=== PATIENT | female | born 1995 | race African-American/Black ===

== ENCOUNTER 2017-01-04 18:28 | Emergency (ER) | payer SELFPAY ==
[~2017-01-04] VITALS: Ht 162.6 cm; Wt 74.0 kg
[2017-01-04 18:29] VITALS: BP 107/68; PULSE 76; RESP 13; TEMP 98.2; O2SAT 98
[2017-01-04] MEDS ORDERED: HUMALOG SQ (18:52)
[2017-01-04] MEDS ORDERED: INSULIN HUMAN NPH 1,000 UNITS/10 ML VIAL SQ ONE (19:15)
--- NOTE | 2017-01-04 19:32 | PD ---
HPI Chief Complaint: Diabetic Time Seen by Provider: 18:59 Travel History International Travel<30 days: No Contact w/Intl Traveler<30days: No Traveled to known affect area: No History of Present Illness HPI 21-year-old female complains of elevated blood sugar. Patient has history of diabetes and has insulin pump. Patient states that she ran out of her Humalog insulin for her insulin pump this afternoon. Patient states that her blood sugar was 483 an hour ago. Patient denies any headache. Patient denies any chest pain or shortness of breath. Patient denies abdominal pain. Patient denies any nausea vomiting diarrhea. Patient denies any fever chills. Patient states that her insurance does not pay for insulin for insulin pump in the state [facility]. [facility] Past Medical History Diabetes: Yes (Type 1) Patient Takes Glucophage: No Diminished Hearing: No Influenza Vaccination: Yes ?: Not LMP: 01/01/17 : 1 Para: 0 Dilation and Curettage (D&C): Yes Social History Alcohol Use: Yes (occasionally) Tobacco Use: No Substance Use: No Allergies-Medications (Allergen,Severity, Reaction): Coded Allergies: No Known Drug Allergies (Verified Allergy, Unknown, 01/04/17) Reported Meds & Prescriptions Reported Meds & Active Scripts Active Reported Humalog Inj (Insulin Human Lispro) 1,000 Unit/10 Ml Vial 2-12 Units SQ PUMP Max dose at bedtime:( )units; sugars < 70,(0)units; sugars 150-199,(2)units; sugars 200-249,(4)units; sugars 250-299,(7)units; sugars 300-349,(10)units; sugars more than 349,(12)units. Review of Systems General / Constitutional: No: Fever Eyes: No: Visual changes HENT: No: Headaches Cardiovascular: No: Chest Pain or Discomfort Respiratory: No: Shortness of Breath Gastrointestinal: No: Abdominal Pain Genitourinary: No: Dysuria Musculoskeletal: No: Pain Skin: No Rash Neurologic: No: Weakness Psychiatric: No: Depression Endocrine: No: Polydipsia Hematologic/Lymphatic: No: Easy Bruising Physical Exam Narrative GENERAL: Well-nourished, well-developed patient. SKIN: Focused skin assessment warm/dry. HEAD: Normocephalic. EYES: No scleral icterus. No injection or drainage. NECK: Supple, trachea midline. No JVD or lymphadenopathy. CARDIOVASCULAR: Regular rate and rhythm without murmurs, gallops, or rubs. RESPIRATORY: Breath sounds equal bilaterally. No accessory muscle use. GASTROINTESTINAL: Abdomen soft, non-tender, nondistended. MUSCULOSKELETAL: No cyanosis, or edema. BACK: Nontender without obvious deformity. No CVA tenderness. Neurologic exam normal. Data Data Last Documented VS Vital Signs Date Time Temp Pulse Resp B/P (MAP) Pulse Ox O2 Delivery O2 Flow Rate FiO2 01/04/17 18:29 98.2 76 13 107/68 (81) 98 Orders Orders Insulin Human Nph Inj (Novolin N Inj) (01/04/17 19:15) Urinalysis - C+S If Indicated (01/04/17 19:13) Insulin Detemir Inj (Levemir Inj) (01/04/17 19:45) Insulin Human Regular Inj (Novolin R Inj (01/04/17 20:00) Urine Culture (01/04/17 19:25) Insulin Human Regular Inj (Novolin R Inj (01/04/17 21:15) Sulfamet-Trimeth Ds 800-160 Mg (Bactrim (01/04/17 21:15) Labs Laboratory Tests Test 01/04/17 19:25 Urine Color LIGHT-YELLOW Urine Turbidity CLEAR Urine pH 6.0 Urine Specific [place] 1.021 Urine Protein NEG mg/dL Urine Glucose (UA) 1000 mg/dL Urine Ketones 10 mg/dL Urine Occult Blood TRACE Urine Nitrite NEG Urine Bilirubin NEG Urine Urobilinogen LESS THAN 2.0 MG/DL Urine Leukocyte Esterase SMALL Urine RBC 2 /hpf Urine WBC 12 /hpf Urine Squamous Epithelial Cells <1 /hpf Microscopic Urinalysis Comment CULTURE INDICATED MDM Medical Decision Making Medical Screen Exam Complete: Yes Emergency Medical Condition: Yes Interpretation(s) Accu-Chek blood sugar in the ED 529. Differential Diagnosis Differential diagnosis including hyperglycemia, DKA. Narrative Course 41-year-old female with hyperglycemia. History of diabetes. Patient ran out of insulin in her insulin pump. Humulin insulin R 10 units subcutaneous given. 21:15 PM. Accu-Chek blood sugar in the 300 range. Humulin insulin R 8 units subcutaneous given. Bactrim DS one tablet by mouth given. Diagnosis Primary Impression: Hyperglycemia Additional Impression: UTI (urinary tract infection) Qualified Codes: N30.00 - Acute cystitis without hematuria Patient Instructions: General Instructions Additional Instructions: Bactrim DS as directed. Accu-Chek blood sugar daily. Follow up local physician. Med/Other Pt SpecificInfo: Prescription(s) given Scripts Sulfamethoxazole-Trimethoprim (Bactrim DS) 800-160 Mg Tab 1 TAB PO BID for Infection, #6 TAB 0 Refills Prov: Javon Paiz MD 01/04/17 Disposition: 01 DISCHARGE HOME Condition: Stable Javon Paiz MD Jan 04, 2017 19:32
[2017-01-04] MEDS ORDERED: INSULIN DETEMIR 100 UNITS/ML VIAL SQ ONE (19:45)
[2017-01-04 19:54] LABS: BLOOD, URINE TRACE (NEG); COMMENT (UR) CULTURE INDICATED; CULTURE IF INDICATED CULTURE INDICATED; GLUCOSE,URINE 1000 mg/dL (NEG); KETONE, URINE 10 mg/dL (NEG); NITRITE,URINE NEG (NEG); SQUAMOUS EPITHELIAL CELL URINE <1 /hpf (0-5); URINE COLOR LIGHT-YELLOW (YELLW/STRAW)
[2017-01-04] MEDS ORDERED: INSULIN HUMAN REGULAR 1,000 UNITS/10 ML VIAL SQ ONE ×2 (20:00→21:15)
[2017-01-04] MEDS ORDERED: SULFAMETHOXAZOLE-TRIMETHOPRIM DS 800-160 MG TAB PO ONE (21:15)
[2017-01-04] MEDS ORDERED: BACT800T5 PO (21:17)
== END 2017-01-04 22:19 | disposition home or self-care (01) ==
LOC: NEPC 18:28
DX: E10.65 Type 1 diabetes mellitus with hyperglycemia (principal); N30.00 Acute cystitis without hematuria; Z79.4 Long term (current) use of insulin; Z96.41 Presence of insulin pump (external) (internal)
CPT/HCPCS: 81001; 87077; 87086; 87186; 96372; 99284; J1815

== ENCOUNTER 2017-01-05 20:50 | Emergency (ER) | payer SELFPAY ==
[~2017-01-05] VITALS: Ht 160 cm; Wt 68.0 kg
[2017-01-05 20:50] VITALS: BP 119/67; PULSE 81; RESP 16; TEMP 97.7; O2SAT 99
[~2017-01-05 20:50] MED LIST: BACT800T5 PO; HUMALOG SQ
--- NOTE | 2017-01-05 22:07 | PD ---
HPI Chief Complaint: Diabetic Time Seen by Provider: 22:00 Travel History International Travel<30 days: No Contact w/Intl Traveler<30days: No Traveled to known affect area: No History of Present Illness HPI Patient is a 21-year-old female insulin-dependent diabetic presents emergency department for evaluation of high blood sugar and nausea. The patient was here recently for similar symptoms and states that the doctor didn't check her for ketones then she is concerned she might have developed DKA. The patient is visiting from out of town on vacation and she ran out of her insulin for insulin pump early. She states her symptoms are fairly mild, for the past few days, gradually worsening context as above. PFSH Past Medical History Diabetes: Yes Diminished Hearing: No : 1 Para: 0 Dilation and Curettage (D&C): Yes Social History Alcohol Use: Yes (occasionally) Tobacco Use: No Substance Use: No Allergies-Medications (Allergen,Severity, Reaction): Coded Allergies: No Known Drug Allergies (Verified Allergy, Unknown, 01/06/17) Reported Meds & Prescriptions Reported Meds & Active Scripts Active Bactrim DS (Sulfamethoxazole-Trimethoprim) 800-160 Mg Tab 1 Tab PO BID Reported Lantus Inj (Insulin Glargine) 1,000 Unit/10 Ml Vial 90 Units SQ HS Humalog Inj (Insulin Human Lispro) 1,000 Unit/10 Ml Vial 2-12 Units SQ PUMP Max dose at bedtime:( )units; sugars < 70,(0)units; sugars 150-199,(2)units; sugars 200-249,(4)units; sugars 250-299,(7)units; sugars 300-349,(10)units; sugars more than 349,(12)units. Review of Systems Except as stated in HPI: all other systems reviewed are Neg Physical Exam Narrative GENERAL: Well-developed well-nourished no obvious distress SKIN: Focused skin assessment warm/dry. HEAD: Atraumatic. Normocephalic. EYES: Pupils equal and round. No scleral icterus. No injection or drainage. ENT: No nasal bleeding or discharge. Mucous membranes pink and moist. NECK: Trachea midline. No JVD. CARDIOVASCULAR: Regular rate and rhythm. No murmur appreciated. RESPIRATORY: No accessory muscle use. Clear to auscultation. Breath sounds equal bilaterally. GASTROINTESTINAL: Abdomen soft, non-tender, nondistended. Hepatic and splenic margins not palpable. MUSCULOSKELETAL: No obvious deformities. No clubbing. No cyanosis. No edema. NEUROLOGICAL: Awake and alert. No obvious cranial nerve deficits. Motor grossly within normal limits. Normal speech. PSYCHIATRIC: Appropriate mood and affect; insight and judgment normal. Data Data Last Documented VS Vital Signs Date Time Temp Pulse Resp B/P (MAP) Pulse Ox O2 Delivery O2 Flow Rate FiO2 01/05/17 22:24 18 99 Room Air 01/05/17 20:50 97.7 81 Orders Orders Complete Blood Count With Diff (01/05/17 22:07) Comprehensive Metabolic Panel (01/05/17 22:07) Magnesium (Mg) (01/05/17 22:07) Phosphorus (Po4) (01/05/17 22:07) Beta Hydroxybutyrate (Acetone) (01/05/17 22:07) Ecg Monitoring (01/05/17 22:07) Iv Access Insert/Monitor (01/05/17 22:07) Oximetry (01/05/17 22:07) NPO (01/05/17 22:07) Sodium Chloride 0.9% Flush (Ns Flush) (01/05/17 22:15) Insulin Human Regular Inj (Novolin R Inj (01/05/17 22:15) Sodium Chlor 0.9% 1000 Ml Inj (Ns 1000 M (01/05/17 22:15) Ed Discharge Order (01/06/17 00:14) Labs Laboratory Tests Test 01/05/17 22:45 01/05/17 23:00 Blood Urea Nitrogen 11 MG/DL Creatinine 0.86 MG/DL Random Glucose 369 MG/DL Total Protein 8.6 GM/DL Albumin 3.9 GM/DL Calcium Level 9.5 MG/DL Phosphorus Level 2.7 MG/DL Magnesium Level 2.0 MG/DL Alkaline Phosphatase 115 U/L Aspartate Amino Transf (AST/SGOT) 16 U/L Alanine Aminotransferase (ALT/SGPT) 19 U/L Total Bilirubin 0.3 MG/DL Sodium Level 130 MEQ/L Potassium Level 4.3 MEQ/L Chloride Level 97 MEQ/L Carbon Dioxide Level 22.3 MEQ/L Anion Gap 11 MEQ/L Estimat Glomerular Filtration Rate 101 ML/MIN B-Hydroxybutyrate 1.20 MMOL/L White Blood Count 7.2 TH/MM3 Red Blood Count 5.69 MIL/MM3 Hemoglobin 15.8 GM/DL Hematocrit 46.4 % Mean Corpuscular Volume 81.5 FL Mean Corpuscular Hemoglobin 27.8 PG Mean Corpuscular Hemoglobin Concent 34.1 % Red Cell Distribution Width 15.2 % Platelet Count 438 TH/MM3 Mean Platelet Volume 7.9 FL Neutrophils (%) (Auto) 47.9 % Lymphocytes (%) (Auto) 41.4 % Monocytes (%) (Auto) 4.1 % Eosinophils (%) (Auto) 5.4 % Basophils (%) (Auto) 1.2 % Neutrophils # (Auto) 3.4 TH/MM3 Lymphocytes # (Auto) 3.0 TH/MM3 Monocytes # (Auto) 0.3 TH/MM3 Eosinophils # (Auto) 0.4 TH/MM3 Basophils # (Auto) 0.1 TH/MM3 CBC Comment DIFF FINAL Differential Comment MDM Medical Decision Making Medical Screen Exam Complete: Yes Emergency Medical Condition: Yes Differential Diagnosis DKA seems unlikely, hyperglycemia, dehydration, , UTI. Narrative Course Patient roomed emergency department, have very low index suspicion based on her clinical presentation that she is in DKA. She has a minimal elevation in her ketones but no acidosis on her BMP. The patient was given normal saline 1 L, 5 units insulin her sugar did drop about 100 points. She appears well and in no distress. Discussed with her need to get her insulin filled and start taking it again. She is urged to follow-up with clinic and go to the pharmacy and get her insulin. She is stable for discharge this time. Discussed return to ED criteria. Diagnosis Primary Impression: Hyperglycemia Additional Instructions: Started using her insulin and insulin pump again venture earliest convenience to avoid becoming in DKA. You're welcome to return to the emergency department should she feel like you're in DKA. Disposition: 01 DISCHARGE HOME Condition: Stable Forest Jones MD Jan 05, 2017 22:07
[2017-01-05] MEDS ORDERED: SODIUM CHLOR 0.9% 1000 ML INJ 1,000 ML IV ONE (22:15)
[2017-01-05] MEDS ORDERED: SODIUM CHLORIDE 0.9% FLUSH 10 ML FLUSH IVF PRN (22:15)
[2017-01-05] MEDS ORDERED: INSULIN HUMAN REGULAR 1,000 UNITS/10 ML VIAL IV PUSH ONE (22:15)
[2017-01-05 22:24] VITALS: RESP 18; O2SAT 99
[2017-01-05 23:15] LABS: ALT (GPT) 19 U/L (10-53)
[2017-01-05 23:18] LABS: AUTOMATED NEUTROPHIL # 3.4 TH/MM3 (1.8-7.7); BASOPHIL # 0.1 TH/MM3 (0-0.2); BASOPHIL % 1.2 % (0.0-2.0); EOSINOPHIL # 0.4 TH/MM3 (0-0.4); EOSINOPHIL % 5.4 % (0.0-4.0); HEMATOCRIT 46.4 % (35.0-46.0); HEMO FLAGS DIFF FINAL; LYMPH % 41.4 % (9.0-44.0); MEAN CELL VOLUME 81.5 FL (80.0-100.0); MEAN CORPUSCULAR HEMOGLOBIN 27.8 PG (27.0-34.0); MEAN CORPUSCULAR HGB CONC 34.1 % (32.0-36.0); MONO % 4.1 % (0.0-8.0); NEUT % 47.9 % (16.0-70.0); PLATELET COUNT 438 TH/MM3 (150-450); RED BLOOD COUNT 5.69 MIL/MM3 (4.00-5.30); RED CELL DISTRIBUTION WIDTH 15.2 % (11.6-17.2); WHITE BLOOD COUNT 7.2 TH/MM3 (4.0-11.0)
[2017-01-05 23:18] LABS: ALKALINE PHOSPHATASE 115 U/L (45-117); TOTAL BILIRUBIN ADULT 0.3 MG/DL (0.2-1.0)
[2017-01-05 23:22] LABS: ANION GAP 11 MEQ/L (5-15); AST (GOT) 16 U/L (15-37); BICARBONATE 22.3 MEQ/L (21.0-32.0); BLOOD UREA NITROGEN 11 MG/DL (7-18); CHLORIDE 97 MEQ/L (98-107); GLOMERULAR FILTRATION RATE 101 ML/MIN (>89); POTASSIUM 4.3 MEQ/L (3.5-5.1); SODIUM (NA) 130 MEQ/L (136-145)
[2017-01-06] MEDS ORDERED: LANTUS2P SQ (18:07)
[2017-01-07] MEDS ORDERED: CEFU1TAB42 PO (13:14)
[2017-01-07] MEDS ORDERED: LANTUS2P SQ (15:30)
== END 2017-01-06 00:30 | disposition home or self-care (01) ==
LOC: NEPD 20:50
DX: E11.65 Type 2 diabetes mellitus with hyperglycemia (principal); R11.0 Nausea; Z79.4 Long term (current) use of insulin
CPT/HCPCS: 80053; 82010; 83735; 84100; 85025; 96374; 99284; J1815; J7030

== ENCOUNTER 2017-01-06 16:37 | Inpatient (IN) | payer MEDICAID ==
[~2017-01-06] VITALS: Ht 160 cm; Wt 71.0 kg
[2017-01-06 16:39] VITALS: BP 108/57; PULSE 102; RESP 18; TEMP 98.7; O2SAT 98
[2017-01-06] MEDS ORDERED: LANTUS2P SQ (18:07)
--- NOTE | 2017-01-06 18:12 | PD ---
HPI Chief Complaint: Diabetic Time Seen by Provider: 17:49 Travel History International Travel<30 days: No Contact w/Intl Traveler<30days: No Traveled to known affect area: No History of Present Illness HPI 21-year-old female came to the emergency room with history of high blood sugar. Patient has history of insulin-dependent diabetes for past 11 years. She has been taking her insulin like she supposed to. However today when she checked her sugar was more than 400 and in triage it was "high"which usually means more than 500. Patient says she was in the emergency room couple days ago and was diagnosed with UTI and discharged home on Bactrim. He says she has been taking Bactrim like she supposed to. She has been nauseous but no vomiting or diarrhea. Strict fever or chills. She has had polyuria and polydipsia. Patient says she has had DKA 2-3 times in the past and usually she is much more sicker than what she is today. Patient was slightly tachycardic in triage. She is awake and answering questions appropriately. [facility] Past Medical History Narrative Medical List of her past medical, surgical, social and family history is reviewed from the nursing note. Diabetes: Yes Patient Takes Glucophage: No Diminished Hearing: No ?: Unknown : 1 Para: 0 Dilation and Curettage (D&C): Yes Social History Alcohol Use: Yes (occasionally) Tobacco Use: No Substance Use: No Allergies-Medications (Allergen,Severity, Reaction): Coded Allergies: No Known Drug Allergies (Verified Allergy, Unknown, 01/06/17) Comments List of her allergies reviewed from the nursing note. Reported Meds & Prescriptions Reported Meds & Active Scripts Active Bactrim DS (Sulfamethoxazole-Trimethoprim) 800-160 Mg Tab 1 Tab PO BID Reported Lantus Inj (Insulin Glargine) 1,000 Unit/10 Ml Vial 90 Units SQ HS Humalog Inj (Insulin Human Lispro) 1,000 Unit/10 Ml Vial 2-12 Units SQ PUMP Max dose at bedtime:( )units; sugars < 70,(0)units; sugars 150-199,(2)units; sugars 200-249,(4)units; sugars 250-299,(7)units; sugars 300-349,(10)units; sugars more than 349,(12)units. Narrative Medication List of her home medications reviewed from the nursing note. Review of Systems Except as stated in HPI: all other systems reviewed are Neg Endocrine: Positive: Polyuria, Polydipsia Physical Exam Narrative GENERAL: Awake, alert, mild distress SKIN: Focused skin assessment warm/dry. HEAD: Atraumatic. Normocephalic. EYES: Pupils equal and round. No scleral icterus. No injection or drainage. ENT: No nasal bleeding or discharge. Dry mucous membrane NECK: Trachea midline. No JVD. CARDIOVASCULAR: Regular rate and rhythm. No murmur appreciated. RESPIRATORY: No accessory muscle use. Clear to auscultation. Breath sounds equal bilaterally. GASTROINTESTINAL: Abdomen soft, non-tender, nondistended. Hepatic and splenic margins not palpable. MUSCULOSKELETAL: No obvious deformities. No clubbing. No cyanosis. No edema. NEUROLOGICAL: Awake and alert. No obvious cranial nerve deficits. Motor grossly within normal limits. Normal speech. PSYCHIATRIC: Appropriate mood and affect; insight and judgment normal. Data Data Last Documented VS Vital Signs Date Time Temp Pulse Resp B/P (MAP) Pulse Ox O2 Delivery O2 Flow Rate FiO2 01/06/17 16:39 98.7 102 18 108/57 (74) 98 Room Air Orders Orders Complete Blood Count With Diff (01/06/17 18:19) Comprehensive Metabolic Panel (01/06/17 18:19) Magnesium (Mg) (01/06/17 18:19) Beta Hydroxybutyrate (Acetone) (01/06/17 18:19) Urinalysis - C+S If Indicated (01/06/17 18:19) Blood Culture (01/06/17 18:19) Blood Gas Venous (Vbg) (01/06/17 18:19) Ecg Monitoring (01/06/17 18:19) Iv Access Insert/Monitor (01/06/17 18:19) Oximetry (01/06/17 18:19) NPO (01/06/17 18:19) Sodium Chloride 0.9% Flush (Ns Flush) (01/06/17 18:30) Sodium Chlor 0.9% 1000 Ml Inj (Ns 1000 M (01/06/17 18:19) Lactic Acid (01/06/17 18:19) Ceftriaxone Inj (Rocephin Inj) (01/06/17 18:30) Insulin Human Regular Inj (Novolin R Inj (01/06/17 18:30) Sodium Chlor 0.9% 1000 Ml Inj (Ns 1000 M (01/06/17 18:45) Labs Laboratory Tests Test 01/06/17 18:15 01/06/17 18:28 Blood Gas Puncture Site CENTRAL LINE Blood Gas Patient Temperature 98.6 Venous Blood pH 7.32 Venous Blood Partial Pressure CO2 32 mmHg Venous Blood Partial Pressure O2 46 mmHg Venous Blood HCO3 16 mmol/L Venous Blood Oxygen Saturation 76 % Venous Blood Oxygen Content 14.4 Vol % Venous Blood Base Excess -8.7 mmol/L Blood Gas Inspired Oxygen 21 % MDM Medical Decision Making Medical Screen Exam Complete: Yes Emergency Medical Condition: Yes Medical Record Reviewed: Yes Differential Diagnosis DKA, urosepsis, dehydration Narrative Course 7:17 PM I have ordered 2 L of IV fluid bolus and 10 units of subcutaneous insulin. I noticed that patient's urine culture from couple days ago was growing Escherichia coli that is resistant to Bactrim. I've given her a dose of IV Rocephin. Case will be signed over to the oncoming ER physician. The pH was 7.31 and bicarbonate of 16.2. Procedures EKG Prior to Arrival: Noreen Shaikh MD Jan 06, 2017 18:12
[2017-01-06] MEDS ORDERED: SODIUM CHLOR 0.9% 1000 ML INJ 1,000 ML IV ONE ×2 (18:19→18:45)
[2017-01-06] MEDS ORDERED: SODIUM CHLORIDE 0.9% FLUSH 10 ML FLUSH IVF PRN (18:30)
[2017-01-06] MEDS ORDERED: INSULIN HUMAN REGULAR 1,000 UNITS/10 ML VIAL SQ ONE (18:30)
[2017-01-06] MEDS ORDERED: cefTRIAXone INJ 1,000 MG in SODIUM CHLORIDE 0.9% INJ 100 ML IV ONE (18:30)
[2017-01-06 18:40] LABS: BLOOD GAS VENOUS BASE EXCESS -8.7 mmol/L (-2-2); BLOOD GAS VENOUS HCO3 16 mmol/L (22-26); BLOOD GAS VENOUS O2 CONTENT 14.4 Vol % (9.0-17.0); BLOOD GAS VENOUS O2 HGB SAT 76 % (70-76); BLOOD GAS VENOUS PCO2 32 mmHg (44-48); BLOOD GAS VENOUS PO2 46 mmHg (35-40); BLOOD GAS VENOUS pH 7.32 (7.360-7.400); TEMP CORR TO 98.6
[2017-01-06 18:41] LABS: CRITICAL VALUE YES; DRAW SITE CENTRAL LINE; FIO2 21 %; STAT YES
[2017-01-06 19:12] LABS: AUTOMATED NEUTROPHIL # 4.5 TH/MM3 (1.8-7.7); BASOPHIL # 0.1 TH/MM3 (0-0.2); BASOPHIL % 0.8 % (0.0-2.0); EOSINOPHIL # 0.3 TH/MM3 (0-0.4); EOSINOPHIL % 3.7 % (0.0-4.0); HEMATOCRIT 40.3 % (35.0-46.0); HEMO FLAGS DIFF FINAL; LYMPH % 28.6 % (9.0-44.0); MEAN CORPUSCULAR HEMOGLOBIN 27.9 PG (27.0-34.0); MEAN CORPUSCULAR HGB CONC 32.8 % (32.0-36.0); MONO % 3.6 % (0.0-8.0); NEUT % 63.3 % (16.0-70.0); PLATELET COUNT 358 TH/MM3 (150-450); RED BLOOD COUNT 4.74 MIL/MM3 (4.00-5.30); RED CELL DISTRIBUTION WIDTH 14.8 % (11.6-17.2); WHITE BLOOD COUNT 7.1 TH/MM3 (4.0-11.0)
[2017-01-06 19:13] LABS: BACTERIA, URINE MANY /hpf; BLOOD, URINE SMALL (NEG); COMMENT (UR) CULTURE INDICATED; CULTURE IF INDICATED CULTURE INDICATED; GLUCOSE,URINE 1000 mg/dL (NEG); KETONE, URINE 80 mg/dL (NEG); NITRITE,URINE POS (NEG); PH, URINE 5.5 (5.0-8.5); URINE COLOR LIGHT-YELLOW (YELLW/STRAW)
--- NOTE | 2017-01-06 19:22 | PD ---
Physical Exam Narrative General: The patient is a well-developed well-nourished female in no acute distress. Head and Neck exam: Neck: No palpable lymphadenopathy. No nuchal rigidity. No thyromegaly. Cardiovascular: Regular rate and rhythm without murmurs, gallops, or rubs. Lungs: Clear to auscultation bilaterally. No wheezes, rhonchi, or rales. Abdomen: Soft, without tenderness to palpation in all 4 quadrants of the abdomen. No guarding, rebound, or rigidity. Normal bowel sounds are audible. No tenderness on palpation of McBurney's point. Negative Franklin's sign. Extremities: No clubbing, cyanosis, or edema. 2+ pulses in all 4 extremities. No calf tenderness on palpation. Back: No costovertebral angle tenderness to palpation. Neurologic Exam: Grossly nonfocal. Skin Exam: No rash noted. Intact skin that is warm and dry. Data Data Last Documented VS Vital Signs Date Time Temp Pulse Resp B/P (MAP) Pulse Ox O2 Delivery O2 Flow Rate FiO2 01/06/17 16:39 98.7 102 18 108/57 (74) 98 Room Air Orders Orders Complete Blood Count With Diff (01/06/17 18:19) Comprehensive Metabolic Panel (01/06/17 18:19) Magnesium (Mg) (01/06/17 18:19) Beta Hydroxybutyrate (Acetone) (01/06/17 18:19) Urinalysis - C+S If Indicated (01/06/17 18:19) Blood Culture (01/06/17 18:19) Blood Gas Venous (Vbg) (01/06/17 18:19) Ecg Monitoring (01/06/17 18:19) Iv Access Insert/Monitor (01/06/17 18:19) Oximetry (01/06/17 18:19) NPO (01/06/17 18:19) Sodium Chloride 0.9% Flush (Ns Flush) (01/06/17 18:30) Sodium Chlor 0.9% 1000 Ml Inj (Ns 1000 M (01/06/17 18:19) Lactic Acid (01/06/17 18:19) Ceftriaxone Inj (Rocephin Inj) (01/06/17 18:30) Insulin Human Regular Inj (Novolin R Inj (01/06/17 18:30) Sodium Chlor 0.9% 1000 Ml Inj (Ns 1000 M (01/06/17 18:45) Urine Culture (01/06/17 18:15) Diet Npo (01/07/17 Breakfast) Sodium Chlor 0.9% 1000 Ml Inj (Ns 1000 M (01/06/17 20:08) Dext 5%-Nacl 0.9% 1000 Ml Inj (D5w-Ns 10 (01/06/17 20:08) Insulin Regular (Iv Infusion) (Novolin R (01/06/17 20:15) Potassium Chlor 40 Meq Premix (Kcl 40 Me (01/06/17 20:15) Potassium Chlor 40 Meq Premix (Kcl 40 Me (01/06/17 20:15) Potassium Chlor 20 Meq Premix (Kcl 20 Me (01/06/17 20:15) Potassium Chlor 20 Meq Premix (Kcl 20 Me (01/06/17 20:15) Potassium Chlor 20 Meq Premix (Kcl 20 Me (01/06/17 20:15) Potassium Chlor 20 Meq Premix (Kcl 20 Me (01/06/17 20:15) Potassium Chlor 20 Meq Premix (Kcl 20 Me (01/06/17 20:15) Potassium Chlor 20 Meq Premix (Kcl 20 Me (01/06/17 20:15) Sodium Bicarbonate 8.4% Inj (Sodium Bica (01/06/17 20:15) Sodium Bicarbonate 8.4% Inj (Sodium Bica (01/06/17 20:15) Sodium Phosphate Inj (Sodium Phosphate I (01/06/17 20:15) Hemoglobin (Hgb) A1c (01/06/17 20:08) Basic Metabolic Panel (Bmp) (01/07/17 01:08) Basic Metabolic Panel (Bmp) (01/07/17 07:08) Basic Metabolic Panel (Bmp) (01/07/17 13:08) Basic Metabolic Panel (Bmp) (01/07/17 19:08) Magnesium (Mg) (01/07/17 01:08) Magnesium (Mg) (01/07/17 07:08) Magnesium (Mg) (01/07/17 13:08) Magnesium (Mg) (01/07/17 19:08) Phosphorus (Po4) (01/07/17 01:08) Phosphorus (Po4) (01/07/17 07:08) Phosphorus (Po4) (01/07/17 13:08) Phosphorus (Po4) (01/07/17 19:08) Beta Hydroxybutyrate (Acetone) (01/07/17 07:08) Beta Hydroxybutyrate (Acetone) (01/07/17 19:08) Admit Order (Ed Use Only) (01/06/17 20:31) Labs Laboratory Tests Test 01/06/17 18:15 01/06/17 18:28 White Blood Count 7.1 TH/MM3 Red Blood Count 4.74 MIL/MM3 Hemoglobin 13.2 GM/DL Hematocrit 40.3 % Mean Corpuscular Volume 85.0 FL Mean Corpuscular Hemoglobin 27.9 PG Mean Corpuscular Hemoglobin Concent 32.8 % Red Cell Distribution Width 14.8 % Platelet Count 358 TH/MM3 Mean Platelet Volume 8.3 FL Neutrophils (%) (Auto) 63.3 % Lymphocytes (%) (Auto) 28.6 % Monocytes (%) (Auto) 3.6 % Eosinophils (%) (Auto) 3.7 % Basophils (%) (Auto) 0.8 % Neutrophils # (Auto) 4.5 TH/MM3 Lymphocytes # (Auto) 2.0 TH/MM3 Monocytes # (Auto) 0.3 TH/MM3 Eosinophils # (Auto) 0.3 TH/MM3 Basophils # (Auto) 0.1 TH/MM3 CBC Comment DIFF FINAL Differential Comment Urine Color LIGHT-YELLOW Urine Turbidity CLEAR Urine pH 5.5 Urine Specific [place] 1.017 Urine Protein NEG mg/dL Urine Glucose (UA) 1000 mg/dL Urine Ketones 80 mg/dL Urine Occult Blood SMALL Urine Nitrite POS Urine Bilirubin NEG Urine Urobilinogen LESS THAN 2.0 MG/DL Urine Leukocyte Esterase NEG Urine RBC LESS THAN 1 /hpf Urine WBC 1 /hpf Urine Bacteria MANY /hpf Microscopic Urinalysis Comment CULTURE INDICATED Blood Urea Nitrogen 17 MG/DL Creatinine 1.22 MG/DL Random Glucose 640 MG/DL Total Protein 7.6 GM/DL Albumin 3.4 GM/DL Calcium Level 8.5 MG/DL Magnesium Level 1.9 MG/DL Alkaline Phosphatase 108 U/L Aspartate Amino Transf (AST/SGOT) 13 U/L Alanine Aminotransferase (ALT/SGPT) 18 U/L Total Bilirubin 0.5 MG/DL Sodium Level 125 MEQ/L Potassium Level 4.9 MEQ/L Chloride Level 93 MEQ/L Carbon Dioxide Level 15.0 MEQ/L Anion Gap 17 MEQ/L Estimat Glomerular Filtration Rate 67 ML/MIN Lactic Acid Level 1.3 mmol/L B-Hydroxybutyrate 5.64 MMOL/L Blood Gas Puncture Site CENTRAL LINE Blood Gas Patient Temperature 98.6 Venous Blood pH 7.32 Venous Blood Partial Pressure CO2 32 mmHg Venous Blood Partial Pressure O2 46 mmHg Venous Blood HCO3 16 mmol/L Venous Blood Oxygen Saturation 76 % Venous Blood Oxygen Content 14.4 Vol % Venous Blood Base Excess -8.7 mmol/L Blood Gas Inspired Oxygen 21 % MDM Medical Record Reviewed: Yes Supervised Visit with MATTY: No Narrative Course During the course of the patients emergency department visit, the patients history, examination, and differential diagnosis were reviewed with the patient. The patient had IV access obtained and blood work sent for analysis. The patient was placed on a manager cardiac with oximetry and blood pressure monitoring. The patient's case was checked out to me by Dr. Damon. Please see her complete history and physical. The patient is a 21-year-old female who recently moved to the area approximate 3 weeks ago with a prior history of insulin-dependent diabetes mellitus. She reports that she's had polyuria, polydipsia, and high blood sugars at home. The patient was last seen on January 04 at this facility and diagnosed with a urinary tract infection. She reports that she is not currently on antibiotic, however according the records the patient was sent home with Bactrim. The patient's urinalysis grew out Escherichia coli that was not sensitive to Bactrim. The patient was initially provided Rocephin 1 g IV, insulin 10 units IV 1, normal saline 2 L IV fluid bolus. The patients laboratory studies were reviewed and remarkable for a CBC that is within normal limits. VBG that shows a pH of 7.32, lactic acid is 1.3., Urinalysis shows 80 ketones, positive nitrite, many bacteria. CMP shows a sodium of 125, chloride 93, CO2 is 15 with an anion gap of 17, creatinine 1.77, glucose 640 this is consistent with a mild DKA, AST is 13, beta hydroxybutyrate is 5.64. The patient was started on an insulin drip for DKA. The patients results were discussed with the patient, including the plan of care. I explained that further testing and/ or monitoring is indicated based on the patients history, examination, and/ or laboratory findings. Therefore, I recommended admission for additional evaluation. The patient expressed understanding and was agreeable with this plan. The patient was admitted to the hospital in guarded condition and sent to a bed under the care of the [facility] service. Physician Communication Physician Communication The patient's case is discussed with Dr. Arango who did agree to admit the patient for further evaluation and treatment at this time. Diagnosis Primary Impression: DKA (diabetic ketoacidoses) Qualified Codes: E10.10 - Type 1 diabetes mellitus with ketoacidosis without coma Additional Impression: Urinary tract infection Qualified Codes: N30.00 - Acute cystitis without hematuria Admitting Information Admitting Physician Requests: Admit Jenni Saha MD Jan 06, 2017 19:22
[2017-01-06 19:57] LABS: ALKALINE PHOSPHATASE 108 U/L (45-117); ALT (GPT) 18 U/L (10-53); ANION GAP 17 MEQ/L (5-15); AST (GOT) 13 U/L (15-37); BETA-HYDROXYBUTYRATE 5.64 MMOL/L (0.00-0.39); BLOOD UREA NITROGEN 17 MG/DL (7-18); CHLORIDE 93 MEQ/L (98-107); GLOMERULAR FILTRATION RATE 67 ML/MIN (>89); MAGNESIUM 1.9 MG/DL (1.5-2.5); POTASSIUM 4.9 MEQ/L (3.5-5.1); SODIUM (NA) 125 MEQ/L (136-145); TOTAL BILIRUBIN ADULT 0.5 MG/DL (0.2-1.0)
[2017-01-06] MEDS ORDERED: DEXT 5%-NACL 0.9% 1000 ML INJ 1,000 ML IV SCH (20:08)
[2017-01-06] MEDS ORDERED: POTASSIUM CHLOR 20 MEQ PREMIX 100 ML IV PRN ×6 (20:15)
[2017-01-06] MEDS ORDERED: POTASSIUM CHLOR 40 MEQ PREMIX 100 ML IV PRN ×2 (20:15)
[2017-01-06] MEDS ORDERED: INSULIN REGULAR (IV INFUSION) 100 UNITS in SODIUM CHLORIDE 0.9% INJ 99 ML IV PRN (20:15)
[2017-01-06] MEDS ORDERED: SODIUM BICARBONATE 8.4% SOLN 50 MEQ/50 ML VIAL IV PUSH PRN ×2 (20:15)
[2017-01-06] MEDS ORDERED: SODIUM PHOSPHATE INJ 15 MMOL in SODIUM CHLORIDE 0.9% INJ 100 ML IV PRN (20:15)
[2017-01-06 20:45] VITALS: BP 129/71; PULSE 87; RESP 22; O2SAT 100
[2017-01-06] MEDS ORDERED: NALOXONE HCL 0.4 MG/ML AMP IV PUSH PRN (20:45)
[2017-01-06] MEDS ORDERED: SODIUM CHLORIDE 0.9% FLUSH 10 ML FLUSH IV FLUSH PRN (20:45)
[2017-01-06] MEDS: SODIUM CHLOR 0.9% 1000 ML INJ 1,000 ML IV SCH ×2 (20:48→21:51)
[2017-01-06] MEDS: SODIUM CHLORIDE 0.9% FLUSH 10 ML FLUSH IV FLUSH SCH (21:00)
[2017-01-06 22:06] LABS: BICARBONATE 15.2 MEQ/L (21.0-32.0); MAGNESIUM 1.9 MG/DL (1.5-2.5); POTASSIUM 4.4 MEQ/L (3.5-5.1)
[2017-01-06] MEDS ORDERED: CHLORHEXIDINE GLUCONATE 2 % 1 PACK (2 CLOTHS) TOP PRN (22:30)
[2017-01-06] MEDS ORDERED: MISCELLANEOUS NURSING INFORMATION XX SCH (22:30)
[2017-01-06] MEDS ORDERED: INSULIN DETEMIR 100 UNITS/ML VIAL SQ SCH (22:45)
[2017-01-07] VITALS: BP 117/70; PULSE 90; RESP 16; TEMP 98.4; O2SAT 100
[2017-01-07] MEDS ORDERED: SODIUM CHLOR 0.9% 1000 ML INJ 1,000 ML IV SCH (01:00)
[2017-01-07 02:00] VITALS: PULSE 77
[2017-01-07 02:45] LABS: BICARBONATE 20.4 MEQ/L (21.0-32.0); POTASSIUM 4.1 MEQ/L (3.5-5.1)
[2017-01-07 03:48] VITALS: O2SAT 96
[2017-01-07 04:00] VITALS: BP 129/78; PULSE 69; PULSE 77; RESP 18; TEMP 98.7; O2SAT 100
[2017-01-07] MEDS ORDERED: CHLORHEXIDINE GLUCONATE 2 % 1 PACK (2 CLOTHS) TOP SCH (04:00)
[2017-01-07 06:00] VITALS: PULSE 65
[2017-01-07] MEDS ORDERED: GLUCAGON 1 MG/ML VIAL OTHER PRN (07:15)
[2017-01-07] MEDS ORDERED: DEXTROSE 50% IN WATER 50 ML VIAL(D50) IV PUSH PRN (07:15)
[2017-01-07 08:00] VITALS: PULSE 67
[2017-01-07] MEDS: INSULIN ASPART SUPPLEMENTAL SCALE SQ SCH ×2 (08:00→12:00)
[2017-01-07] MEDS ORDERED: INFLUENZA VIRUS VACCINE (QUADRIVALENT) 0.5 ML SYR IM ONE (09:00)
[2017-01-07] MEDS: SODIUM CHLORIDE 0.9% FLUSH 10 ML FLUSH IV FLUSH SCH (09:00)
[2017-01-07] MEDS ORDERED: CEFU1TAB42 PO (13:14)
[2017-01-07 13:53] LABS: BETA-HYDROXYBUTYRATE 1.12 MMOL/L (0.00-0.39); MAGNESIUM 2.1 MG/DL (1.5-2.5); POTASSIUM 3.5 MEQ/L (3.5-5.1)
--- NOTE | 2017-01-07 14:37 | HHI.HP ---
[facility] No Primary Care Physician Admission Diagnosis DKA, UTI Diagnoses: Chief Complaint: nausea, abdominal pain Travel History International Travel<30 Days: No Contact w/Intl Traveler <30 Da: No Traveled to Known Affected Are: No History of Present Illness This is a 21-year-old female past medical history of type 1 diabetes who recently moved from [place] and presents complaining of nausea and abdominal pain but no vomiting. The patient states that she actually has presented 3 times to the hospital complaining that she feels sick, nauseous, has had diffuse abdominal pain along with anorexia but denies vomiting. The patient also denies cough, fevers, chills, dysuria, headache, chest pain or shortness of breath. The patient was seen and examined in emergency department and was found to have elevated anion gap, along with beta hydroxybutyrate consistent with DKA. She was started in IV insulin drip and admitted to the intensive care unit. The patient states that she feels 100% better, denies any nausea, denies any vomiting or abdominal pain and states that she is hungry and tolerated diet. Review of Systems As per history of present illness, other systems reviewed by me and negative Past Family Social History Past Medical History Type 1 diabetes Past Surgical History D&C Reported Medications Reported Meds & Active Scripts Active Ceftin (Cefuroxime Axetil) 250 Mg Tab 250 Mg PO BID 7 Days Bactrim DS (Sulfamethoxazole-Trimethoprim) 800-160 Mg Tab 1 Tab PO BID Reported Lantus Inj (Insulin Glargine) 1,000 Unit/10 Ml Vial 90 Units SQ HS Humalog Inj (Insulin Human Lispro) 1,000 Unit/10 Ml Vial 2-12 Units SQ PUMP Max dose at bedtime:( )units; sugars < 70,(0)units; sugars 150-199,(2)units; sugars 200-249,(4)units; sugars 250-299,(7)units; sugars 300-349,(10)units; sugars more than 349,(12)units. Allergies: Coded Allergies: No Known Drug Allergies (Verified Allergy, Unknown, 01/06/17) Active Ordered Medications Current Medications Medications (Trade) Dose Ordered Sig/Angelito Route Start Time Stop Time Status Last Admin (NS Flush) 2 ml UNSCH PRN IVF 01/06/17 18:30 Potassium Chloride 100 ml @ 100 mls/hr Q1H PRN IV 01/06/17 20:15 Potassium Chloride 100 ml @ 50 mls/hr Q2H PRN IV 01/06/17 20:15 Potassium Chloride 100 ml @ 100 mls/hr Q1H PRN IV 01/06/17 20:15 Potassium Chloride 100 ml @ 100 mls/hr Q1H PRN IV 01/06/17 20:15 01/06/17 20:49 Potassium Chloride 100 ml @ 50 mls/hr Q2H PRN IV 01/06/17 20:15 Potassium Chloride 100 ml @ 50 mls/hr Q2H PRN IV 01/06/17 20:15 Potassium Chloride 100 ml @ 50 mls/hr Q2H PRN IV 01/06/17 20:15 Potassium Chloride 100 ml @ 50 mls/hr Q2H PRN IV 01/06/17 20:15 (Sodium Bicarbonate 8.4% Inj) 100 meq UNSCH PRN IV PUSH 01/06/17 20:15 (Sodium Bicarbonate 8.4% Inj) 50 meq UNSCH PRN IV PUSH 01/06/17 20:15 Sodium Phosphate 15 mmol/Sodium Chloride 105 ml @ 25 mls/hr UNSCH PRN IV 01/06/17 20:15 (NS Flush) 2 ml UNSCH PRN IV FLUSH 01/06/17 20:45 (NS Flush) 2 ml BID IV FLUSH 01/06/17 21:00 (Narcan Inj) 0.4 mg UNSCH PRN IV PUSH 01/06/17 20:45 Miscellaneous Information 1 [id number] XX 01/06/17 22:30 01/06/17 22:30 (Chlorhexidine 2% Cloth) 3 pack Taper DAILY@04 TOP 01/07/17 04:00 01/03/18 03:59 01/07/17 04:00 (Chlorhexidine 2% Cloth) 3 pack UNSCH PRN TOP 01/06/17 22:30 Sodium Chloride 1,000 ml @ 84 mls/hr [id number] IV 01/07/17 01:00 01/07/17 01:00 (D50w (Vial) Inj) 50 ml UNSCH PRN IV PUSH 01/07/17 07:15 (Glucagon Inj) 1 mg UNSCH PRN OTHER 01/07/17 07:15 (NovoLOG SUPPLEMENTAL SCALE) 1 ACHS SLIDING SCALE SQ 01/07/17 08:00 Family History Denies family history of diabetes Social History Denies smoking occasional alcohol Denies illicit drug use. The patient states that she has recently moved from [place]. Due to insurance issues, she has her mother send her insulin from there. Physical Exam Vital Signs Vital Signs Date Time Temp Pulse Resp B/P (MAP) Pulse Ox O2 Delivery O2 Flow Rate FiO2 01/07/17 08:00 67 01/07/17 06:00 65 01/07/17 04:00 77 01/07/17 04:00 98.7 69 18 129/78 (95) 100 01/07/17 03:48 96 01/07/17 02:00 77 01/07/17 00:00 90 01/07/17 00:00 98.4 90 16 117/70 (86) 100 01/06/17 21:34 01/06/17 20:45 87 22 129/71 (90) 100 Room Air 01/06/17 16:39 98.7 102 18 108/57 (74) 98 Room Air Physical Exam GENERAL: This is a well-nourished, well-developed patient, in no apparent distress. SKIN: No rashes, ecchymoses or lesions. Cool and dry. HEAD: Atraumatic. Normocephalic. No temporal or scalp tenderness. EYES: Pupils equal round and reactive. Extraocular motions intact. No scleral icterus. No injection or drainage. ENT: Nose without bleeding, purulent drainage or septal hematoma. Throat without erythema, tonsillar hypertrophy or exudate. Uvula midline. Airway patent. NECK: Trachea midline. No JVD or lymphadenopathy. Supple, nontender, no meningeal signs. CARDIOVASCULAR: Regular rate and rhythm without murmurs, gallops, or rubs. RESPIRATORY: Clear to auscultation. Breath sounds equal bilaterally. No wheezes , rales, or rhonchi. GASTROINTESTINAL: Abdomen soft, non-tender, nondistended. No hepato-splenomegaly , or palpable masses. No guarding. MUSCULOSKELETAL: Extremities without clubbing, cyanosis, or edema. No joint tenderness, effusion, or edema noted. No calf tenderness. Negative Homans sign bilaterally. NEUROLOGICAL: Awake and alert. Cranial nerves II through XII intact. Motor and sensory grossly within normal limits. Five out of 5 muscle strength in all muscle groups. Normal speech. Laboratory Laboratory Tests Test 01/06/17 18:15 01/06/17 18:28 01/06/17 20:50 01/06/17 22:10 White Blood Count 7.1 Red Blood Count 4.74 Hemoglobin 13.2 Hematocrit 40.3 Mean Corpuscular Volume 85.0 Mean Corpuscular Hemoglobin 27.9 Mean Corpuscular Hemoglobin Concent 32.8 Red Cell Distribution Width 14.8 Platelet Count 358 Mean Platelet Volume 8.3 Neutrophils (%) (Auto) 63.3 Lymphocytes (%) (Auto) 28.6 Monocytes (%) (Auto) 3.6 Eosinophils (%) (Auto) 3.7 Basophils (%) (Auto) 0.8 Neutrophils # (Auto) 4.5 Lymphocytes # (Auto) 2.0 Monocytes # (Auto) 0.3 Eosinophils # (Auto) 0.3 Basophils # (Auto) 0.1 CBC Comment DIFF FINAL Differential Comment Urine Color LIGHT-YELLOW Urine Turbidity CLEAR Urine pH 5.5 Urine Specific [place] 1.017 Urine Protein NEG Urine Glucose (UA) 1000 Urine Ketones 80 Urine Occult Blood SMALL Urine Nitrite POS Urine Bilirubin NEG Urine Urobilinogen LESS THAN 2.0 Urine Leukocyte Esterase NEG Urine RBC LESS THAN 1 Urine WBC 1 Urine Bacteria MANY Microscopic Urinalysis Comment CULTURE INDICATED Blood Urea Nitrogen 17 17 Creatinine 1.22 1.12 Random Glucose 640 470 Total Protein 7.6 Albumin 3.4 Calcium Level 8.5 8.0 Magnesium Level 1.9 1.9 Alkaline Phosphatase 108 Aspartate Amino Transf (AST/SGOT) 13 Alanine Aminotransferase (ALT/SGPT) 18 Total Bilirubin 0.5 Sodium Level 125 131 Potassium Level 4.9 4.4 Chloride Level 93 102 Carbon Dioxide Level 15.0 15.2 Anion Gap 17 14 Estimat Glomerular Filtration Rate 67 74 Lactic Acid Level 1.3 B-Hydroxybutyrate 5.64 Blood Gas Puncture Site CENTRAL LINE Blood Gas Patient Temperature 98.6 Venous Blood pH 7.32 Venous Blood Partial Pressure CO2 32 Venous Blood Partial Pressure O2 46 Venous Blood HCO3 16 Venous Blood Oxygen Saturation 76 Venous Blood Oxygen Content 14.4 Venous Blood Base Excess -8.7 Blood Gas Inspired Oxygen 21 Phosphorus Level 3.1 Nasal Screen MRSA (PCR) MRSA NOT DETECTED Test 01/07/17 01:29 01/07/17 12:19 Blood Urea Nitrogen 12 7 Creatinine 0.79 0.69 Random Glucose 204 96 Calcium Level 7.8 9.2 Phosphorus Level 2.2 2.7 Magnesium Level 2.0 2.1 Sodium Level 137 134 Potassium Level 4.1 3.5 Chloride Level 107 103 Carbon Dioxide Level 20.4 23.0 Anion Gap 10 8 Estimat Glomerular Filtration Rate 111 130 B-Hydroxybutyrate 1.12 Date/Time Source Procedure Growth Status 01/06/17 18:30 Blood Peripheral Aerobic Blood Culture - Preliminary NO GROWTH IN 1 DAY Resulted 01/06/17 18:30 Blood Peripheral Anaerobic Blood Culture - Preliminary NO GROWTH IN 1 DAY Resulted 01/06/17 18:15 Urine Random Urine Urine Culture - Preliminary Gram Negative Leandro Resulted Result Diagram: 01/06/17 1815 01/07/17 1219 Caprini VTE Risk Assessment Caprini VTE Risk Assessment: No/Low Risk (score <= 1) Caprini Risk Assessment Model Point Value = 1 Point Value = 2 Point Value = 3 Point Value = 5 Age 41-60 Minor surgery BMI > 25 kg/m2 Swollen legs Varicose veins or History of unexplained or recurrent spontaneous Oral contraceptives or hormone replacement Sepsis (< 1 month) Serious lung disease, including pneumonia (< 1 month) Abnormal pulmonary function Acute myocardial infarction Congestive heart failure (< 1 month) History of inflammatory bowel disease Medical patient at bed rest Age 61-74 Arthroscopic surgery Major open surgery (> 45 min) Laparoscopic surgery (> 45 min) Malignancy Confined to bed (> 72 hours) Immobilizing plaster cast Central venous access Age >= 75 History of VTE Family history of VTE Factor V Leiden Prothrombin [id number] Lupus anticoagulant Anticardiolipin antibodies Elevated serum homocysteine Heparin-induced thrombocytopenia Other congenital or acquired thrombophilia Stroke (< 1 month) Elective arthroplasty Hip, pelvis, or leg fracture Acute spinal cord injury (< 1 month) Prophylaxis Regimen Total Risk Factor Score Risk Level Prophylaxis Regimen 0-1 Low Early ambulation 2 Moderate Order ONE of the following: *Sequential Compression Device (SCD) *Heparin 5000 units SQ BID 3-4 Higher Order ONE of the following medications: *Heparin 5000 units SQ TID *Enoxaparin/Lovenox 40 mg SQ daily (WT < 150 kg, CrCl > 30 mL/min) *Enoxaparin/Lovenox 30 mg SQ daily (WT < 150 kg, CrCl > 10-29 mL/min) *Enoxaparin/Lovenox 30 mg SQ BID (WT < 150 kg, CrCl > 30 mL/min) AND/OR *Sequential Compression Device (SCD) 5 or more Highest Order ONE of the following medications: *Heparin 5000 units SQ TID (Preferred with Epidurals) *Enoxaparin/Lovenox 40 mg SQ daily (WT < 150 kg, CrCl > 30 mL/min) *Enoxaparin/Lovenox 30 mg SQ daily (WT < 150 kg, CrCl > 10-29 mL/min) *Enoxaparin/Lovenox 30 mg SQ BID (WT < 150 kg, CrCl > 30 mL/min) AND *Sequential Compression Device (SCD) Assessment and Plan Problem List: (1) DKA (diabetic ketoacidoses) ICD Code: E13.10 - Other specified diabetes mellitus with ketoacidosis without coma Status: Acute (2) Urinary tract infection ICD Code: N39.0 - Urinary tract infection, site not specified Status: Acute Assessment and Plan The patient was admitted to intensive care unit, treated with IV insulin as per the insulin protocol Labs monitored, including BMP and beta hydroxybutyrate which trended down. Ida closed and patient is tolerating diet. Patient also started on IV Rocephin for UTI which is likely the cause on why the patient went into DKA. Will discharge the patient home on oral Ceftin. manager of medical to provide list of available primary care providers in the area. DVt prophylaxis provided with SCD's. Code Status Full code Discussed Condition With Patient, RN Physician Certification 2 Midnight Certification Type: Admission for Inpatient Services Order for Inpatient Services The services are ordered in accordance with Medicare regulations or non- Medicare payer requirements, as applicable. In the case of services not specified as inpatient-only, they are appropriately provided as inpatient services in accordance with the 2-midnight benchmark. Estimated LOS (days): 2 days is the estimated time the patient will need to remain in the hospital, assuming treatment plan goals are met and no additional complications. Post-Hospital Plan: Home Problem Qualifiers (1) DKA (diabetic ketoacidoses): Qualified Codes: E10.10 - Type 1 diabetes mellitus with ketoacidosis without coma (2) Urinary tract infection: Qualified Codes: N30.00 - Acute cystitis without hematuria Les Cuba MD Jan 07, 2017 14:37
[2017-01-07] MEDS ORDERED: LANTUS2P SQ (15:30)
[2017-01-07 16:33] LABS: HEMOGLOBIN A1a 1.3 %; HEMOGLOBIN A1b 0.9 %; HEMOGLOBIN Ao 48.6 %; HEMOGLOBIN F 2.3 %; HEMOGLOBIN LA1C 3.1 %; HEMOGLOBIN P3 3.7 %
== END 2017-01-07 15:40 | disposition home or self-care (01) | DRG 638 ==
LOC: NEPC 16:37 → NEDA 20:32 → HIMN 22:00
PROVIDERS: ADMIT Hospitalist; ATTEND Hospitalist
DX: E10.10 Type 1 diabetes mellitus with ketoacidosis without coma (principal); N39.0 Urinary tract infection, site not specified; R00.0 Tachycardia, unspecified; Z79.4 Long term (current) use of insulin
CPT/HCPCS: 80048; 80053; 81001; 82010; 82805; 82948; 83036; 83605; 83735; 84100; 85025; 87040; 87077; 87086; 87186; 87641; 96365; 96372; J0696; J1815; J1817; J3480; J7030; J7042

== ENCOUNTER 2017-03-05 14:54 | Emergency (ER) | payer MEDICAID ==
[~2017-03-05 14:54] MED LIST changes: -BACT800T5 PO; +CEFU1TAB18 PO; -HUMALOG SQ; +LANTUS2P SQ
[2017-03-05 14:55] VITALS: BP 136/82; PULSE 106; RESP 16; TEMP 98; O2SAT 99
[2017-03-05] MEDS ORDERED: ONDANSETRON HCL 4 MG/2 ML VIAL IV PUSH ONE (15:15)
[2017-03-05] MEDS ORDERED: SODIUM CHLORIDE 0.9% FLUSH 10 ML FLUSH IV FLUSH PRN (15:15)
--- NOTE | 2017-03-05 15:26 | PD ---
HPI Chief Complaint: Diabetic Time Seen by Provider: 15:07 Travel History International Travel<30 days: No Contact w/Intl Traveler<30days: No Traveled to known affect area: No History of Present Illness HPI 21-year-old female presents to the emergency department concerned she is in DKA. Patient states she has been having her blood sugars run high for the past week despite taking her Humalog insulin. The patient reports suprapubic abdominal pain, polydipsia, polyuria. Patient presents history of UTIs. No radiation of pain. Patient is type I diabetic. She has no other medical problems and takes no other medications. Patient denies any abnormal vaginal discharge, risk of STDs. Patient denies any chance of . She complains of chills, nausea, vomiting. She reports 2 episodes of vomiting today. Moderate severity. No exacerbating or alleviating factors. PFSH Past Medical History Cancer: No Cardiovascular Problems: No Diabetes: Yes (11 years) Diminished Hearing: No Genitourinary: No Musculoskeletal: No Neurologic: No Psychiatric: No Reproductive: No Respiratory: No ?: Unknown LMP: Due to start : 1 Para: 0 Dilation and Curettage (D&C): Yes Past Surgical History Abdominal Surgery: No AICD: No Arteriovenous Shunt: No Cardiac Surgery: No Ear Surgery: No Endocrine Surgery: No Eye Surgery: No Genitourinary Surgery: No Gynecologic Surgery: No Insulin Pump: Yes (not activated) Joint Replacement: No Oral Surgery: No Pacemaker: No Thoracic Surgery: No Social History Alcohol Use: Yes (occasionally) Tobacco Use: No Substance Use: No Allergies-Medications (Allergen,Severity, Reaction): Coded Allergies: No Known Drug Allergies (Verified Allergy, Unknown, 01/06/17) Reported Meds & Prescriptions Reported Meds & Active Scripts Active Lantus Inj (Insulin Glargine) 1,000 Unit/10 Ml Vial 30 Units SQ HS Ceftin (Cefuroxime Axetil) 250 Mg Tab 250 Mg PO BID 7 Days Review of Systems Except as stated in HPI: all other systems reviewed are Neg Physical Exam Narrative GENERAL: Well-nourished, well-developed female patient, ambulatory. Afebrile. SKIN: Focused skin assessment warm/dry. HEAD: Normocephalic. Atraumatic. EYES: No scleral icterus. No injection or drainage. NECK: Supple, trachea midline. No JVD or lymphadenopathy. CARDIOVASCULAR: Regular rate and rhythm without murmurs, gallops, or rubs. Bilateral radial and pedal pulses are 2+. RESPIRATORY: Breath sounds equal bilaterally. No accessory muscle use. Lungs sounds are clear to auscultation. GASTROINTESTINAL: Abdomen soft, non-tender, nondistended. No abdominal tenderness to palpation. MUSCULOSKELETAL: No cyanosis, or edema. BACK: Nontender without obvious deformity. No CVA tenderness. Data Data Last Documented VS Vital Signs Date Time Temp Pulse Resp B/P (MAP) Pulse Ox O2 Delivery O2 Flow Rate FiO2 03/05/17 15:50 86 18 125/58 (80) 98 Room Air 03/05/17 14:55 98.0 Orders Orders Lipase (03/05/17 15:12) Complete Blood Count With Diff (03/05/17 15:12) Comprehensive Metabolic Panel (03/05/17 15:12) Magnesium (Mg) (03/05/17 15:12) Beta Hydroxybutyrate (Acetone) (03/05/17 15:12) Sodium Chlor 0.9% 1000 Ml Inj (Ns 1000 M (03/05/17 15:12) Urinalysis - C+S If Indicated (03/05/17 15:12) Blood Gas Venous (Vbg) (03/05/17 15:12) Ondansetron Inj (Zofran Inj) (03/05/17 15:15) Iv Access Insert/Monitor (03/05/17 15:12) Ecg Monitoring (03/05/17 15:12) Oximetry (03/05/17 15:12) Sodium Chloride 0.9% Flush (Ns Flush) (03/05/17 15:15) Electrocardiogram (03/05/17 15:12) Ed Urine Pregnancytest Poc (03/05/17 15:12) Dextrose 50% In Frances (Syr) Inj (D50w (Syr (03/05/17 16:09) Dextrose 50% In Frances (Vial) Inj (D50w (Vi (03/05/17 16:30) Diet Diabetic (03/05/17 Dinner) Blood Glucose (03/05/17 17:24) Blood Glucose (03/05/17 18:41) Labs Laboratory Tests Test 03/05/17 15:50 03/05/17 16:15 03/05/17 16:40 White Blood Count 7.5 TH/MM3 Red Blood Count 4.73 MIL/MM3 Hemoglobin 13.3 GM/DL Hematocrit 40.5 % Mean Corpuscular Volume 85.6 FL Mean Corpuscular Hemoglobin 28.2 PG Mean Corpuscular Hemoglobin Concent 33.0 % Red Cell Distribution Width 14.6 % Platelet Count 446 TH/MM3 Mean Platelet Volume 7.4 FL Neutrophils (%) (Auto) 61.0 % Lymphocytes (%) (Auto) 28.1 % Monocytes (%) (Auto) 7.3 % Eosinophils (%) (Auto) 3.0 % Basophils (%) (Auto) 0.6 % Neutrophils # (Auto) 4.5 TH/MM3 Lymphocytes # (Auto) 2.1 TH/MM3 Monocytes # (Auto) 0.5 TH/MM3 Eosinophils # (Auto) 0.2 TH/MM3 Basophils # (Auto) 0.0 TH/MM3 CBC Comment DIFF FINAL Differential Comment Blood Urea Nitrogen 4 MG/DL Creatinine 0.58 MG/DL Random Glucose 22 MG/DL Total Protein 8.2 GM/DL Albumin 3.9 GM/DL Calcium Level 9.0 MG/DL Magnesium Level 1.9 MG/DL Alkaline Phosphatase 70 U/L Aspartate Amino Transf (AST/SGOT) 24 U/L Alanine Aminotransferase (ALT/SGPT) 16 U/L Total Bilirubin 0.4 MG/DL Sodium Level 140 MEQ/L Potassium Level 3.8 MEQ/L Chloride Level 109 MEQ/L Carbon Dioxide Level 22.3 MEQ/L Anion Gap 9 MEQ/L Estimat Glomerular Filtration Rate 159 ML/MIN Lipase 46 U/L B-Hydroxybutyrate 0.25 MMOL/L Blood Gas Puncture Site DRAWN BY RN Blood Gas Patient Temperature 98.6 Venous Blood pH 7.35 Venous Blood Partial Pressure CO2 46 mmHg Venous Blood Partial Pressure O2 26 mmHg Venous Blood HCO3 25 mmol/L Venous Blood Oxygen Saturation 41 % Venous Blood Oxygen Content 7.8 Vol % Venous Blood Base Excess -0.3 mmol/L Oxygen Delivery Device ROOM AIR Blood Gas Inspired Oxygen 21 % Urine Color LIGHT-YELLOW Urine Turbidity CLEAR Urine pH 6.5 Urine Specific [place] 1.006 Urine Protein NEG mg/dL Urine Glucose (UA) 300 mg/dL Urine Ketones NEG mg/dL Urine Occult Blood NEG Urine Nitrite NEG Urine Bilirubin NEG Urine Urobilinogen LESS THAN 2.0 MG/DL Urine Leukocyte Esterase NEG Urine WBC LESS THAN 1 /hpf Urine Squamous Epithelial Cells 1 /hpf Urine Mucus FEW /lpf Microscopic Urinalysis Comment CULT NOT INDICATED MDM Medical Decision Making Medical Screen Exam Complete: Yes Emergency Medical Condition: Yes Medical Record Reviewed: Yes Differential Diagnosis DKA versus hyperglycemia versus electrolyte abnormality versus UTI Narrative Course 21-year-old female presents to the emergency department for evaluation of blood sugars running high, nausea, vomiting, suprapubic tenderness, polydipsia, polyuria. Abdominal exam is benign. EKG, CBC, CMP, magnesium, beta hydroxybutyrate, VBG, UA, ED urine test, lipase are ordered and pending. Patient is given Zofran 4 mg IVP. Bedside glucose by RN is 26. Patient is given 1 amp of D50, food. EKG shows SR, HR 88, no acute ST changes. CBC is unremarkable. CMP shows hypoglyemia of 22. Magnesium is 1.9. Lipase is 46. Beta hydroxybutyrate is 0.25. UA is negative for infection. UPT is negative. VBG shows PH of 7.35, bicarb of 25. Blood glucose recheck is 145. Recheck at 1749 is 130. Glucose at 1845 is 125. Upon recheck, patient states she feels much better. She is tolerating food. She has no complaints. Patient will be discharged home to monitor her blood glucose closely. She verbalizes agreement. She is return here for any acute worsening of symptoms. Diagnosis Primary Impression: Hypoglycemia Referrals: Primary Care Physician call for appointment Patient Instructions: General Instructions, Hypoglycemia in a Person with Diabetes (ED) Additional Instructions: Take Zofran as directed as needed for nausea/vomiting. Monitor blood glucose closely. Follow-up with your primary care physician. Return to the emergency department for any acute worsening of symptoms. Med/Other Pt SpecificInfo: Prescription(s) given Scripts Ondansetron Odt (Ondansetron Odt) 4 Mg Tab 4 MG SL Q6HR Y for Nausea/Vomiting, #16 TAB 0 Refills Prov: Leighann Marvin 03/05/17 Disposition: 01 DISCHARGE HOME Condition: Stable Leighann Marvin Mar 05, 2017 15:26
[2017-03-05 15:50] VITALS: BP 125/58; PULSE 86; RESP 18; O2SAT 98
[2017-03-05] MEDS ORDERED: DEXTROSE 50% IN WATER 50 ML SYRINGE ONE (16:09)
[2017-03-05 16:17] LABS: AUTOMATED NEUTROPHIL # 4.5 TH/MM3 (1.8-7.7); BASOPHIL % 0.6 % (0.0-2.0); EOSINOPHIL # 0.2 TH/MM3 (0-0.4); HEMATOCRIT 40.5 % (35.0-46.0); HEMO FLAGS DIFF FINAL; LYMPH % 28.1 % (9.0-44.0); LYMPHOCYTE # 2.1 TH/MM3 (1.0-4.8); MEAN CELL VOLUME 85.6 FL (80.0-100.0); MEAN CORPUSCULAR HEMOGLOBIN 28.2 PG (27.0-34.0); MONO % 7.3 % (0.0-8.0); PLATELET COUNT 446 TH/MM3 (150-450); RED BLOOD COUNT 4.73 MIL/MM3 (4.00-5.30); RED CELL DISTRIBUTION WIDTH 14.6 % (11.6-17.2); WHITE BLOOD COUNT 7.5 TH/MM3 (4.0-11.0)
[2017-03-05 16:27] LABS: BLOOD GAS VENOUS BASE EXCESS -0.3 mmol/L (-2-2); BLOOD GAS VENOUS HCO3 25 mmol/L (22-26); BLOOD GAS VENOUS O2 CONTENT 7.8 Vol % (9.0-17.0); BLOOD GAS VENOUS O2 HGB SAT 41 % (70-76); BLOOD GAS VENOUS PCO2 46 mmHg (44-48); BLOOD GAS VENOUS PO2 26 mmHg (35-40); BLOOD GAS VENOUS pH 7.35 (7.360-7.400); CRITICAL VALUE YES; FIO2 21 %; OXYGEN DEVICE ROOM AIR; STAT YES; TEMP CORR TO 98.6
[2017-03-05] MEDS ORDERED: DEXTROSE 50% IN WATER 50 ML VIAL(D50) IV PUSH ONE (16:30)
[2017-03-05] MEDS: SODIUM CHLOR 0.9% 1000 ML INJ 1,000 ML IV SCH ×2 (16:55→18:33)
[2017-03-05 17:11] LABS: ALKALINE PHOSPHATASE 70 U/L (45-117); ALT (GPT) 16 U/L (10-53); ANION GAP 9 MEQ/L (5-15); AST (GOT) 24 U/L (15-37); BETA-HYDROXYBUTYRATE 0.25 MMOL/L (0.00-0.39); BICARBONATE 22.3 MEQ/L (21.0-32.0); BLOOD UREA NITROGEN 4 MG/DL (7-18); CHLORIDE 109 MEQ/L (98-107); GLOMERULAR FILTRATION RATE 159 ML/MIN (>89); MAGNESIUM 1.9 MG/DL (1.5-2.5); SODIUM (NA) 140 MEQ/L (136-145); TOTAL BILIRUBIN ADULT 0.4 MG/DL (0.2-1.0)
[2017-03-05 17:12] LABS: POTASSIUM 3.8 MEQ/L (3.5-5.1)
[2017-03-05 18:32] LABS: BLOOD, URINE NEG (NEG); COMMENT (UR) CULT NOT INDICATED; CULTURE IF INDICATED CULT NOT INDICATED; GLUCOSE,URINE 300 mg/dL (NEG); KETONE, URINE NEG (NEG); MUCUS URINE FEW /lpf (OCC); NITRITE,URINE NEG (NEG); PH, URINE 6.5 (5.0-8.5); SQUAMOUS EPITHELIAL CELL URINE 1 /hpf (0-5); URINE COLOR LIGHT-YELLOW (YELLW/STRAW)
[2017-03-05] MEDS ORDERED: ONDA4TAB7 SL (18:49)
[2017-03-05 19:25] VITALS: BP 117/64
--- NOTE | 2017-03-06 13:40 | EKG ---
Date Performed: 03/05/2017 Time Performed: 15:57:46 PTAGE: 21 years EKG: Sinus rhythm NORMAL ECG NO PREVIOUS TRACING DOCTOR: Maria Eugenia Teran Interpretating Date/Time 03/06/2017 13:40:29
== END 2017-03-05 19:26 | disposition home or self-care (01) ==
LOC: NEPE 14:54
DX: E11.649 Type 2 diabetes mellitus with hypoglycemia without coma (principal); Z79.4 Long term (current) use of insulin; Z79.899 Other long term (current) drug therapy
CPT/HCPCS: 80053; 81001; 82010; 82805; 83690; 83735; 84703; 85025; 93005; 96361; 96374; 96375; 99284; J2405; J7030

== ENCOUNTER 2017-03-07 16:45 | Inpatient (IN) | payer OTHER, BC ==
[~2017-03-07] VITALS: Ht 157.5 cm; Wt 61.0 kg
[~2017-03-07 16:45] MED LIST changes: +ONDA4TAB7 SL
[2017-03-07] MEDS ORDERED: ETOMIDATE 20 MG/10 ML VIAL ONE (16:53)
[2017-03-07] MEDS ORDERED: ROCURONIUM INJ 50 MG/5 ML VIAL ONE (16:54)
[2017-03-07] MEDS ORDERED: PROPOFOL 1000 MG/100 ML INJ 100 ML ONE (17:06)
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
[2017-03-07 17:28] LABS: AUTOMATED NEUTROPHIL # 14.2 TH/MM3 (1.8-7.7); BASOPHIL # 0.1 TH/MM3 (0-0.2); BASOPHIL % 0.3 % (0.0-2.0); EOSINOPHIL # 0.1 TH/MM3 (0-0.4); EOSINOPHIL % 0.7 % (0.0-4.0); HEMATOCRIT 37.8 % (35.0-46.0); HEMOGLOBIN 12.7 GM/DL (11.6-15.3); LYMPH % 20.9 % (9.0-44.0); LYMPHOCYTE # 3.9 TH/MM3 (1.0-4.8); MEAN CELL VOLUME 87.2 FL (80.0-100.0); MEAN CORPUSCULAR HEMOGLOBIN 29.3 PG (27.0-34.0); MEAN CORPUSCULAR HGB CONC 33.6 % (32.0-36.0); MEAN PLATELET VOLUME 7.4 FL (7.0-11.0); MONO % 1.4 % (0.0-8.0); MONOCYTE # 0.3 TH/MM3 (0-0.9); NEUT % 76.7 % (16.0-70.0); PLATELET COUNT 371 TH/MM3 (150-450); RED BLOOD COUNT 4.34 MIL/MM3 (4.00-5.30); RED CELL DISTRIBUTION WIDTH 15.1 % (11.6-17.2); WHITE BLOOD COUNT 18.6 TH/MM3 (4.0-11.0)
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
[2017-03-07] MEDS ORDERED: ROCURONIUM INJ 50 MG/5 ML VIAL IV ONE (17:30)
[2017-03-07] MEDS ORDERED: MORPHINE SULFATE 2 MG/ML INJ IM ONE (17:30)
[2017-03-07] MEDS ORDERED: ETOMIDATE 20 MG/10 ML VIAL IV PUSH ONE (17:30)
[2017-03-07] MEDS ORDERED: GENTAMICIN 80 MG PREMIX 100 ML IV ONE (17:30)
[2017-03-07] MEDS ORDERED: TETANUS/DIPHTHERIA TOXOID ADULT 0.5 ML VIAL IM ONE (17:30)
[2017-03-07] MEDS ORDERED: MIDAZOLAM HCL 5 MG/ML VIAL (1 ML) IM ONE (17:30)
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
[2017-03-07 17:41] LABS: INTERNATIONAL NORMALIZED RATIO 1.1 RATIO; PROTHROMBIN TIME - PATIENT 11.4 SEC (9.8-11.6)
[2017-03-07] MEDS ORDERED: IOHEXOL 350 MG/ML 10 ML VIAL (for RAD DIAG) IVCONTRAST ONE (17:41)
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
[2017-03-07] MEDS ORDERED: SODIUM CHLOR 0.9% 1000 ML INJ 1,000 ML IV ONE (17:45)
[2017-03-07] MEDS ORDERED: ceFAZolin 2 GM PREMIX 50 ML IV STA (17:48)
[2017-03-07] MEDS ORDERED: DIPHTH/TETANUS/ACEL PERTUSSIS (BOOSTER) 0.5 ML VIAL/PFS IM ONE (17:48)
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
[2017-03-07] MEDS: PROPOFOL 1000 MG/100 ML INJ 100 ML IV PRN ×2 (18:00→20:46)
[2017-03-07] MEDS ORDERED: fentaNYL DRIP 250 ML IV PRN ×2 (18:00→18:30)
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
[2017-03-07 18:28] VITALS: O2SAT 100
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
[2017-03-07] MEDS ORDERED: MAGNESIUM SULFATE INJ 4 GM in SODIUM CHLORIDE 0.9% INJ 92 ML IV PRN (19:45)
[2017-03-07] MEDS ORDERED: POTASSIUM PHOSPHATE MONOBASIC 500 MG TAB PO PRN (19:45)
[2017-03-07] MEDS ORDERED: SODIUM PHOSPHATE INJ 30 MMOL in SODIUM CHLOR 0.9% 250 ML INJ 240 ML IV PRN (19:45)
[2017-03-07] MEDS ORDERED: POTASSIUM CHLORIDE 25 MEQ EFFERVESCENT TAB PO PRN (19:45)
[2017-03-07] MEDS ORDERED: POTASSIUM CHLOR 20 MEQ PREMIX 100 ML IV PRN ×2 (19:45)
[2017-03-07] MEDS ORDERED: MAGNESIUM SULFATE INJ 2 GM in SODIUM CHLORIDE 0.9% INJ 96 ML IV PRN (19:45)
[2017-03-07] MEDS ORDERED: POTASSIUM PHOSPHATE MONOBASIC 500 MG TAB PO/TUBE PRN (19:45)
[2017-03-07] MEDS ORDERED: MAGNESIUM OXIDE 400 MG TAB PO PRN (19:45)
[2017-03-07] MEDS ORDERED: POTASSIUM PHOSPHATE INJ 30 MMOL in SODIUM CHLOR 0.9% 250 ML INJ 250 ML IV PRN (19:45)
[2017-03-07 20:00] VITALS: BP 159/104; PULSE 122; RESP 18; TEMP 97.3; O2SAT 100
[2017-03-07] MEDS ORDERED: CHLORHEXIDINE 0.12% (ORAL KIT) 15 ML CUP MT SCH (20:00)
[2017-03-07] MEDS: DEXT 5%-NACL 0.9% 1000 ML INJ 1,000 ML IV SCH (20:15)
[2017-03-07] MEDS: CHLORHEXIDINE 0.12% (ORAL KIT) 15 ML CUP MT SCH (20:15)
[2017-03-07] MEDS: fentaNYL 2,500 MCG/NS 250 ML IV PRN (20:16)
[2017-03-07 21:04] LABS: HEMATOCRIT 34.4 % (35.0-46.0); HEMOGLOBIN 11.2 GM/DL (11.6-15.3)
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
--- NOTE | 2017-03-07 21:40 | MG ---
cc: MICAH DELGADO MD Lab No: Date: 03/07/17 Age: Sex: F Race: REFERRING PHYSICIAN Dr. Von Caba stat EEG was obtained on this Von Rossi patient intubated on Diprivan and fentanyl. The patient is trying to get up and restless during the procedure. The EEG is showing a somewhat poorly reactive alpha, theta and beta rhythms diffusely. The activity on the left might be slightly more abnormal than right because of some theta and delta rhythms. Most importantly, there is no ictal or epileptiform activity. Photic stimulation disclosed no change. INTERPRETATION Abnormal EEG because of continuous slowing diffusely, questionably left worse than right. No epileptiform discharge, therefore, no ictal pattern. Possible left hemisphere slowing. Clinical correlation, imaging correlation. Micah Delgado MD [facility] /8:43 PM /9:33 PM
[2017-03-07 22:00] VITALS: PULSE 116
[2017-03-08] VITALS (20 sets, daily range): BP systolic 97–155; BP diastolic 57–99; PULSE 79–142; RESP 14–18; TEMP 96.6–99.7; O2SAT 100
[2017-03-08 00:10] LABS: HEMATOCRIT 33.5 % (35.0-46.0); HEMOGLOBIN 11.2 GM/DL (11.6-15.3)
[2017-03-08] MEDS: PROPOFOL 1000 MG/100 ML INJ 100 ML IV PRN ×5 (00:25→22:03)
[2017-03-08] MEDS: DEXT 5%-NACL 0.9% 1000 ML INJ 1,000 ML IV SCH ×2 (04:59→16:00)
[2017-03-08] MEDS: fentaNYL 2,500 MCG/NS 250 ML IV PRN ×2 (04:59→18:11)
[2017-03-08 05:28] LABS: HEMOGLOBIN 10.2 GM/DL (11.6-15.3)
[2017-03-08] MEDS ORDERED: RESP: ALBUTEROL 2.5 MG/IPRATROPIUM 0.5 MG NEB (PRN) NEB (07:15)
[2017-03-08] MEDS ORDERED: GLUCAGON 1 MG/ML VIAL OTHER PRN (07:15)
[2017-03-08] MEDS ORDERED: DEXTROSE 50% IN WATER 50 ML VIAL(D50) IV PUSH PRN (07:15)
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
[2017-03-08] MEDS: CHLORHEXIDINE 0.12% (ORAL KIT) 15 ML CUP MT SCH ×2 (08:00→19:43)
[2017-03-08 08:36] LABS: AUTOMATED NEUTROPHIL # 7.5 TH/MM3 (1.8-7.7); BASOPHIL % 0.2 % (0.0-2.0); EOSINOPHIL # 0.1 TH/MM3 (0-0.4); EOSINOPHIL % 1.1 % (0.0-4.0); HEMATOCRIT 29.9 % (35.0-46.0); HEMOGLOBIN 9.8 GM/DL (11.6-15.3); LYMPH % 17.5 % (9.0-44.0); LYMPHOCYTE # 1.7 TH/MM3 (1.0-4.8); MEAN CELL VOLUME 85.8 FL (80.0-100.0); MEAN CORPUSCULAR HEMOGLOBIN 28.2 PG (27.0-34.0); MEAN CORPUSCULAR HGB CONC 32.8 % (32.0-36.0); MEAN PLATELET VOLUME 7.1 FL (7.0-11.0); MONO % 6.3 % (0.0-8.0); MONOCYTE # 0.6 TH/MM3 (0-0.9); NEUT % 74.9 % (16.0-70.0); PLATELET COUNT 266 TH/MM3 (150-450); RED BLOOD COUNT 3.48 MIL/MM3 (4.00-5.30); RED CELL DISTRIBUTION WIDTH 14.8 % (11.6-17.2)
--- NOTE | 2017-03-08 08:39 | RADRPT ---
EXAM DATE/TIME: 03/08/2017 08:15 [place] COMPARISON: CHEST SINGLE AP, March 07, 2017, 16:46. INDICATIONS : Evaluate for aspiration. MEDICAL HISTORY : None. SURGICAL HISTORY : None. ENCOUNTER: Subsequent ACUITY: 2 days PAIN SCORE: Non-responsive. LOCATION: chest FINDINGS: The heart is stable. Mild pulmonary vascular congestion is noted. Multiple right rib fractures are ag ain noted. No pneumothorax is noted. An endotracheal tube has its tip approximately a centimeters abo ve the cora. A nasogastric is coiled in the stomach. CONCLUSION: 1. Mild pulmonary vascular congestion bilaterally. 2. No focal pulmonary infiltrate. Forest Alexandre MD on March 08, 2017 at 8:34 Board Certified Radiologist. This report was verified electronically.
[2017-03-08 08:58] LABS: ALBUMIN 2.7 GM/DL (3.4-5.0); AST (GOT) 545 U/L (15-37); BICARBONATE 23.3 MEQ/L (21.0-32.0); BLOOD UREA NITROGEN 7 MG/DL (7-18); CALCIUM 7.5 MG/DL (8.5-10.1); CHLORIDE 112 MEQ/L (98-107); CREATININE 1.02 MG/DL (0.50-1.00); GLOMERULAR FILTRATION RATE 47 ML/MIN (>89); GLUCOSE,RANDOM 278 MG/DL (74-106); SODIUM (NA) 143 MEQ/L (136-145)
[2017-03-08 08:59] LABS: ALT (GPT) 343 U/L (10-53)
[2017-03-08 09:01] LABS: ALKALINE PHOSPHATASE 65 U/L (45-117); TOTAL BILIRUBIN ADULT 0.3 MG/DL (0.2-1.0); TOTAL PROTEIN 5.8 GM/DL (6.4-8.2)
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
[2017-03-08] MEDS: RESP: ALBUTEROL 2.5 MG/IPRATROPIUM 0.5 MG NEB (SCH) NEB ×3 (09:43→20:02)
[2017-03-08] MEDS: SODIUM CHLOR 0.9% 1000 ML INJ 1,000 ML IV SCH ×2 (09:45→17:30)
[2017-03-08] MEDS ORDERED: SODIUM CHLOR 0.9% 1000 ML INJ 1,000 ML IV ONE ×3 (09:45)
[2017-03-08 10:23] LABS: CALCIUM 7.5 MG/DL (8.5-10.1); CALCIUM-PROTEIN CORRECTED 8.2 MG/DL (8.5-10.1); TOTAL PROTEIN 5.8 GM/DL (6.4-8.2)
[2017-03-08 10:38] LABS: MAGNESIUM 1.9 MG/DL (1.5-2.5)
[2017-03-08] MEDS ORDERED: SODIUM CHLORIDE 0.9% 20 ML VIAL IV ONE (12:00)
[2017-03-08] MEDS ORDERED: ceFAZolin INJ 1,000 MG VIAL IV ONE (12:00)
[2017-03-08] MEDS ORDERED: ROCURONIUM INJ 50 MG/5 ML SYRINGE IV PUSH ONE (12:00)
[2017-03-08] MEDS ORDERED: DEXAMETHASONE SOD PHOS 4 MG/ML VIAL IV ONE (12:00)
[2017-03-08] MEDS ORDERED: PHENYLEPHRINE HCL 10 MG/ML VIAL IV ONE (12:00)
[2017-03-08] MEDS ORDERED: PHENYLEPH/NS 1000 MCG/10 ML SYR IV ONE (12:00)
[2017-03-08] MEDS: levETIRAcetam INJ 500 MG in SODIUM CHLORIDE 0.9% INJ 100 ML IV SCH ×2 (12:04→20:35)
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
[2017-03-08] MEDS ORDERED: ACETAMINOPHEN 1000 MG/100 ML 100 ML IV ONE (12:39)
[2017-03-08] MEDS ORDERED: HYDROmorphone HCL PF 2 MG/ML VIAL ONE (12:40)
[2017-03-08] MEDS ORDERED: GENTAMICIN 80 MG PREMIX 100 ML IV SCH (13:00)
[2017-03-08] MEDS ORDERED: GENTAMICIN SULFATE 80 MG/2 ML VIAL ONE ×2 (13:02→13:28)
[2017-03-08] MEDS ORDERED: VANCOMYCIN HCL 1000 MG VIAL ONE (13:02)
[2017-03-08 13:04] LABS: HEMATOCRIT 25.9 % (35.0-46.0); HEMOGLOBIN 8.7 GM/DL (11.6-15.3)
[2017-03-08] MEDS ORDERED: ceFAZolin INJ 1,000 MG VIAL ONE (13:32)
[2017-03-08] MEDS ORDERED: DEXAMETHASONE SOD PHOS 4 MG/ML VIAL ONE (13:56)
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
--- NOTE | 2017-03-08 15:28 | PD.OP ---
cc: Yonathan Mallory MD Operative Report Date of Surgery: Mar 08, 2017 Preoperative Diagnosis: Displaced right radius and ulna fractures, open left ankle trimalleolar fracture Postoperative Diagnosis: Procedure: Open reduction total fixation right radius and ulna Left ankle irrigation and debridement, open reduction internal fixation trimalleolar fracture, open reduction internal fixation left ankle syndesmosis, closure of 6 cm laceration Surgeon: Yonathan Mallory Payroll Analyst(s): Miller Ding PA-C The surgical procedure was assisted by my physician fws faculty assistant. My P.A. presence was necessary throughout this case for the manipulation and positioning of the surgical extremity. My P.A. was assisting me throughout the duration of this procedure. The skill set of a physician fws faculty assistant was medically necessary to complete this procedure. During the surgical case the surgical endoscopist was working at the back table and the physician fws faculty assistant was directly assisting me. Operation and Findings: Patient was seen and examined preoperatively. Patient was found to have displaced right radius and ulna shaft fractures and left ankle trimalleolar fractures. Preoperatively patient was seen and evaluated. Patient was intubated and sedated. No family was available for consents. This procedure was deemed medically necessary as well as medically urgent to be performed today. Patient was brought to operating room and given IV sedation and general anesthesia. Timeout procedure was performed. Right arm and left leg were prepped and draped with alcohol followed by Hibiclens and draped in usual sterile fashion. IV antibiotics were administered prior to incision. Procedure began with a 5 inch incision over the subcutaneous border of the ulna. Fascia was elevated off of the bone. Fracture site was visualized. Fracture tenaculums were used to reduce fracture. Fracture keyed into anatomic alignment. A ITS plate was placed across the fracture. Plate was provisionally held to bone with K wires. 3.5 cortical screws were used to compress plate to bone. Multiple screws were placed in each side of fracture. K wires were removed. Fluoroscopy confirmed excellent alignment of fracture with well-placed hardware. Incision was now closed with #1 Vicryl, 3-0 Vicryl, and anum. Next attention was turned to the radius. A 5 inch incision was made over the volar aspect of the forearm. A standard volar approach was utilized. The interval between the radial artery and superficial radial nerve was identified. Neurovascular structures were protected. Soft tissue was elevated off the bone. Fracture site was visualized. Fracture fragments were carefully reduced. Each fracture fragment keyed in anatomic alignment. K wires were used to hold provisional fixation. A ITS plate was contoured to fit the radius. Plate was provisionally held with K wires. 3.5 cortical screws were used to compress plate to bone. Multiple screws were placed in each side of fracture. K wires were removed. Final fluoroscopy revealed excellent of fracture with well-placed hardware. Attention was now turned towards the left ankle. Attention was first turned towards irrigation debridement. The ankle was distracted. The ankle was visualized. There is minimal gross contamination. There was a large osteochondral defect of the talus as well as the distal tibial plafond. Skin subcutaneous tissue and fascia were sharply debrided. Curettes were used to debride bone. Soft tissue and bone were now thoroughly irrigated with pulsatile lavage. Next attention was turned towards the medial malleolus. The medial fracture was manually reduced. Fracture keyed into anatomic alignment. K wires were used to hold provisional fixation. A guidepin for the 4.0 cannulated screws were placed in a retrograde fashion across the fracture. Fluoroscopy was used to confirm guidepin placement. Cannulated drill was placed over the guidepin. Appropriate length screw was now placed. Good compression was applied. Fluoroscopy confirmed well aligned fracture with well-placed hardware. This laceration was now closed with 3-0 PDS and 3-0 nylon. Attention was turned towards the distal fibula. A four-inch incision was made over the distal fibula. The subcutaneous tissue was dissected with Bovie. The fracture site was visualized. The fracture site was cleaned with curets. The fracture was now reduced. The fracture was difficult to reduce secondary to the severe comminution of the fracture. Fracture was manipulated to achieve optimal reduction. K-wires were used to hold provisional fixation. A ITS plate was selected. The plate was provisionally held to bone with K-wires. 3.5 cortical screws were used to compress the plate to bone. Multiple screws were placed above and below the fracture. All screws were premeasured and predrilled for appropriate length. Next attention was turned towards the posterior malleolus. The posterior malleolus fragment was visualized. There appeared to be minimal articular surface on this fragment. It was left in position. Next, attention was turned to the syndesmosis. The syndesmosis was stressed. There was widening of the syndesmosis with external rotation of the ankle. The syndesmosis was now manually reduced. Two 3.5 cortical screws were now placed through the fibular plate into the tibia. The foot was held in a neutral position while the screws were placed. The syndesmosis was stressed and found to be stable. Incisions were thoroughly irrigated. The subcutaneous tissue was closed with 3-0 Vicryl and the skin was closed with 3-0 nylon. Sterile dressings were applied. A well molded well-padded splint was applied. The patient was transferred to Recovery in stable condition. Needle and sponge counts were correct Yonathan Mallory MD Mar 08, 2017 15:28
[2017-03-08] MEDS ORDERED: Post-op Orders (for Pharmacy) XX ONE (15:30)
[2017-03-08] MEDS ORDERED: ACETAMINOPHEN/HYDROcodone 325 MG/7.5 MG TAB PO PRN (15:30)
--- NOTE | 2017-03-08 15:41 | RADRPT ---
EXAM DATE/TIME: 03/08/2017 14:06 [facility] COMPARISON: WRIST RIGHT LIMITED(AP & LAT), March 07, 2017, 16:46. INDICATIONS : Surgical repair MEDICAL HISTORY : None. SURGICAL HISTORY : None. ENCOUNTER: Initial ACUITY: 1 day PAIN SCORE: Non-responsive. LOCATION: Right distal forearm. FINDINGS: 4 fluoroscopic images of the right wrist. Interval plate and screw fixation of comminuted distal radi al and ulnar fractures. Hardware is well-positioned and there is near-anatomic alignment. No new bony fractures CONCLUSION: 1. Status post ORIF of distal radial and ulnar fractures in anatomic alignment, as above. Venu Ferrari MD on March 08, 2017 at 15:38 Board Certified Radiologist. This report was verified electronically.
--- NOTE | 2017-03-08 15:43 | RADRPT ---
EXAM DATE/TIME: 03/08/2017 14:06 [facility] COMPARISON: ANKLE LEFT LIMITED (AP&LAT), March 07, 2017, 16:46. INDICATIONS : Open reduction internal fixation left ankle. MEDICAL HISTORY : None. SURGICAL HISTORY : None. ENCOUNTER: Subsequent ACUITY: 1 day PAIN SCORE: Non-responsive. LOCATION: Left ankle. FINDINGS: 2 intraoperative fluoroscopic images of the left ankle demonstrate interval plate and screw fixation of the comminuted open fractures of the distal tibia and fibula. Hardware is well-positioned with obed r-anatomic alignment. CONCLUSION: 1. Status post ORIF of open left distal tibia and fibular fracture, as above. Venu Ferrari MD on March 08, 2017 at 15:39 Board Certified Radiologist. This report was verified electronically.
--- NOTE | 2017-03-08 17:29 | RADRPT ---
EXAM DATE/TIME: 03/08/2017 17:06 [facility] COMPARISON: CT BRAIN W/O CONTRAST, March 07, 2017, 17:09. INDICATIONS : Follow up trauma. RADIATION DOSE: 50.53 CTDIvol (mGy) MEDICAL HISTORY : None SURGICAL HISTORY : None. ENCOUNTER: Initial ACUITY: 1 day PAIN SCALE: Non-responsive LOCATION: cranial TECHNIQUE: Multiple contiguous axial images were obtained of the head. Using automated exposure control and adj ustment of the mA and/or kV according to patient size, radiation dose was kept as low as reasonably a chievable to obtain optimal diagnostic quality images. DICOM format image data is available electro nically for review and comparison. FINDINGS: CEREBRUM: The ventricles are normal for age. No evidence of midline shift, mass lesion, hemorrhage or acute in farction. No extra-axial fluid collections are seen. POSTERIOR FOSSA: The cerebellum and brainstem are intact. The 4th ventricle is midline. The cerebellopontine angle i s unremarkable. EXTRACRANIAL: The visualized portion of the orbits is intact. Fluid noted in the right sphenoid sinus. SKULL: Redemonstration of fractures involving the occipital condyles. CONCLUSION: 1. Previously noted possible sulcal effacement is not as prominent on today's exam. Overall, findings are within normal limits in this very young patient. 2. No intercurrent hemorrhage or significant interval change. Venu Ferrari MD on March 08, 2017 at 17:21 Board Certified Radiologist. This report was verified electronically.
[2017-03-08 17:49] LABS: HEMATOCRIT 24.8 % (35.0-46.0); HEMOGLOBIN 8.5 GM/DL (11.6-15.3)
[2017-03-08] MEDS: ceFAZolin 2 GM PREMIX 50 ML IV SCH (20:35)
[2017-03-08] MEDS: GENTAMICIN 80 MG PREMIX 100 ML IV SCH (21:29)
[2017-03-09] VITALS (21 sets, daily range): BP systolic 97–144; BP diastolic 54–88; PULSE 77–127; RESP 14–31; TEMP 97.7–99.1; O2SAT 96–100
[2017-03-09] MEDS: SODIUM CHLOR 0.9% 1000 ML INJ 1,000 ML IV SCH ×4 (01:20→19:05)
[2017-03-09] MEDS: ENOXAPARIN SODIUM 40 MG/0.4 ML SYRINGE SQ SCH (01:52)
[2017-03-09] MEDS: DEXT 5%-NACL 0.9% 1000 ML INJ 1,000 ML IV SCH (02:00)
[2017-03-09] MEDS: PROPOFOL 1000 MG/100 ML INJ 100 ML IV PRN (02:00)
[2017-03-09] MEDS: RESP: ALBUTEROL 2.5 MG/IPRATROPIUM 0.5 MG NEB (SCH) NEB ×4 (03:01→22:01)
[2017-03-09 03:07] LABS: AUTOMATED NEUTROPHIL # 8.2 TH/MM3 (1.8-7.7); HEMATOCRIT 22.9 % (35.0-46.0); HEMOGLOBIN 7.7 GM/DL (11.6-15.3); LYMPH % 5.3 % (9.0-44.0); LYMPHOCYTE # 0.5 TH/MM3 (1.0-4.8); MEAN CELL VOLUME 86.1 FL (80.0-100.0); MEAN CORPUSCULAR HEMOGLOBIN 28.8 PG (27.0-34.0); MEAN CORPUSCULAR HGB CONC 33.4 % (32.0-36.0); MEAN PLATELET VOLUME 7.7 FL (7.0-11.0); MONO % 5.3 % (0.0-8.0); MONOCYTE # 0.5 TH/MM3 (0-0.9); NEUT % 89.4 % (16.0-70.0); PLATELET COUNT 213 TH/MM3 (150-450); RED BLOOD COUNT 2.66 MIL/MM3 (4.00-5.30); RED CELL DISTRIBUTION WIDTH 14.7 % (11.6-17.2); WHITE BLOOD COUNT 9.2 TH/MM3 (4.0-11.0)
[2017-03-09 03:27] LABS: ALBUMIN 2.3 GM/DL (3.4-5.0); BICARBONATE 20.5 MEQ/L (21.0-32.0); CALCIUM 7.1 MG/DL (8.5-10.1); CREATININE 0.71 MG/DL (0.50-1.00)
[2017-03-09 03:30] LABS: CALCIUM-PROTEIN CORRECTED 8.2 MG/DL (8.5-10.1); TOTAL BILIRUBIN ADULT 0.2 MG/DL (0.2-1.0); TOTAL PROTEIN 5.1 GM/DL (6.4-8.2)
[2017-03-09] MEDS: ceFAZolin 2 GM PREMIX 50 ML IV SCH ×3 (05:25→21:32)
[2017-03-09] MEDS: GENTAMICIN 80 MG PREMIX 100 ML IV SCH ×3 (05:26→23:39)
--- NOTE | 2017-03-09 05:59 | RADRPT ---
EXAM DATE/TIME: 03/09/2017 04:35 [facility] COMPARISON: CHEST SINGLE AP, March 08, 2017, 8:15. CT THORAX W CONTRAST, March 07, 2017, 17:18. INDICATIONS : Pulmonary contusions. MEDICAL HISTORY : None. SURGICAL HISTORY : None. ENCOUNTER: Subsequent ACUITY: 3 days PAIN SCORE: Non-responsive. LOCATION: Bilateral chest FINDINGS: Patchy basilar predominant airspace opacities persist and there are small bilateral pleural effusions , all not significantly changed. Right rib fractures are again noted. No pneumothorax seen. Heart size stable, within normal limits. Endotracheal tube tip is approximately 5 cm above the cora . There is a nasogastric tube coursing into the stomach. CONCLUSION: Bibasilar infiltrates and small pleural effusions, slightly worse. Right rib fractures. No pneumothor ax. Von Ortiz MD on March 09, 2017 at 5:56 Board Certified Radiologist. This report was verified electronically.
[2017-03-09] MEDS: CHLORHEXIDINE 0.12% (ORAL KIT) 15 ML CUP MT SCH ×2 (08:00→20:00)
[2017-03-09] MEDS ORDERED: FUROSEMIDE 40 MG/4 ML VIAL IV PUSH ONE (08:45)
[2017-03-09] MEDS ORDERED: RESP: RACEPINEPHRINE 2.25% 0.5 ML NEB ONE (09:02)
[2017-03-09] MEDS ORDERED: POTASSIUM CHLORIDE INJ 30 MEQ in SODIUM CHLORIDE 0.9% INJ 100 ML IV-CENTRAL ONE (10:00)
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
[2017-03-09] MEDS: levETIRAcetam INJ 500 MG in SODIUM CHLORIDE 0.9% INJ 100 ML IV SCH ×2 (10:18→21:13)
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
[2017-03-09] MEDS: DEXMEDETOMIDINE INJ 200 MCG in SODIUM CHLORIDE 0.9% INJ 50 ML IV PRN ×5 (11:05→16:49)
[2017-03-09 11:10] LABS: HEMOGLOBIN A1C 7.9 % (4.3-6.0)
[2017-03-09] MEDS: INSULIN ASPART SUPPLEMENTAL SCALE SQ SCH ×3 (11:37→21:50)
--- NOTE | 2017-03-09 11:38 | HHI.NSPN ---
History Interval History female. Extubated today. agitated System Review Comments no change Exam Results Vital Signs Date Time Temp Pulse Resp B/P (MAP) Pulse Ox O2 Delivery O2 Flow Rate FiO2 03/09/17 11:30 36 03/09/17 10:00 127 03/09/17 10:00 45 03/09/17 09:55 96 Venturi Mask 03/09/17 09:44 6 03/09/17 08:00 97.7 113/70 (84) Intake and Output 03/09/17 03/09/17 03/09/17 07:59 15:59 23:59 Intake Total 5109.1 ml 45 ml Output Total 1350 ml Balance 3759.1 ml 45 ml Physical Examination Remains in [place] J collar Does not open eyes and not speaking Does not follow commands Moves all extremities Agitated, needing sedation Lab, Micro, Other Results CT reviewed No change Medical Decision Making Impression and Plan Closed head injury C spine fracture Occipital condyle fracture and basal skull fracture Rec: Should remain in collar May need MRI of Cspine and brain when less agitated Dynamic films when possible Total Minutes: 15 Adan Padilla MD Mar 09, 2017 11:38
[2017-03-09] MEDS: FAMOTIDINE 20 MG/2 ML VIAL IV PUSH SCH (13:50)
[2017-03-09 21:35] LABS: BICARBONATE 21.8 MEQ/L (21.0-32.0); CALCIUM 7.7 MG/DL (8.5-10.1); CREATININE 0.85 MG/DL (0.50-1.00); MAGNESIUM 1.9 MG/DL (1.5-2.5)
[2017-03-09] MEDS ORDERED: PROPOFOL 500 MG/50 ML INJ 50 ML ONE (23:12)
[2017-03-09] MEDS ORDERED: ETOMIDATE 40 MG/20 ML VIAL ONE (23:12)
[2017-03-09] MEDS ORDERED: ATROPINE SULFATE 1 MG/10 ML SYRINGE ONE (23:14)
[2017-03-09] MEDS ORDERED: ROCURONIUM INJ 50 MG/5 ML VIAL IV ONE (23:15)
[2017-03-09] MEDS ORDERED: ETOMIDATE 20 MG/10 ML VIAL IV PUSH ONE (23:15)
--- NOTE | 2017-03-09 23:43 | PD.PROCEDR ---
Procedure Note Procedure PROCEDURE NOTE PROCEDURE: Endotracheal intubation INDICATION: Patient with acute hypoxemic respiratory failure. She is on nonrebreather with increased work of breathing and respiratory rate in the 30s. DETAILS OF PROCEDURE: The patient was placed in optimal position and preoxygenated with 100% FiO2 via [id number]. Oximeter oxygen saturation of 94% was obtained prior to direct laryngoscopy. The patient was administered etomidate 20 mill grams IV for sedation and rocuronium 50 mg IV. In line C-spine stabilization was maintained throughout the procedure. Laryngoscopy was performed with a CMac 4 Nicole laryngoscope blade and a grade I Cormack-Lehane view was obtained. On single attempt a size 7.5 endotracheal tube was visualized passing through the cords. Correct placement was confirmed with colorimetric CO2 detector. Breath sounds were equal bilaterally. No sounds auscultated over the stomach. The endotracheal tube was secured with a commercial tube betancourt at a depth of 24 cm at the lips. The patient was connected to the ventilator. The patient tolerated the procedure well without any apparent complication. Oxygen saturation was maintained >88% at all times. Stat chest x-ray was ordered. Jes Farah MD Mar 09, 2017 23:43
[2017-03-10] VITALS (22 sets, daily range): BP systolic 119–158; BP diastolic 63–81; PULSE 86–113; RESP 14–20; TEMP 99.3–100.6; O2SAT 100
--- NOTE | 2017-03-10 00:04 | RADRPT ---
EXAM DATE/TIME: 03/09/2017 23:44 [facility] COMPARISON: CHEST SINGLE AP, March 09, 2017, 4:35. INDICATIONS : Reintubation. MEDICAL HISTORY : None. SURGICAL HISTORY : None. ENCOUNTER: Subsequent ACUITY: 2 days PAIN SCORE: 0/10 LOCATION: Bilateral chest FINDINGS: The ET tube tip is within 1 cm from the cora. This is in a low position. It could be pulled back 2 mm to be in better position. The heart size is normal. There is increased density at the bases being worse in the left with silhouetting the left hemidiaphragm. There is right pleural fluid present. The re are right-sided rib fractures. CONCLUSION: ET tube in a low position within 1 cm of the cora. This could be pulled back 2 cm to be in a better position. Von Simmons MD on March 09, 2017 at 23:59 Board Certified Radiologist. This report was verified electronically.
[2017-03-10] MEDS: POTASSIUM CHLOR 10 MEQ PREMIX 100 ML IV SCH ×2 (00:37→01:55)
[2017-03-10] MEDS: FAMOTIDINE 20 MG/2 ML VIAL IV PUSH SCH ×2 (01:15→13:13)
[2017-03-10] MEDS: PROPOFOL 1000 MG/100 ML INJ 100 ML IV PRN ×4 (01:15→18:53)
[2017-03-10] MEDS: SODIUM CHLOR 0.9% 1000 ML INJ 1,000 ML IV SCH ×2 (01:45→04:55)
[2017-03-10] MEDS: ENOXAPARIN SODIUM 40 MG/0.4 ML SYRINGE SQ SCH (03:10)
[2017-03-10] MEDS: RESP: ALBUTEROL 2.5 MG/IPRATROPIUM 0.5 MG NEB (SCH) NEB ×4 (04:44→20:57)
[2017-03-10] MEDS: ceFAZolin 2 GM PREMIX 50 ML IV SCH ×3 (04:45→22:41)
[2017-03-10] MEDS: INSULIN ASPART SUPPLEMENTAL SCALE SQ SCH ×6 (04:45→20:00)
[2017-03-10 04:56] LABS: AUTOMATED NEUTROPHIL # 10.4 TH/MM3 (1.8-7.7); BASOPHIL % 0.1 % (0.0-2.0); EOSINOPHIL % 0.2 % (0.0-4.0); LYMPH % 13.8 % (9.0-44.0); LYMPHOCYTE # 1.8 TH/MM3 (1.0-4.8); MEAN CELL VOLUME 85.6 FL (80.0-100.0); MEAN CORPUSCULAR HEMOGLOBIN 28.8 PG (27.0-34.0); MEAN CORPUSCULAR HGB CONC 33.7 % (32.0-36.0); MEAN PLATELET VOLUME 7.9 FL (7.0-11.0); MONO % 6.6 % (0.0-8.0); MONOCYTE # 0.9 TH/MM3 (0-0.9); NEUT % 79.3 % (16.0-70.0); PLATELET COUNT 191 TH/MM3 (150-450); RED BLOOD COUNT 2.25 MIL/MM3 (4.00-5.30); WHITE BLOOD COUNT 13.1 TH/MM3 (4.0-11.0)
[2017-03-10 05:01] LABS: HEMATOCRIT 19.2 % (35.0-46.0); HEMOGLOBIN 6.5 GM/DL (11.6-15.3)
[2017-03-10] MEDS ORDERED: SODIUM CHLOR 0.9% 250 ML INJ 250 ML IV ONE (05:15)
[2017-03-10 05:26] LABS: BICARBONATE 23.8 MEQ/L (21.0-32.0); CALCIUM 7.5 MG/DL (8.5-10.1); CREATININE 0.7 MG/DL (0.50-1.00); MAGNESIUM 1.7 MG/DL (1.5-2.5)
[2017-03-10] MEDS: GENTAMICIN 80 MG PREMIX 100 ML IV SCH ×2 (05:27→14:56)
--- NOTE | 2017-03-10 07:01 | PD.ORT.PN ---
Subjective Subjective Remarks intubated and sedated Objective Vitals Vital Signs Date Time Temp Pulse Resp B/P (MAP) Pulse Ox O2 Delivery O2 Flow Rate FiO2 03/10/17 04:45 100 60 03/10/17 02:00 88 03/10/17 01:01 100 60 03/10/17 00:00 94 03/10/17 00:00 99.3 94 20 127/67 (87) 100 03/10/17 00:00 60 03/09/17 23:55 100 100 03/09/17 23:25 100 03/09/17 23:25 100 100 03/09/17 22:01 100 Nasal Cannula 5.00 03/09/17 22:00 100 03/09/17 20:36 25 03/09/17 20:00 88 03/09/17 20:00 98.0 88 30 144/88 (106) 99 03/09/17 19:00 100 Mechanical Ventilator 03/09/17 18:00 94 03/09/17 16:00 82 03/09/17 16:00 98.6 82 31 133/86 (102) 100 03/09/17 14:00 77 03/09/17 12:00 122 03/09/17 12:00 45 03/09/17 12:00 99.1 122 31 110/55 (73) 100 03/09/17 10:00 127 03/09/17 10:00 45 03/09/17 09:55 96 Venturi Mask 35 03/09/17 09:44 96 Mask 6 03/09/17 09:05 100 40 03/09/17 08:55 40 03/09/17 08:50 100 40 03/09/17 08:45 100 40 03/09/17 08:00 45 03/09/17 08:00 92 03/09/17 08:00 97.7 91 14 113/70 (84) 100 03/09/17 07:00 100 Mechanical Ventilator 45 I/O 03/09/17 03/09/17 03/09/17 03/10/17 03/10/17 03/10/17 07:00 15:00 23:00 07:00 15:00 23:00 Intake Total 5109.1 ml 1504 ml 204 ml 80 ml Output Total 1350 ml 2700 ml Balance 3759.1 ml 1504 ml -2496 ml 80 ml Intake IV Total 5109.1 ml 1504 ml 204 ml 50 ml Blood Product IV Normal Saline Flush 30 ml Output Urine Total 1150 ml 2700 ml Stool Total 0 ml Gastric Drainage Total 200 ml # Bowel Movements 0 0 Result Diagram: 03/10/17 0440 03/10/17 0440 Imaging Last 24 hours Impressions Thoracic Spine CT 03/07/171707 Signed Impressions: Service Date/Time: Tuesday, March 07, 2017 17:18 - CONCLUSION: 1. Negative for acute traumatic injury within the thoracic spine. Jamie Myrick MD Pelvis X-Ray 03/07/171707 Signed Impressions: Service Date/Time: Tuesday, March 07, 2017 16:46 - CONCLUSION: Unremarkable Study. Ben Hamlin MD Maxillofacial CT 03/07/171707 Signed Impressions: Service Date/Time: Tuesday, March 07, 2017 17:09 - CONCLUSION: No acute bony fracture. Ben Hamlin MD Lumbar Spine CT 03/07/171707 Signed Impressions: Service Date/Time: Tuesday, March 07, 2017 17:18 - CONCLUSION: 1. Negative for acute traumatic injury in the lumbar spine. Jamie Myrick MD Head CT 03/07/171707 Signed Impressions: Service Date/Time: Tuesday, March 07, 2017 17:09 - CONCLUSION: 1. No acute intracranial hemorrhage within the brain. 2. Possible cerebral edema with effacement of the sulci bilaterally. 3. Fractures involving the occipital condyles and left lateral mass of C1.. Ben Hamlin MD Chest X-Ray 03/07/171707 Signed Impressions: Service Date/Time: Tuesday, March 07, 2017 16:46 - CONCLUSION: 1. Multiple right lateral rib fractures. 2. Motion artifact versus early atelectasis above the right hemidiaphragm. No obvious pneumothorax on this supine image. Efra Urias MD Chest CT 03/07/171707 Signed Impressions: Service Date/Time: Tuesday, March 07, 2017 17:18 - CONCLUSION: 1. There are infiltrates in the posterior lower lungs bilaterally. 2. No evidence of pneumothorax. 3. Multiple bilateral rib fractures. Ben Hamlin MD Cervical Spine CT 03/07/171707 Signed Impressions: Service Date/Time: Tuesday, March 07, 2017 17:09 - CONCLUSION: 1. There are fractures involving the base of the skull involving both occipital condyles. 2. There is a fracture involving the distal clivus which appears to be nondisplaced. 3. There is a fracture extending through the left lateral mass of C1 into the region of the left transverse process. However, the Vertebral foramina appears to be intact. 4. The rest of the cervical spine appears to be grossly intact. 1. Ben Hamlin MD Abdomen/Pelvis CT 03/07/17 1708 Signed Impressions: Service Date/Time: Tuesday, March 07, 2017 17:18 - CONCLUSION: 1. Low density lesions in liver suggestive of liver lacerations involving the left and right lobes of the liver. 2. Small amount of free fluid in the pelvis. 3. Multiple bilateral rib fractures. Ben Hamlin MD Objective Remarks Right upper extremity: No laxity of shoulder or humerus. Soft dressings in place. Swelling a +2. Capillary refills distally. Restraint across form Left upper extremity: No laxity through range of motion intact distal pulses Right lower extremity: Bandages over knee. No laxity or crepitus through range of motion of hip knee or ankle. Intact distal pulses Left lower extremity: Clean dry dressing intact with splint place. Good capillary refills Assessment & Plan Assessment and Plan Open left distal tibia and fibula fracture and closed right radial and ulnar shaft fractures. Nothing by mouth Surgery today for irrigation debridement of left distal tibia and fibula fracture with ORIF versus external fixation as well as ORIF right radius and ulna shaft Sign consents which are signed on chart Trauma care Madhav Ding Jr. Mar 10, 2017 07:00
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
[2017-03-10] MEDS ORDERED: LACTATED RINGER'S 1000 ML INJ 1,000 ML IV SCH (08:00)
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
[2017-03-10] MEDS: fentaNYL DRIP 250 ML IV PRN (08:51)
[2017-03-10] MEDS: CHLORHEXIDINE 0.12% (ORAL KIT) 15 ML CUP MT SCH ×2 (09:14→20:00)
[2017-03-10] MEDS: levETIRAcetam INJ 500 MG in SODIUM CHLORIDE 0.9% INJ 100 ML IV SCH ×2 (09:15→22:42)
[2017-03-10] MEDS: INSULIN DETEMIR 100 UNITS/ML VIAL SQ SCH ×2 (11:00→21:00)
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
--- NOTE | 2017-03-10 14:56 | RADRPT ---
EXAM DATE/TIME: 03/10/2017 14:27 [facility] COMPARISON: CHEST SINGLE AP, March 09, 2017, 23:44. INDICATIONS : Left side central line placement. MEDICAL HISTORY : None. SURGICAL HISTORY : None. ENCOUNTER: Initial ACUITY: 3 days PAIN SCORE: Non-responsive. LOCATION: Bilateral chest FINDINGS: ET tube and left central line are in good position. Interval development of bilateral pleural effusi ons. Lungs remain clear. CONCLUSION: Left-sided subclavian line in good position ET tube in good position Interval development large bilateral pleural effusions. 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 on March 10, 2017 at 14:53 Board Certified Radiologist. This report was verified electronically.
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
--- NOTE | 2017-03-10 16:30 | EKG ---
Date Performed: 03/09/2017 Time Performed: 21:23:22 PTAGE: 89 years EKG: Sinus rhythm . Normal ECG NO PREVIOUS TRACING DOCTOR: Reinier Sherman Interpretating Date/Time 03/10/2017 16:29:12
[2017-03-10] MEDS: FUROSEMIDE 20 MG/2 ML VIAL IV PUSH SCH (18:54)
[2017-03-10 21:49] LABS: AUTOMATED NEUTROPHIL # 12.2 TH/MM3 (1.8-7.7); BASOPHIL % 0.1 % (0.0-2.0); EOSINOPHIL # 0.2 TH/MM3 (0-0.4); EOSINOPHIL % 1.2 % (0.0-4.0); HEMATOCRIT 31.7 % (35.0-46.0); HEMOGLOBIN 11.1 GM/DL (11.6-15.3); LYMPH % 14.2 % (9.0-44.0); LYMPHOCYTE # 2.2 TH/MM3 (1.0-4.8); MEAN CELL VOLUME 83.1 FL (80.0-100.0); MEAN CORPUSCULAR HEMOGLOBIN 29.1 PG (27.0-34.0); MEAN CORPUSCULAR HGB CONC 35.1 % (32.0-36.0); MEAN PLATELET VOLUME 8.3 FL (7.0-11.0); MONO % 6.1 % (0.0-8.0); NEUT % 78.4 % (16.0-70.0); PLATELET COUNT 243 TH/MM3 (150-450); RED BLOOD COUNT 3.81 MIL/MM3 (4.00-5.30); RED CELL DISTRIBUTION WIDTH 14.8 % (11.6-17.2); WHITE BLOOD COUNT 15.6 TH/MM3 (4.0-11.0)
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
[2017-03-10] MEDS: POTASSIUM CHLORIDE 25 MEQ EFFERVESCENT TAB PO SCH (22:42)
[2017-03-11] VITALS (17 sets, daily range): BP systolic 106–138; BP diastolic 56–77; PULSE 106–123; RESP 14–17; TEMP 99.3–100.8; O2SAT 93–100
[2017-03-11] MEDS: PROPOFOL 1000 MG/100 ML INJ 100 ML IV PRN ×4 (00:02→23:00)
[2017-03-11] MEDS: FAMOTIDINE 20 MG/2 ML VIAL IV PUSH SCH ×2 (00:03→13:17)
[2017-03-11] MEDS: RESP: ALBUTEROL 2.5 MG/IPRATROPIUM 0.5 MG NEB (SCH) NEB ×4 (03:46→22:11)
[2017-03-11] MEDS: INSULIN ASPART SUPPLEMENTAL SCALE SQ SCH ×6 (04:00→21:01)
[2017-03-11] MEDS: ceFAZolin 2 GM PREMIX 50 ML IV SCH ×2 (04:12→13:16)
[2017-03-11] MEDS: fentaNYL DRIP 250 ML IV PRN (06:47)
[2017-03-11] MEDS: CHLORHEXIDINE 0.12% (ORAL KIT) 15 ML CUP MT SCH ×2 (08:00→21:01)
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
[2017-03-11] MEDS: FUROSEMIDE 20 MG/2 ML VIAL IV PUSH SCH ×2 (08:54→17:13)
[2017-03-11] MEDS: levETIRAcetam INJ 500 MG in SODIUM CHLORIDE 0.9% INJ 100 ML IV SCH ×2 (08:54→21:00)
[2017-03-11] MEDS: INSULIN DETEMIR 100 UNITS/ML VIAL SQ SCH ×2 (08:55→21:02)
[2017-03-11] MEDS: POTASSIUM CHLORIDE 25 MEQ EFFERVESCENT TAB PO SCH ×2 (08:55→21:01)
[2017-03-11] MEDS ORDERED: VALPROIC ACID 250 MG CAP PO SCH (09:30)
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
[2017-03-11] MEDS: METHOCARBAMOL 500 MG TAB PO SCH ×2 (10:22→17:13)
--- NOTE | 2017-03-11 10:55 | RADRPT ---
EXAM DATE/TIME: 03/11/2017 10:25 [facility] COMPARISON: CHEST SINGLE AP, March 10, 2017, 14:27. INDICATIONS : Respiratory Disease. MEDICAL HISTORY : Non-responsive. SURGICAL HISTORY : Non-responsive. ENCOUNTER: Subsequent ACUITY: 4 - 6 days PAIN SCORE: Non-responsive. LOCATION: Bilateral chest FINDINGS: A single view of the chest demonstrates the endotracheal, nasogastric, left subclavian central line a re in good position. There numerous right-sided rib fractures with a moderate right pleural effusion unchanged. Moderate left pleural effusion. No visible pneumothorax. CONCLUSION: Moderate right pleural effusion with numerous rib fractures. No visible pneumothorax. ET tube in good position. Paolo Castillo MD on March 11, 2017 at 10:52 Board Certified Radiologist. This report was verified electronically.
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
[2017-03-11] MEDS: VALPROIC ACID SYRUP 250 MG/5 ML UDC PO SCH ×2 (14:51→21:00)
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
[2017-03-12] VITALS (16 sets, daily range): BP systolic 106–123; BP diastolic 56–74; PULSE 96–112; RESP 11–14; TEMP 99–100.1; O2SAT 96–100
[2017-03-12] MEDS: METHOCARBAMOL 500 MG TAB PO SCH ×3 (00:25→18:35)
[2017-03-12] MEDS: FAMOTIDINE 20 MG/2 ML VIAL IV PUSH SCH ×3 (00:25→23:54)
[2017-03-12] MEDS: INSULIN ASPART SUPPLEMENTAL SCALE SQ SCH ×7 (00:26→23:54)
[2017-03-12] MEDS: ENOXAPARIN SODIUM 40 MG/0.4 ML SYRINGE SQ SCH (00:26)
[2017-03-12] MEDS: POTASSIUM CHLOR 40 MEQ PREMIX 100 ML IV PRN ×2 (00:26→03:57)
[2017-03-12] MEDS: RESP: ALBUTEROL 2.5 MG/IPRATROPIUM 0.5 MG NEB (SCH) NEB ×4 (04:08→21:56)
[2017-03-12] MEDS: PROPOFOL 1000 MG/100 ML INJ 100 ML IV PRN ×5 (05:00→20:45)
--- NOTE | 2017-03-12 05:49 | RADRPT ---
EXAM DATE/TIME: 03/12/2017 04:29 CORRECTION Corrected on: March 12, 2017; [facility] COMPARISON: CHEST SINGLE AP, March 11, 2017, 10:25. INDICATIONS : Shortness of breath. MEDICAL HISTORY : Diabetes mellitus type 2. SURGICAL HISTORY : None. ENCOUNTER: Subsequent ACUITY: 4 - 6 days PAIN SCORE: Non-responsive. LOCATION: Bilateral chest FINDINGS: ET tube, NG tube and left subclavian line are well placed. The heart size is normal. There is increas ed density at the mid and lower lungs and at least a moderate right pleural effusion. Right rib fract ures are present. CONCLUSION: Bibasilar areas of consolidation or atelectasis and at least a moderate right effusion. Von Simmons MD on March 12, 2017 at 5:47 Board Certified Radiologist. This report was verified electronically. Von Simmons MD on March 12, 2017 at 5:50 Board Certified Radiologist. This report was verified electronically.
[2017-03-12 06:10] LABS: AUTOMATED NEUTROPHIL # 10.2 TH/MM3 (1.8-7.7); BASOPHIL % 0.2 % (0.0-2.0); EOSINOPHIL # 0.5 TH/MM3 (0-0.4); EOSINOPHIL % 3.9 % (0.0-4.0); HEMATOCRIT 30.1 % (35.0-46.0); HEMOGLOBIN 10.3 GM/DL (11.6-15.3); LYMPH % 15.1 % (9.0-44.0); LYMPHOCYTE # 2.1 TH/MM3 (1.0-4.8); MEAN CELL VOLUME 84.3 FL (80.0-100.0); MEAN CORPUSCULAR HEMOGLOBIN 28.8 PG (27.0-34.0); MEAN CORPUSCULAR HGB CONC 34.2 % (32.0-36.0); MEAN PLATELET VOLUME 7.9 FL (7.0-11.0); MONO % 6.9 % (0.0-8.0); NEUT % 73.9 % (16.0-70.0); PLATELET COUNT 264 TH/MM3 (150-450); RED BLOOD COUNT 3.57 MIL/MM3 (4.00-5.30); RED CELL DISTRIBUTION WIDTH 15.5 % (11.6-17.2); WHITE BLOOD COUNT 13.9 TH/MM3 (4.0-11.0)
[2017-03-12 06:12] LABS: BICARBONATE 27.5 MEQ/L (21.0-32.0); CALCIUM 8.1 MG/DL (8.5-10.1); CREATININE 0.77 MG/DL (0.50-1.00)
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
[2017-03-12] MEDS ORDERED: BISACODYL 10 MG SUPP RECTAL ONE (07:45)
[2017-03-12] MEDS ORDERED: LACTULOSE SYRUP 20 GM/30 ML CUP PO SCH (08:00)
[2017-03-12] MEDS: CHLORHEXIDINE 0.12% (ORAL KIT) 15 ML CUP MT SCH ×2 (08:00→20:48)
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
[2017-03-12] MEDS: levETIRAcetam INJ 500 MG in SODIUM CHLORIDE 0.9% INJ 100 ML IV SCH ×2 (09:00→20:46)
[2017-03-12] MEDS ORDERED: DOCUSATE SODIUM 50 MG/SENNA 8.6 MG TAB PO SCH (09:30)
[2017-03-12] MEDS: MAGNESIUM HYDROXIDE SUSP 30 ML CUP PO SCH ×2 (09:30→20:46)
[2017-03-12] MEDS ORDERED: HALOPERIDOL LACTATE 5 MG/ML AMP IV PRN (09:30)
--- NOTE | 2017-03-12 09:41 | PD.ORT.PN ---
Subjective Subjective Remarks intubated and sedated Objective Vitals Vital Signs Date Time Temp Pulse Resp B/P (MAP) Pulse Ox O2 Delivery O2 Flow Rate FiO2 03/12/17 08:52 100 40 03/12/17 08:52 40 03/12/17 08:50 40 03/12/17 08:00 40 03/12/17 07:30 100 100 03/12/17 07:00 100 Mechanical Ventilator 40 03/12/17 06:00 106 03/12/17 04:11 100 Ventilator 03/12/17 04:04 100 40 03/12/17 04:00 104 03/12/17 04:00 99.9 104 14 118/61 (80) 98 03/12/17 04:00 40 03/12/17 02:00 108 03/12/17 00:00 106 03/12/17 00:00 100.0 96 14 114/61 (78) 100 03/12/17 00:00 40 03/11/17 23:56 99 40 03/11/17 22:00 106 03/11/17 20:00 108 03/11/17 20:00 99.7 109 14 106/56 (73) 100 03/11/17 20:00 40 03/11/17 19:42 99 Ventilator 03/11/17 19:36 99 40 03/11/17 19:00 97 Mechanical Ventilator 40 03/11/17 16:27 98 40 03/11/17 16:00 40 03/11/17 16:00 99.7 109 14 106/56 (73) 100 03/11/17 12:00 99.3 114 17 131/71 (91) 93 03/11/17 11:40 40 03/11/17 11:37 99 40 I/O 03/11/17 03/11/17 03/11/17 03/12/17 03/12/17 03/12/17 07:00 15:00 23:00 07:00 15:00 23:00 Intake Total 92 ml 100 ml 786 ml Output Total 2300 ml 2050 ml Balance -2208 ml 100 ml -1264 ml Intake IV Total 100 ml 305 ml Tube Feeding 92 ml 481 ml Output Urine Total 2300 ml 2050 ml # Bowel Movements 0 Result Diagram: 03/12/1751903/12/17 05 Imaging Last 24 hours Impressions Thoracic Spine CT 03/07/171707 Signed Impressions: Service Date/Time: Tuesday, March 07, 2017 17:18 - CONCLUSION: 1. Negative for acute traumatic injury within the thoracic spine. Jamie Myrick MD Pelvis X-Ray 03/07/171707 Signed Impressions: Service Date/Time: Tuesday, March 07, 2017 16:46 - CONCLUSION: Unremarkable Study. Ben Hamlin MD Maxillofacial CT 03/07/171707 Signed Impressions: Service Date/Time: Tuesday, March 07, 2017 17:09 - CONCLUSION: No acute bony fracture. Ben Hamlin MD Lumbar Spine CT 03/07/171707 Signed Impressions: Service Date/Time: Tuesday, March 07, 2017 17:18 - CONCLUSION: 1. Negative for acute traumatic injury in the lumbar spine. Jamie Myrick MD Head CT 03/07/171707 Signed Impressions: Service Date/Time: Tuesday, March 07, 2017 17:09 - CONCLUSION: 1. No acute intracranial hemorrhage within the brain. 2. Possible cerebral edema with effacement of the sulci bilaterally. 3. Fractures involving the occipital condyles and left lateral mass of C1.. Ben Hamlin MD Chest X-Ray 03/07/171707 Signed Impressions: Service Date/Time: Tuesday, March 07, 2017 16:46 - CONCLUSION: 1. Multiple right lateral rib fractures. 2. Motion artifact versus early atelectasis above the right hemidiaphragm. No obvious pneumothorax on this supine image. Efra Urias MD Chest CT 03/07/171707 Signed Impressions: Service Date/Time: Tuesday, March 07, 2017 17:18 - CONCLUSION: 1. There are infiltrates in the posterior lower lungs bilaterally. 2. No evidence of pneumothorax. 3. Multiple bilateral rib fractures. Ben Hamlin MD Cervical Spine CT 03/07/171707 Signed Impressions: Service Date/Time: Tuesday, March 07, 2017 17:09 - CONCLUSION: 1. There are fractures involving the base of the skull involving both occipital condyles. 2. There is a fracture involving the distal clivus which appears to be nondisplaced. 3. There is a fracture extending through the left lateral mass of C1 into the region of the left transverse process. However, the Vertebral foramina appears to be intact. 4. The rest of the cervical spine appears to be grossly intact. 1. Ben Hamlin MD Abdomen/Pelvis CT 03/07/17 6620 Signed Impressions: Service Date/Time: Tuesday, March 07, 2017 17:18 - CONCLUSION: 1. Low density lesions in liver suggestive of liver lacerations involving the left and right lobes of the liver. 2. Small amount of free fluid in the pelvis. 3. Multiple bilateral rib fractures. Ben Hamlin MD Objective Remarks Right upper extremity: No laxity of shoulder or humerus. Soft dressings in place. Swelling a +2. Capillary refills distally. Restraint across forearm Left upper extremity: No laxity through range of motion intact distal pulses Right lower extremity: Bandages over knee. No laxity or crepitus through range of motion of hip knee or ankle. Intact distal pulses Left lower extremity: Clean dry dressing intact with splint place. Good capillary refills Assessment & Plan Assessment and Plan Open left distal tibia and fibula fracture and closed right radial and ulnar shaft fractures. ORIF POD 4 (03/08/2017) Nonweightbearing right upper extremity and left lower extremity [employer] for volar splint for left forearm. We'll continue to maintain while in restraints. Once restraints are removed we will discontinue splint Medical care Madhav Ding Jr. Mar 12, 2017 09:41
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
[2017-03-12] MEDS: FUROSEMIDE 20 MG/2 ML VIAL IV PUSH SCH (10:22)
[2017-03-12] MEDS: LACTULOSE SYRUP 20 GM/30 ML CUP PO SCH (10:22)
[2017-03-12] MEDS: DOCUSATE SODIUM 50 MG/SENNA 8.6 MG TAB PO SCH ×2 (10:23→20:47)
[2017-03-12] MEDS: INSULIN DETEMIR 100 UNITS/ML VIAL SQ SCH ×2 (10:24→20:47)
[2017-03-12] MEDS: POTASSIUM CHLORIDE 25 MEQ EFFERVESCENT TAB PO SCH ×2 (10:25→20:46)
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
[2017-03-12] MEDS ORDERED: LIDOCAINE HCL 1% 50 ML VIAL ONE (16:08)
--- NOTE | 2017-03-12 17:08 | RADRPT ---
EXAM DATE/TIME: 03/12/2017 16:52 [facility] COMPARISON: CT THORAX W/O CONTRAST, March 12, 2017, 7:59. CHEST SINGLE AP, March 12, 2017, 4:29. INDICATIONS : Evaluate for right sided chest tube placement. MEDICAL HISTORY : Unobtainable. SURGICAL HISTORY : Unobtainable. ENCOUNTER: Subsequent ACUITY: 1 day PAIN SCORE: Non-responsive. LOCATION: chest FINDINGS: Large bore chest tube on the right with persistent fluid and solid changes in both base is worse in t he right ET tube and nasogastric tube in good position There is no pneumothorax. CONCLUSION: Right-sided chest tube in good position. No significant interval change 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 on March 12, 2017 at 17:05 Board Certified Radiologist. This report was verified electronically.
[2017-03-12] MEDS: fentaNYL DRIP 250 ML IV PRN (20:45)
[2017-03-12] MEDS: VALPROIC ACID SYRUP 250 MG/5 ML UDC PO SCH (20:46)
[2017-03-13] VITALS (20 sets, daily range): BP systolic 102–144; BP diastolic 58–78; PULSE 105–129; RESP 14–16; TEMP 98.7–101.3; O2SAT 97–100
[2017-03-13] MEDS: PROPOFOL 1000 MG/100 ML INJ 100 ML IV PRN ×2 (01:29→04:24)
[2017-03-13] MEDS: METHOCARBAMOL 500 MG TAB PO SCH ×3 (01:30→17:46)
[2017-03-13] MEDS: ENOXAPARIN SODIUM 40 MG/0.4 ML SYRINGE SQ SCH (01:30)
[2017-03-13] MEDS: RESP: ALBUTEROL 2.5 MG/IPRATROPIUM 0.5 MG NEB (SCH) NEB ×4 (03:40→20:46)
[2017-03-13] MEDS: INSULIN ASPART SUPPLEMENTAL SCALE SQ SCH ×5 (04:24→20:00)
--- NOTE | 2017-03-13 05:15 | RADRPT ---
EXAM DATE/TIME: 03/13/2017 04:17 [facility] COMPARISON: CHEST SINGLE AP, March 12, 2017, 16:52. INDICATIONS : Shortness of breath MEDICAL HISTORY : Diabetes mellitus type II. SURGICAL HISTORY : None. ENCOUNTER: Subsequent ACUITY: 4 - 6 days PAIN SCORE: Non-responsive. LOCATION: Bilateral chest FINDINGS: ET tube and NG tube are well placed. There is a right chest tube in place. A pneumothorax is not seen . There is right pleural fluid. Right rib fractures are seen. There is persistent increased density a t the bases bilaterally with silhouetting of the hemidiaphragms. CONCLUSION: 1. Right chest tube without a pneumothorax seen. 2. Increased density at the bases bilaterally representing combination of atelectasis, consolidation and effusions. Von Simmons MD on March 13, 2017 at 5:11 Board Certified Radiologist. This report was verified electronically.
[2017-03-13 06:06] LABS: AUTOMATED NEUTROPHIL # 6.9 TH/MM3 (1.8-7.7); BASOPHIL % 0.3 % (0.0-2.0); EOSINOPHIL # 0.6 TH/MM3 (0-0.4); HEMATOCRIT 35.3 % (35.0-46.0); HEMOGLOBIN 11.7 GM/DL (11.6-15.3); LYMPH % 21.9 % (9.0-44.0); LYMPHOCYTE # 2.3 TH/MM3 (1.0-4.8); MEAN CELL VOLUME 85.8 FL (80.0-100.0); MEAN CORPUSCULAR HEMOGLOBIN 28.5 PG (27.0-34.0); MEAN CORPUSCULAR HGB CONC 33.2 % (32.0-36.0); MEAN PLATELET VOLUME 8.3 FL (7.0-11.0); MONO % 7.7 % (0.0-8.0); MONOCYTE # 0.8 TH/MM3 (0-0.9); NEUT % 64.1 % (16.0-70.0); PLATELET COUNT 320 TH/MM3 (150-450); RED BLOOD COUNT 4.11 MIL/MM3 (4.00-5.30); RED CELL DISTRIBUTION WIDTH 15.6 % (11.6-17.2); WHITE BLOOD COUNT 10.7 TH/MM3 (4.0-11.0)
[2017-03-13 06:31] LABS: BICARBONATE 26.9 MEQ/L (21.0-32.0); CALCIUM 8.7 MG/DL (8.5-10.1); CREATININE 0.8 MG/DL (0.50-1.00)
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
[2017-03-13] MEDS: DOCUSATE SODIUM 50 MG/SENNA 8.6 MG TAB PO SCH ×2 (08:32→21:38)
[2017-03-13] MEDS: levETIRAcetam INJ 500 MG in SODIUM CHLORIDE 0.9% INJ 100 ML IV SCH ×2 (08:33→21:37)
[2017-03-13] MEDS: INSULIN DETEMIR 100 UNITS/ML VIAL SQ SCH ×2 (08:33→21:00)
[2017-03-13] MEDS: MAGNESIUM HYDROXIDE SUSP 30 ML CUP PO SCH ×2 (08:33→21:37)
[2017-03-13] MEDS: CHLORHEXIDINE 0.12% (ORAL KIT) 15 ML CUP MT SCH ×2 (08:51→20:42)
[2017-03-13] MEDS: LACTULOSE SYRUP 20 GM/30 ML CUP PO SCH (09:00)
[2017-03-13] MEDS: FUROSEMIDE 20 MG/2 ML VIAL IV PUSH SCH ×2 (09:00→17:47)
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
[2017-03-13] MEDS: POTASSIUM CHLORIDE 25 MEQ EFFERVESCENT TAB PO SCH ×2 (09:45→21:58)
[2017-03-13] MEDS: VALPROIC ACID SYRUP 250 MG/5 ML UDC PO SCH ×2 (09:45→21:37)
[2017-03-13] MEDS: fentaNYL DRIP 250 ML IV PRN (11:13)
[2017-03-13] MEDS: FAMOTIDINE 20 MG/2 ML VIAL IV PUSH SCH (13:51)
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
[2017-03-14] VITALS (18 sets, daily range): BP systolic 101–127; BP diastolic 56–67; PULSE 116–136; RESP 14; TEMP 100.4–101.5; O2SAT 96–100
[2017-03-14] MEDS: PROPOFOL 1000 MG/100 ML INJ 100 ML IV PRN ×2 (00:43→10:53)
[2017-03-14] MEDS: FAMOTIDINE 20 MG/2 ML VIAL IV PUSH SCH ×2 (01:00→15:31)
[2017-03-14] MEDS: ENOXAPARIN SODIUM 40 MG/0.4 ML SYRINGE SQ SCH (02:33)
[2017-03-14] MEDS: METHOCARBAMOL 500 MG TAB PO SCH ×3 (02:34→17:50)
[2017-03-14] MEDS: fentaNYL DRIP 250 ML IV PRN ×2 (02:52→10:53)
[2017-03-14] MEDS: RESP: ALBUTEROL 2.5 MG/IPRATROPIUM 0.5 MG NEB (SCH) NEB ×4 (04:00→20:29)
[2017-03-14] MEDS: INSULIN ASPART SUPPLEMENTAL SCALE SQ SCH ×5 (04:00→17:50)
[2017-03-14 05:46] LABS: AUTOMATED NEUTROPHIL # 12.9 TH/MM3 (1.8-7.7); BASOPHIL % 0.2 % (0.0-2.0); EOSINOPHIL # 0.4 TH/MM3 (0-0.4); EOSINOPHIL % 2.8 % (0.0-4.0); HEMATOCRIT 39.6 % (35.0-46.0); HEMOGLOBIN 13.5 GM/DL (11.6-15.3); LYMPH % 8.9 % (9.0-44.0); LYMPHOCYTE # 1.4 TH/MM3 (1.0-4.8); MEAN CELL VOLUME 85.6 FL (80.0-100.0); MEAN CORPUSCULAR HEMOGLOBIN 29.2 PG (27.0-34.0); MEAN CORPUSCULAR HGB CONC 34.1 % (32.0-36.0); MEAN PLATELET VOLUME 8.2 FL (7.0-11.0); MONO % 7.1 % (0.0-8.0); MONOCYTE # 1.1 TH/MM3 (0-0.9); PLATELET COUNT 403 TH/MM3 (150-450); RED BLOOD COUNT 4.63 MIL/MM3 (4.00-5.30); RED CELL DISTRIBUTION WIDTH 15.2 % (11.6-17.2); WHITE BLOOD COUNT 15.9 TH/MM3 (4.0-11.0)
[2017-03-14 06:08] LABS: BICARBONATE 29.7 MEQ/L (21.0-32.0); CALCIUM 9.1 MG/DL (8.5-10.1); CREATININE 0.84 MG/DL (0.50-1.00)
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
[2017-03-14] MEDS: CHLORHEXIDINE 0.12% (ORAL KIT) 15 ML CUP MT SCH ×2 (08:39→20:00)
[2017-03-14] MEDS: VALPROIC ACID SYRUP 250 MG/5 ML UDC PO SCH ×2 (08:40→20:25)
[2017-03-14] MEDS: FUROSEMIDE 20 MG/2 ML VIAL IV PUSH SCH ×2 (08:40→17:50)
[2017-03-14] MEDS: levETIRAcetam INJ 500 MG in SODIUM CHLORIDE 0.9% INJ 100 ML IV SCH ×2 (08:40→20:25)
[2017-03-14] MEDS: LACTULOSE SYRUP 20 GM/30 ML CUP PO SCH (08:41)
[2017-03-14] MEDS: MAGNESIUM HYDROXIDE SUSP 30 ML CUP PO SCH ×2 (08:41→20:25)
[2017-03-14] MEDS: POTASSIUM CHLORIDE 25 MEQ EFFERVESCENT TAB PO SCH ×2 (08:41→20:27)
[2017-03-14] MEDS: DOCUSATE SODIUM 50 MG/SENNA 8.6 MG TAB PO SCH ×2 (08:41→20:25)
[2017-03-14] MEDS: INSULIN DETEMIR 100 UNITS/ML VIAL SQ SCH ×2 (08:41→20:27)
[2017-03-14] MEDS ORDERED: GLUCAGON 1 MG/ML VIAL OTHER PRN (09:45)
[2017-03-14] MEDS ORDERED: DEXTROSE 50% IN WATER 50 ML SYRINGE IV PUSH PRN (09:45)
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
[2017-03-14] MEDS: ACETAMINOPHEN 1000 MG/100 ML 100 ML IV PRN (18:09)
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
[2017-03-15] VITALS (19 sets, daily range): BP systolic 99–121; BP diastolic 59–68; PULSE 115–137; RESP 14; TEMP 100–101.5; O2SAT 95–100
[2017-03-15] MEDS: FAMOTIDINE 20 MG/2 ML VIAL IV PUSH SCH ×3 (00:39→23:58)
[2017-03-15] MEDS: METHOCARBAMOL 500 MG TAB PO SCH ×3 (01:51→17:00)
[2017-03-15] MEDS: ENOXAPARIN SODIUM 40 MG/0.4 ML SYRINGE SQ SCH (01:51)
[2017-03-15] MEDS: PROPOFOL 1000 MG/100 ML INJ 100 ML IV PRN ×3 (01:52→17:01)
[2017-03-15] MEDS: fentaNYL DRIP 250 ML IV PRN ×2 (01:52→17:02)
[2017-03-15] MEDS: RESP: ALBUTEROL 2.5 MG/IPRATROPIUM 0.5 MG NEB (SCH) NEB ×2 (02:54→10:00)
[2017-03-15 04:47] LABS: AUTOMATED NEUTROPHIL # 11.1 TH/MM3 (1.8-7.7); BASOPHIL % 0.3 % (0.0-2.0); EOSINOPHIL # 0.3 TH/MM3 (0-0.4); EOSINOPHIL % 2.2 % (0.0-4.0); HEMATOCRIT 35.5 % (35.0-46.0); LYMPH % 12.1 % (9.0-44.0); LYMPHOCYTE # 1.7 TH/MM3 (1.0-4.8); MEAN CELL VOLUME 85.2 FL (80.0-100.0); MEAN CORPUSCULAR HEMOGLOBIN 28.7 PG (27.0-34.0); MEAN CORPUSCULAR HGB CONC 33.7 % (32.0-36.0); MEAN PLATELET VOLUME 8.3 FL (7.0-11.0); MONO % 7.9 % (0.0-8.0); MONOCYTE # 1.1 TH/MM3 (0-0.9); NEUT % 77.5 % (16.0-70.0); PLATELET COUNT 436 TH/MM3 (150-450); RED BLOOD COUNT 4.17 MIL/MM3 (4.00-5.30); RED CELL DISTRIBUTION WIDTH 15.2 % (11.6-17.2); WHITE BLOOD COUNT 14.4 TH/MM3 (4.0-11.0)
[2017-03-15 05:04] LABS: ALBUMIN 2.4 GM/DL (3.4-5.0); AST (GOT) 28 U/L (15-37); BICARBONATE 31.2 MEQ/L (21.0-32.0); BLOOD UREA NITROGEN 29 MG/DL (7-18); CALCIUM 8.9 MG/DL (8.5-10.1); CHLORIDE 108 MEQ/L (98-107); GLOMERULAR FILTRATION RATE 63 ML/MIN (>89); GLUCOSE,RANDOM 364 MG/DL (74-106); SODIUM (NA) 146 MEQ/L (136-145)
[2017-03-15 05:08] LABS: ALKALINE PHOSPHATASE 98 U/L (45-117); ALT (GPT) 30 U/L (10-53); TOTAL BILIRUBIN ADULT 0.4 MG/DL (0.2-1.0); TOTAL PROTEIN 7.6 GM/DL (6.4-8.2)
[2017-03-15] MEDS: INSULIN ASPART SUPPLEMENTAL SCALE SQ SCH ×5 (06:00→23:58)
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
[2017-03-15] MEDS: CHLORHEXIDINE 0.12% (ORAL KIT) 15 ML CUP MT SCH ×2 (08:00→20:37)
[2017-03-15] MEDS: levETIRAcetam INJ 500 MG in SODIUM CHLORIDE 0.9% INJ 100 ML IV SCH ×2 (08:30→20:36)
[2017-03-15] MEDS: FUROSEMIDE 20 MG/2 ML VIAL IV PUSH SCH ×2 (08:31→17:01)
[2017-03-15] MEDS: LACTULOSE SYRUP 20 GM/30 ML CUP PO SCH (08:31)
[2017-03-15] MEDS: VALPROIC ACID SYRUP 250 MG/5 ML UDC PO SCH ×2 (08:31→20:36)
[2017-03-15] MEDS: MAGNESIUM HYDROXIDE SUSP 30 ML CUP PO SCH ×2 (08:31→20:37)
[2017-03-15] MEDS: DOCUSATE SODIUM 50 MG/SENNA 8.6 MG TAB PO SCH ×2 (08:31→20:37)
[2017-03-15] MEDS: INSULIN DETEMIR 100 UNITS/ML VIAL SQ SCH ×2 (08:32→20:35)
[2017-03-15] MEDS: POTASSIUM CHLORIDE 25 MEQ EFFERVESCENT TAB PO SCH ×2 (08:56→20:36)
[2017-03-15] MEDS ORDERED: BISACODYL 10 MG SUPP RECTAL ONE (09:00)
[2017-03-15] MEDS: ACETAMINOPHEN 1000 MG/100 ML 100 ML IV PRN ×2 (11:52→18:16)
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
[2017-03-16] VITALS (17 sets, daily range): BP systolic 111–137; BP diastolic 64–74; PULSE 108–126; RESP 12–19; TEMP 99.7–100.8; O2SAT 96–100
[2017-03-16] MEDS: ACETAMINOPHEN 1000 MG/100 ML 100 ML IV PRN (00:54)
[2017-03-16] MEDS: METHOCARBAMOL 500 MG TAB PO SCH ×3 (00:54→17:02)
[2017-03-16] MEDS: ENOXAPARIN SODIUM 40 MG/0.4 ML SYRINGE SQ SCH (00:54)
[2017-03-16 05:14] LABS: AUTOMATED NEUTROPHIL # 11.5 TH/MM3 (1.8-7.7); BASOPHIL # 0.1 TH/MM3 (0-0.2); BASOPHIL % 0.5 % (0.0-2.0); EOSINOPHIL # 0.5 TH/MM3 (0-0.4); EOSINOPHIL % 3.3 % (0.0-4.0); HEMATOCRIT 32.5 % (35.0-46.0); HEMOGLOBIN 11.4 GM/DL (11.6-15.3); LYMPH % 14.3 % (9.0-44.0); LYMPHOCYTE # 2.2 TH/MM3 (1.0-4.8); MEAN CELL VOLUME 85.9 FL (80.0-100.0); MEAN CORPUSCULAR HEMOGLOBIN 30.2 PG (27.0-34.0); MEAN CORPUSCULAR HGB CONC 35.2 % (32.0-36.0); MEAN PLATELET VOLUME 8.8 FL (7.0-11.0); MONO % 6.5 % (0.0-8.0); NEUT % 75.4 % (16.0-70.0); PLATELET COUNT 446 TH/MM3 (150-450); RED BLOOD COUNT 3.78 MIL/MM3 (4.00-5.30); RED CELL DISTRIBUTION WIDTH 15.5 % (11.6-17.2); WHITE BLOOD COUNT 15.3 TH/MM3 (4.0-11.0)
[2017-03-16 05:17] LABS: ALBUMIN 2.3 GM/DL (3.4-5.0); AST (GOT) 27 U/L (15-37); BICARBONATE 30.9 MEQ/L (21.0-32.0); BLOOD UREA NITROGEN 29 MG/DL (7-18); CALCIUM 8.7 MG/DL (8.5-10.1); CHLORIDE 112 MEQ/L (98-107); CREATININE 1.07 MG/DL (0.50-1.00); GLOMERULAR FILTRATION RATE 78 ML/MIN (>89); GLUCOSE,RANDOM 299 MG/DL (74-106); SODIUM (NA) 149 MEQ/L (136-145)
[2017-03-16 05:22] LABS: ALKALINE PHOSPHATASE 106 U/L (45-117); ALT (GPT) 25 U/L (10-53); TOTAL BILIRUBIN ADULT 0.3 MG/DL (0.2-1.0); TOTAL PROTEIN 7.6 GM/DL (6.4-8.2)
[2017-03-16] MEDS: INSULIN ASPART SUPPLEMENTAL SCALE SQ SCH ×3 (05:33→17:02)
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
[2017-03-16] MEDS: CHLORHEXIDINE 0.12% (ORAL KIT) 15 ML CUP MT SCH ×2 (08:00→20:00)
[2017-03-16] MEDS ORDERED: Vancomycin Consult Pharmacy 1 EA OTHER SCH (09:00)
--- NOTE | 2017-03-16 09:02 | PD.ORT.PN ---
Subjective Subjective Remarks Intubated. RN at bedside. No orthopedic interval changes. Objective Vitals Vital Signs Date Time Temp Pulse Resp B/P (MAP) Pulse Ox O2 Delivery O2 Flow Rate FiO2 03/16/17 08:42 100 35 03/16/17 06:32 14 03/16/17 04:21 100 35 03/16/17 04:00 35 03/16/17 04:00 100.6 110 14 117/65 (82) 99 03/16/17 01:24 14 03/16/17 01:12 99 35 03/16/17 00:00 100.8 126 14 114/65 (81) 98 03/16/17 00:00 35 03/15/17 21:55 99 35 03/15/17 20:30 98 35 03/15/17 20:00 35 03/15/17 20:00 101.5 128 14 99/59 (72) 99 03/15/17 20:00 126 03/15/17 18:00 137 03/15/17 17:13 100 35 03/15/17 16:00 128 03/15/17 16:00 100.9 128 14 118/62 (80) 96 03/15/17 16:00 35 03/15/17 14:55 98 35 03/15/17 14:00 129 03/15/17 12:00 101.3 133 14 119/61 (80) 95 03/15/17 12:00 35 03/15/17 12:00 133 03/15/17 11:33 99 35 03/15/17 10:00 116 03/15/17 09:12 100 35 I/O 03/15/17 03/15/17 03/15/17 03/16/17 03/16/17 03/16/17 07:00 15:00 23:00 07:00 15:00 23:00 Intake Total 933 ml 205 ml 250 ml 1423 ml Output Total 875 ml 1225 ml 950 ml Balance 58 ml 205 ml -975 ml 473 ml Intake IV Total 455 ml 205 ml 250 ml 649 ml Tube Feeding 478 ml 534 ml Tube Irrigant 240 ml Output Urine Total 875 ml 1225 ml 950 ml # Bowel Movements 0 0 1 Result Diagram: 03/16/17 0415 03/16/17 0416 Imaging Last 24 hours Impressions Thoracic Spine CT 12/15/17 1708 Signed Impressions: Service Date/Time: Tuesday, March 07, 2017 17:18 - CONCLUSION: 1. Negative for acute traumatic injury within the thoracic spine. Jamie Myrick MD Pelvis X-Ray 03/07/171707 Signed Impressions: Service Date/Time: Tuesday, March 07, 2017 16:46 - CONCLUSION: Unremarkable Study. Ben Hamlin MD Maxillofacial CT [id number]/07/171707 Signed Impressions: Service Date/Time: Tuesday, March 07, 2017 17:09 - CONCLUSION: No acute bony fracture. Ben Hamlin MD Lumbar Spine CT 03/07/171707 Signed Impressions: Service Date/Time: Tuesday, March 07, 2017 17:18 - CONCLUSION: 1. Negative for acute traumatic injury in the lumbar spine. Jamie Myrick MD Head CT [id number]/07/171707 Signed Impressions: Service Date/Time: Tuesday, March 07, 2017 17:09 - CONCLUSION: 1. No acute intracranial hemorrhage within the brain. 2. Possible cerebral edema with effacement of the sulci bilaterally. 3. Fractures involving the occipital condyles and left lateral mass of C1.. Ben Hamlin MD Chest X-Ray [id number]/07/171707 Signed Impressions: Service Date/Time: Tuesday, March 07, 2017 16:46 - CONCLUSION: 1. Multiple right lateral rib fractures. 2. Motion artifact versus early atelectasis above the right hemidiaphragm. No obvious pneumothorax on this supine image. Efra Urias MD Chest CT 03/07/171707 Signed Impressions: Service Date/Time: Tuesday, March 07, 2017 17:18 - CONCLUSION: 1. There are infiltrates in the posterior lower lungs bilaterally. 2. No evidence of pneumothorax. 3. Multiple bilateral rib fractures. Ben Hamlni MD Cervical Spine CT 03/07/171707 Signed Impressions: Service Date/Time: Tuesday, March 07, 2017 17:09 - CONCLUSION: 1. There are fractures involving the base of the skull involving both occipital condyles. 2. There is a fracture involving the distal clivus which appears to be nondisplaced. 3. There is a fracture extending through the left lateral mass of C1 into the region of the left transverse process. However, the Vertebral foramina appears to be intact. 4. The rest of the cervical spine appears to be grossly intact. 1. Ben Hamlin MD Abdomen/Pelvis CT 03/07/17 1708 Signed Impressions: Service Date/Time: Friday, March 07, 2017 17:18 - CONCLUSION: 1. Low density lesions in liver suggestive of liver lacerations involving the left and right lobes of the liver. 2. Small amount of free fluid in the pelvis. 3. Multiple bilateral rib fractures. Ben Hamlin MD Objective Remarks Intubated RN at bedside Right upper extremity Splint/dressing in place, mild swelling, cap refill less than 2 secs thumb, Elaine wrist restraint across forearm Right lower extremity Bandages over knee. No laxity or crepitus through range of motion of hip knee or ankle. Intact distal pulses Left lower extremity Dressing/splint in place, Mild swelling toes, Good capillary refill great toes Assessment & Plan Ortho Post Op Day #: 8 Problem List: Assessment and Plan Open left distal tibia and fibula fracture and closed right radial and ulnar shaft fractures. ORIF POD 8 (03/08/2017) Ortho stable. Nonweightbearing right upper extremity and left lower extremity Maintain splints. Keep clean and dry. Continue critical care. Ortho to follow on an intermittent basis. Vania Long Mar 16, 2017 09:02
[2017-03-16] MEDS: PROPOFOL 1000 MG/100 ML INJ 100 ML IV PRN ×2 (09:11→19:16)
[2017-03-16] MEDS: fentaNYL DRIP 250 ML IV PRN (09:11)
[2017-03-16] MEDS: VALPROIC ACID SYRUP 250 MG/5 ML UDC PO SCH ×2 (09:12→20:00)
[2017-03-16] MEDS: POTASSIUM CHLORIDE 25 MEQ EFFERVESCENT TAB PO SCH ×2 (09:12→20:00)
[2017-03-16] MEDS: DOCUSATE SODIUM 50 MG/SENNA 8.6 MG TAB PO SCH ×2 (09:13→20:01)
[2017-03-16] MEDS: FAMOTIDINE 20 MG TAB PO SCH ×2 (09:13→20:00)
[2017-03-16] MEDS: LACTULOSE SYRUP 20 GM/30 ML CUP PO SCH (09:14)
[2017-03-16] MEDS: levETIRAcetam INJ 500 MG in SODIUM CHLORIDE 0.9% INJ 100 ML IV SCH ×2 (09:14→20:00)
[2017-03-16] MEDS: MAGNESIUM HYDROXIDE SUSP 30 ML CUP PO SCH ×2 (09:14→20:00)
[2017-03-16] MEDS: INSULIN DETEMIR 100 UNITS/ML VIAL SQ SCH ×2 (09:14→20:01)
[2017-03-16] MEDS: PIPERACIL-TAZO 3.375 GM PREMIX 50 ML IV SCH ×2 (09:58→17:02)
[2017-03-16] MEDS ORDERED: VANCOMYCIN INJ 1,000 MG in SODIUM CHLOR 0.9% 250 ML INJ 250 ML IV SCH (10:00)
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
[2017-03-16 17:33] LABS: BILIRUBIN, URINE NEG (NEG); BLOOD, URINE NEG (NEG); GLUCOSE,URINE NEG (NEG); KETONE, URINE NEG (NEG); MUCUS URINE FEW /lpf (OCC); NITRITE,URINE NEG (NEG); PH, URINE 8.5 (5.0-8.5); URINE COLOR YELLOW (YELLW/STRAW); URINE LEUKOCYTE ESTERASE NEG (NEG)
[2017-03-17] VITALS (18 sets, daily range): BP systolic 114–132; BP diastolic 56–83; PULSE 106–120; RESP 10–15; TEMP 98.8–100.4; O2SAT 96–100
[2017-03-17] MEDS: INSULIN ASPART SUPPLEMENTAL SCALE SQ SCH ×4 (00:04→17:18)
[2017-03-17] MEDS: PIPERACIL-TAZO 3.375 GM PREMIX 50 ML IV SCH ×2 (00:05→08:48)
[2017-03-17] MEDS: METHOCARBAMOL 500 MG TAB PO SCH ×3 (03:27→17:10)
[2017-03-17] MEDS: ENOXAPARIN SODIUM 40 MG/0.4 ML SYRINGE SQ SCH (03:28)
[2017-03-17] MEDS: PROPOFOL 1000 MG/100 ML INJ 100 ML IV PRN ×2 (03:35→13:41)
[2017-03-17 04:37] LABS: ALBUMIN 2.2 GM/DL (3.4-5.0); ALT (GPT) 21 U/L (10-53); AST (GOT) 29 U/L (15-37); BICARBONATE 29.8 MEQ/L (21.0-32.0); CALCIUM 8.6 MG/DL (8.5-10.1); CHLORIDE 114 MEQ/L (98-107); CREATININE 0.92 MG/DL (0.50-1.00); GLOMERULAR FILTRATION RATE 93 ML/MIN (>89); GLUCOSE,RANDOM 294 MG/DL (74-106); SODIUM (NA) 149 MEQ/L (136-145)
[2017-03-17] MEDS: fentaNYL DRIP 250 ML IV PRN (04:38)
[2017-03-17 04:39] LABS: ALKALINE PHOSPHATASE 126 U/L (45-117); TOTAL BILIRUBIN ADULT 0.3 MG/DL (0.2-1.0); TOTAL PROTEIN 7.7 GM/DL (6.4-8.2)
[2017-03-17 04:42] LABS: BLOOD UREA NITROGEN 21 MG/DL (7-18)
[2017-03-17 04:57] LABS: AUTOMATED NEUTROPHIL # 10.8 TH/MM3 (1.8-7.7); BASOPHIL % 0.3 % (0.0-2.0); EOSINOPHIL # 0.6 TH/MM3 (0-0.4); EOSINOPHIL % 4.2 % (0.0-4.0); HEMATOCRIT 33.5 % (35.0-46.0); LYMPH % 11.7 % (9.0-44.0); LYMPHOCYTE # 1.7 TH/MM3 (1.0-4.8); MEAN CELL VOLUME 86.5 FL (80.0-100.0); MEAN CORPUSCULAR HEMOGLOBIN 28.4 PG (27.0-34.0); MEAN CORPUSCULAR HGB CONC 32.8 % (32.0-36.0); MEAN PLATELET VOLUME 8.6 FL (7.0-11.0); MONO % 7.1 % (0.0-8.0); NEUT % 76.7 % (16.0-70.0); PLATELET COUNT 429 TH/MM3 (150-450); RED BLOOD COUNT 3.87 MIL/MM3 (4.00-5.30); RED CELL DISTRIBUTION WIDTH 14.9 % (11.6-17.2); WHITE BLOOD COUNT 14.1 TH/MM3 (4.0-11.0)
--- NOTE | 2017-03-17 04:59 | RADRPT ---
EXAM DATE/TIME: 03/17/2017 03:58 [facility] COMPARISON: CHEST SINGLE AP, March 16, 2017, 3:53. INDICATIONS : Shortness of breath, possible pulmonary disease. MEDICAL HISTORY : None. SURGICAL HISTORY : None. ENCOUNTER: Subsequent ACUITY: 1 week PAIN SCORE: Non-responsive. LOCATION: Bilateral chest FINDINGS: ET tube, and NG tube have not changed. multiple displaced rib fractures are again seen on the right. Right pleural effusion is seen and not changed. There is mild atelectasis and/or infiltrate in the ri ght midlung. No definite pneumothorax is seen for technique. CONCLUSION: Small right pleural effusion and slight atelectasis and/or infiltrate right midlung. Manjula Talbert MD on March 17, 2017 at 4:57 Board Certified Radiologist. This report was verified electronically.
[2017-03-17] MEDS: levETIRAcetam INJ 500 MG in SODIUM CHLORIDE 0.9% INJ 100 ML IV SCH ×2 (08:46→20:57)
[2017-03-17] MEDS: VALPROIC ACID SYRUP 250 MG/5 ML UDC PO SCH ×2 (08:47→21:00)
[2017-03-17] MEDS: POTASSIUM CHLORIDE 25 MEQ EFFERVESCENT TAB PO SCH ×2 (08:47→21:03)
[2017-03-17] MEDS: DOCUSATE SODIUM 50 MG/SENNA 8.6 MG TAB PO SCH ×2 (08:48→21:00)
[2017-03-17] MEDS: FAMOTIDINE 20 MG TAB PO SCH ×2 (08:48→21:00)
[2017-03-17] MEDS: LACTULOSE SYRUP 20 GM/30 ML CUP PO SCH (08:49)
[2017-03-17] MEDS: MAGNESIUM HYDROXIDE SUSP 30 ML CUP PO SCH ×2 (08:49→21:00)
[2017-03-17] MEDS: INSULIN DETEMIR 100 UNITS/ML VIAL SQ SCH ×2 (08:54→21:02)
[2017-03-17] MEDS: CHLORHEXIDINE 0.12% (ORAL KIT) 15 ML CUP MT SCH ×2 (08:54→20:59)
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
--- NOTE | 2017-03-17 14:46 | PD.ORT.PN ---
Subjective Subjective Remarks no change in orthopedic issues. Objective Vitals Vital Signs Date Time Temp Pulse Resp B/P (MAP) Pulse Ox O2 Delivery O2 Flow Rate FiO2 03/17/17 13:33 35 03/17/17 11:25 98 35 03/17/17 08:50 98 35 03/17/17 08:00 35 03/17/17 06:00 120 03/17/17 04:00 35 03/17/17 04:00 120 03/17/17 04:00 99.7 120 13 128/83 (98) 99 03/17/17 03:34 100 35 03/17/17 02:00 108 03/17/17 01:15 100 35 03/17/17 00:00 35 03/17/17 00:00 98.8 106 11 121/64 (83) 100 03/17/17 00:00 106 03/16/17 22:00 108 03/16/17 21:38 100 35 03/16/17 20:22 100 35 03/16/17 20:00 35 03/16/17 20:00 114 03/16/17 20:00 99.7 114 19 137/70 (92) 100 03/16/17 18:00 118 03/16/17 16:34 100 35 03/16/17 16:00 35 03/16/17 16:00 113 03/16/17 16:00 99.9 113 17 111/64 (80) 100 I/O 03/16/17 03/16/17 03/16/17 03/17/17 03/17/17 03/17/17 07:00 15:00 23:00 07:00 15:00 23:00 Intake Total 1423 ml 755 ml 757 ml 954 ml Output Total 950 ml 1500 ml 1100 ml Balance 473 ml 755 ml -743 ml -146 ml Intake IV Total 649 ml 755 ml 255 ml 450 ml Tube Feeding 534 ml 502 ml 504 ml Tube Irrigant 240 ml Output Urine Total 950 ml 1500 ml 1100 ml # Bowel Movements 1 1 3 Result Diagram: 03/17/17 0430 03/17/17 0406 Imaging Last 24 hours Impressions Thoracic Spine CT 03/07/17 8773 Signed Impressions: Service Date/Time: Tuesday, March 07, 2017 17:18 - CONCLUSION: 1. Negative for acute traumatic injury within the thoracic spine. Jamie Myrick MD Pelvis X-Ray 03/07/171707 Signed Impressions: Service Date/Time: Tuesday, March 07, 2017 16:46 - CONCLUSION: Unremarkable Study. Ben Hamlin MD Maxillofacial CT 03/07/171707 Signed Impressions: Service Date/Time: Tuesday, March 07, 2017 17:09 - CONCLUSION: No acute bony fracture. Ben Hamlin MD Lumbar Spine CT 03/07/171707 Signed Impressions: Service Date/Time: Tuesday, March 07, 2017 17:18 - CONCLUSION: 1. Negative for acute traumatic injury in the lumbar spine. Jamie Myrick MD Head CT 03/07/171707 Signed Impressions: Service Date/Time: Tuesday, March 07, 2017 17:09 - CONCLUSION: 1. No acute intracranial hemorrhage within the brain. 2. Possible cerebral edema with effacement of the sulci bilaterally. 3. Fractures involving the occipital condyles and left lateral mass of C1.. Ben Hamlin MD Chest X-Ray 03/07/171707 Signed Impressions: Service Date/Time: Tuesday, March 07, 2017 16:46 - CONCLUSION: 1. Multiple right lateral rib fractures. 2. Motion artifact versus early atelectasis above the right hemidiaphragm. No obvious pneumothorax on this supine image. Efra Urias MD Chest CT 03/07/171707 Signed Impressions: Service Date/Time: Tuesday, March 07, 2017 17:18 - CONCLUSION: 1. There are infiltrates in the posterior lower lungs bilaterally. 2. No evidence of pneumothorax. 3. Multiple bilateral rib fractures. Ben Hamlin MD Cervical Spine CT 03/07/171707 Signed Impressions: Service Date/Time: Tuesday, March 07, 2017 17:09 - CONCLUSION: 1. There are fractures involving the base of the skull involving both occipital condyles. 2. There is a fracture involving the distal clivus which appears to be nondisplaced. 3. There is a fracture extending through the left lateral mass of C1 into the region of the left transverse process. However, the Vertebral foramina appears to be intact. 4. The rest of the cervical spine appears to be grossly intact. 1. Ben Hamlin MD Abdomen/Pelvis CT 03/07/17 1707 Signed Impressions: Service Date/Time: Tuesday, March 07, 2017 17:18 - CONCLUSION: 1. Low density lesions in liver suggestive of liver lacerations involving the left and right lobes of the liver. 2. Small amount of free fluid in the pelvis. 3. Multiple bilateral rib fractures. Ben Hamlin MD Objective Remarks Intubated RN at bedside Right upper extremity Splint/dressing in place, mild swelling, cap refill less than 2 secs thumb, [place] wrist restraint across forearm Right lower extremity Bandages over knee. No laxity or crepitus through range of motion of hip knee or ankle. Intact distal pulses Left lower extremity Dressing/splint in place, Mild swelling toes, Good capillary refill great toes Assessment & Plan Assessment and Plan Open left distal tibia and fibula fracture and closed right radial and ulnar shaft fractures. ORIF POD 9 (03/08/2017) Ortho stable. Nonweightbearing right upper extremity and left lower extremity Maintain splints. Keep clean and dry. Continue critical care. Ortho to follow on an intermittent basis. will see again on fri Abilio Toledo Jr., MD Mar 17, 2017 14:46
[2017-03-17] MEDS: cefTRIAXone INJ 2,000 MG in SODIUM CHLORIDE 0.9% INJ 100 ML IV SCH (16:19)
[2017-03-18] VITALS (18 sets, daily range): BP systolic 113–128; BP diastolic 55–70; PULSE 95–122; RESP 8–12; TEMP 98.6–101.1; O2SAT 98–100
[2017-03-18] MEDS: PROPOFOL 1000 MG/100 ML INJ 100 ML IV PRN ×2 (00:41→09:00)
[2017-03-18] MEDS: ENOXAPARIN SODIUM 40 MG/0.4 ML SYRINGE SQ SCH (02:09)
[2017-03-18] MEDS: METHOCARBAMOL 500 MG TAB PO SCH ×3 (02:10→19:28)
[2017-03-18 04:23] LABS: AUTOMATED NEUTROPHIL # 10.8 TH/MM3 (1.8-7.7); BASOPHIL # 0.1 TH/MM3 (0-0.2); BASOPHIL % 0.5 % (0.0-2.0); EOSINOPHIL # 0.4 TH/MM3 (0-0.4); EOSINOPHIL % 3.2 % (0.0-4.0); HEMATOCRIT 32.5 % (35.0-46.0); HEMOGLOBIN 10.5 GM/DL (11.6-15.3); LYMPH % 9.8 % (9.0-44.0); LYMPHOCYTE # 1.3 TH/MM3 (1.0-4.8); MEAN CELL VOLUME 86.2 FL (80.0-100.0); MEAN CORPUSCULAR HEMOGLOBIN 27.8 PG (27.0-34.0); MEAN CORPUSCULAR HGB CONC 32.3 % (32.0-36.0); MEAN PLATELET VOLUME 9.3 FL (7.0-11.0); MONO % 5.6 % (0.0-8.0); MONOCYTE # 0.7 TH/MM3 (0-0.9); NEUT % 80.9 % (16.0-70.0); PLATELET COUNT 452 TH/MM3 (150-450); RED BLOOD COUNT 3.77 MIL/MM3 (4.00-5.30); WHITE BLOOD COUNT 13.3 TH/MM3 (4.0-11.0)
[2017-03-18 04:37] LABS: AST (GOT) 31 U/L (15-37); BICARBONATE 29.2 MEQ/L (21.0-32.0); BLOOD UREA NITROGEN 18 MG/DL (7-18); CALCIUM 8.4 MG/DL (8.5-10.1); CHLORIDE 113 MEQ/L (98-107); CREATININE 0.83 MG/DL (0.50-1.00); GLOMERULAR FILTRATION RATE 105 ML/MIN (>89); GLUCOSE,RANDOM 293 MG/DL (74-106); SODIUM (NA) 149 MEQ/L (136-145)
[2017-03-18 04:38] LABS: ALT (GPT) 19 U/L (10-53)
[2017-03-18 04:40] LABS: ALKALINE PHOSPHATASE 145 U/L (45-117); TOTAL BILIRUBIN ADULT 0.2 MG/DL (0.2-1.0); TOTAL PROTEIN 7.2 GM/DL (6.4-8.2)
[2017-03-18] MEDS: INSULIN ASPART SUPPLEMENTAL SCALE SQ SCH ×5 (05:30→22:31)
--- NOTE | 2017-03-18 06:26 | RADRPT ---
EXAM DATE/TIME: 03/18/2017 05:00 [facility] COMPARISON: CHEST SINGLE AP, March 17, 2017, 3:58. INDICATIONS : Short of breath. MEDICAL HISTORY : None. SURGICAL HISTORY : None. ENCOUNTER: Subsequent ACUITY: 1 week PAIN SCORE: Non-responsive. LOCATION: Bilateral chest FINDINGS: There is no change in right pleural effusion. ET tube, and NG tube have not changed. Mild haziness to the lung lindsay bilaterally has not changed. Multiple fractures are again seen. No definite pneumoth orax is seen for technique. CONCLUSION: No appreciable change. Manjula Talbert MD on March 18, 2017 at 6:23 Board Certified Radiologist. This report was verified electronically.
[2017-03-18] MEDS: CHLORHEXIDINE 0.12% (ORAL KIT) 15 ML CUP MT SCH ×2 (08:00→22:05)
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
[2017-03-18] MEDS: LACTULOSE SYRUP 20 GM/30 ML CUP PO SCH (09:00)
[2017-03-18] MEDS: VALPROIC ACID SYRUP 250 MG/5 ML UDC PO SCH ×2 (09:00→22:00)
[2017-03-18] MEDS: MAGNESIUM HYDROXIDE SUSP 30 ML CUP PO SCH ×2 (09:00→22:31)
[2017-03-18] MEDS: POTASSIUM CHLORIDE 25 MEQ EFFERVESCENT TAB PO SCH (09:00)
[2017-03-18] MEDS: DOCUSATE SODIUM 50 MG/SENNA 8.6 MG TAB PO SCH ×2 (09:01→22:32)
[2017-03-18] MEDS: INSULIN DETEMIR 100 UNITS/ML VIAL SQ SCH ×2 (09:01→22:02)
[2017-03-18] MEDS: FAMOTIDINE 20 MG TAB PO SCH ×2 (09:01→22:01)
[2017-03-18] MEDS: levETIRAcetam INJ 500 MG in SODIUM CHLORIDE 0.9% INJ 100 ML IV SCH ×2 (09:02→22:01)
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
[2017-03-18] MEDS: cefTRIAXone INJ 2,000 MG in SODIUM CHLORIDE 0.9% INJ 100 ML IV SCH (14:25)
[2017-03-18] MEDS: fentaNYL DRIP 250 ML IV PRN (14:25)
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
[2017-03-18] MEDS: oxyCODONE HCL ORAL CONC 5 MG/0.25 ML SYRINGE NG SCH ×3 (14:41→22:32)
[2017-03-18] MEDS: RESP: ALBUTEROL 2.5 MG/IPRATROPIUM 0.5 MG NEB (SCH) NEB ×2 (15:34→20:30)
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
[2017-03-18] MEDS: FREE WATER G-TUBE SCH (22:02)
[2017-03-18] MEDS: ARTIFICIAL TEARS OPTH SOLN 15 ML BTL EACH EYE SCH (22:02)
[2017-03-19] VITALS (20 sets, daily range): BP systolic 106–146; BP diastolic 55–82; PULSE 92–123; RESP 12–16; TEMP 98.8–100.9; O2SAT 98–100
[2017-03-19] MEDS: ENOXAPARIN SODIUM 40 MG/0.4 ML SYRINGE SQ SCH ×2 (02:00→02:42)
[2017-03-19] MEDS: METHOCARBAMOL 500 MG TAB PO SCH ×3 (02:42→17:55)
[2017-03-19] MEDS: oxyCODONE HCL ORAL CONC 5 MG/0.25 ML SYRINGE NG SCH ×6 (02:43→22:14)
--- NOTE | 2017-03-19 03:29 | RADRPT ---
EXAM DATE/TIME: 03/19/2017 02:28 [facility] COMPARISON: CHEST SINGLE AP, March 18, 2017, 5:00. INDICATIONS : Shortness of breath. MEDICAL HISTORY : Diabetes mellitus type 2. SURGICAL HISTORY : None. ENCOUNTER: Subsequent ACUITY: 2 weeks PAIN SCORE: Non-responsive. LOCATION: Bilateral chest FINDINGS: Multiple fractures are again seen. Right pleural effusion has not changed. ET tube, and NG tube have not changed. There is mild haziness to the lung lindsay and possible slight left lung base consolidati on. CONCLUSION: No appreciable change except for possible slight left lung base consolidation not present previously. Manjula Talbert MD on March 19, 2017 at 3:26 Board Certified Radiologist. This report was verified electronically.
[2017-03-19] MEDS: RESP: ALBUTEROL 2.5 MG/IPRATROPIUM 0.5 MG NEB (SCH) NEB ×4 (03:59→20:58)
[2017-03-19] MEDS: INSULIN ASPART SUPPLEMENTAL SCALE SQ SCH ×7 (04:00→23:19)
[2017-03-19 05:14] LABS: AUTOMATED NEUTROPHIL # 9.3 TH/MM3 (1.8-7.7); BASOPHIL # 0.1 TH/MM3 (0-0.2); BASOPHIL % 0.5 % (0.0-2.0); EOSINOPHIL # 0.4 TH/MM3 (0-0.4); EOSINOPHIL % 3.4 % (0.0-4.0); HEMATOCRIT 33.1 % (35.0-46.0); HEMOGLOBIN 10.7 GM/DL (11.6-15.3); LYMPH % 15.5 % (9.0-44.0); MEAN CELL VOLUME 85.9 FL (80.0-100.0); MEAN CORPUSCULAR HEMOGLOBIN 27.7 PG (27.0-34.0); MEAN CORPUSCULAR HGB CONC 32.2 % (32.0-36.0); MEAN PLATELET VOLUME 8.8 FL (7.0-11.0); MONO % 6.8 % (0.0-8.0); MONOCYTE # 0.9 TH/MM3 (0-0.9); NEUT % 73.8 % (16.0-70.0); PLATELET COUNT 517 TH/MM3 (150-450); RED BLOOD COUNT 3.85 MIL/MM3 (4.00-5.30); RED CELL DISTRIBUTION WIDTH 15.2 % (11.6-17.2); WHITE BLOOD COUNT 12.6 TH/MM3 (4.0-11.0)
[2017-03-19 05:37] LABS: ALBUMIN 2.1 GM/DL (3.4-5.0); AMYLASE 23 U/L (25-115); AST (GOT) 32 U/L (15-37); BICARBONATE 26.9 MEQ/L (21.0-32.0); BLOOD UREA NITROGEN 17 MG/DL (7-18); CALCIUM 8.4 MG/DL (8.5-10.1); CHLORIDE 115 MEQ/L (98-107); CREATININE 0.72 MG/DL (0.50-1.00); GLOMERULAR FILTRATION RATE 124 ML/MIN (>89); GLUCOSE,RANDOM 251 MG/DL (74-106); MAGNESIUM 2.1 MG/DL (1.5-2.5); SODIUM (NA) 151 MEQ/L (136-145)
[2017-03-19 05:38] LABS: ALT (GPT) 21 U/L (10-53)
[2017-03-19 05:47] LABS: ALKALINE PHOSPHATASE 181 U/L (45-117); PHOSPHORUS 3.7 MG/DL (2.5-4.9); TOTAL BILIRUBIN ADULT 0.3 MG/DL (0.2-1.0); TOTAL PROTEIN 7.5 GM/DL (6.4-8.2); TROPONIN I LESS THAN 0.02 NG/ML (0.02-0.05)
[2017-03-19] MEDS: FREE WATER G-TUBE SCH ×3 (06:54→21:27)
[2017-03-19] MEDS: ARTIFICIAL TEARS OPTH SOLN 15 ML BTL EACH EYE SCH ×3 (06:54→21:27)
[2017-03-19] MEDS: CHLORHEXIDINE 0.12% (ORAL KIT) 15 ML CUP MT SCH ×2 (08:10→20:18)
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
[2017-03-19] MEDS: MAGNESIUM HYDROXIDE SUSP 30 ML CUP PO SCH ×2 (08:25→20:19)
[2017-03-19] MEDS: PROPOFOL 1000 MG/100 ML INJ 100 ML IV PRN ×3 (08:25→21:54)
[2017-03-19] MEDS: FAMOTIDINE 20 MG TAB PO SCH ×2 (08:25→20:19)
[2017-03-19] MEDS: LACTULOSE SYRUP 20 GM/30 ML CUP PO SCH (08:25)
[2017-03-19] MEDS: levETIRAcetam INJ 500 MG in SODIUM CHLORIDE 0.9% INJ 100 ML IV SCH ×2 (08:25→20:19)
[2017-03-19] MEDS: VALPROIC ACID SYRUP 250 MG/5 ML UDC PO SCH ×3 (08:25→17:55)
[2017-03-19] MEDS: INSULIN DETEMIR 100 UNITS/ML VIAL SQ SCH ×2 (08:26→20:19)
[2017-03-19] MEDS: DOCUSATE SODIUM 50 MG/SENNA 8.6 MG TAB PO SCH ×2 (08:26→20:19)
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
[2017-03-19] MEDS: ACETAMINOPHEN 1000 MG/100 ML 100 ML IV PRN (11:14)
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
[2017-03-19] MEDS: cefTRIAXone INJ 2,000 MG in SODIUM CHLORIDE 0.9% INJ 100 ML IV SCH (14:21)
[2017-03-19] MEDS: fentaNYL DRIP 250 ML IV PRN (18:00)
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
[2017-03-20] VITALS (16 sets, daily range): BP systolic 113–133; BP diastolic 55–65; PULSE 89–110; RESP 10–25; TEMP 98.8–99.3; O2SAT 98–100
[2017-03-20] MEDS: ENOXAPARIN SODIUM 40 MG/0.4 ML SYRINGE SQ SCH (01:19)
[2017-03-20] MEDS: METHOCARBAMOL 500 MG TAB PO SCH ×3 (01:19→17:07)
[2017-03-20] MEDS: oxyCODONE HCL ORAL CONC 5 MG/0.25 ML SYRINGE NG SCH ×6 (02:09→22:36)
[2017-03-20] MEDS: PROPOFOL 1000 MG/100 ML INJ 100 ML IV PRN ×3 (03:20→21:07)
[2017-03-20] MEDS: INSULIN ASPART SUPPLEMENTAL SCALE SQ SCH ×6 (04:00→23:56)
[2017-03-20 04:32] LABS: AUTOMATED NEUTROPHIL # 9.6 TH/MM3 (1.8-7.7); BASOPHIL # 0.1 TH/MM3 (0-0.2); BASOPHIL % 0.5 % (0.0-2.0); EOSINOPHIL # 0.3 TH/MM3 (0-0.4); EOSINOPHIL % 2.7 % (0.0-4.0); HEMATOCRIT 32.3 % (35.0-46.0); HEMOGLOBIN 10.4 GM/DL (11.6-15.3); LYMPH % 12.5 % (9.0-44.0); LYMPHOCYTE # 1.6 TH/MM3 (1.0-4.8); MEAN CELL VOLUME 87.1 FL (80.0-100.0); MEAN CORPUSCULAR HGB CONC 32.2 % (32.0-36.0); MEAN PLATELET VOLUME 9.1 FL (7.0-11.0); NEUT % 76.3 % (16.0-70.0); PLATELET COUNT 458 TH/MM3 (150-450); RED CELL DISTRIBUTION WIDTH 14.7 % (11.6-17.2); WHITE BLOOD COUNT 12.5 TH/MM3 (4.0-11.0)
[2017-03-20 05:03] LABS: AST (GOT) 32 U/L (15-37); BICARBONATE 25.3 MEQ/L (21.0-32.0); BLOOD UREA NITROGEN 13 MG/DL (7-18); CALCIUM 8.3 MG/DL (8.5-10.1); CHLORIDE 114 MEQ/L (98-107); CREATININE 0.58 MG/DL (0.50-1.00); GLOMERULAR FILTRATION RATE 159 ML/MIN (>89); GLUCOSE,RANDOM 168 MG/DL (74-106); MAGNESIUM 2.1 MG/DL (1.5-2.5); SODIUM (NA) 149 MEQ/L (136-145)
[2017-03-20 05:04] LABS: ALT (GPT) 21 U/L (10-53)
[2017-03-20] MEDS: RESP: ALBUTEROL 2.5 MG/IPRATROPIUM 0.5 MG NEB (SCH) NEB ×4 (05:06→20:49)
[2017-03-20 05:07] LABS: ALKALINE PHOSPHATASE 253 U/L (45-117); TOTAL BILIRUBIN ADULT 0.4 MG/DL (0.2-1.0); TOTAL PROTEIN 7.3 GM/DL (6.4-8.2)
[2017-03-20] MEDS: ARTIFICIAL TEARS OPTH SOLN 15 ML BTL EACH EYE SCH ×3 (05:12→21:07)
[2017-03-20] MEDS: FREE WATER G-TUBE SCH ×3 (06:00→21:07)
--- NOTE | 2017-03-20 06:13 | RADRPT ---
EXAM DATE/TIME: 03/20/2017 05:48 [facility] COMPARISON: CHEST SINGLE AP, March 19, 2017, 2:28. INDICATIONS : Short of breath. MEDICAL HISTORY : Diabetes mellitus type II. SURGICAL HISTORY : None. ENCOUNTER: Subsequent ACUITY: 2 weeks PAIN SCORE: Non-responsive. LOCATION: Bilateral FINDINGS: Moderate right pleural effusion is present with some degree of compressive collapse right lower lobe appears slightly worse. Fractures are again seen. ET tube, and NG tube have not changed. No definite pneumothorax is seen for technique. There is mild haziness to the vascular structures not significant ly changed. CONCLUSION: Increase in size of the right pleural effusion since the prior exam. Manjula Talbert MD on March 20, 2017 at 6:10 Board Certified Radiologist. This report was verified electronically.
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
[2017-03-20] MEDS: DOCUSATE SODIUM 50 MG/SENNA 8.6 MG TAB PO SCH ×2 (09:00→20:01)
[2017-03-20] MEDS: MAGNESIUM HYDROXIDE SUSP 30 ML CUP PO SCH ×2 (09:00→19:59)
[2017-03-20] MEDS: INSULIN DETEMIR 100 UNITS/ML VIAL SQ SCH ×2 (09:00→20:01)
[2017-03-20] MEDS: CHLORHEXIDINE 0.12% (ORAL KIT) 15 ML CUP MT SCH ×2 (09:01→19:59)
[2017-03-20] MEDS: levETIRAcetam INJ 500 MG in SODIUM CHLORIDE 0.9% INJ 100 ML IV SCH (09:13)
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
[2017-03-20] MEDS: LACTULOSE SYRUP 20 GM/30 ML CUP PO SCH (09:14)
[2017-03-20] MEDS: VALPROIC ACID SYRUP 250 MG/5 ML UDC PO SCH ×3 (09:15→17:07)
[2017-03-20] MEDS: FAMOTIDINE 20 MG TAB PO SCH ×2 (09:16→19:59)
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
[2017-03-20] MEDS: cefTRIAXone INJ 2,000 MG in SODIUM CHLORIDE 0.9% INJ 100 ML IV SCH (15:03)
[2017-03-20] MEDS ORDERED: LIDOCAINE HCL 1% 20 ML VIAL ONE (15:32)
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
--- NOTE | 2017-03-20 16:39 | PD.RAD ---
Post CT Procedure Prog Note Pre Procedure Diagnosis: (1) Hemothorax, right Post Procedure Diagnosis: (1) Hemothorax, right Procedure Date: Mar 20, 2017 Supervising Radiologist: Guille Bowie Anesthesia: Local Plan of Activity Patient to Unit: Critical Care Patient Condition: Poor See PACS Report for procedural detail/treatment Drainage Procedure Procedure 1 Imaging Guidance: CT Side: Right Procedure Type: Chest Tube Non-Tunneled Fluid Removal (CCs): 450 Fluid Description: Bloody Guille Bowie MD Mar 20, 2017 16:39
--- NOTE | 2017-03-20 17:02 | RADRPT ---
EXAM DATE/TIME: 03/20/2017 16:48 [facility] COMPARISON: No previous studies available for comparison. INDICATIONS : Chest tube placement. MEDICAL HISTORY : None. SURGICAL HISTORY : None. ENCOUNTER: Initial ACUITY: 1 day PAIN SCORE: Non-responsive. LOCATION: Right chest FINDINGS: A single frontal expiratory view of the chest was performed. Extensive, multiple right-sided rib frac tures. [place] loop thoracostomy tube projects over the right lower lung field. There is some pleural th ickening along the right side of the chest which could represent a subpleural hematoma. No obvious pn eumothorax on this supine image. Left lung is clear. Heart size is normal. Endotracheal tube appropri ately positioned above the cora. Nasogastric tube enters the stomach and extends off the inferior a spect of the image. CONCLUSION: 1. [place] loop thoracostomy tube projects over the inferolateral right hemithorax. No pneumothorax. 2. There is some subpleural density in the region of multiple right-sided rib fractures. This could r epresent subpleural hematoma. 3. Appropriate position of life-support tubes. Left lung is clear. Efra Urias MD on March 20, 2017 at 16:57 Board Certified Radiologist. This report was verified electronically.
[2017-03-20] MEDS: DEXMEDETOMIDINE INJ 200 MCG in SODIUM CHLORIDE 0.9% INJ 50 ML IV PRN (20:03)
[2017-03-20] MEDS: fentaNYL DRIP 250 ML IV PRN (22:33)
[2017-03-21] VITALS (18 sets, daily range): BP systolic 100–125; BP diastolic 52–70; PULSE 90–150; RESP 12–38; TEMP 98.8–100.9; O2SAT 97–100
[2017-03-21] MEDS: ENOXAPARIN SODIUM 40 MG/0.4 ML SYRINGE SQ SCH (01:31)
[2017-03-21] MEDS: METHOCARBAMOL 500 MG TAB PO SCH ×3 (01:31→17:42)
[2017-03-21] MEDS: DEXMEDETOMIDINE INJ 200 MCG in SODIUM CHLORIDE 0.9% INJ 50 ML IV PRN ×6 (01:55→20:56)
[2017-03-21] MEDS: oxyCODONE HCL ORAL CONC 5 MG/0.25 ML SYRINGE NG SCH ×6 (03:00→23:00)
[2017-03-21] MEDS: INSULIN ASPART SUPPLEMENTAL SCALE SQ SCH ×6 (04:00→23:55)
[2017-03-21] MEDS: RESP: ALBUTEROL 2.5 MG/IPRATROPIUM 0.5 MG NEB (SCH) NEB ×4 (04:35→19:59)
[2017-03-21 04:39] LABS: AUTOMATED NEUTROPHIL # 8.6 TH/MM3 (1.8-7.7); BASOPHIL # 0.1 TH/MM3 (0-0.2); BASOPHIL % 0.6 % (0.0-2.0); EOSINOPHIL # 0.4 TH/MM3 (0-0.4); EOSINOPHIL % 3.3 % (0.0-4.0); HEMATOCRIT 34.2 % (35.0-46.0); HEMOGLOBIN 11.1 GM/DL (11.6-15.3); LYMPH % 14.6 % (9.0-44.0); LYMPHOCYTE # 1.7 TH/MM3 (1.0-4.8); MEAN CELL VOLUME 86.1 FL (80.0-100.0); MEAN CORPUSCULAR HEMOGLOBIN 27.9 PG (27.0-34.0); MEAN CORPUSCULAR HGB CONC 32.4 % (32.0-36.0); MEAN PLATELET VOLUME 9.4 FL (7.0-11.0); MONO % 8.7 % (0.0-8.0); NEUT % 72.8 % (16.0-70.0); PLATELET COUNT 518 TH/MM3 (150-450); RED BLOOD COUNT 3.97 MIL/MM3 (4.00-5.30); RED CELL DISTRIBUTION WIDTH 14.7 % (11.6-17.2); WHITE BLOOD COUNT 11.8 TH/MM3 (4.0-11.0)
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
[2017-03-21] MEDS: PROPOFOL 1000 MG/100 ML INJ 100 ML IV PRN (04:56)
[2017-03-21 05:05] LABS: ALBUMIN 2.1 GM/DL (3.4-5.0); AST (GOT) 21 U/L (15-37); BICARBONATE 24.8 MEQ/L (21.0-32.0); BLOOD UREA NITROGEN 11 MG/DL (7-18); CALCIUM 8.3 MG/DL (8.5-10.1); CHLORIDE 113 MEQ/L (98-107); CREATININE 0.64 MG/DL (0.50-1.00); GLOMERULAR FILTRATION RATE 142 ML/MIN (>89); GLUCOSE,RANDOM 165 MG/DL (74-106); SODIUM (NA) 146 MEQ/L (136-145)
[2017-03-21 05:06] LABS: ALT (GPT) 19 U/L (10-53)
[2017-03-21 05:08] LABS: ALKALINE PHOSPHATASE 344 U/L (45-117); TOTAL BILIRUBIN ADULT 0.3 MG/DL (0.2-1.0); TOTAL PROTEIN 7.5 GM/DL (6.4-8.2)
[2017-03-21] MEDS: FREE WATER G-TUBE SCH ×3 (05:15→21:36)
[2017-03-21] MEDS: ARTIFICIAL TEARS OPTH SOLN 15 ML BTL EACH EYE SCH ×3 (05:15→21:36)
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
[2017-03-21] MEDS: CHLORHEXIDINE 0.12% (ORAL KIT) 15 ML CUP MT SCH ×2 (08:00→20:00)
[2017-03-21] MEDS ORDERED: FUROSEMIDE 40 MG/4 ML VIAL IV PUSH ONE (08:00)
[2017-03-21] MEDS: INSULIN DETEMIR 100 UNITS/ML VIAL SQ SCH ×2 (08:33→20:57)
--- NOTE | 2017-03-21 08:50 | RADRPT ---
EXAM DATE/TIME: 03/20/2017 16:00 INDICATIONS : Fluid right lung. DEVICE(S): 1.) Mason 12FR FLUID: Total volume of450 cc of clear, yellow fluid was remoted. MEDICAL HISTORY : Tramatic brain injury SURGICAL HISTORY : D&C ENCOUNTER: Initial ACUITY: 1 day PAIN SCORE: Non-responsive LOCATION: Right chest PROCEDURE: PROCEDURE : 1. CT guided chest tube placement. 2. Conscious sedation with continuous EKG and oximetry monitoring. The risks, benefits and alternatives to the procedure were explained and verbal and written consent w as obtained. The site was prepped in sterile fashion. Full sterile technique was used, including ca p, mask, sterile gloves and gown and a large sterile sheet. Hand hygiene and 2% chlorhexidine and/or betadine/alcohol prep was utilized per protocol for cutaneous antisepsis. The skin and subcutaneous tissues were infiltrated with local anesthetic solution. Using automated exposure control and adjus tment of the mA and/or kV according to patient size, radiation dose was kept as low as reasonably ach ievable to obtain optimal diagnostic quality images. DICOM format image data is available electronic ally for review and comparison. With CT guidance the chest was punctured and the prescribed catheter was placed in the lung apex. Wal l suction was applied. Post procedure images demonstrate satisfactory position of the tube. The cat heter was sutured in place and a Percu-Stay was applied. Conscious sedation was performed with the prescribed dosages and duration as above. The patient mark ated the procedure well and there were no complications. EKG and oximetry remained stable throughout the procedure. The patient was sent to post anesthesia recovery in stable condition. CONCLUSION: Uncomplicated chest tube placement as above. Guille Bowie MD on March 21, 2017 at 8:47 Board Certified Radiologist. This report was verified electronically.
[2017-03-21] MEDS: MAGNESIUM HYDROXIDE SUSP 30 ML CUP PO SCH ×2 (09:00→21:00)
[2017-03-21] MEDS: DOCUSATE SODIUM 50 MG/SENNA 8.6 MG TAB PO SCH ×2 (09:00→21:00)
[2017-03-21] MEDS: FAMOTIDINE 20 MG TAB PO SCH ×2 (09:00→21:00)
[2017-03-21] MEDS: LACTULOSE SYRUP 20 GM/30 ML CUP PO SCH (09:00)
[2017-03-21] MEDS: VALPROIC ACID SYRUP 250 MG/5 ML UDC PO SCH ×3 (09:00→17:42)
[2017-03-21] MEDS: METOPROLOL TARTRATE 5 MG/5 ML VIAL IV PUSH SCH ×3 (09:00→21:00)
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
[2017-03-21] MEDS: MORPHINE SULFATE 2 MG/ML INJ IV PUSH PRN ×2 (09:58→12:51)
[2017-03-21] MEDS: HALOPERIDOL LACTATE 5 MG/ML AMP IV PRN ×2 (09:58→21:39)
[2017-03-21] MEDS: ACETAMINOPHEN 1000 MG/100 ML 100 ML IV PRN (14:21)
[2017-03-21] MEDS: cefTRIAXone INJ 2,000 MG in SODIUM CHLORIDE 0.9% INJ 100 ML IV SCH (15:37)
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
[2017-03-21] MEDS: LEVOFLOXACIN 750 MG TAB PO SCH (16:45)
[2017-03-21] MEDS ORDERED: MIDAZOLAM HCL 5 MG/ML VIAL (1 ML) ONE (22:45)
[2017-03-21] MEDS ORDERED: MIDAZOLAM HCL 5 MG/ML VIAL (1 ML) IV ONE (23:45)
[2017-03-21] MEDS ORDERED: ROCURONIUM INJ 50 MG/5 ML VIAL IV ONE (23:45)
[2017-03-21] MEDS: PROPOFOL 1000 MG/100 ML IV PRN (23:50)
[2017-03-21] MEDS: fentaNYL 2,500 MCG/NS 250 ML IV PRN (23:50)
--- NOTE | 2017-03-21 23:54 | RADRPT ---
EXAM DATE/TIME: 03/21/2017 23:34 [facility] COMPARISON: No previous studies available for comparison. INDICATIONS : E-T tube placement. MEDICAL HISTORY : None. SURGICAL HISTORY : None. ENCOUNTER: Subsequent ACUITY: 2 weeks PAIN SCORE: Non-responsive. LOCATION: Bilateral chest FINDINGS: Endotracheal tube tip is close to the cora and should be pulled back approximately 2 cm. Mild hazy opacities again seen of both lungs. There is a small, laterally loculated right pleural eff usion. Multiple right rib fractures are again noted. A right chest tube remains in place. No percepti ble pneumothorax. CONCLUSION: 1. Endotracheal tube tip at the cora and should be pulled back slightly. 2. No significant change hazy bilateral pulmonary opacities. 3. No significant change small right pleural effusion loculated laterally. Chest tube remains in plac e. 4. No pneumothorax demonstrated. Von Ortiz MD on March 21, 2017 at 23:51 Board Certified Radiologist. This report was verified electronically.
[2017-03-21 23:58] LABS: HEMATOCRIT 37.3 % (35.0-46.0); HEMOGLOBIN 11.9 GM/DL (11.6-15.3); MEAN CORPUSCULAR HEMOGLOBIN 27.9 PG (27.0-34.0); MEAN CORPUSCULAR HGB CONC 31.7 % (32.0-36.0); MEAN PLATELET VOLUME 8.9 FL (7.0-11.0); PLATELET COUNT 638 TH/MM3 (150-450); RED BLOOD COUNT 4.24 MIL/MM3 (4.00-5.30); RED CELL DISTRIBUTION WIDTH 14.9 % (11.6-17.2); WHITE BLOOD COUNT 21.9 TH/MM3 (4.0-11.0)
[2017-03-22] VITALS (19 sets, daily range): BP systolic 118–136; BP diastolic 66–72; PULSE 112–156; RESP 20–33; TEMP 100–101.8; O2SAT 93–97
[2017-03-22] MEDS: ACETAMINOPHEN 1000 MG/100 ML 100 ML IV PRN ×3 (00:08→12:13)
[2017-03-22 00:20] LABS: BICARBONATE 23.4 MEQ/L (21.0-32.0); CALCIUM 8.6 MG/DL (8.5-10.1); CREATININE 1.49 MG/DL (0.50-1.00)
[2017-03-22] MEDS ORDERED: LABETALOL INJ 500 MG in SODIUM CHLORIDE 0.9% INJ 150 ML IV PRN (02:00)
[2017-03-22] MEDS ORDERED: METOPROLOL TARTRATE 5 MG/5 ML VIAL IV PUSH ONE (02:00)
[2017-03-22] MEDS: ENOXAPARIN SODIUM 40 MG/0.4 ML SYRINGE SQ SCH (02:00)
[2017-03-22] MEDS: METHOCARBAMOL 500 MG TAB PO SCH ×3 (02:00→17:22)
[2017-03-22] MEDS ORDERED: SODIUM CHLOR 0.9% 1000 ML INJ 1,000 ML IV ONE (02:00)
[2017-03-22] MEDS ORDERED: niCARdipine 25 MG/NS 250 ML Vial2Bag or IV room IV PRN ×2 (03:00)
[2017-03-22] MEDS: oxyCODONE HCL ORAL CONC 5 MG/0.25 ML SYRINGE NG SCH ×6 (03:00→23:44)
[2017-03-22] MEDS: METOPROLOL TARTRATE 5 MG/5 ML VIAL IV PUSH SCH ×2 (03:00→08:32)
[2017-03-22] MEDS ORDERED: NOREPINEPHRINE-DEXTROSE DRIP 250 ML IV ONE (03:02)
[2017-03-22] MEDS ORDERED: NOREPINEPHRINE-DEXTROSE DRIP 250 ML IV PRN (03:30)
[2017-03-22] MEDS ORDERED: PHENYLEPHRINE INJ 80 MG in DEXTROSE 5% IN WATE 500 ML INJ 492 ML IV PRN ×2 (03:30)
[2017-03-22] MEDS ORDERED: TERBUTALINE INJ 1 MG/ML AMP SQ PRN ×2 (03:30)
[2017-03-22] MEDS ORDERED: VASOPRESSIN INJ 40 UNITS in DEXTROSE 5% IN WATER 100ML INJ 98 ML IV SCH ×4 (03:30→04:00)
[2017-03-22] MEDS ORDERED: PHENYLEPHRINE HCL 10 MG/ML VIAL ONE (03:34)
[2017-03-22 03:42] LABS: AUTOMATED NEUTROPHIL # 14.5 TH/MM3 (1.8-7.7); BASOPHIL # 0.1 TH/MM3 (0-0.2); BASOPHIL % 0.4 % (0.0-2.0); EOSINOPHIL % 0.1 % (0.0-4.0); HEMATOCRIT 31.7 % (35.0-46.0); HEMOGLOBIN 10.3 GM/DL (11.6-15.3); LYMPH % 6.6 % (9.0-44.0); LYMPHOCYTE # 1.2 TH/MM3 (1.0-4.8); MEAN CELL VOLUME 86.3 FL (80.0-100.0); MEAN CORPUSCULAR HGB CONC 32.5 % (32.0-36.0); MEAN PLATELET VOLUME 8.4 FL (7.0-11.0); MONO % 11.2 % (0.0-8.0); NEUT % 81.7 % (16.0-70.0); PLATELET COUNT 499 TH/MM3 (150-450); RED BLOOD COUNT 3.67 MIL/MM3 (4.00-5.30); RED CELL DISTRIBUTION WIDTH 14.5 % (11.6-17.2); WHITE BLOOD COUNT 17.7 TH/MM3 (4.0-11.0)
[2017-03-22] MEDS ORDERED: SODIUM BICARBONATE 8.4% INJ 50 MEQ/50 ML SYR IV PUSH ONE (03:45)
--- NOTE | 2017-03-22 03:53 | RADRPT ---
EXAM DATE/TIME: 03/22/2017 03:43 [facility] COMPARISON: CHEST SINGLE AP, March 21, 2017, 23:34. INDICATIONS : Evaluate Central Line- Patient post Code Blue MEDICAL HISTORY : None. SURGICAL HISTORY : None. ENCOUNTER: Subsequent ACUITY: 2 weeks PAIN SCORE: Non-responsive. LOCATION: Bilateral chest FINDINGS: There is a new right subclavian central venous catheter with tip in the superior vena cava. No pneumo thorax. Endotracheal tube tip is less than 1 cm above the cora. Patchy hazy pulmonary opacities are again noted. Small loculated pleural effusion again noted on the right with a chest tube present. There are multiple right rib fractures. There is a nasogastric tube now present, tip in the stomach. Stomach is decompressed relative to the prior. CONCLUSION: 1. Interim right subclavian central venous catheter and nasogastric tube placement. No pneumothorax. 2. Endotracheal tube tip just above the cora. 3. Mild pulmonary opacities persist, not significantly changed. 4. Right rib fractures with a small, laterally loculated right pleural effusion with a chest tube aga in noted. Von Ortiz MD on March 22, 2017 at 3:49 Board Certified Radiologist. This report was verified electronically.
[2017-03-22] MEDS ORDERED: EPINEPHrine 2 MG/D5W 250 ML IV PRN ×2 (04:15)
[2017-03-22 04:23] LABS: ALBUMIN 1.9 GM/DL (3.4-5.0); BICARBONATE 29.5 MEQ/L (21.0-32.0); CALCIUM 7.4 MG/DL (8.5-10.1); CALCIUM-PROTEIN CORRECTED 7.7 MG/DL (8.5-10.1); CREATININE 1.8 MG/DL (0.50-1.00); MAGNESIUM 2.4 MG/DL (1.5-2.5); PHOSPHORUS 7.7 MG/DL (2.5-4.9); TOTAL BILIRUBIN ADULT 0.2 MG/DL (0.2-1.0); TOTAL PROTEIN 6.6 GM/DL (6.4-8.2)
[2017-03-22] MEDS: RESP: ALBUTEROL 2.5 MG/IPRATROPIUM 0.5 MG NEB (SCH) NEB ×3 (04:40→08:13)
--- NOTE | 2017-03-22 04:42 | RADRPT ---
EXAM DATE/TIME: 03/22/2017 04:02 [facility] COMPARISON: No previous studies available for comparison. INDICATIONS : Altered mental status. Post code. RADIATION DOSE: 56.35 CTDIvol (mGy) MEDICAL HISTORY : Non-responsive. SURGICAL HISTORY : Non-responsive. ENCOUNTER: Initial ACUITY: 1 day PAIN SCALE: Non-responsive LOCATION: cranial TECHNIQUE: Multiple contiguous axial images were obtained of the head. Using automated exposure control and adj ustment of the mA and/or kV according to patient size, radiation dose was kept as low as reasonably a chievable to obtain optimal diagnostic quality images. DICOM format image data is available electro nically for review and comparison. FINDINGS: CEREBRUM: The ventricles are normal for age. No evidence of midline shift, mass lesion, hemorrhage or acute in farction. No extra-axial fluid collections are seen. POSTERIOR FOSSA: The cerebellum and brainstem are intact. The 4th ventricle is midline. The cerebellopontine angle i s unremarkable. EXTRACRANIAL: The visualized portion of the orbits is intact. SKULL: The calvaria is intact. No evidence of skull fracture. CONCLUSION: Negative noncontrast head CT. Von Ortiz MD on March 22, 2017 at 4:40 Board Certified Radiologist. This report was verified electronically.
[2017-03-22 04:57] LABS: BANDS 13 % (0-6); CORRECTED NUCLEATED RBC 1 /100 WBC (0-0); LYMPHOCYTES 6 % (9-44); MONOCYTES 4 % (0-8); MYELOCYTES 1 % (0-0); NEUTROPHIL # MANUAL DIFF 15.9 TH/MM3 (1.8-7.7); NUCLEATED RED BLOOD CELL 1 (0-0); POLYS (SEG NEUTROPHILS) 75 % (16-70); PROMYELOCYTES 1 % (0-0)
--- NOTE | 2017-03-22 05:28 | PD.PROCEDR ---
Procedure Note Procedure Centerline placement A time-out was completed verifying correct patient, procedure, site, positioning , and special equipment if applicable. The patient was placed in a dependent position appropriate for central line placement based on the vein to be cannulated. The patients right shoulder was prepped and draped in sterile fashion. 1% Lidocaine was used to anesthetize the surrounding skin area. A triple lumen 9-[place] Cordis catheter was introduced into the the right subclavian vein using the Seldinger technique. The catheter was threaded smoothly over the guide wire and appropriate blood return was obtained. Each lumen of the catheter was evacuated of air and flushed with sterile saline. The catheter was then sutured in place to the skin and a sterile dressing applied. Perfusion to the extremity distal to the point of catheter insertion was checked and found to be adequate. Estimated Blood Loss: 1ml The patient tolerated the procedure well and there were no complications. Ellis Bowman MD Mar 22, 2017 05:28
--- NOTE | 2017-03-22 05:30 | PD.PROCEDR ---
Procedure Note Procedure Arterial line placement A time-out was completed verifying correct patient, procedure, site, positioning , and special equipment if applicable. Allens test was performed to ensure adequate perfusion. The patients left elbow was prepped and draped in sterile fashion. 1% Lidocaine was used to anesthetize the area. A 18G Arrow arterial line was introduced into the brachial artery. The catheter was threaded over the guide wire and the needle was removed with appropriate pulsatile blood return. The catheter was then sutured in place to the skin and a sterile dressing applied. Perfusion to the extremity distal to the point of catheter insertion was checked and found to be adequate. Estimated Blood Loss: 1ml The patient tolerated the procedure well and there were no complications. Ellis Bowman MD Mar 22, 2017 05:30
[2017-03-22] MEDS: SODIUM CHLOR 0.9% 1000 ML INJ 1,000 ML IV SCH ×2 (05:39→06:35)
[2017-03-22] MEDS ORDERED: MISC INFORMATION OTHER ONE (05:45)
[2017-03-22] MEDS ORDERED: DEXTROSE 50% IN WATER 50 ML VIAL(D50) IV PUSH PRN (05:45)
[2017-03-22] MEDS: INSULIN REGULAR (IV INFUSION) 100 UNITS in SODIUM CHLORIDE 0.9% INJ 99 ML IV PRN (06:23)
[2017-03-22] MEDS ORDERED: MORPHINE SULFATE 2 MG/ML INJ IV ONE (06:30)
[2017-03-22] MEDS: fentaNYL 2,500 MCG/NS 250 ML IV PRN ×2 (06:34→20:43)
[2017-03-22] MEDS: PROPOFOL 1000 MG/100 ML IV PRN ×3 (06:34→20:43)
[2017-03-22] MEDS: FREE WATER G-TUBE SCH ×3 (07:26→22:22)
[2017-03-22] MEDS: ARTIFICIAL TEARS OPTH SOLN 15 ML BTL EACH EYE SCH ×3 (07:26→22:22)
[2017-03-22] MEDS ORDERED: VASOPRESSIN 40 U/D5W 100 ML Titrate, Post Cardiac Surgery IV PRN ×2 (07:45)
[2017-03-22] MEDS: LACTULOSE SYRUP 20 GM/30 ML CUP PO SCH (08:32)
[2017-03-22] MEDS: CHLORHEXIDINE 0.12% (ORAL KIT) 15 ML CUP MT SCH ×2 (08:32→20:00)
[2017-03-22] MEDS: LEVOFLOXACIN 750 MG TAB PO SCH (08:32)
[2017-03-22] MEDS: VALPROIC ACID SYRUP 250 MG/5 ML UDC PO SCH ×4 (08:32→18:26)
[2017-03-22] MEDS: MAGNESIUM HYDROXIDE SUSP 30 ML CUP PO SCH ×3 (08:33→20:48)
[2017-03-22] MEDS: FAMOTIDINE 20 MG TAB PO SCH ×2 (08:33→20:47)
[2017-03-22] MEDS: DOCUSATE SODIUM 50 MG/SENNA 8.6 MG TAB PO SCH ×2 (08:33→20:48)
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
[2017-03-22] MEDS: PIPERACIL-TAZO 4.5 GM PREMIX 100 ML IV SCH ×2 (13:47→20:47)
[2017-03-22] MEDS ORDERED: METOPROLOL TARTRATE 5 MG/5 ML VIAL IV PUSH PRN (15:00)
[2017-03-22] MEDS: LINEZOLID 600 MG PREMIX 300 ML IV SCH (15:12)
[2017-03-22 15:34] LABS: BICARBONATE 36.2 MEQ/L (21.0-32.0); CALCIUM 7.1 MG/DL (8.5-10.1); CREATININE 1.15 MG/DL (0.50-1.00)
[2017-03-22] MEDS ORDERED: EPINEPHrine HCL (1:10,000) 1 MG/10 ML SYRINGE IV ONE ×3 (15:47→15:49)
[2017-03-22] MEDS ORDERED: SODIUM BICARBONATE 8.4% INJ 50 MEQ/50 ML SYR IV ONE ×2 (15:47→15:48)
[2017-03-22] MEDS ORDERED: EPINEPHrine HCL (1:1000) 30 MG/30 ML VIAL IV ONE (15:48)
[2017-03-22 16:05] LABS: BILIRUBIN, URINE NEG (NEG); BLOOD, URINE NEG (NEG); GLUCOSE,URINE NEG (NEG); KETONE, URINE NEG (NEG); MUCUS URINE FEW /lpf (OCC); NITRITE,URINE NEG (NEG); SQUAMOUS EPITHELIAL CELL URINE <1 /hpf (0-5); URIC ACID CRYSTALS, URINE FEW /hpf; URINE COLOR YELLOW (YELLW/STRAW); URINE LEUKOCYTE ESTERASE NEG (NEG)
[2017-03-22 16:08] LABS: TOTAL PROTEIN 7.3 GM/DL (6.4-8.2)
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
[2017-03-22 16:11] LABS: CALCIUM-PROTEIN CORRECTED 7.1 MG/DL (8.5-10.1)
[2017-03-22] MEDS: POTASSIUM CHLOR 40 MEQ PREMIX 100 ML IV PRN (16:38)
[2017-03-22] MEDS: RESP: ALBUTEROL 2.5 MG/3 ML NEB (PRN) NEB (23:13)
[2017-03-23] VITALS (21 sets, daily range): BP systolic 109–137; BP diastolic 56–69; PULSE 110–128; RESP 20–29; TEMP 97.9–101; O2SAT 93–100
[2017-03-23] MEDS: oxyCODONE HCL ORAL CONC 5 MG/0.25 ML SYRINGE NG SCH ×2 (03:37→06:01)
[2017-03-23] MEDS: METHOCARBAMOL 500 MG TAB PO SCH (03:37)
[2017-03-23] MEDS: ENOXAPARIN SODIUM 40 MG/0.4 ML SYRINGE SQ SCH (03:37)
[2017-03-23] MEDS: LINEZOLID 600 MG PREMIX 300 ML IV SCH ×2 (03:37→14:11)
[2017-03-23] MEDS: PIPERACIL-TAZO 4.5 GM PREMIX 100 ML IV SCH ×4 (03:37→21:42)
[2017-03-23] MEDS: RESP: ALBUTEROL 2.5 MG/3 ML NEB (PRN) NEB ×2 (03:47→08:41)
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
[2017-03-23 05:51] LABS: AUTOMATED NEUTROPHIL # 11.7 TH/MM3 (1.8-7.7); BASOPHIL % 0.2 % (0.0-2.0); EOSINOPHIL # 0.1 TH/MM3 (0-0.4); EOSINOPHIL % 0.6 % (0.0-4.0); HEMATOCRIT 31.4 % (35.0-46.0); HEMOGLOBIN 10.1 GM/DL (11.6-15.3); LYMPH % 8.6 % (9.0-44.0); LYMPHOCYTE # 1.3 TH/MM3 (1.0-4.8); MEAN CORPUSCULAR HEMOGLOBIN 28.1 PG (27.0-34.0); MEAN CORPUSCULAR HGB CONC 32.3 % (32.0-36.0); MONO % 12.7 % (0.0-8.0); MONOCYTE # 1.9 TH/MM3 (0-0.9); NEUT % 77.9 % (16.0-70.0); PLATELET COUNT 433 TH/MM3 (150-450); RED CELL DISTRIBUTION WIDTH 15.1 % (11.6-17.2)
[2017-03-23] MEDS: ARTIFICIAL TEARS OPTH SOLN 15 ML BTL EACH EYE SCH ×3 (06:00→21:43)
[2017-03-23] MEDS: FREE WATER G-TUBE SCH ×3 (06:00→23:16)
[2017-03-23] MEDS: PROPOFOL 1000 MG/100 ML IV PRN ×3 (06:35→19:00)
[2017-03-23 06:52] LABS: ALBUMIN 1.9 GM/DL (3.4-5.0); ALKALINE PHOSPHATASE 466 U/L (45-117); ALT (GPT) 175 U/L (10-53); AST (GOT) 271 U/L (15-37); BICARBONATE 34.2 MEQ/L (21.0-32.0); BLOOD UREA NITROGEN 16 MG/DL (7-18); CALCIUM 7.5 MG/DL (8.5-10.1); CHLORIDE 119 MEQ/L (98-107); CREATININE 0.77 MG/DL (0.50-1.00); GLOMERULAR FILTRATION RATE 115 ML/MIN (>89); GLUCOSE,RANDOM 183 MG/DL (74-106); TOTAL BILIRUBIN ADULT 0.3 MG/DL (0.2-1.0); TOTAL PROTEIN 6.7 GM/DL (6.4-8.2)
[2017-03-23 07:01] LABS: SODIUM (NA) 158 MEQ/L (136-145)
[2017-03-23] MEDS: CHLORHEXIDINE 0.12% (ORAL KIT) 15 ML CUP MT SCH ×2 (07:46→21:42)
[2017-03-23] MEDS: fentaNYL 2,500 MCG/NS 250 ML IV PRN (07:47)
[2017-03-23] MEDS: DOCUSATE SODIUM 50 MG/SENNA 8.6 MG TAB PO SCH ×2 (08:05→21:42)
[2017-03-23] MEDS: MAGNESIUM HYDROXIDE SUSP 30 ML CUP PO SCH ×2 (08:05→21:42)
[2017-03-23] MEDS: FAMOTIDINE 20 MG TAB PO SCH ×2 (08:05→21:42)
[2017-03-23] MEDS: LEVOFLOXACIN 750 MG TAB PO SCH (08:05)
[2017-03-23] MEDS: LACTULOSE SYRUP 20 GM/30 ML CUP PO SCH (08:05)
[2017-03-23] MEDS: VALPROIC ACID SYRUP 250 MG/5 ML UDC PO SCH ×3 (08:05→18:23)
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
[2017-03-23] MEDS ORDERED: METHOCARBAMOL 500 MG TAB PO PRN (10:00)
[2017-03-23] MEDS ORDERED: LORazepam 2 MG/ML VIAL ONE (10:05)
--- NOTE | 2017-03-23 10:19 | ECHRPT ---
Indication: CODED x3 CONCLUSIONS Normal left ventricular size. Wall thickness is normal. The left ventricular systolic function is hyperdynamic with an estimated ejection fraction in the ra nge of 65- 70%. Wall motion abnormalities There is a mild increase in the left ventricular intracavitary gradient. The right ventricular systoilc function is moderately decreased (apex appears spared). There is moderate tricuspid regurgitation. There is estimated [id number] pulmonary hypertension present ( 66 mmHg). Given RV hypokinesis, elevated RV pressures, would exclude pulmonary embolus if clinically indicated . BP: / HR: Rhythm: Sinus tachycardia MEASUREMENTS (Male / Female) Normal Values Technical Quality:Fair 2D ECHO LV Diastolic Diameter PLAX 2.5 cm 4.2 - 5.9 / 3.9 - 5.3 cm LV Systolic Diameter PLAX 1.7 cm IVS Diastolic Thickness 1.0 cm 0.6 - 1.0 / 0.6 - 0.9 cm LVPW Diastolic Thickness 0.7 cm 0.6 - 1.0 / 0.6 - 0.9 cm LV Relative Wall Thickness 0.7 RV Internal Dim ED PLAX 1.9 cm M-MODE Aortic Root Diameter MM 2.1 cm AV Cusp Separation MM 1.3 cm DOPPLER Mitral E Point Velocity 93.3 cm/s Mitral A Point Velocity 89.3 cm/s Mitral E to A Ratio 1.0 TR Peak Velocity 387.0 cm/s TR Peak Gradient 59.9 mmHg Right Atrial Pressure 5.0 mmHg Pulmonary Artery Systolic Pressu 64.9 mmHg Right Ventricular Systolic Press 64.9 mmHg FINDINGS LEFT VENTRICLE Normal left ventricular size. Wall thickness is normal. The left ventricular systolic function is hyperdynamic with an estimated ejection fraction in the ra nge of 65- 70%. Wall motion abnormalitiesthere is a mild increase in the left ventricular intracavitary gradient. RIGHT VENTRICLE The right ventricular systoilc function is moderately decreased. LEFT ATRIUM The left atrial size is normal. RIGHT ATRIUM The right atrial size is normal. ATRIAL SEPTUM Normal atrial septal thickness without atrial level shunting by limited color doppler interrogation. AORTA The aortic root and proximal ascending aorta are normal in size on limited imaging. MITRAL VALVE Structurally normal mitral valve. No mitral valve stenosis or regurgitation. AORTIC VALVE Trileaflet aortic valve. No aortic valve stenosis or regurgitation. TRICUSPID VALVE There is moderate tricuspid regurgitation. There is estimated [id number] pulmonary hypertension present ( 66 mmHg). PULMONARY VALVE No pulmonary valve regurgitation or stenosis. VESSELS The inferior vena cava is normal in size. PERICARDIUM No pericardial effusion. Yeyo Odell MD (Electronically Signed) Final Date:23 March 2017 10:18
--- NOTE | 2017-03-23 10:46 | PD.CARD.PN ---
Subjective Subjective Remarks Off pressors, has been hypertensive at times. Objective Medications Current Medications Medications (Trade) Dose Ordered Sig/Angelito Route Start Time Stop Time Status Last Admin Potassium Chloride 100 ml @ 50 mls/hr Q2H PRN IV 03/07/17 19:45 03/12/17 03:57 Potassium Chloride 100 ml @ 50 mls/hr Q2H PRN IV 03/07/17 19:45 (K-Lyte Cl Eff) 50 meq UNSCH PRN PO 03/07/17 19:45 Potassium Chloride 100 ml @ 25 mls/hr UNSCH PRN IV 03/07/17 19:45 03/22/17 16:38 Potassium Chloride 100 ml @ 50 mls/hr Q2H PRN IV 03/07/17 19:45 Magnesium Sulfate 4 gm/Sodium Chloride 100 ml @ 50 mls/hr UNSCH PRN IV 03/07/17 19:45 (Mag-Ox) 800 mg UNSCH PRN PO 03/07/17 19:45 Magnesium Sulfate 2 gm/Sodium Chloride 100 ml @ 50 mls/hr UNSCH PRN IV 03/07/17 19:45 (K-Phos) 2,000 mg Q4H PRN PO 03/07/17 19:45 Sodium Phosphate 30 mmol/Sodium Chloride 250 ml @ 42 mls/hr UNSCH PRN IV 03/07/17 19:45 (K-Phos) 2,000 mg UNSCH PRN PO/TUBE 03/07/17 19:45 Potassium Phosphate 30 mmol/ Sodium Chloride 260 ml @ 42 mls/hr UNSCH PRN IV 03/07/17 19:45 (Lovenox Inj) 40 mg Q24H SQ 03/09/17 02:00 Future hold 03/23/17 03:37 (Peridex 0.12% Liq) 15 ml BID@08,20 MT 03/10/17 08:00 03/23/17 07:46 (Eli-Colace) 1 tab BID PO 03/12/17 09:00 03/23/17 08:05 (Milk Of Magnesia Liq) 30 ml BID PO 03/12/17 09:30 03/23/17 08:05 (Lactulose Liq) 30 ml DAILY PO 03/12/17 09:30 03/23/17 08:05 Acetaminophen 100 ml @ 400 mls/hr Q6H PRN IV 03/14/17 17:30 03/22/17 12:13 (Pepcid) 20 mg BID PO 03/16/17 09:00 03/23/17 08:05 (Albuterol Neb) 2.5 mg Q2HR NEB PRN NEB 03/18/17 14:30 03/23/17 08:41 (Tears Naturale Opth Soln) 1 drop Q8HR EACH EYE 03/18/17 22:00 03/23/17 06:00 (Free Water) VOLUME: 100 ML Q8HR G-TUBE 03/18/17 22:00 03/23/17 06:00 (Depakene Liq) 500 mg TID PO 03/19/17 13:00 03/23/17 08:05 Dexmedetomidine HCl 200 mcg/ Sodium Chloride 52 ml @ 3.47 mls/hr TITRATE PRN IV 03/20/17 09:30 03/21/17 20:56 (Morphine Inj) 4 mg Q3H PRN IV PUSH 03/21/17 10:00 03/21/17 12:51 (Haldol Inj) 5 mg Q6H PRN IV 03/21/17 10:00 03/21/17 21:39 (Levaquin) 750 mg DAILY PO 03/21/17 16:45 03/23/17 08:05 Fentanyl Citrate 250 ml @ 5 mls/hr TITRATE PRN IV 03/22/17 01:00 03/23/17 07:47 Labetalol HCl 500 mg/Sodium Chloride 250 ml @ 60 mls/hr TITRATE PRN IV 03/22/17 02:00 03/22/17 02:20 Nicardipine HCl 25 mg/Sodium Chloride 250 ml @ 50 mls/hr TITRATE PRN IV 03/22/17 03:00 Norepinephrine Bitartrate 250 ml @ 7.5 mls/hr TITRATE PRN IV 03/22/17 03:30 03/22/17 03:00 (Brethine Inj) 1 mg UNSCH PRN SQ 03/22/17 03:30 Phenylephrine HCl 80 mg/Dextrose 500 ml @ 15 mls/hr TITRATE PRN IV 03/22/17 03:30 03/22/17 03:00 Epinephrine HCl 2 mg/Dextrose 250 ml @ 22.5 mls/hr TITRATE PRN IV 03/22/17 04:15 Insulin Human Regular 100 units/ Sodium Chloride 100 ml @ 1 mls/hr TITRATE PRN IV 03/22/17 05:45 03/22/17 06:23 (D50w (Vial) Inj) 50 ml UNSCH PRN IV PUSH 03/22/17 05:45 Vasopressin 40 units/Dextrose 100 ml @ 1.5 mls/hr TITRATE PRN IV 03/22/17 07:45 03/22/17 08:35 (Lopressor Inj) 5 mg Q6H PRN IV PUSH 03/22/17 15:00 Piperacillin Sod/ Tazobactam Sod 100 ml @ 200 mls/hr Q6H IV 03/22/17 14:00 03/23/17 07:52 Linezolid 300 ml @ 300 mls/hr Q12H IV 03/22/17 15:00 03/23/17 03:37 (Robaxin) 500 mg Q8H PRN PO 03/23/17 10:00 (Roxicodone Intensol Liq) 5 mg Q4H PRN NG 03/23/17 11:00 (Lopressor Inj) 5 mg Q6HR IV PUSH 03/23/17 12:00 Dextrose/Sodium Chloride 1,000 ml @ 60 mls/hr [id number] IV 03/23/17 11:00 03/23/17 10:31 (Lovenox Inj) 40 mg DAILY SQ 03/24/17 09:00 Propofol 100 ml @ 3.984 mls/ hr TITRATE PRN IV 03/23/17 10:30 Vital Signs / I&O Vital Signs Date Time Temp Pulse Resp B/P (MAP) Pulse Ox O2 Delivery O2 Flow Rate FiO2 03/23/17 08:34 93 60 03/23/17 08:00 98.4 124 25 124/67 (86) 94 03/23/17 08:00 124 03/23/17 08:00 60 03/23/17 06:25 97 60 03/23/17 06:00 127 03/23/17 04:00 93 70 03/23/17 04:00 97.9 126 20 126/64 (84) 94 03/23/17 04:00 90 03/23/17 04:00 127 03/23/17 03:47 96 60 03/23/17 02:00 128 03/23/17 00:45 99 70 03/23/17 00:00 119 03/23/17 00:00 98.2 119 20 109/57 (74) 99 03/23/17 00:00 90 03/22/17 23:25 96 80 03/22/17 22:00 124 03/22/17 20:46 95 90 03/22/17 20:00 130 03/22/17 20:00 90 03/22/17 20:00 100.0 130 20 118/66 (83) 95 03/22/17 18:00 131 03/22/17 16:14 95 90 03/22/17 16:00 126 03/22/17 16:00 90 03/22/17 16:00 100.0 126 20 127/66 (86) 95 03/22/17 14:00 120 03/22/17 13:30 100 136/73 03/22/17 13:20 110 142/70 03/22/17 13:10 112 148/74 03/22/17 13:00 112 140/70 03/22/17 12:50 112 128/64 03/22/17 12:13 112 130/66 03/22/17 12:00 101.1 112 28 136/70 (92) 95 03/22/17 12:00 90 03/22/17 12:00 112 03/22/17 11:22 95 90 I/O 03/22/17 03/22/17 03/22/17 03/23/17 03/23/17 03/23/17 07:00 15:00 23:00 07:00 15:00 23:00 Intake Total 100 ml 200 ml 500 ml 200 ml Output Total 1075 ml 1100 ml 625 ml Balance -975 ml 200 ml -600 ml -425 ml Intake IV Total 200 ml 300 ml Tube Feeding 0 ml Other 100 ml 200 ml 200 ml Output Urine Total 575 ml 750 ml 525 ml Gastric Drainage Total 300 ml 250 ml Chest Tube Drainage Total 200 ml 100 ml 100 ml # Bowel Movements 1 0 Physical Exam GENERAL: Intubated, sedated CARDIOVASCULAR: Rapid rate and rhythm without murmurs, gallops, or rubs. RESPIRATORY: Clear to auscultation. Breath sounds equal bilaterally. No wheezes , rales, or rhonchi. GASTROINTESTINAL: Abdomen soft, non-tender, nondistended. Normal active bowel sounds MUSCULOSKELETAL: Extremities without clubbing, cyanosis, or edema. NEURO: Sedated Laboratory Laboratory Tests Test 03/22/17 13:04 03/22/17 13:11 03/22/17 14:27 03/23/17 04:00 Urine Color YELLOW Urine Turbidity CLEAR Urine pH 5.0 Urine Specific [place] 1.024 Urine Protein TRACE mg/dL Urine Glucose (UA) NEG mg/dL Urine Ketones NEG mg/dL Urine Occult Blood NEG Urine Nitrite NEG Urine Bilirubin NEG Urine Urobilinogen LESS THAN 2.0 MG/DL Urine Leukocyte Esterase NEG Urine RBC 1 /hpf Urine WBC 3 /hpf Urine Squamous Epithelial Cells <1 /hpf Urine Uric Acid Crystals FEW /hpf Urine Mucus FEW /lpf Microscopic Urinalysis Comment CATH-CULT NOT IND Blood Gas Puncture Site ART LINE Blood Gas Patient Temperature 98.6 Blood Gas HCO3 33 mmol/L Blood Gas Base Excess 7.4 mmol/L Blood Gas Oxygen Saturation 98 % Arterial Blood pH 7.38 Arterial Blood Partial Pressure CO2 57 mmHg Arterial Blood Partial Pressure O2 312 mmHg Arterial Blood Oxygen Content 15.5 Vol % Arterial Blood Carboxyhemoglobin 0.5 % Arterial Blood Methemoglobin 0.9 % Blood Gas Hemoglobin 10.7 G/DL Oxygen Delivery Device VENTILATOR Blood Gas Ventilator Setting Blood Gas Inspired Oxygen 90 % Blood Urea Nitrogen 26 MG/DL 16 MG/DL Creatinine 1.15 MG/DL 0.77 MG/DL Random Glucose 194 MG/DL 183 MG/DL Total Protein 7.3 GM/DL 6.7 GM/DL Calcium Level 7.1 MG/DL 7.5 MG/DL Sodium Level 156 MEQ/L 158 MEQ/L Potassium Level 3.4 MEQ/L 3.9 MEQ/L Chloride Level 115 MEQ/L 119 MEQ/L Carbon Dioxide Level 36.2 MEQ/L 34.2 MEQ/L Anion Gap 5 MEQ/L 5 MEQ/L Estimat Glomerular Filtration Rate 72 ML/MIN 115 ML/MIN Protein Corrected Calcium 7.1 MG/DL Albumin 1.9 GM/DL Alkaline Phosphatase 466 U/L Aspartate Amino Transf (AST/SGOT) 271 U/L Alanine Aminotransferase (ALT/SGPT) 175 U/L Total Bilirubin 0.3 MG/DL Test 03/23/17 05:25 White Blood Count 15.0 TH/MM3 Red Blood Count 3.60 MIL/MM3 Hemoglobin 10.1 GM/DL Hematocrit 31.4 % Mean Corpuscular Volume 87.0 FL Mean Corpuscular Hemoglobin 28.1 PG Mean Corpuscular Hemoglobin Concent 32.3 % Red Cell Distribution Width 15.1 % Platelet Count 433 TH/MM3 Mean Platelet Volume 9.0 FL Neutrophils (%) (Auto) 77.9 % Lymphocytes (%) (Auto) 8.6 % Monocytes (%) (Auto) 12.7 % Eosinophils (%) (Auto) 0.6 % Basophils (%) (Auto) 0.2 % Neutrophils # (Auto) 11.7 TH/MM3 Lymphocytes # (Auto) 1.3 TH/MM3 Monocytes # (Auto) 1.9 TH/MM3 Eosinophils # (Auto) 0.1 TH/MM3 Basophils # (Auto) 0.0 TH/MM3 CBC Comment DIFF FINAL Differential Comment Imaging Last 24 hours Impressions Chest X-Ray 03/23/17 0600 Signed Impressions: Service Date/Time: Thursday, March 23, 2017 04:24 - CONCLUSION: 1. Left lower lobe pneumonia developing. 2. No significant change on the right with rib fractures, mild basilar consolidation and small effusion with a chest tube again seen. No pneumothorax. Von Ortzi MD Assessment and Plan Problem List: (1) Cardiac arrest ICD Codes: I46.9 - Cardiac arrest, cause unspecified Plan: Details unclear; echo shows hyperdynamic LV function, but notably reduced RV function with significantly elevated pulmonary pressures; due to this PE must be excluded as an etiology of the patient's cardiac arrest and I have put in for a CTA. Otherwise, cardiac function appears intact. She does not appear to be volume overloaded. (2) Trauma ICD Codes: T14.90XA - Injury, unspecified, initial encounter Status: Acute Assessment and Plan Dr. Garcia will be covering starting tomorrow. Yeyo Odell MD Mar 23, 2017 10:46
[2017-03-23] MEDS ORDERED: DEXT 5%-NACL 0.45% 1000 ML INJ 1,000 ML IV SCH (11:00)
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
[2017-03-23] MEDS ORDERED: IOHEXOL 350 MG/ML 10 ML VIAL (for RAD DIAG) IVCONTRAST ONE (11:55)
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
[2017-03-23] MEDS: METOPROLOL TARTRATE 5 MG/5 ML VIAL IV PUSH SCH ×3 (12:00→23:16)
--- NOTE | 2017-03-23 12:11 | RADRPT ---
EXAM DATE/TIME: 03/23/2017 11:42 [facility] COMPARISON: No previous studies available for comparison. INDICATIONS : RV dysfunction seen on echo. IV CONTRAST: 85 cc Omnipaque 350 (iohexol) IV RADIATION DOSE: 22.94 CTDIvol (mGy) MEDICAL HISTORY : Sickle cell disease. Diabetes SURGICAL HISTORY : Non-responsive. ENCOUNTER: Initial ACUITY: 1 day PAIN SCALE: Non-responsive LOCATION: chest TECHNIQUE: Volumetric scanning of the chest was performed using a pulmonary embolism protocol MIP images were re constructed. Using automated exposure control and adjustment of the mA and/or kV according to patien t size, radiation dose was kept as low as reasonably achievable to obtain optimal diagnostic quality images. DICOM format image data is available electronically for review and comparison. Follow-up recommendations for detected pulmonary nodules are based at a minimum on nodule size and pa tient risk factors according to Fleischner Society Guidelines. FINDINGS: PULMONARY ARTERIES: There are pulmonary emboli seen in the hilar regions bilaterally. There are pulmonary emboli seen thr oughout the pulmonary artery supplying the right upper lobe and right middle lobe. There is an area o f thrombus involving the posterior and lateral segments of the right lower lobe. The pulmonary emboli involve the left upper lobe and the distal left basilar segments at the left lower lobe. LUNGS: There is increased density seen at the lower lobes bilaterally. These represent areas of atelectasis/ consolidation or infarction. PLEURAE: No pleural effusion is seen. There is a right chest tube present. MEDIASTINUM: There is good visualization of the great vessels of the middle mediastinum. No evidence of mediastin al or hilar adenopathy/mass. There appears to be left ventricular hypertrophy. MUSCULOSKELETAL: Multiple rib fractures seen bilaterally. There is fracturing of the medial superior left sternum/manu brium. MISCELLANEOUS: The visualized upper abdominal organs demonstrate no acute abnormality. CONCLUSION: 1. Extensive pulmonary emboli. 2. Bilateral areas of consolidation/atelectasis or infarction seen in the lower lobes. 3. Multiple rib fractures and a left manubrial sternal fracture. 4. Right chest tube without a pneumothorax seen. 5. The left ventricle appears thickened. Von Simmons MD on March 23, 2017 at 12:01 Board Certified Radiologist. This report was verified electronically.
[2017-03-23] MEDS: SODIUM CHLOR 0.45% 1000 ML INJ 1,000 ML IV SCH (14:06)
--- NOTE | 2017-03-23 14:26 | EKG ---
Date Performed: 03/22/2017 Time Performed: 09:36:34 PTAGE: 21 years EKG: Sinus tachycardia. Inferior and anterior T wave changes may be due to myocardial ischemia L ow QRS voltages in precordial leads Compared to previous tracing, the T wave inversions are new so cl incal correlation is needed for ischemia Abnormal ECG PREVIOUS TRACING : 03/05/2017 15.57 DOCTOR: Wilfrido Saha Interpretating Date/Time 03/23/2017 14:24:56
[2017-03-23] MEDS: ACETAMINOPHEN 1000 MG/100 ML 100 ML IV PRN ×2 (14:57→23:16)
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
[2017-03-23] MEDS ORDERED: HEPARIN - 10,000 UNITS/ML IV ADDITIVE IV PUSH STA (17:47)
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
[2017-03-23] MEDS ORDERED: HEPARIN SODIUM - IV 10,000 UNITS/10 ML VIAL IV PUSH PRN (19:00)
[2017-03-23] MEDS ORDERED: HEPARIN - 10,000 UNITS/ML IV ADDITIVE IV PUSH PRN (19:00)
[2017-03-23] MEDS ORDERED: HEPARIN SODIUM - IV 10,000 UNITS/10 ML VIAL IV PRN (19:00)
[2017-03-23 19:15] LABS: INTERNATIONAL NORMALIZED RATIO 1.3 RATIO; PROTHROMBIN TIME - PATIENT 12.9 SEC (9.8-11.6)
[2017-03-23] MEDS: HEPARIN-D5W 25,000 U/250 ML 250 ML IV PRN (20:04)
[2017-03-24] VITALS (18 sets, daily range): BP systolic 97–168; BP diastolic 52–80; PULSE 93–128; RESP 20–23; TEMP 99.7–101.5; O2SAT 99–100
[2017-03-24] MEDS ORDERED: HEPARIN SODIUM - IV 10,000 UNITS/10 ML VIAL IV PUSH PRN
[2017-03-24] MEDS ORDERED: HEPARIN - 10,000 UNITS/ML IV ADDITIVE IV PUSH PRN
[2017-03-24] MEDS: LINEZOLID 600 MG PREMIX 300 ML IV SCH ×2 (01:56→14:29)
[2017-03-24] MEDS: fentaNYL 2,500 MCG/NS 250 ML IV PRN ×2 (01:56→23:11)
[2017-03-24] MEDS: PIPERACIL-TAZO 4.5 GM PREMIX 100 ML IV SCH ×4 (01:56→20:43)
[2017-03-24] MEDS: INSULIN REGULAR (IV INFUSION) 100 UNITS in SODIUM CHLORIDE 0.9% INJ 99 ML IV PRN (03:14)
[2017-03-24 04:25] LABS: HEMATOCRIT 27.9 % (35.0-46.0); HEMOGLOBIN 9.1 GM/DL (11.6-15.3); MEAN CELL VOLUME 85.7 FL (80.0-100.0); MEAN CORPUSCULAR HGB CONC 32.6 % (32.0-36.0); MEAN PLATELET VOLUME 9.4 FL (7.0-11.0); PLATELET COUNT 432 TH/MM3 (150-450); RED BLOOD COUNT 3.25 MIL/MM3 (4.00-5.30); RED CELL DISTRIBUTION WIDTH 15.2 % (11.6-17.2); WHITE BLOOD COUNT 20.1 TH/MM3 (4.0-11.0)
[2017-03-24 04:54] LABS: ALBUMIN 1.7 GM/DL (3.4-5.0); BICARBONATE 35.7 MEQ/L (21.0-32.0); CALCIUM 7.4 MG/DL (8.5-10.1); CALCIUM-PROTEIN CORRECTED 7.8 MG/DL (8.5-10.1); CREATININE 0.75 MG/DL (0.50-1.00); TOTAL BILIRUBIN ADULT 0.3 MG/DL (0.2-1.0); TOTAL PROTEIN 6.4 GM/DL (6.4-8.2)
[2017-03-24 05:07] LABS: BANDS 25 % (0-6); LYMPHOCYTES 8 % (9-44); METAMYELOCYTES 2 % (0-1); MONOCYTES 5 % (0-8); NEUTROPHIL # MANUAL DIFF 17.3 TH/MM3 (1.8-7.7); POLYS (SEG NEUTROPHILS) 59 % (16-70)
[2017-03-24] MEDS: PROPOFOL 1000 MG/100 ML IV PRN ×3 (05:36→17:44)
[2017-03-24] MEDS: SODIUM CHLOR 0.45% 1000 ML INJ 1,000 ML IV SCH (05:40)
[2017-03-24] MEDS: METOPROLOL TARTRATE 5 MG/5 ML VIAL IV PUSH SCH ×3 (06:00→17:09)
[2017-03-24] MEDS: ARTIFICIAL TEARS OPTH SOLN 15 ML BTL EACH EYE SCH ×3 (06:00→22:59)
[2017-03-24] MEDS: FREE WATER G-TUBE SCH ×3 (06:00→17:09)
--- NOTE | 2017-03-24 06:04 | RADRPT ---
EXAM DATE/TIME: 03/24/2017 05:07 [place] COMPARISON: CHEST SINGLE AP, March 23, 2017, 4:24. INDICATIONS : Shortness of breath, possible pulmonary disease. MEDICAL HISTORY : None. SURGICAL HISTORY : None. ENCOUNTER: Subsequent ACUITY: 2 weeks PAIN SCORE: Non-responsive. LOCATION: Bilateral chest FINDINGS: Single portable frontal view the chest shows worsening consolidation of the left base. Tiny left effu laura. Either pleural thickening or loculated right effusion. These are stable. Right thoracostomy tub e, right subclavian central line, and nasogastric tube observed. Tip of the nasogastric tube is in th e region of the body of the stomach. Tip of the endotracheal tube is 3 cm from the cora. CONCLUSION: Worsening consolidation within the left base. William Nicholson Jr., MD on March 24, 2017 at 6:02 Board Certified Radiologist. This report was verified electronically.
[2017-03-24] MEDS: POTASSIUM CHLOR 40 MEQ PREMIX 100 ML IV PRN ×2 (06:57→17:17)
[2017-03-24] MEDS: CHLORHEXIDINE 0.12% (ORAL KIT) 15 ML CUP MT SCH ×2 (08:00→20:00)
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
[2017-03-24] MEDS: LACTATED RINGER'S 1000 ML INJ 1,000 ML IV SCH (08:30)
[2017-03-24] MEDS: LEVOFLOXACIN 750 MG TAB PO SCH (08:40)
[2017-03-24] MEDS: LACTULOSE SYRUP 20 GM/30 ML CUP PO SCH (08:40)
[2017-03-24] MEDS: FAMOTIDINE 20 MG TAB PO SCH ×2 (08:40→20:43)
[2017-03-24] MEDS: VALPROIC ACID SYRUP 250 MG/5 ML UDC PO SCH ×3 (08:40→17:10)
[2017-03-24] MEDS: DOCUSATE SODIUM 50 MG/SENNA 8.6 MG TAB PO SCH ×2 (08:41→20:43)
[2017-03-24] MEDS: MAGNESIUM HYDROXIDE SUSP 30 ML CUP PO SCH ×2 (08:41→20:43)
[2017-03-24] MEDS ORDERED: ENOXAPARIN SODIUM 40 MG/0.4 ML SYRINGE SQ SCH (09:00)
[2017-03-24] MEDS: RESP: ALBUTEROL 2.5 MG/IPRATROPIUM 0.5 MG NEB (SCH) NEB ×3 (09:04→20:20)
[2017-03-24] MEDS: ACETAMINOPHEN 1000 MG/100 ML 100 ML IV PRN (09:32)
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
--- NOTE | 2017-03-24 13:42 | HHI.NSPN ---
History Chief Complaint: Unable to obtain due to patient's clinical condition. Interval History Remains intubated and sedated. According to nursing staff with sedation medication earlier this morning she was purposeful with the left upper extremity and flexing the right upper extremity. Not following commands. Exam Results Vital Signs Date Time Temp Pulse Resp B/P (MAP) Pulse Ox O2 Delivery O2 Flow Rate FiO2 03/24/17 12:00 100.8 117 21 121/53 (75) 100 Arterial Line 03/24/17 12:00 40 03/21/17 20:17 Nasal Cannula 03/21/17 07:50 4 Intake and Output 03/24/17 03/24/17 03/25/17 08:00 16:00 00:00 Intake Total 954 ml 400 ml Output Total 650 ml Balance 304 ml 400 ml Physical Examination GENERAL: Eyes open, propofol at 20 mcg/kg/min for sedation. Fentanyl 150 mcg/hr is infusing for pain control. HEENT: Normocephalic, atraumatic. PERRLA 3 mm questionable reactivity. MUSCULOSKELETAL: In Jena J cervical collar. Right forearm/wrist short arm splint. Left lower leg splint. No movement of extremities. NEUROLOGICAL: Mild eye opening to voice and sternal rub Did not follow commands. Mild flexion left upper extremity to noxious stimulation in the extremity Lab, Micro, Other Results Laboratory Tests Test 03/23/17 18:00 03/23/17 23:30 03/24/17 04:08 03/24/17 04:17 Prothrombin Time 12.9 SEC Prothromb Time International Ratio 1.3 RATIO Activated Partial Thromboplast Time 24.6 SEC 49.5 SEC 48.3 SEC White Blood Count 20.1 TH/MM3 Red Blood Count 3.25 MIL/MM3 Hemoglobin 9.1 GM/DL Hematocrit 27.9 % Mean Corpuscular Volume 85.7 FL Mean Corpuscular Hemoglobin 28.0 PG Mean Corpuscular Hemoglobin Concent 32.6 % Red Cell Distribution Width 15.2 % Platelet Count 432 TH/MM3 Mean Platelet Volume 9.4 FL CBC Comment AUTO DIFF Differential Total Cells Counted 100 Neutrophils % (Manual) 59 % Band Neutrophils % 25 % Lymphocytes % 8 % Monocytes % 5 % Eosinophils % 1 % Neutrophils # (Manual) 17.3 TH/MM3 Metamyelocytes 2 % Differential Comment FINAL DIFF MANUAL Platelet Estimate NORMAL Platelet Morphology Comment NORMAL Blood Urea Nitrogen 13 MG/DL Creatinine 0.75 MG/DL Random Glucose 254 MG/DL Total Protein 6.4 GM/DL Albumin 1.7 GM/DL Calcium Level 7.4 MG/DL Alkaline Phosphatase 390 U/L Aspartate Amino Transf (AST/SGOT) 219 U/L Alanine Aminotransferase (ALT/SGPT) 153 U/L Total Bilirubin 0.3 MG/DL Sodium Level 154 MEQ/L Potassium Level 3.2 MEQ/L Chloride Level 116 MEQ/L Carbon Dioxide Level 35.7 MEQ/L Anion Gap 2 MEQ/L Estimat Glomerular Filtration Rate 118 ML/MIN Protein Corrected Calcium 7.8 MG/DL Blood Gas Puncture Site SAMANTA Blood Gas Patient Temperature 98.6 Blood Gas HCO3 33 mmol/L Blood Gas Base Excess 8.7 mmol/L Blood Gas Oxygen Saturation 98 % Arterial Blood pH 7.48 Arterial Blood Partial Pressure CO2 44 mmHg Arterial Blood Partial Pressure O2 161 mmHg Arterial Blood Oxygen Content 15.1 Vol % Arterial Blood Carboxyhemoglobin 0.8 % Arterial Blood Methemoglobin 0.8 % Blood Gas Hemoglobin 10.8 G/DL Oxygen Delivery Device VENTILATOR Blood Gas Ventilator Setting SEE COMMENT Blood Gas Inspired Oxygen 45 % Test 03/24/17 06:19 Activated Partial Thromboplast Time 42.7 SEC Medical Decision Making Impression and Plan Impression: 1. Traumatic brain injury 2. Skull base-occipital condyle, C1 fracture 3. Multiple bilateral pulmonary emboli on CT angiogram from 22/04/16 Plan: On IV heparin for pulmonary emboli Continuing ventilatory support and sedation as needed No significant abnormalities noted on follow-up CT scan of 03/23/17 Joselito Shay MD Mar 24, 2017 13:42
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
[2017-03-24] MEDS: HEPARIN-D5W 25,000 U/250 ML 250 ML IV PRN (16:53)
--- NOTE | 2017-03-24 17:06 | PD.CARD.PN ---
Subjective Subjective Remarks intubated sedated no further events Objective Medications Current Medications Medications (Trade) Dose Ordered Sig/Angelito Route Start Time Stop Time Status Last Admin Potassium Chloride 100 ml @ 50 mls/hr Q2H PRN IV 03/07/17 19:45 03/24/17 06:57 Potassium Chloride 100 ml @ 50 mls/hr Q2H PRN IV 03/07/17 19:45 (K-Lyte Cl Eff) 50 meq UNSCH PRN PO 03/07/17 19:45 Potassium Chloride 100 ml @ 25 mls/hr UNSCH PRN IV 03/07/17 19:45 03/22/17 16:38 Potassium Chloride 100 ml @ 50 mls/hr Q2H PRN IV 03/07/17 19:45 Magnesium Sulfate 4 gm/Sodium Chloride 100 ml @ 50 mls/hr UNSCH PRN IV 03/07/17 19:45 (Mag-Ox) 800 mg UNSCH PRN PO 03/07/17 19:45 Magnesium Sulfate 2 gm/Sodium Chloride 100 ml @ 50 mls/hr UNSCH PRN IV 03/07/17 19:45 (K-Phos) 2,000 mg Q4H PRN PO 03/07/17 19:45 Sodium Phosphate 30 mmol/Sodium Chloride 250 ml @ 42 mls/hr UNSCH PRN IV 03/07/17 19:45 (K-Phos) 2,000 mg UNSCH PRN PO/TUBE 03/07/17 19:45 Potassium Phosphate 30 mmol/ Sodium Chloride 260 ml @ 42 mls/hr UNSCH PRN IV 03/07/17 19:45 (Peridex 0.12% Liq) 15 ml BID@08,20 MT 03/10/17 08:00 03/24/17 08:00 (Eli-Colace) 1 tab BID PO 03/12/17 09:00 03/23/17 21:42 (Milk Of Magnesia Liq) 30 ml BID PO 03/12/17 09:30 03/23/17 21:42 (Lactulose Liq) 30 ml DAILY PO 03/12/17 09:30 03/23/17 08:05 Acetaminophen 100 ml @ 400 mls/hr Q6H PRN IV 03/14/17 17:30 03/24/17 09:32 (Pepcid) 20 mg BID PO 03/16/17 09:00 03/24/17 08:40 (Albuterol Neb) 2.5 mg Q2HR NEB PRN NEB 03/18/17 14:30 03/23/17 08:41 (Tears Naturale Opth Soln) 1 drop Q8HR EACH EYE 03/18/17 22:00 03/24/17 14:00 (Depakene Liq) 500 mg TID PO 03/19/17 13:00 03/24/17 12:13 (Levaquin) 750 mg DAILY PO 03/21/17 16:45 03/24/17 08:40 Fentanyl Citrate 250 ml @ 5 mls/hr TITRATE PRN IV 03/22/17 01:00 03/24/17 01:56 (Brethine Inj) 1 mg UNSCH PRN SQ 03/22/17 03:30 Insulin Human Regular 100 units/ Sodium Chloride 100 ml @ 1 mls/hr TITRATE PRN IV 03/22/17 05:45 03/24/17 03:14 (D50w (Vial) Inj) 50 ml UNSCH PRN IV PUSH 03/22/17 05:45 Vasopressin 40 units/Dextrose 100 ml @ 1.5 mls/hr TITRATE PRN IV 03/22/17 07:45 03/22/17 08:35 Piperacillin Sod/ Tazobactam Sod 100 ml @ 200 mls/hr Q6H IV 03/22/17 14:00 03/24/17 14:29 Linezolid 300 ml @ 300 mls/hr Q12H IV 03/22/17 15:00 03/24/17 14:29 (Roxicodone Intensol Liq) 5 mg Q4H PRN NG 03/23/17 11:00 (Lopressor Inj) 5 mg Q6HR IV PUSH 03/23/17 12:00 03/24/17 12:13 Propofol 100 ml @ 3.984 mls/ hr TITRATE PRN IV 03/23/17 10:30 03/24/17 08:41 (Free Water) VOLUME OF WATER: ( 150 ) ML Q6HR G-TUBE 03/23/17 18:00 03/24/17 12:00 Heparin Sodium/ Dextrose 250 ml @ 12 mls/hr TITRATE PRN IV 03/23/17 18:00 03/24/17 16:53 (Heparin Inj) 2,500 units UNSCH PRN IV PUSH 03/23/17 19:00 (Heparin Inj) 5,000 units UNSCH PRN IV 03/23/17 19:00 (Duoneb Neb) 1 ampule Q6HR NEB NEB 03/24/17 10:00 03/24/17 15:21 Lactated Ringer's 1,000 ml @ 50 mls/hr Q20H IV 03/24/17 08:30 03/24/17 08:30 Vital Signs / I&O Vital Signs Date Time Temp Pulse Resp B/P (MAP) Pulse Ox O2 Delivery O2 Flow Rate FiO2 03/24/17 16:00 99.7 100 20 112/56 (74) 100 03/24/17 16:00 40 03/24/17 16:00 100 03/24/17 15:39 99 40 03/24/17 14:00 93 03/24/17 12:00 100.8 117 21 121/53 (75) 100 Arterial Line 03/24/17 12:00 40 03/24/17 12:00 117 03/24/17 11:54 100 40 03/24/17 10:00 128 03/24/17 08:00 122 03/24/17 08:00 101.5 122 23 168/80 (109) 99 03/24/17 08:00 40 03/24/17 07:45 100 40 03/24/17 06:00 111 03/24/17 04:00 40 03/24/17 04:00 112 03/24/17 04:00 100.5 112 21 120/61 (80) 100 03/24/17 03:53 100 45 03/24/17 02:00 110 03/24/17 00:00 119 03/24/17 00:00 40 03/24/17 00:00 100.6 119 22 133/65 (87) 99 03/23/17 23:50 99 45 03/23/17 22:00 122 03/23/17 20:05 96 45 03/23/17 20:00 101.0 118 20 122/58 (79) 97 03/23/17 20:00 118 03/23/17 20:00 40 03/23/17 18:00 110 I/O 03/23/17 03/23/17 03/23/17 03/24/171/18 1/1/18 07:00 15:00 23:00 07:00 15:00 23:00 Intake Total 200 ml 954 ml 400 ml Output Total 625 ml 725 ml 650 ml Balance -425 ml -725 ml 304 ml 400 ml Intake IV Total 400 ml Tube Feeding 754 ml Other 200 ml 200 ml Output Urine Total 525 ml 700 ml 600 ml Gastric Drainage Total 0 ml Chest Tube Drainage Total 100 ml 25 ml 50 ml # Bowel Movements 1 Physical Exam CARDIOVASCULAR: Regular rate and rhythm without murmurs, gallops, or rubs. RESPIRATORY: Breath sounds equal bilaterally. GASTROINTESTINAL: nondistended. Laboratory Laboratory Tests Test 03/23/17 18:00 03/23/17 23:30 03/24/17 04:08 03/24/17 04:17 Prothrombin Time 12.9 SEC Prothromb Time International Ratio 1.3 RATIO Activated Partial Thromboplast Time 24.6 SEC 49.5 SEC 48.3 SEC White Blood Count 20.1 TH/MM3 Red Blood Count 3.25 MIL/MM3 Hemoglobin 9.1 GM/DL Hematocrit 27.9 % Mean Corpuscular Volume 85.7 FL Mean Corpuscular Hemoglobin 28.0 PG Mean Corpuscular Hemoglobin Concent 32.6 % Red Cell Distribution Width 15.2 % Platelet Count 432 TH/MM3 Mean Platelet Volume 9.4 FL CBC Comment AUTO DIFF Differential Total Cells Counted 100 Neutrophils % (Manual) 59 % Band Neutrophils % 25 % Lymphocytes % 8 % Monocytes % 5 % Eosinophils % 1 % Neutrophils # (Manual) 17.3 TH/MM3 Metamyelocytes 2 % Differential Comment FINAL DIFF MANUAL Platelet Estimate NORMAL Platelet Morphology Comment NORMAL Blood Urea Nitrogen 13 MG/DL Creatinine 0.75 MG/DL Random Glucose 254 MG/DL Total Protein 6.4 GM/DL Albumin 1.7 GM/DL Calcium Level 7.4 MG/DL Alkaline Phosphatase 390 U/L Aspartate Amino Transf (AST/SGOT) 219 U/L Alanine Aminotransferase (ALT/SGPT) 153 U/L Total Bilirubin 0.3 MG/DL Sodium Level 154 MEQ/L Potassium Level 3.2 MEQ/L Chloride Level 116 MEQ/L Carbon Dioxide Level 35.7 MEQ/L Anion Gap 2 MEQ/L Estimat Glomerular Filtration Rate 118 ML/MIN Protein Corrected Calcium 7.8 MG/DL Blood Gas Puncture Site SAMANTA Blood Gas Patient Temperature 98.6 Blood Gas HCO3 33 mmol/L Blood Gas Base Excess 8.7 mmol/L Blood Gas Oxygen Saturation 98 % Arterial Blood pH 7.48 Arterial Blood Partial Pressure CO2 44 mmHg Arterial Blood Partial Pressure O2 161 mmHg Arterial Blood Oxygen Content 15.1 Vol % Arterial Blood Carboxyhemoglobin 0.8 % Arterial Blood Methemoglobin 0.8 % Blood Gas Hemoglobin 10.8 G/DL Oxygen Delivery Device VENTILATOR Blood Gas Ventilator Setting SEE COMMENT Blood Gas Inspired Oxygen 45 % Test 03/24/17 06:19 03/24/17 15:00 Activated Partial Thromboplast Time 42.7 SEC Potassium Level 3.5 MEQ/L Imaging Last 24 hours Impressions Chest X-Ray 03/24/17 0600 Signed Impressions: Service Date/Time: Friday, March 24, 2017 05:07 - CONCLUSION: Worsening consolidation within the left base. William Nicholson Jr., MD Assessment and Plan Problem List: (1) Cardiac arrest ICD Codes: I46.9 - Cardiac arrest, cause unspecified (2) Trauma ICD Codes: T14.90XA - Injury, unspecified, initial encounter Status: Acute Assessment and Plan Cardiac Arrest - CTA + bilateral pulmonary emboli noted. Echo RV reduced systolic function and pulmonary hypertension. Likely culprit for her arrest. anticoagulation initiated. monitor telemetry no structural heart disease will sign off call with questions thank you Paolo Garcia MD Mar 24, 2017 17:06
[2017-03-25] VITALS (14 sets, daily range): BP systolic 97–151; BP diastolic 51–79; PULSE 92–104; RESP 18–21; TEMP 100.6–101.1; O2SAT 96–100
[2017-03-25] MEDS: METOPROLOL TARTRATE 5 MG/5 ML VIAL IV PUSH SCH ×6 (00:40→23:48)
[2017-03-25] MEDS: PIPERACIL-TAZO 4.5 GM PREMIX 100 ML IV SCH ×4 (02:00→20:01)
[2017-03-25] MEDS: LINEZOLID 600 MG PREMIX 300 ML IV SCH (03:15)
[2017-03-25] MEDS: RESP: ALBUTEROL 2.5 MG/IPRATROPIUM 0.5 MG NEB (SCH) NEB ×4 (04:18→20:21)
[2017-03-25] MEDS: LACTATED RINGER'S 1000 ML INJ 1,000 ML IV SCH (04:30)
--- NOTE | 2017-03-25 05:25 | RADRPT ---
EXAM DATE/TIME: 03/25/2017 04:49 [place] COMPARISON: CT PULMONARY ANGIOGRAM, March 23, 2017, 11:42. CHEST SINGLE AP, March 24, 2017, 5:07. INDICATIONS : Short of breath. MEDICAL HISTORY : Sickle cell disease. Diabetes. SURGICAL HISTORY : None. ENCOUNTER: Subsequent ACUITY: 2 weeks PAIN SCORE: Non-responsive. LOCATION: Bilateral chest FINDINGS: A single portable frontal view of the chest shows no significant change. Bibasilar consolidations lef t more so than right. Small right effusion. Right thoracostomy tube without pneumothorax. Right subcl isabel central line. Tip of the endotracheal tube 2 cm from the cora. Tip of the nasogastric tube in the region of the body of the stomach. Heart is normal in size. CONCLUSION: Unchanged exam. William Nicholson Jr., MD on March 25, 2017 at 5:22 Board Certified Radiologist. This report was verified electronically.
[2017-03-25 05:35] LABS: AUTOMATED NEUTROPHIL # 19.3 TH/MM3 (1.8-7.7); BASOPHIL # 0.1 TH/MM3 (0-0.2); BASOPHIL % 0.2 % (0.0-2.0); EOSINOPHIL # 0.3 TH/MM3 (0-0.4); EOSINOPHIL % 1.2 % (0.0-4.0); HEMATOCRIT 24.4 % (35.0-46.0); HEMOGLOBIN 8.2 GM/DL (11.6-15.3); LYMPH % 9.2 % (9.0-44.0); LYMPHOCYTE # 2.2 TH/MM3 (1.0-4.8); MEAN CORPUSCULAR HEMOGLOBIN 29.2 PG (27.0-34.0); MEAN CORPUSCULAR HGB CONC 33.5 % (32.0-36.0); MEAN PLATELET VOLUME 10.3 FL (7.0-11.0); MONOCYTE # 1.9 TH/MM3 (0-0.9); NEUT % 81.4 % (16.0-70.0); PLATELET COUNT 373 TH/MM3 (150-450); RED BLOOD COUNT 2.81 MIL/MM3 (4.00-5.30); RED CELL DISTRIBUTION WIDTH 15.4 % (11.6-17.2); WHITE BLOOD COUNT 23.7 TH/MM3 (4.0-11.0)
[2017-03-25 05:56] LABS: ALKALINE PHOSPHATASE 310 U/L (45-117); TOTAL BILIRUBIN ADULT 0.3 MG/DL (0.2-1.0); TOTAL PROTEIN 6.2 GM/DL (6.4-8.2)
[2017-03-25] MEDS: FREE WATER G-TUBE SCH ×5 (06:00→23:49)
[2017-03-25] MEDS: ARTIFICIAL TEARS OPTH SOLN 15 ML BTL EACH EYE SCH ×3 (06:00→20:21)
[2017-03-25 06:03] LABS: ALBUMIN 1.4 GM/DL (3.4-5.0); ALT (GPT) 195 U/L (10-53); AST (GOT) 262 U/L (15-37); BLOOD UREA NITROGEN 14 MG/DL (7-18); CALCIUM 7.5 MG/DL (8.5-10.1); CHLORIDE 115 MEQ/L (98-107); CREATININE 0.79 MG/DL (0.50-1.00); GLOMERULAR FILTRATION RATE 111 ML/MIN (>89); GLUCOSE,RANDOM 257 MG/DL (74-106); SODIUM (NA) 153 MEQ/L (136-145)
[2017-03-25 07:26] LABS: BANDS 27 % (0-6); LYMPHOCYTES 5 % (9-44); METAMYELOCYTES 2 % (0-1); MONOCYTES 3 % (0-8); NEUTROPHIL # MANUAL DIFF 21.6 TH/MM3 (1.8-7.7); POLYS (SEG NEUTROPHILS) 62 % (16-70)
[2017-03-25] MEDS: CHLORHEXIDINE 0.12% (ORAL KIT) 15 ML CUP MT SCH ×2 (08:00→20:02)
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
[2017-03-25] MEDS: LEVOFLOXACIN 750 MG TAB PO SCH (08:37)
[2017-03-25] MEDS: FAMOTIDINE 20 MG TAB PO SCH ×2 (08:37→20:01)
[2017-03-25] MEDS: VALPROIC ACID SYRUP 250 MG/5 ML UDC PO SCH ×3 (08:38→18:00)
[2017-03-25] MEDS: LACTULOSE SYRUP 20 GM/30 ML CUP PO SCH (08:38)
[2017-03-25] MEDS: MAGNESIUM HYDROXIDE SUSP 30 ML CUP PO SCH (08:38)
[2017-03-25] MEDS: DOCUSATE SODIUM 50 MG/SENNA 8.6 MG TAB PO SCH ×2 (08:39→20:02)
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
[2017-03-25] MEDS: PROPOFOL 1000 MG/100 ML IV PRN ×3 (10:00→20:01)
[2017-03-25] MEDS ORDERED: MICAFUNGIN INJ 100 MG in SODIUM CHLORIDE 0.9% INJ 100 ML IV SCH (10:00)
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
[2017-03-25] MEDS: INSULIN REGULAR (IV INFUSION) 100 UNITS in SODIUM CHLORIDE 0.9% INJ 99 ML IV PRN (11:00)
[2017-03-25] MEDS: ACETAMINOPHEN 1000 MG/100 ML 100 ML IV PRN ×2 (11:15→23:48)
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
[2017-03-25] MEDS: HEPARIN-D5W 25,000 U/250 ML 250 ML IV PRN (12:55)
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
[2017-03-25] MEDS: metroNIDAZOLE 500 MG INJ 100 ML IV SCH ×2 (16:00→23:48)
[2017-03-25] MEDS ORDERED: GLUCAGON 1 MG/ML VIAL OTHER PRN (16:00)
[2017-03-25] MEDS ORDERED: DEXTROSE 50% IN WATER 50 ML VIAL(D50) IV PUSH PRN (16:00)
[2017-03-25] MEDS: INSULIN ASPART SUPPLEMENTAL SCALE SQ SCH ×2 (16:00→20:20)
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
[2017-03-25] MEDS: fentaNYL 2,500 MCG/NS 250 ML IV PRN (18:00)
[2017-03-25] MEDS: VANCOMYCIN 500 MG VIAL (FOR ORAL USE ONLY) PO SCH ×2 (18:00→20:01)
[2017-03-25] MEDS ORDERED: MAGNESIUM HYDROXIDE SUSP 30 ML CUP PO PRN (18:45)
[2017-03-25] MEDS ORDERED: LACTULOSE SYRUP 20 GM/30 ML CUP PO PRN (18:45)
[2017-03-25] MEDS ORDERED: INSULIN DETEMIR 100 UNITS/ML VIAL SQ SCH (21:00)
[2017-03-26] VITALS (16 sets, daily range): BP systolic 109–151; BP diastolic 55–82; PULSE 85–114; RESP 18–20; TEMP 99.9–101.1; O2SAT 92–100
[2017-03-26] MEDS: INSULIN ASPART SUPPLEMENTAL SCALE SQ SCH ×6 (00:38→20:00)
[2017-03-26] MEDS: PROPOFOL 1000 MG/100 ML IV PRN ×3 (00:40→11:00)
[2017-03-26] MEDS: PIPERACIL-TAZO 4.5 GM PREMIX 100 ML IV SCH ×2 (02:07→08:26)
[2017-03-26] MEDS: FREE WATER G-TUBE SCH ×3 (04:54→21:06)
[2017-03-26] MEDS: RESP: ALBUTEROL 2.5 MG/IPRATROPIUM 0.5 MG NEB (SCH) NEB ×4 (04:58→21:10)
[2017-03-26] MEDS: METOPROLOL TARTRATE 5 MG/5 ML VIAL IV PUSH SCH ×3 (05:03→17:36)
[2017-03-26] MEDS: ARTIFICIAL TEARS OPTH SOLN 15 ML BTL EACH EYE SCH ×3 (05:03→21:06)
[2017-03-26] MEDS: ACETAMINOPHEN 1000 MG/100 ML 100 ML IV PRN ×2 (06:01→16:13)
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
[2017-03-26 07:06] LABS: AUTOMATED NEUTROPHIL # 14.7 TH/MM3 (1.8-7.7); BASOPHIL # 0.1 TH/MM3 (0-0.2); BASOPHIL % 0.3 % (0.0-2.0); EOSINOPHIL # 0.2 TH/MM3 (0-0.4); EOSINOPHIL % 0.9 % (0.0-4.0); HEMATOCRIT 23.4 % (35.0-46.0); HEMOGLOBIN 7.9 GM/DL (11.6-15.3); LYMPH % 11.2 % (9.0-44.0); MEAN CELL VOLUME 85.8 FL (80.0-100.0); MEAN CORPUSCULAR HEMOGLOBIN 29.1 PG (27.0-34.0); MEAN CORPUSCULAR HGB CONC 33.9 % (32.0-36.0); MEAN PLATELET VOLUME 10.6 FL (7.0-11.0); MONO % 6.7 % (0.0-8.0); MONOCYTE # 1.2 TH/MM3 (0-0.9); NEUT % 80.9 % (16.0-70.0); PLATELET COUNT 362 TH/MM3 (150-450); RED BLOOD COUNT 2.73 MIL/MM3 (4.00-5.30); RED CELL DISTRIBUTION WIDTH 15.5 % (11.6-17.2); WHITE BLOOD COUNT 18.2 TH/MM3 (4.0-11.0)
[2017-03-26 07:39] LABS: ALBUMIN 1.3 GM/DL (3.4-5.0); BICARBONATE 31.4 MEQ/L (21.0-32.0); CALCIUM 7.3 MG/DL (8.5-10.1); CALCIUM-PROTEIN CORRECTED 7.7 MG/DL (8.5-10.1); CREATININE 0.83 MG/DL (0.50-1.00); TOTAL BILIRUBIN ADULT 0.3 MG/DL (0.2-1.0); TOTAL PROTEIN 6.3 GM/DL (6.4-8.2)
[2017-03-26] MEDS: CHLORHEXIDINE 0.12% (ORAL KIT) 15 ML CUP MT SCH ×2 (08:00→20:00)
[2017-03-26 08:18] LABS: BANDS 17 % (0-6); LYMPHOCYTES 4 % (9-44); METAMYELOCYTES 3 % (0-1); MONOCYTES 10 % (0-8); MYELOCYTES 3 % (0-0); NEUTROPHIL # MANUAL DIFF 15.5 TH/MM3 (1.8-7.7); POLYS (SEG NEUTROPHILS) 62 % (16-70)
[2017-03-26] MEDS: metroNIDAZOLE 500 MG INJ 100 ML IV SCH ×2 (08:26→15:53)
[2017-03-26] MEDS: VANCOMYCIN 500 MG VIAL (FOR ORAL USE ONLY) PO SCH ×4 (08:27→21:06)
[2017-03-26] MEDS: DOCUSATE SODIUM 50 MG/SENNA 8.6 MG TAB PO SCH (08:27)
[2017-03-26] MEDS: VALPROIC ACID SYRUP 250 MG/5 ML UDC PO SCH ×3 (08:27→17:36)
[2017-03-26] MEDS: POTASSIUM CHLOR 40 MEQ PREMIX 100 ML IV PRN (08:27)
[2017-03-26] MEDS: FAMOTIDINE 20 MG TAB PO SCH ×2 (08:27→21:07)
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
[2017-03-26] MEDS ORDERED: VECURONIUM BROMIDE 10 MG VIAL IV PUSH SCH (09:30)
[2017-03-26 09:48] LABS: INTERNATIONAL NORMALIZED RATIO 1.2 RATIO; PROTHROMBIN TIME - PATIENT 12.1 SEC (9.8-11.6)
[2017-03-26] MEDS: fentaNYL 2,500 MCG/NS 250 ML IV PRN (11:42)
[2017-03-26] MEDS ORDERED: SUCCINYLCHOLINE CHLORIDE 100 MG/5 ML SYRINGE IV PUSH ONE (12:00)
[2017-03-26] MEDS ORDERED: PROPOFOL 200 MG/20 ML AMP IV ONE (12:00)
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
--- NOTE | 2017-03-26 16:52 | PD.PROCEDR ---
Procedure Note Procedure DX: Respiratory Failure, percutaneous tracheostomy Procedure: Bronchoscopy Procedure: Usual ICU monitoring in place. Mechanical ventilation. Through a sealed side hole in the vent circuit the scope was introduced into the airway. The tracheobronchial tree was inspected. Normal branching anatomy. Small amounts of secretions suctioned from both sides. No inflammation. The scope and orotracheal tube were then withdrawn to the level of the cricoid and used to assist with insertion of a percutaneous tracheostomy by trauma surgeon. After insertion, the scope was introduced through the new trach, confirming good position in the mid-trachea. Sats were maintained > 98% throughout the procedure. No blood loss for bronchoscopy. Tila Longoria MD Mar 26, 2017 16:52
[2017-03-26] MEDS ORDERED: FLUCONAZOLE 100 MG PREMIX BAG 50 ML IV ONE (17:00)
[2017-03-26] MEDS: oxyCODONE HCL ORAL CONC 5 MG/0.25 ML SYRINGE NG PRN (17:10)
[2017-03-26] MEDS: FLUCONAZOLE 100 MG PREMIX BAG 50 ML IV SCH (18:20)
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
[2017-03-26] MEDS: INSULIN DETEMIR 100 UNITS/ML VIAL SQ SCH (21:00)
[2017-03-27] VITALS (18 sets, daily range): BP systolic 109–149; BP diastolic 59–75; PULSE 74–130; RESP 17–34; TEMP 99.7–101.8; O2SAT 96–100
[2017-03-27] MEDS: metroNIDAZOLE 500 MG INJ 100 ML IV SCH ×4 (00:26→22:26)
[2017-03-27] MEDS: METOPROLOL TARTRATE 5 MG/5 ML VIAL IV PUSH SCH ×5 (00:26→22:26)
[2017-03-27] MEDS: oxyCODONE HCL ORAL CONC 5 MG/0.25 ML SYRINGE NG PRN (01:40)
[2017-03-27] MEDS: HEPARIN-D5W 25,000 U/250 ML 250 ML IV PRN (01:42)
[2017-03-27] MEDS ORDERED: PROPOFOL 1000 MG/100 ML INJ 100 ML IV PRN (02:00)
[2017-03-27] MEDS ORDERED: oxyCODONE HCL ORAL CONC 5 MG/0.25 ML SYRINGE PO ONE (02:15)
[2017-03-27] MEDS: INSULIN ASPART SUPPLEMENTAL SCALE SQ SCH ×7 (03:49→23:35)
[2017-03-27] MEDS: RESP: ALBUTEROL 2.5 MG/IPRATROPIUM 0.5 MG NEB (SCH) NEB ×4 (03:52→20:26)
[2017-03-27] MEDS: oxyCODONE HCL ORAL CONC 5 MG/0.25 ML SYRINGE PEG PRN (04:28)
[2017-03-27] MEDS: ARTIFICIAL TEARS OPTH SOLN 15 ML BTL EACH EYE SCH ×3 (05:01→20:47)
[2017-03-27] MEDS: FREE WATER G-TUBE SCH ×3 (05:02→20:47)
[2017-03-27] MEDS: ACETAMINOPHEN 650 MG/20.3 ML UDC PO PRN (05:22)
--- NOTE | 2017-03-27 06:04 | RADRPT ---
EXAM DATE/TIME: 03/27/2017 04:55 [facility] COMPARISON: CHEST SINGLE AP, March 26, 2017, 13:54. INDICATIONS : Respiratory failure. MEDICAL HISTORY : Sickle cell disease. Diabetes. SURGICAL HISTORY : None. ENCOUNTER: Subsequent ACUITY: 3 weeks PAIN SCORE: Non-responsive. LOCATION: Bilateral chest FINDINGS: A single portable frontal view of the chest shows no significant change. Small left pleural effusion with left lower lobe consolidation. A small caliber right thoracostomy tube. Right subclavian central line and tracheostomy tube. No pneumothorax. Heart is normal in size. CONCLUSION: Unchanged exam with small left effusion and left lower lobe infiltrate/atelectasis. William Nicholson Jr., MD on March 27, 2017 at 6:02 Board Certified Radiologist. This report was verified electronically.
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
[2017-03-27] MEDS: CHLORHEXIDINE 0.12% (ORAL KIT) 15 ML CUP MT SCH ×2 (08:29→20:48)
[2017-03-27] MEDS: FAMOTIDINE 20 MG TAB PO SCH ×2 (09:00→20:46)
[2017-03-27] MEDS: INSULIN DETEMIR 100 UNITS/ML VIAL SQ SCH ×2 (09:00→20:47)
[2017-03-27] MEDS: VALPROIC ACID SYRUP 250 MG/5 ML UDC PO SCH ×3 (09:00→18:46)
[2017-03-27] MEDS ORDERED: QUEtiapine FUMARATE 25 MG TAB PO SCH (10:00)
[2017-03-27] MEDS: VANCOMYCIN 500 MG VIAL (FOR ORAL USE ONLY) PO SCH ×4 (10:18→20:46)
[2017-03-27] MEDS ORDERED: ENOXAPARIN SODIUM 80 MG/0.8 ML SYRINGE SQ SCH (10:30)
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
[2017-03-27] MEDS ORDERED: PROPOFOL 500 MG/50 ML INJ 50 ML ONE ×2 (11:24→13:02)
--- NOTE | 2017-03-27 11:25 | RADRPT ---
EXAM DATE/TIME: 03/27/2017 11:06 [facility] COMPARISON: CHEST SINGLE AP, March 27, 2017, 4:55. INDICATIONS : Evaluate for pneumothorax chest tube removal. MEDICAL HISTORY : Sickle Cell disease. Diabetes mellitus type I. SURGICAL HISTORY : None. ENCOUNTER: Subsequent ACUITY: 3 weeks PAIN SCORE: Non-responsive. LOCATION: chest FINDINGS: Left basilar opacity is present may be due to a combination of consolidation and or pleural effusion. Multiple fractures are again seen. Tracheostomy tube is present in satisfactory position. Right subc lavian line is present with tip overlapping the expected region of the SVC. There is haziness to both lungs may represent pulmonary edema as well as right pleural effusion is also suspected. Previously seen left chest tube has been removed. No definite pneumothorax is seen for technique. CONCLUSION: Left basilar opacity is present may be due to a combination of consolidation and or pleural effusion and appears worse since the prior exam. Manjula Talbert MD on March 27, 2017 at 11:22 Board Certified Radiologist. This report was verified electronically.
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
[2017-03-27] MEDS ORDERED: Vancomycin Consult Pharmacy 1 EA OTHER SCH (12:15)
[2017-03-27] MEDS ORDERED: ROCURONIUM INJ 50 MG/5 ML VIAL ONE (12:58)
[2017-03-27] MEDS ORDERED: DEXMEDETOMIDINE INJ 200 MCG in SODIUM CHLORIDE 0.9% INJ 50 ML IV PRN (13:00)
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
--- NOTE | 2017-03-27 13:43 | HHI.PR ---
Addendum to Inpatient Note Addendum Reason: Additional Documentation Additional Information SYMONE feels woods and has some non pitting edema - chk US Mary Hampton MD Mar 27, 2017 13:43
--- NOTE | 2017-03-27 13:50 | PD.PROCEDR ---
Procedure Note Procedure Procedure: Ultrasound-guided left pigtail chest tube placement Indication: Moderate to large left pleural effusion Informed consent was obtained from the patient's mother. A time-out was completed verifying correct patient, procedure, site, positioning, and special equipment. The patient was positioned appropriately for chest tube placement. US sound was used to meir the insertion site. The patients left chest was prepped and draped in sterile fashion. 1% Lidocaine was used to anesthetize the surrounding skin area. A small skin incision was made at the insertion site. 18 G access needle was introduced into the pleural fluid and, blood tinged pleural fluid was withdrawn. Syringe was removed and a guidewire was placed through the access needle. The access needle was removed, a dilator was used to dilate the track. Using Seldinger technique 10 [place] pigtail catheter was inserted into the pleural space. Pleural fluid appeared blood tinged, but free flowing initial output was 500 mL after connection to the PleuroVac and -40 wall suction. A chest x-ray is pending at this time. Estimated Blood Loss: <1 ml The patient tolerated the procedure well and there were no complications. Tila Longoria MD Mar 27, 2017 13:50
[2017-03-27] MEDS: cloNIDine HCL 0.1 MG TAB PO SCH ×2 (14:55→20:46)
--- NOTE | 2017-03-27 14:57 | RADRPT ---
EXAM DATE/TIME: 03/27/2017 13:41 [facility] COMPARISON: CHEST SINGLE AP, March 27, 2017, 11:06. INDICATIONS : Status post left pigtail chest tube placement. MEDICAL HISTORY : Sickle Cell disease. Diabetes mellitus type I. SURGICAL HISTORY : None. ENCOUNTER: Subsequent ACUITY: 1 day PAIN SCORE: Non-responsive. LOCATION: Bilateral chest FINDINGS: A small left sided pigtail catheter is noted at the left lung base. No pneumothorax is noted. Moderat e pulmonary congestion is noted bilaterally. A right subclavian central line has its tip at junction superior vena cava and right tracheostomy tube is noted in good position 3 cm above the cora. The h eart is mildly prominent. CONCLUSION: 1. No pneumothorax status post placement of left sided pigtail catheter. 2. Moderate pulmonary vascular congestion bilaterally. 3. Mild cardiomegaly. Forest Alexandre MD on March 27, 2017 at 14:53 Board Certified Radiologist. This report was verified electronically.
[2017-03-27] MEDS: DEXMEDETOMIDINE INJ 1,000 MCG in SODIUM CHLOR 0.9% 250 ML INJ 240 ML IV PRN (14:58)
[2017-03-27] MEDS ORDERED: FUROSEMIDE 40 MG/4 ML VIAL IV PUSH ONE (15:00)
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
[2017-03-27 16:12] LABS: PLEURAL FLUID LYMPHS 65 %; PLEURAL FLUID MONOS 10 %; PLEURAL FLUID POLYS (SEGS) 25 %; PLEURAL FLUID RBC 139181 /MM3 (0-0); PLEURAL FLUID WBC 265 /MM3 (0-10)
[2017-03-27 17:28] LABS: TOTAL PROTEIN,PLEURAL FLUID 3.5 GM/DL
[2017-03-27] MEDS: QUEtiapine FUMARATE 25 MG TAB PO SCH (17:50)
[2017-03-27] MEDS: FUROSEMIDE 20 MG/2 ML VIAL IV PUSH SCH (17:50)
[2017-03-27] MEDS: VANCOMYCIN INJ 1,500 MG in SODIUM CHLORID 0.9% 500 ML INJ 500 ML IV SCH (17:51)
[2017-03-27] MEDS: FLUCONAZOLE 100 MG PREMIX BAG 50 ML IV SCH (17:51)
[2017-03-27] MEDS: POTASSIUM CHLORIDE 25 MEQ EFFERVESCENT TAB PO SCH (18:46)
[2017-03-27] MEDS: ENOXAPARIN SODIUM 80 MG/0.8 ML SYRINGE SQ SCH (20:46)
[2017-03-27 22:55] LABS: AUTOMATED NEUTROPHIL # 9.8 TH/MM3 (1.8-7.7); BASOPHIL % 0.2 % (0.0-2.0); EOSINOPHIL % 0.3 % (0.0-4.0); HEMATOCRIT 21.6 % (35.0-46.0); HEMOGLOBIN 7.2 GM/DL (11.6-15.3); LYMPH % 14.9 % (9.0-44.0); LYMPHOCYTE # 2.1 TH/MM3 (1.0-4.8); MEAN CELL VOLUME 84.1 FL (80.0-100.0); MEAN CORPUSCULAR HEMOGLOBIN 28.2 PG (27.0-34.0); MEAN CORPUSCULAR HGB CONC 33.5 % (32.0-36.0); MEAN PLATELET VOLUME 9.8 FL (7.0-11.0); MONOCYTE # 2.3 TH/MM3 (0-0.9); NEUT % 68.6 % (16.0-70.0); PLATELET COUNT 281 TH/MM3 (150-450); RED BLOOD COUNT 2.57 MIL/MM3 (4.00-5.30); WHITE BLOOD COUNT 14.3 TH/MM3 (4.0-11.0)
[2017-03-27 23:34] LABS: ALBUMIN 1.4 GM/DL (3.4-5.0); BICARBONATE 32.3 MEQ/L (21.0-32.0); CALCIUM 7.4 MG/DL (8.5-10.1); CALCIUM-PROTEIN CORRECTED 7.9 MG/DL (8.5-10.1); CREATININE 0.67 MG/DL (0.50-1.00); TOTAL BILIRUBIN ADULT 0.3 MG/DL (0.2-1.0); TOTAL PROTEIN 6.1 GM/DL (6.4-8.2)
[2017-03-27 23:49] LABS: BANDS 9 % (0-6); CORRECTED NUCLEATED RBC 2 /100 WBC (0-0); LYMPHOCYTES 9 % (9-44); METAMYELOCYTES 6 % (0-1); MONOCYTES 9 % (0-8); NEUTROPHIL # MANUAL DIFF 11.6 TH/MM3 (1.8-7.7); NUCLEATED RED BLOOD CELL 2 (0-0); POLYS (SEG NEUTROPHILS) 66 % (16-70)
[2017-03-27 23:51] LABS: STOMATOCYTES 1+ (NORMAL)
[2017-03-28] VITALS (20 sets, daily range): BP systolic 107–129; BP diastolic 55–72; PULSE 68–91; RESP 17–27; TEMP 99–100.8; O2SAT 99–100
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
[2017-03-28] MEDS: QUEtiapine FUMARATE 25 MG TAB PO SCH ×3 (01:03→17:33)
[2017-03-28] MEDS: VANCOMYCIN INJ 1,500 MG in SODIUM CHLORID 0.9% 500 ML INJ 500 ML IV SCH ×2 (01:03→14:42)
[2017-03-28] MEDS: POTASSIUM CHLOR 40 MEQ PREMIX 100 ML IV PRN (01:05)
[2017-03-28] MEDS: RESP: ALBUTEROL 2.5 MG/IPRATROPIUM 0.5 MG NEB (SCH) NEB ×4 (04:00→20:50)
[2017-03-28] MEDS: INSULIN ASPART SUPPLEMENTAL SCALE SQ SCH ×6 (05:05→23:12)
[2017-03-28] MEDS: ARTIFICIAL TEARS OPTH SOLN 15 ML BTL EACH EYE SCH ×3 (05:05→20:24)
[2017-03-28] MEDS: FREE WATER G-TUBE SCH ×3 (05:05→20:25)
--- NOTE | 2017-03-28 05:16 | RADRPT ---
EXAM DATE/TIME: 03/28/2017 04:15 [facility] COMPARISON: CHEST SINGLE AP, March 27, 2017, 13:41. INDICATIONS : Status post chest tube removal. MEDICAL HISTORY : Sickle Cell disease. Diabetes mellitus type I. SURGICAL HISTORY : None. ENCOUNTER: Initial ACUITY: 1 day PAIN SCORE: Non-responsive. LOCATION: Bilateral chest FINDINGS: Single AP view of the chest. Tracheostomy tube and right subclavian central venous catheter remain in place. Small bilateral pleural effusions unchanged. Left lower lobe parenchymal pulmonary opacity un changed. No evidence of pneumothorax. CONCLUSION: No significant interval change. Rudy Santizo MD on March 28, 2017 at 5:12 Board Certified Radiologist. This report was verified electronically.
[2017-03-28] MEDS: cloNIDine HCL 0.1 MG TAB PO SCH ×2 (05:36→14:00)
[2017-03-28] MEDS: METOPROLOL TARTRATE 5 MG/5 ML VIAL IV PUSH SCH ×4 (05:36→23:12)
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
[2017-03-28] MEDS: CHLORHEXIDINE 0.12% (ORAL KIT) 15 ML CUP MT SCH ×2 (08:39→20:24)
[2017-03-28] MEDS: metroNIDAZOLE 500 MG INJ 100 ML IV SCH ×2 (08:53→17:32)
[2017-03-28] MEDS: FUROSEMIDE 20 MG/2 ML VIAL IV PUSH SCH ×2 (08:56→17:33)
[2017-03-28] MEDS: INSULIN DETEMIR 100 UNITS/ML VIAL SQ SCH ×2 (09:00→21:00)
[2017-03-28] MEDS: POTASSIUM CHLORIDE 25 MEQ EFFERVESCENT TAB PO SCH (09:00)
[2017-03-28] MEDS: VALPROIC ACID SYRUP 250 MG/5 ML UDC PO SCH ×3 (09:00→17:33)
[2017-03-28] MEDS: VANCOMYCIN 500 MG VIAL (FOR ORAL USE ONLY) PO SCH ×4 (09:00→20:23)
[2017-03-28] MEDS: FAMOTIDINE 20 MG TAB PO SCH ×2 (09:00→20:23)
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
[2017-03-28] MEDS ORDERED: SODIUM CHLOR 0.9% 250 ML INJ 250 ML IV ONE (09:30)
--- NOTE | 2017-03-28 09:34 | RADRPT ---
EXAM DATE/TIME: 03/28/2017 08:47 [place] COMPARISON: No previous studies available for comparison. INDICATIONS : Evaluate for distention. MEDICAL HISTORY : Sickle Cell disease. Diabetes mellitus type I. SURGICAL HISTORY : None. ENCOUNTER: Subsequent ACUITY: 1 day PAIN SCORE: Non-responsive. LOCATION: Bilateral chest FINDINGS: Supine view of the abdomen was performed. The abdominal bowel gas pattern is normal. No abnormal ma sses, calcifications, or organomegaly is seen. The osseous structures are unremarkable. A gastrostom y tube is in place overlying the region of the stomach. CONCLUSION: No evidence of obstruction.8 Vargas Kaur MD on March 28, 2017 at 9:31 Board Certified Radiologist. This report was verified electronically.
[2017-03-28 10:06] LABS: BASOPHIL % 0.2 % (0.0-2.0); EOSINOPHIL # 0.1 TH/MM3 (0-0.4); EOSINOPHIL % 0.5 % (0.0-4.0); HEMATOCRIT 23.5 % (35.0-46.0); HEMOGLOBIN 8.4 GM/DL (11.6-15.3); LYMPH % 12.1 % (9.0-44.0); LYMPHOCYTE # 1.8 TH/MM3 (1.0-4.8); MEAN CELL VOLUME 83.5 FL (80.0-100.0); MEAN CORPUSCULAR HEMOGLOBIN 29.6 PG (27.0-34.0); MEAN CORPUSCULAR HGB CONC 35.5 % (32.0-36.0); MEAN PLATELET VOLUME 10.3 FL (7.0-11.0); MONO % 13.1 % (0.0-8.0); MONOCYTE # 1.9 TH/MM3 (0-0.9); NEUT % 74.1 % (16.0-70.0); PLATELET COUNT 298 TH/MM3 (150-450); RED BLOOD COUNT 2.82 MIL/MM3 (4.00-5.30); RED CELL DISTRIBUTION WIDTH 15.2 % (11.6-17.2); WHITE BLOOD COUNT 14.8 TH/MM3 (4.0-11.0)
[2017-03-28 10:17] LABS: BICARBONATE 29.2 MEQ/L (21.0-32.0); CALCIUM 7.4 MG/DL (8.5-10.1); CREATININE 0.71 MG/DL (0.50-1.00)
[2017-03-28 10:32] LABS: CALCIUM-PROTEIN CORRECTED 7.7 MG/DL (8.5-10.1); TOTAL PROTEIN 6.6 GM/DL (6.4-8.2)
[2017-03-28] MEDS: ENOXAPARIN SODIUM 80 MG/0.8 ML SYRINGE SQ SCH ×2 (11:08→23:12)
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
[2017-03-28 11:37] LABS: BANDS 20 % (0-6); LYMPHOCYTES 15 % (9-44); METAMYELOCYTES 1 % (0-1); MONOCYTES 8 % (0-8); MYELOCYTES 1 % (0-0); NEUTROPHIL # MANUAL DIFF 11.4 TH/MM3 (1.8-7.7); POLYS (SEG NEUTROPHILS) 55 % (16-70)
--- NOTE | 2017-03-28 12:56 | RADRPT ---
EXAM DATE/TIME: 03/28/2017 12:01 [facility] COMPARISON: No previous studies available for comparison. INDICATIONS : Altered mental status. Trauma 3 weeks previous. MEDICAL HISTORY : Sickle Cell disease. Diabetes mellitus type 1. SURGICAL HISTORY : ORIF right wrist/ankle ENCOUNTER: Initial ACUITY: 1 day PAIN SCORE: 0/10 LOCATION: cranial TECHNIQUE: Multiplanar, multisequence MRI of the brain was performed without contrast. FINDINGS: Previously identified foci of restricted diffusion are either stable or slightly improved since Decem sophie 18. There are numerous hemosiderin deposits again noted especially in the temporal lobes and in t he upper frontal lobes and right parietal lobe. There is some white matter signal abnormality in the vertex bilaterally characteristic of white matter shear injury in patient with history of trauma. CONCLUSION: 1. Evolving shear injury in the white matter bilaterally, most notable in the right parietal region. Multifocal hemosiderin deposition is relatively stable and likely relates to prior microhemorrhage. R estricted diffusion foci are stable to decreased in size. No mass effect or shift. No hydrocephalus. Jamie Myrick MD on March 28, 2017 at 12:48 Board Certified Radiologist. This report was verified electronically.
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
[2017-03-28] MEDS ORDERED: METOCLOPRAMIDE HCL 10 MG/2 ML VIAL IV PUSH SCH (15:15)
[2017-03-28] MEDS: FLUCONAZOLE 100 MG PREMIX BAG 50 ML IV SCH (17:32)
[2017-03-28] MEDS: METOCLOPRAMIDE HCL 10 MG/2 ML VIAL IV PUSH SCH ×2 (17:34→20:23)
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
--- NOTE | 2017-03-28 19:17 | MG ---
cc: ANGELICA JIMENEZ M.D. Lab No: 18-02 Date: 03/28/2017 Age: Sex: F Race: TECHNIQUE: 17 channel EEG. DESCRIPTION: The background rhythm is very slow in the delta frequency at 3 Hz. Amplitude is 10-20 microvolts. There is rare muscle artifact. There are no lateralizing features identified and no epileptiform features are seen. Photic stimulation does not result in any type of driving response. INTERPRETATION: Abnormal study consistent with a severe encephalopathy. MD JAMISON Hyatt/AYANNA /5:58 PM /6:50 PM
[2017-03-28] MEDS: cloNIDine HCL 0.2 MG TAB PO SCH (20:24)
[2017-03-29] VITALS (19 sets, daily range): BP systolic 126–140; BP diastolic 56–64; PULSE 68–80; RESP 17–33; TEMP 98.8–100.8; O2SAT 96–100
[2017-03-29] MEDS ORDERED: PHARMACY ORDERED LAB ONE (01:45)
[2017-03-29] MEDS: QUEtiapine FUMARATE 25 MG TAB PO SCH ×3 (01:54→17:33)
[2017-03-29] MEDS: VANCOMYCIN INJ 1,500 MG in SODIUM CHLORID 0.9% 500 ML INJ 500 ML IV SCH ×2 (01:54→14:05)
[2017-03-29] MEDS: RESP: ALBUTEROL 2.5 MG/IPRATROPIUM 0.5 MG NEB (SCH) NEB ×4 (04:00→22:02)
[2017-03-29] MEDS: INSULIN ASPART SUPPLEMENTAL SCALE SQ SCH ×6 (04:00→22:48)
[2017-03-29] MEDS: cloNIDine HCL 0.2 MG TAB PO SCH ×3 (04:12→20:09)
[2017-03-29] MEDS: ARTIFICIAL TEARS OPTH SOLN 15 ML BTL EACH EYE SCH ×3 (04:12→20:09)
[2017-03-29] MEDS: FREE WATER G-TUBE SCH ×3 (04:12→20:09)
[2017-03-29] MEDS: METOPROLOL TARTRATE 5 MG/5 ML VIAL IV PUSH SCH ×4 (04:13→22:48)
--- NOTE | 2017-03-29 05:18 | RADRPT ---
EXAM DATE/TIME: 03/29/2017 03:55 [facility] COMPARISON: CHEST SINGLE AP, March 28, 2017, 4:15. INDICATIONS : Effusion MEDICAL HISTORY : Sickle Cell disease. Diabetes mellitus type I. SURGICAL HISTORY : None. ENCOUNTER: Subsequent ACUITY: 3 weeks PAIN SCORE: Non-responsive. LOCATION: Bilateral chest FINDINGS: Single AP view of the chest. Tracheostomy tube and right-sided subclavian central venous catheter rem ain in place. Persistent left lower lobe consolidation and small bilateral pleural effusions. No sign ificant interval change. No evidence of pneumothorax. CONCLUSION: No significant interval change. Persistent left lower lobe consolidation and small bilateral pleural effusions. Rudy Santizo MD on March 29, 2017 at 5:16 Board Certified Radiologist. This report was verified electronically.
--- NOTE | 2017-03-29 05:19 | RADRPT ---
EXAM DATE/TIME: 03/29/2017 03:59 [facility] COMPARISON: ABDOMEN KUB ONLY, March 28, 2017, 8:47. INDICATIONS : Ileus. MEDICAL HISTORY : Sickle Cell disease. Diabetes mellitus type I. SURGICAL HISTORY : None. ENCOUNTER: Subsequent ACUITY: 2 days PAIN SCORE: Non-responsive. LOCATION: abdomen. FINDINGS: Single AP supine view of the abdomen. Gastrostomy tube noted. Distended air-filled colon again seen. No significant interval change. CONCLUSION: Distended air-filled colon unchanged. Rudy Santizo MD on March 29, 2017 at 5:17 Board Certified Radiologist. This report was verified electronically.
[2017-03-29 06:01] LABS: AUTOMATED NEUTROPHIL # 10.6 TH/MM3 (1.8-7.7); BASOPHIL # 0.1 TH/MM3 (0-0.2); BASOPHIL % 0.5 % (0.0-2.0); EOSINOPHIL # 0.2 TH/MM3 (0-0.4); EOSINOPHIL % 1.1 % (0.0-4.0); HEMATOCRIT 23.3 % (35.0-46.0); HEMOGLOBIN 7.8 GM/DL (11.6-15.3); LYMPH % 13.5 % (9.0-44.0); LYMPHOCYTE # 2.1 TH/MM3 (1.0-4.8); MEAN CELL VOLUME 83.9 FL (80.0-100.0); MEAN CORPUSCULAR HGB CONC 33.3 % (32.0-36.0); MEAN PLATELET VOLUME 9.1 FL (7.0-11.0); MONO % 15.9 % (0.0-8.0); MONOCYTE # 2.4 TH/MM3 (0-0.9); PLATELET COUNT 303 TH/MM3 (150-450); RED BLOOD COUNT 2.78 MIL/MM3 (4.00-5.30); RED CELL DISTRIBUTION WIDTH 15.1 % (11.6-17.2); WHITE BLOOD COUNT 15.3 TH/MM3 (4.0-11.0)
[2017-03-29 06:34] LABS: BICARBONATE 27.5 MEQ/L (21.0-32.0); CALCIUM 6.8 MG/DL (8.5-10.1); CREATININE 0.69 MG/DL (0.50-1.00)
[2017-03-29 07:03] LABS: CALCIUM-PROTEIN CORRECTED 7.5 MG/DL (8.5-10.1); TOTAL PROTEIN 5.8 GM/DL (6.4-8.2)
[2017-03-29 07:32] LABS: BANDS 8 % (0-6); LYMPHOCYTES 11 % (9-44); METAMYELOCYTES 3 % (0-1); MONOCYTES 14 % (0-8); MYELOCYTES 1 % (0-0); NEUTROPHIL # MANUAL DIFF 11.5 TH/MM3 (1.8-7.7); POLYS (SEG NEUTROPHILS) 61 % (16-70); PROMYELOCYTES 2 % (0-0)
[2017-03-29] MEDS: CHLORHEXIDINE 0.12% (ORAL KIT) 15 ML CUP MT SCH ×2 (08:11→20:10)
[2017-03-29] MEDS: POTASSIUM CHLORIDE 25 MEQ EFFERVESCENT TAB PO SCH (08:13)
[2017-03-29] MEDS: FAMOTIDINE 20 MG TAB PO SCH ×2 (08:13→20:09)
[2017-03-29] MEDS: INSULIN DETEMIR 100 UNITS/ML VIAL SQ SCH ×2 (08:14→20:09)
[2017-03-29] MEDS: VANCOMYCIN 500 MG VIAL (FOR ORAL USE ONLY) PO SCH ×4 (08:14→20:08)
[2017-03-29] MEDS: FUROSEMIDE 20 MG/2 ML VIAL IV PUSH SCH ×2 (08:14→17:34)
[2017-03-29] MEDS: VALPROIC ACID SYRUP 250 MG/5 ML UDC PO SCH ×3 (08:14→17:34)
[2017-03-29] MEDS: POTASSIUM CHLOR 40 MEQ PREMIX 100 ML IV PRN ×2 (08:15→16:25)
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
[2017-03-29] MEDS ORDERED: DIATRIZOATE MEGLUM/DIATRIZOATE SOD 9 ML CUP PO ONE (10:15)
[2017-03-29] MEDS: ENOXAPARIN SODIUM 80 MG/0.8 ML SYRINGE SQ SCH ×2 (10:20→22:48)
[2017-03-29] MEDS: metroNIDAZOLE 500 MG INJ 100 ML IV SCH ×2 (10:21→17:33)
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
--- NOTE | 2017-03-29 12:26 | HHI.NSPN ---
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 03/11/17 at 10:00; Stop 03/23/17 at 08:38; Status DC Valproic Acid (Depakene) 250 mg Q12HR PO ; Start 03/11/17 at 09:30; Stop 03/11 at 13:31; Status DC Albuterol/ Ipratropium (Duoneb Neb) 1 ampule Q6HR NEB NEB Last administered on 03/15/17 10:00; Start 03/11/17 at 16:00; Stop 03/15/17 at 15:59; Status DC Valproic Acid (Depakene Liq) 250 mg BID PO Last administered on 03/11/17 21: 00; Start 03/11/17 at 14:30; Stop 03/12/17 at 09:32; Status DC Lactulose (Lactulose Liq) 30 ml Q12H PO ; Start 03/12/17 at 08:00; Stop at 10:01; Status DC Bisacodyl (Dulcolax Supp) 10 mg ONCE ONCE RECTAL Last administered on 10:23; Start 03/12/17 at 07:45; Stop 03/12/17 at 07:58; Status DC Senna/Docusate Sodium (Eli-Colace) 1 tab BID PO Last administered on 21:42; Start 03/12/17 at 09:00; Stop 03/26/17 at 17:59; Status DC Valproic Acid (Depakene Liq) 500 mg BID PO Last administered on 03/19/17 08: 25; Start 03/12/17 at 21:00; Stop 03/19/17 at 09:40; Status DC Haloperidol Lactate (Haldol Inj) 4 mg Q4H PRN IV agitation; Start 03/12/17 at 09:30; Stop 03/21/17 at 09:36; Status DC Senna/Docusate Sodium (Eli-Colace) 1 tab BID PO ; Start 03/12/17 at 09:30; Stop 03/12/17 at 10:00; Status DC Magnesium Hydroxide (Milk Of Magnesia Liq) 30 ml BID PO Last administered on 21:42; Start 03/12/17 at 09:30; Stop 03/25/17 at 18:43; Status DC Lactulose (Lactulose Liq) 30 ml DAILY PO Last administered on 03/23/17 08:05 ; Start 03/12/17 at 09:30; Stop 03/25/17 at 18:43; Status DC Lidocaine HCl (Xylocaine 1% Inj (50 ml)) 50 ml STK-MED ONCE .ROUTE ; Start at 16:08; Stop 03/12/17 at 16:09; Status DC Insulin Aspart (NovoLOG SUPPLEMENTAL SCALE) 1 Q6HR SQ Last administered on 12:00; Start 03/14/17 at 12:00; Stop 03/18/17 at 14:31; Status DC Dextrose (D50w (Syr) Inj) 50 ml UNSCH PRN IV PUSH HYPOGLYCEMIA-SEE COMMENTS; Start 03/14/17 at 09:45; Stop 03/22/17 at 05:41; Status DC Glucagon (Glucagon Inj) 1 mg UNSCH PRN OTHER HYPOGLYCEMIA-SEE COMMENTS; Start 03/14/17 at 09:45; Stop 03/22/17 at 05:41; Status DC Acetaminophen 100 ml @ 400 mls/hr Q6H PRN IV temp >101 Last administered on 03/26/17at 16:13; Start 03/14/17 at 17:30; Stop 03/26/17 at 17:59; Status DC Bisacodyl (Dulcolax Supp) 10 mg ONCE ONCE RECTAL Last administered on 10:50; Start 03/15/17 at 09:00; Stop 03/15/17 at 09:01; Status DC Famotidine (Pepcid) 20 mg BID PO Last administered on 03/30/17at 09:03; Start at 09:00 Oxycodone HCl (Roxicodone) 5 mg Q6H PRN PO Pain > 5 Last administered on 10:12; Start 03/16/17 at 14:00; Stop 03/19/17 at 08:10; Status DC Pharmacy Profile Note 0 ml @ 0 mls/hr UNSCH OTHER ; Start 03/16/17 at 09:00; Stop 03/16/17 at 16:13; Status DC Vancomycin HCl 1000 mg/Sodium Chloride 250 ml @ 250 mls/hr Q12H IV Last administered on 03/16/17 10:34; Start 03/16/17 at 10:00; Stop 03/16/17 at 16 :13; Status DC Piperacillin Sod/ Tazobactam Sod 50 ml @ 100 mls/hr Q8H IV Last administered on 03/17/17 08:48; Start 03/16/17 at 09:00; Stop 03/17/17 at 14:19; Status DC Ceftriaxone Sodium 2000 mg/ Sodium Chloride 100 ml @ 200 mls/hr Q24H IV Last administered on 03/21/17 15:37; Start 03/17/17 at 15:00; Stop 03/21/17 at 16 :34; Status DC Insulin Detemir (Levemir Inj) 12 units Q12HR SQ Last administered on 20:57; Start 03/18/17 at 21:00; Stop 03/22/17 at 05:41; Status DC Insulin Aspart (NovoLOG SUPPLEMENTAL SCALE) 1 Q4HR SQ Last administered on 23:55; Start 03/18/17 at 16:00; Stop 03/22/17 at 05:41; Status DC Albuterol/ Ipratropium (Duoneb Neb) 1 ampule Q6HR NEB NEB Last administered on 03/21/17 19:59; Start 03/18/17 at 16:00; Stop 03/22/17 at 16:02; Status DC Albuterol Sulfate (Albuterol Neb) 2.5 mg Q2HR NEB PRN NEB dyspnea Last administered on 03/23/17 08:41; Start 03/18/17 at 14:30 Artificial Tears (Tears Naturale Opth Soln) 1 drop Q8HR EACH EYE Last administered on 03/30/17at 13:02; Start 03/18/17 at 22:00 Oxycodone HCl (Roxicodone Intensol Liq) 5 mg Q4H NG Last administered on 06:01; Start 03/18/17 at 15:00; Stop 03/23/17 at 08:38; Status DC Water (Free Water) VOLUME: 100 ML Q8HR G-TUBE Last administered on 03/23/17 06:00; Start 03/18/17 at 22:00; Stop 03/23/17 at 12:49; Status DC Valproic Acid (Depakene Liq) 500 mg TID PO Last administered on 03/30/17at 13:01 ; Start 03/19/17 at 13:00 Dexmedetomidine HCl 200 mcg/ Sodium Chloride 52 ml @ 3.47 mls/hr TITRATE PRN IV SEDATION Last administered on 03/21/17 20:56; Start 03/20/17 at 09:30; Stop 03/24/17 at 08:20; Status DC Lidocaine HCl (Xylocaine 1% Inj) 20 ml STK-MED ONCE .ROUTE ; Start 03/20/17 at 15:32; Stop 03/20/17 at 15:33; Status DC Furosemide (Lasix Inj) 40 mg ONCE ONCE IV PUSH Last administered on 08:00; Start 03/21/17 at 08:00; Stop 03/21/17 at 08:01; Status DC Metoprolol Tartrate (Lopressor Inj) 5 mg Q6H IV PUSH Last administered on 03/21 21:00; Start 03/21/17 at 09:00; Stop 03/22/17 at 09:30; Status DC Morphine Sulfate (Morphine Inj) 4 mg Q3H PRN IV PUSH breakthrough pain Last administered on 03/21/17 12:51; Start 03/21/17 at 10:00; Stop 03/23/17 at 11 :19; Status DC Haloperidol Lactate (Haldol Inj) 5 mg Q6H PRN IV agitation Last administered on 03/21/17 21:39; Start 03/21/17 at 10:00; Stop 03/24/17 at 08:20; Status DC Levofloxacin (Levaquin) 750 mg DAILY PO Last administered on 03/25/17at 08:37; Start 03/21/17 at 16:45; Stop 03/25/17 at 15:20; Status DC Midazolam HCl (Versed Inj) 5 mg STK-MED ONCE .ROUTE ; Start 03/21/17 at 22:45; Stop 03/21/17 at 22:46; Status DC Rocuronium Danielson (Zemuron Inj) 50 mg ONCE ONCE IV Last administered on 03/21 22:48; Start 03/21/17 at 23:45; Stop 03/21/17 at 23:51; Status DC Midazolam HCl (Versed Inj) 2.5 mg ONCE ONCE IV Last administered on 22:48; Start 03/21/17 at 23:45; Stop 03/21/17 at 23:51; Status DC Propofol 100 ml @ 1.992 mls/ hr TITRATE PRN IV SEDATION Last administered on 03/23/17 07:47; Start 03/22/17 at 01:00; Stop 03/23/17 at 10:18; Status DC Fentanyl Citrate 250 ml @ 5 mls/hr TITRATE PRN IV Sedation Last administered on 03/26/17at 11:42; Start 03/22/17 at 01:00; Stop 03/26/17 at 16:36; Status DC Labetalol HCl 500 mg/Sodium Chloride 250 ml @ 60 mls/hr TITRATE PRN IV Blood pressure management Last administered on 03/22/17 02:20; Start 03/22/17 at 02 :00; Stop 03/23/17 at 11:19; Status DC Sodium Chloride 1,000 ml @ 999 mls/hr Q1H1M ONCE IV Last administered on 03/22 02:37; Start 03/22/17 at 02:00; Stop 03/22/17 at 03:00; Status DC Metoprolol Tartrate (Lopressor Inj) 5 mg ONCE ONCE IV PUSH Last administered on 03/22/17 02:37; Start 03/22/17 at 02:00; Stop 03/22/17 at 02:01; Status DC Nicardipine HCl 25 mg/Sodium Chloride 250 ml @ 50 mls/hr TITRATE PRN IV Blood Pressure Management; Start 03/22/17 at 03:00; Stop 03/23/17 at 11:19; Status DC Norepinephrine Bitartrate 250 ml @ As Directed STK-MED ONCE IV ; Start at 03:02; Stop 03/22/17 at 03:03; Status DC Vasopressin 40 units/Dextrose 100 ml @ 1.5 mls/hr Q24H IV ; Start 03/22/17 at 03:30; Stop 03/22/17 at 03:49; Status DC Norepinephrine Bitartrate 250 ml @ 7.5 mls/hr TITRATE PRN IV Blood pressure management Last administered on 03/22/17 03:00; Start 03/22/17 at 03:30; Stop 03/23/17 at 11:19; Status DC Terbutaline Sulfate (Brethine Inj) 1 mg UNSCH PRN SQ For Extravasation; Start 03/22/17 at 03:30 Phenylephrine HCl 80 mg/Dextrose 500 ml @ 15 mls/hr TITRATE PRN IV Blood pressure Management Last administered on 03/22/17 03:00; Start 03/22/17 at 03 :30; Stop 03/23/17 at 11:19; Status DC Terbutaline Sulfate (Brethine Inj) 1 mg UNSCH PRN SQ For Extravasation; Start 03/22/17 at 03:30; Stop 03/22/17 at 05:42; Status DC Sodium Bicarbonate (Sodium Bicarbonate 8.4% Inj) 50 meq ONCE ONCE IV PUSH Last administered on 03/22/17 05:39; Start 03/22/17 at 03:45; Stop 03/22/17 at 03:46; Status DC Phenylephrine HCl (Neosynephrine Inj) 10 mg STK-MED ONCE .ROUTE Last administered on 03/22/17 06:36; Start 03/22/17 at 03:34; Stop 03/22/17 at 03 :35; Status DC Vasopressin 40 units/Dextrose 100 ml @ 1.5 mls/hr Q24H IV ; Start 03/22/17 at 04:00; Stop 03/22/17 at 07:48; Status DC Sodium Chloride 1,000 ml @ 1,000 mls/hr Q1H IV Last administered on 06:35; Start 03/22/17 at 03:15; Stop 03/22/17 at 05:14; Status DC Epinephrine HCl 2 mg/Dextrose 250 ml @ 22.5 mls/hr TITRATE PRN IV Blood Pressure Management; Start 03/22/17 at 04:15; Stop 03/23/17 at 11:19; Status DC Insulin Human Regular 100 units/ Sodium Chloride 100 ml @ 1 mls/hr TITRATE PRN IV Blood Glucose Control Last administered on 03/25/17at 11:00; Start 03/22/17 at 05:45; Stop 03/25/17 at 16:01; Status DC Dextrose (D50w (Vial) Inj) 50 ml UNSCH PRN IV PUSH SEE LABEL COMMENTS; Start 03/22/17 at 05:45; Stop 03/25/17 at 16:01; Status DC Miscellaneous Information 1 ONCE ONCE OTHER ; Start 03/22/17 at 05:45; Stop 03/22/17 at 05:46; Status DC Morphine Sulfate (Morphine Inj) 4 mg NOW ONCE IV Last administered on t 06:36; Start 03/22/17 at 06:30; Stop 03/22/17 at 06:31; Status DC Vasopressin 40 units/Dextrose 100 ml @ 1.5 mls/hr TITRATE PRN IV Blood Pressure Management Last administered on 03/22/17t 08:35; Start 03/22/17 at 07 :45; Stop 03/25/17 at 09:42; Status DC Metoprolol Tartrate (Lopressor Inj) 5 mg Q6H PRN IV PUSH HTN; Start 03/22/17 at 15:00; Stop 03/23/17 at 11:19; Status DC Piperacillin Sod/ Tazobactam Sod 100 ml @ 200 mls/hr Q6H IV Last administered on 03/26/17at 08:26; Start 03/22/17 at 14:00; Stop 03/26/17 at 09:07; Status DC Linezolid 300 ml @ 300 mls/hr Q12H IV Last administered on 03/25/17at 03:15; Start 03/22/17 at 15:00; Stop 03/25/17 at 15:20; Status DC Epinephrine HCl (EPINEPHrine (1:10,000) INJ) 1 mg STK-MED ONCE IV ; Start 03/22 at 15:47; Stop 03/23/17 at 11:19; Status DC Sodium Bicarbonate (Sodium Bicarbonate 8.4% Inj) 50 meq STK-MED ONCE IV ; Start 03/22/17 at 15:47; Stop 03/22/17 at 15:48; Status DC Epinephrine HCl (EPINEPHrine (1:10,000) INJ) 1 mg STK-MED ONCE IV ; Start 03/22 at 15:48; Stop 03/23/17 at 11:19; Status DC Epinephrine HCl (EPINEPHrine (1:1000) INJ) 30 mg STK-MED ONCE IV ; Start at 15:48; Stop 03/23/17 at 11:19; Status DC Sodium Bicarbonate (Sodium Bicarbonate 8.4% Inj) 50 meq STK-MED ONCE IV ; Start 03/22/17 at 15:48; Stop 03/22/17 at 15:49; Status DC Epinephrine HCl (EPINEPHrine (1:10,000) INJ) 1 mg STK-MED ONCE IV ; Start 03/22 at 15:49; Stop 03/23/17 at 11:19; Status DC Methocarbamol (Robaxin) 500 mg Q8H PRN PO muscle spasm; Start 03/23/17 at 10: 00; Stop 03/23/17 at 11:19; Status DC Oxycodone HCl (Roxicodone Intensol Liq) 5 mg Q4H PRN NG pain >3 Last administered on 03/27/17at 01:40; Start 03/23/17 at 11:00; Stop 03/27/17 at 02:11 ; Status DC Lorazepam (Ativan Inj) 2 mg STK-MED ONCE .ROUTE Last administered on 10:34; Start 03/23/17 at 10:05; Stop 03/23/17 at 10:06; Status DC Metoprolol Tartrate (Lopressor Inj) 5 mg Q6HR IV PUSH Last administered on at 12:10; Start 03/23/17 at 12:00 Dextrose/Sodium Chloride 1,000 ml @ 60 mls/hr [id number] IV Last administered on 03/23/17 10:31; Start 03/23/17 at 11:00; Stop 03/23/17 at 12:49; Status DC Enoxaparin Sodium (Lovenox Inj) 40 mg DAILY SQ ; Start 03/24/17 at 09:00; Stop at 09:00; Status DC Propofol 100 ml @ 3.984 mls/ hr TITRATE PRN IV SEDATION Last administered on at 11:00; Start 03/23/17 at 10:30; Stop 03/26/17 at 16:36; Status DC Iohexol (Omnipaque 350 Inj) 85 ml STK-MED ONCE IVCONTRAST Last administered on 03/23/17t 11:55; Start 03/23/17 at 11:55; Stop 03/23/17 at 11:56; Status DC Water (Free Water) VOLUME OF WATER: ( 150 ) ML Q6HR G-TUBE Last administered on 03/25/17at 23:49; Start 03/23/17 at 18:00; Stop 03/26/17 at 09:18; Status DC Sodium Chloride 1,000 ml @ 60 mls/hr [id number] IV Last administered on 03/24/17at 05:40; Start 03/23/17 at 13:00; Stop 03/24/17 at 08:27; Status DC Heparin Sodium (Porcine) (Heparin Inj) 5,000 units NOW STAT IV PUSH Last administered on 03/23/17t 19:09; Start 03/23/17 at 17:47; Stop 03/23/17 at 18 :07; Status DC Heparin Sodium (Porcine) (Heparin Inj) 5,000 units UNSCH PRN IV PUSH APTT LESS THAN 25; Start 03/24/17 at 00:00; Stop 03/24/17 at 00:00; Status DC Heparin Sodium (Porcine) (Heparin Inj) 2,500 units UNSCH PRN IV PUSH APTT 25 TO 39; Start 03/24/17 at 00:00; Stop 03/24/17 at 00:00; Status DC Heparin Sodium/ Dextrose 250 ml @ 12 mls/hr TITRATE PRN IV Coagulation Management Last administered on 03/27/17at 01:42; Start 03/23/17 at 18:00; Stop 03/27/17 at 09:31; Status DC Heparin Sodium (Porcine) (Heparin Inj) 5,000 units UNSCH PRN IV PUSH APTT LESS THAN 25; Start 03/23/17 at 19:00; Stop 03/23/17 at 19:00; Status DC Heparin Sodium (Porcine) (Heparin Inj) 2,500 units UNSCH PRN IV PUSH APTT 25 TO 39 Last administered on 03/27/17at 03:49; Start 03/23/17 at 19:00; Stop at 09:31; Status DC Heparin Sodium (Porcine) (Heparin Inj) 5,000 units UNSCH PRN IV APTT LESS THAN 25; Start 03/23/17 at 19:00; Stop 03/27/17 at 09:31; Status DC Albuterol/ Ipratropium (Duoneb Neb) 1 ampule Q6HR NEB NEB Last administered on 03/27/17at 07:36; Start 03/24/17 at 10:00; Stop 03/27/17 at 11:39; Status DC Lactated Ringer's 1,000 ml @ 50 mls/hr Q20H IV Last administered on 03/25/17at 04:30; Start 03/24/17 at 08:30; Stop 03/25/17 at 09:42; Status DC Vecuronium Danielson (Norcuron 10 Mg Inj) 10 mg DECORATOR STORE IV PUSH Last administered on 03/26/17at 11:55; Start 03/26/17 at 09:30; Stop 03/26/17 at 15:00; Status DC Micafungin Sodium 100 mg/Sodium Chloride 100 ml @ 100 mls/hr Q24H IV Last administered on 03/25/17at 10:56; Start 03/25/17 at 10:00; Stop 03/25/17 at 15:20; Status DC Metronidazole 100 ml @ 100 mls/hr Q8H IV Last administered on 03/28/17at 17:32; Start 03/25/17 at 16:00; Stop 03/28/17 at 18:01; Status DC Vancomycin HCl (VANCOMYCIN for oral use only) 250 mg QID PO Last administered on 03/30/17at 13:02; Start 03/25/17 at 18:00 Dextrose (D50w (Vial) Inj) 50 ml UNSCH PRN IV PUSH HYPOGLYCEMIA-SEE COMMENTS; Start 03/25/17 at 16:00 Glucagon (Glucagon Inj) 1 mg UNSCH PRN OTHER HYPOGLYCEMIA-SEE COMMENTS; Start 03/25/17 at 16:00 Insulin Aspart (NovoLOG SUPPLEMENTAL SCALE) 1 Q4HR SQ Last administered on at 12:59; Start 03/25/17 at 16:00 Insulin Detemir (Levemir Inj) 15 units Q12HR SQ Last administered on 03/25/17at 20:20; Start 03/25/17 at 21:00; Stop 03/26/17 at 09:07; Status DC Magnesium Hydroxide (Milk Of Magnesia Liq) 30 ml BID PRN PO MILD CONSTIPATION; Start 03/25/17 at 18:45 Lactulose (Lactulose Liq) 30 ml DAILY PRN PO MODERATE CONSTIPATION; Start at 18:45 Insulin Detemir (Levemir Inj) 20 units Q12HR SQ Last administered on 03/26/17at 21:00; Start 03/26/17 at 21:00 Water (Free Water) 200 ml Q8HR G-TUBE Last administered on 03/30/17at 04:16; Start 03/26/17 at 14:00; Stop 03/30/17 at 12:39; Status DC Fentanyl Citrate (fentaNYL INJ) 25 mcg Q1H PRN IV PUSH PAIN SCALE 5 TO 10 Last administered on 03/27/17at 00:15; Start 03/26/17 at 16:45; Stop 03/27/17 at 02:11; Status DC Fluconazole/ Sodium Chloride 50 ml @ 50 mls/hr Q24H IV Last administered on 03/29at 17:35; Start 03/26/17 at 18:00 Fluconazole/ Sodium Chloride 50 ml @ 50 mls/hr ONCE ONCE IV Last administered on 03/26/17at 17:11; Start 03/26/17 at 17:00; Stop 03/26/17 at 17:59; Status DC Acetaminophen (Tylenol 650 Mg/ 20 ml Liq) 650 mg Q4H PRN PO PAIN 1-2 OR TEMP > 101 Last administered on 03/27/17at 05:22; Start 03/26/17 at 18:00 Propofol 100 ml @ 2.253 mls/ hr TITRATE PRN IV SEDATION; Start 03/27/17 at 02: 00; Stop 03/27/17 at 09:31; Status DC Fentanyl Citrate (fentaNYL INJ) 50 mcg Q1H PRN IV PUSH BREAKTHROUGH PAIN; Start 03/27/17 at 02:45; Stop 03/27/17 at 09:31; Status DC Fentanyl Citrate (fentaNYL INJ) 25 mcg ONCE ONCE IV PUSH Last administered on 03/27/17at 04:27; Start 03/27/17 at 02:15; Stop 03/27/17 at 02:16; Status DC Oxycodone HCl (Roxicodone Intensol Liq) 10 mg Q4H PRN PEG PAIN 3-10 Last administered on 03/27/17at 04:28; Start 03/27/17 at 02:15 Oxycodone HCl (Roxicodone Intensol Liq) 5 mg ONCE ONCE PO ; Start 03/27/17 at 02 :15; Stop 03/27/17 at 02:16; Status DC Quetiapine Fumarate (SEROquel) 25 mg Q8H PO ; Start 03/27/17 at 10:00; Stop at 11:39; Status DC Enoxaparin Sodium (Lovenox Inj) 80 mg Q12H SQ Last administered on 03/27/17at 11: 47; Start 03/27/17 at 10:30; Stop 03/27/17 at 11:59; Status DC Propofol 50 ml @ As Directed STK-MED ONCE .ROUTE Last administered on 03/27/17at 11:30; Start 03/27/17 at 11:24; Stop 03/27/17 at 11:25; Status DC Albuterol/ Ipratropium (Duoneb Neb) 1 ampule Q6HR NEB NEB Last administered on 03/30/17at 09:02; Start 03/27/17 at 16:00 Quetiapine Fumarate (SEROquel) 50 mg Q8H PO Last administered on 03/30/17at 09:04 ; Start 03/27/17 at 18:00 Clonidine (Catapres) 0.1 mg Q8HR PO Last administered on 03/28/17at 05:36; Start 03/27/17 at 14:00; Stop 03/28/17 at 14:56; Status DC Dexmedetomidine HCl 200 mcg/ Sodium Chloride 52 ml @ 3.93 mls/hr TITRATE PRN IV SEDATION; Start 03/27/17 at 13:00; Stop 03/27/17 at 14:44; Status DC Enoxaparin Sodium (Lovenox Inj) 70 mg Q12H SQ Last administered on 03/30/17at 11: 00; Start 03/27/17 at 22:30 Pharmacy Profile Note 0 ml @ 0 mls/hr UNSCH OTHER ; Start 03/27/17 at 12:15 Vancomycin HCl 1500 mg/Sodium Chloride 515 ml @ 250 mls/hr Q12H IV Last administered on 03/30/17at 13:02; Start 03/27/17 at 14:00 Miscellaneous Information SPECIFIC LAB TO BE DRAWN:VANCOMYCIN TROUGH DATE TO... ONCE ONCE .XX Last administered on 03/29/17at 01:45; Start 03/29/17 at 01:45; Stop 03/29/17 at 01:46; Status DC Rocuronium Danielson (Zemuron Inj) 50 mg STK-MED ONCE .ROUTE ; Start 03/27/17 at 12 :58; Stop 03/27/17 at 12:59; Status DC Propofol 50 ml @ As Directed STK-MED ONCE .ROUTE ; Start 03/27/17 at 13:02; Stop 03/27/17 at 13:03; Status DC Rocuronium Danielson (Zemuron Inj) 100 mg STK-MED ONCE IV PUSH ; Start 03/08/17 at 12:00; Stop 03/27/17 at 13:16; Status DC Phenylephrine HCl (Neosynephrine/ NS 1000 Mcg/10ml Syr) 1,000 mcg STK-MED ONCE IV ; Start 03/08/17 at 12:00; Stop 03/27/17 at 13:16; Status DC Phenylephrine HCl (Neosynephrine Inj) 10 mg STK-MED ONCE IV ; Start 03/08/17 at 12:00; Stop 03/27/17 at 13:16; Status DC Dexamethasone Sodium Phosphate (Decadron Inj) 8 mg STK-MED ONCE IV ; Start at 12:00; Stop 03/27/17 at 13:16; Status DC Cefazolin Sodium (Ancef Inj) 1,000 mg STK-MED ONCE IV ; Start 03/08/17 at 12:00 ; Stop 03/27/17 at 13:16; Status DC Sodium Chloride (Sodium Chloride 0.9% Inj) 20 ml STK-MED ONCE IV ; Start at 12:00; Stop 03/27/17 at 13:16; Status DC Fentanyl Citrate (fentaNYL INJ) 100 mcg STK-MED ONCE .ROUTE ; Start 03/27/17 at 13:20; Stop 03/27/17 at 13:21; Status DC Dexmedetomidine HCl 1000 mcg/ Sodium Chloride 250 ml @ 3.78 mls/hr TITRATE PRN IV SEDATION Last administered on 03/29/17at 20:35; Start 03/27/17 at 14:45 Furosemide (Lasix Inj) 20 mg BID@09,18 IV PUSH Last administered on 03/30/17at 09 :02; Start 03/27/17 at 18:00 Potassium Bicarb/ Potassium Chloride (K-Lyte Cl Eff) 25 meq DAILY PO Last administered on 03/30/17at 09:03; Start 03/27/17 at 15:00 Furosemide (Lasix Inj) 40 mg ONCE ONCE IV PUSH Last administered on 03/27/17at 17:50; Start 03/27/17 at 15:00; Stop 03/27/17 at 15:04; Status DC Propofol (Diprivan 200 Mg/20 ml Inj) 200 mg STK-MED ONCE IV ; Start 03/26/17 at 12:00; Stop 03/28/17 at 09:20; Status DC Succinylcholine Chloride (Quelicin Inj) 100 mg STK-MED ONCE IV PUSH ; Start 03/26 at 12:00; Stop 03/28/17 at 09:20; Status DC Sodium Chloride 250 ml @ 15 mls/hr ONCE ONCE IV ; Start 03/28/17 at 09:30; Stop 03/29/17 at 02:09; Status DC Clonidine (Catapres) 0.2 mg Q8HR PO Last administered on 03/30/17at 13:01; Start 03/28/17 at 22:00 Metoclopramide HCl (Reglan Inj) 5 mg Q8HR IV PUSH ; Start 03/28/17 at 15:15; Stop 03/28/17 at 17:20; Status DC Metoclopramide HCl (Reglan Inj) 5 mg Q8HR IV PUSH Last administered on at 13:01; Start 03/28/17 at 18:00 Metronidazole 100 ml @ 100 mls/hr Q8H IV Last administered on 03/30/17at 09:04; Start 03/29/17 at 10:00 Diatrizoate Meglum/ Diatrizoate Sod ( Gastrocarrie Liq) 18 ml ONCE ONCE PO Last administered on 03/29/17at 10:20; Start 03/29/17 at 10:15; Stop 03/29/17 at 10: 16; Status DC Miscellaneous Information SPECIFIC LAB TO BE DRAWN:VANCOMYCIN TROUGH DATE TO... ONCE ONCE .XX ; Start 03/31/17 at 01:45; Stop 03/31/17 at 01:46 Water (Free Water) 300 ml Q6HR G-TUBE ; Start 03/30/17 at 18:00 (Tee Egan MD) Medical Decision Making MDM Remarks 21 y/o female 1.) Closed head injury (shear injury on MRI) 2.) Occipital condyle fractures 3.) Distal clivus skull fracture 4.) C1 fracture , nonoperative Pulmonary embolism (Marissa Stockton) MDM Remarks Last 48 hours Impressions Abdomen/Pelvis CT 03/29/17 0921 Signed Impressions: Service Date/Time: Wednesday, March 29, 2017 12:27 - CONCLUSION: 1. Bibasilar patchy opacities within the visualized lower lungs consistent with probable pneumonia. Clinical correlation recommended. 2. Small amount of ascites. 3. Anasarca. 4. Scattered tiny 2 mm calcified nonobstructing bilateral renal calculi. 5. No evidence of bowel obstruction. Forest Alexandre MD Chest X-Ray 03/29/17 0600 Signed Impressions: Service Date/Time: Wednesday, March 29, 2017 03:55 - CONCLUSION: No significant interval change. Persistent left lower lobe consolidation and small bilateral pleural effusions. Rudy Santizo MD Abdomen X-Ray 03/29/17 0600 Signed Impressions: Service Date/Time: Wednesday, March 29, 2017 03:59 - CONCLUSION: Distended air-filled colon unchanged. Rudy Santizo MD (Tee Egan MD) Plan Plan Remarks cont critical care mgt cont therapy and rehab efforts Wainwright collar for C1 fracture (Marissa Stockton) Attending Statement Neuro. Continue neuro checks in a serial fashion. Continue Wainwright J collar Pulmonary. Continue aggressive pulmonary toilette, nasotracheal suction, and breathing treatments with nebulizers. Daily PT and OT Nutrition. Tolerating Oral diet Renal. Continue to monitor closely urine output, BUN and creatinine Endocrine. Continue to Monitor serial Acu checks and SSI as needed in detail ID continue to monitor for signs of infection Continue Protonix for stress ulcer prophylaxis Continue Ervin hose and SCD's for DVT prophylaxis The exam, history, and the medical decision-making described in the above note were completed with the assistance of the mid-level provider. I reviewed and agree with the findings presented. I attest that I had a [id number] encounter with the patient on the same day, and personally performed and documented my assessment and findings in the medical record. (Tee Egan MD) Marissa Stockton Mar 29, 2017 12:25 Tee Egan MD Mar 30, 2017 14:12
--- NOTE | 2017-03-29 13:01 | RADRPT ---
EXAM DATE/TIME: 03/29/2017 12:27 [place] COMPARISON: ABDOMEN KUB ONLY, March 29, 2017, 3:59. INDICATIONS : Increasing abdominal distention. ORAL CONTRAST: Prescribed oral contrast ingested. RADIATION DOSE: 20.21 CTDIvol (mGy) MEDICAL HISTORY : Diabetes mellitus type 1. Sickle Cell disease. SURGICAL HISTORY : None. ENCOUNTER: Initial ACUITY: 3 days PAIN SCALE: Non-responsive LOCATION: abdomen TECHNIQUE: Volumetric scanning of the abdomen and pelvis was performed. Using automated exposure control and ad justment of the mA and/or kV according to patient size, radiation dose was kept as low as reasonably achievable to obtain optimal diagnostic quality images. DICOM format image data is available electro nically for review and comparison. FINDINGS: LOWER LUNGS: Patchy consolidations are noted within the visualized lung bases consistent with probable bibasilar p neumonia. Small pigtail catheter is noted in the expected region of the left lung base. LIVER: Homogeneous density without lesion. There is no dilation of the biliary tree. No calcified gallston es. SPLEEN: Normal size without lesion. PANCREAS: Within normal limits. KIDNEYS: Normal in size and shape. There is no mass or hydronephrosis. Tiny 2 mm calcified nonobstructing kareem ateral renal calculi are noted. ADRENAL GLANDS: Within normal limits. VASCULAR: There is no aortic aneurysm. BOWEL/MESENTERY: The stomach, small bowel, and colon demonstrate no acute abnormality. There is no free intraperitone al air. Some ascites is noted within the abdomen and pelvis. A gastric tube is noted within the stoma ch. ABDOMINAL WALL: Within normal limits. Anasarca is noted. RETROPERITONEUM: There is no lymphadenopathy. BLADDER: A Lr catheter is noted within the urinary bladder which is nondistended. REPRODUCTIVE: Within normal limits. INGUINAL: There is no lymphadenopathy or hernia. MUSCULOSKELETAL: Within normal limits for patient age. CONCLUSION: 1. Bibasilar patchy opacities within the visualized lower lungs consistent with probable pneumonia. C linical correlation recommended. 2. Small amount of ascites. 3. Anasarca. 4. Scattered tiny 2 mm calcified nonobstructing bilateral renal calculi. 5. No evidence of bowel obstruction. Forest Alexandre MD on March 29, 2017 at 12:52 Board Certified Radiologist. This report was verified electronically.
[2017-03-29] MEDS: METOCLOPRAMIDE HCL 10 MG/2 ML VIAL IV PUSH SCH ×2 (14:02→20:09)
[2017-03-29] MEDS: FLUCONAZOLE 100 MG PREMIX BAG 50 ML IV SCH (17:35)
[2017-03-29] MEDS: DEXMEDETOMIDINE INJ 1,000 MCG in SODIUM CHLOR 0.9% 250 ML INJ 240 ML IV PRN (20:35)
[2017-03-30] VITALS (18 sets, daily range): BP systolic 116–164; BP diastolic 54–70; PULSE 62–85; RESP 16–28; TEMP 98.6–99.1; O2SAT 100
[2017-03-30] MEDS: metroNIDAZOLE 500 MG INJ 100 ML IV SCH ×3 (00:38→17:31)
[2017-03-30] MEDS: QUEtiapine FUMARATE 25 MG TAB PO SCH ×3 (00:38→17:31)
[2017-03-30] MEDS: VANCOMYCIN INJ 1,500 MG in SODIUM CHLORID 0.9% 500 ML INJ 500 ML IV SCH ×2 (00:39→13:02)
[2017-03-30] MEDS: METOPROLOL TARTRATE 5 MG/5 ML VIAL IV PUSH SCH ×3 (04:15→17:31)
[2017-03-30] MEDS: cloNIDine HCL 0.2 MG TAB PO SCH ×3 (04:15→20:56)
[2017-03-30] MEDS: METOCLOPRAMIDE HCL 10 MG/2 ML VIAL IV PUSH SCH ×3 (04:15→20:58)
[2017-03-30] MEDS: ARTIFICIAL TEARS OPTH SOLN 15 ML BTL EACH EYE SCH ×3 (04:16→20:58)
[2017-03-30] MEDS: INSULIN ASPART SUPPLEMENTAL SCALE SQ SCH ×5 (04:16→20:56)
[2017-03-30] MEDS: FREE WATER G-TUBE SCH ×2 (04:16→17:31)
[2017-03-30] MEDS: RESP: ALBUTEROL 2.5 MG/IPRATROPIUM 0.5 MG NEB (SCH) NEB ×4 (04:34→21:32)
[2017-03-30 06:05] LABS: AUTOMATED NEUTROPHIL # 9.1 TH/MM3 (1.8-7.7); BASOPHIL # 0.1 TH/MM3 (0-0.2); BASOPHIL % 0.5 % (0.0-2.0); EOSINOPHIL # 0.2 TH/MM3 (0-0.4); EOSINOPHIL % 1.9 % (0.0-4.0); HEMATOCRIT 22.5 % (35.0-46.0); HEMOGLOBIN 7.5 GM/DL (11.6-15.3); LYMPH % 12.3 % (9.0-44.0); LYMPHOCYTE # 1.6 TH/MM3 (1.0-4.8); MEAN CELL VOLUME 84.5 FL (80.0-100.0); MEAN CORPUSCULAR HEMOGLOBIN 28.1 PG (27.0-34.0); MEAN CORPUSCULAR HGB CONC 33.3 % (32.0-36.0); MEAN PLATELET VOLUME 8.8 FL (7.0-11.0); MONO % 15.7 % (0.0-8.0); NEUT % 69.6 % (16.0-70.0); PLATELET COUNT 333 TH/MM3 (150-450); RED BLOOD COUNT 2.67 MIL/MM3 (4.00-5.30); RED CELL DISTRIBUTION WIDTH 15.2 % (11.6-17.2)
[2017-03-30 06:36] LABS: BANDS 6 % (0-6); LYMPHOCYTES 3 % (9-44); METAMYELOCYTES 1 % (0-1); MONOCYTES 8 % (0-8); MYELOCYTES 4 % (0-0); NEUTROPHIL # MANUAL DIFF 11.6 TH/MM3 (1.8-7.7); POLYS (SEG NEUTROPHILS) 78 % (16-70)
[2017-03-30 06:39] LABS: BICARBONATE 25.6 MEQ/L (21.0-32.0); CALCIUM 7.2 MG/DL (8.5-10.1); CREATININE 0.56 MG/DL (0.50-1.00)
[2017-03-30 06:59] LABS: CALCIUM-PROTEIN CORRECTED 7.5 MG/DL (8.5-10.1); TOTAL PROTEIN 6.5 GM/DL (6.4-8.2)
[2017-03-30] MEDS: CHLORHEXIDINE 0.12% (ORAL KIT) 15 ML CUP MT SCH ×2 (07:15→20:55)
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
[2017-03-30] MEDS: INSULIN DETEMIR 100 UNITS/ML VIAL SQ SCH ×2 (09:00→20:57)
[2017-03-30] MEDS: FUROSEMIDE 20 MG/2 ML VIAL IV PUSH SCH ×2 (09:02→17:32)
[2017-03-30] MEDS: POTASSIUM CHLORIDE 25 MEQ EFFERVESCENT TAB PO SCH (09:03)
[2017-03-30] MEDS: FAMOTIDINE 20 MG TAB PO SCH ×2 (09:03→20:56)
[2017-03-30] MEDS: VALPROIC ACID SYRUP 250 MG/5 ML UDC PO SCH ×3 (09:03→17:32)
[2017-03-30] MEDS: VANCOMYCIN 500 MG VIAL (FOR ORAL USE ONLY) PO SCH ×4 (09:04→20:57)
--- NOTE | 2017-03-30 10:05 | HHI.NSPN ---
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 Oxycodone HCl (Roxicodone) 5 mg Q4H PO Last administered on 03/16/17 05:32; Start 03/11/17 at 10:00; Stop 03/16/17 at 08:39; Status DC Methocarbamol (Robaxin) 500 mg Q8H PO Last administered on 03/23/17 03:37; Start 03/11/17 at 10:00; Stop 03/23/17 at 08:38; Status DC Valproic Acid (Depakene) 250 mg Q12HR PO ; Start 03/11/17 at 09:30; Stop 03/11 at 13:31; Status DC Albuterol/ Ipratropium (Duoneb Neb) 1 ampule Q6HR NEB NEB Last administered on 03/15/17 10:00; Start 03/11/17 at 16:00; Stop 03/15/17 at 15:59; Status DC Valproic Acid (Depakene Liq) 250 mg BID PO Last administered on 03/11/17 21: 00; Start 03/11/17 at 14:30; Stop 03/12/17 at 09:32; Status DC Lactulose (Lactulose Liq) 30 ml Q12H PO ; Start 03/12/17 at 08:00; Stop at 10:01; Status DC Bisacodyl (Dulcolax Supp) 10 mg ONCE ONCE RECTAL Last administered on 10:23; Start 03/12/17 at 07:45; Stop 03/12/17 at 07:58; Status DC Senna/Docusate Sodium (Eli-Colace) 1 tab BID PO Last administered on 21:42; Start 03/12/17 at 09:00; Stop 03/26/17 at 17:59; Status DC Valproic Acid (Depakene Liq) 500 mg BID PO Last administered on 03/19/17 08: 25; Start 03/12/17 at 21:00; Stop 03/19/17 at 09:40; Status DC Haloperidol Lactate (Haldol Inj) 4 mg Q4H PRN IV agitation; Start 03/12/17 at 09:30; Stop 03/21/17 at 09:36; Status DC Senna/Docusate Sodium (Eli-Colace) 1 tab BID PO ; Start 03/12/17 at 09:30; Stop 03/12/17 at 10:00; Status DC Magnesium Hydroxide (Milk Of Magnesia Liq) 30 ml BID PO Last administered on 21:42; Start 03/12/17 at 09:30; Stop 03/25/17 at 18:43; Status DC Lactulose (Lactulose Liq) 30 ml DAILY PO Last administered on 03/23/17 08:05 ; Start 03/12/17 at 09:30; Stop 03/25/17 at 18:43; Status DC Lidocaine HCl (Xylocaine 1% Inj (50 ml)) 50 ml STK-MED ONCE .ROUTE ; Start at 16:08; Stop 03/12/17 at 16:09; Status DC Insulin Aspart (NovoLOG SUPPLEMENTAL SCALE) 1 Q6HR SQ Last administered on 12:00; Start 03/14/17 at 12:00; Stop 03/18/17 at 14:31; Status DC Dextrose (D50w (Syr) Inj) 50 ml UNSCH PRN IV PUSH HYPOGLYCEMIA-SEE COMMENTS; Start 03/14/17 at 09:45; Stop 03/22/17 at 05:41; Status DC Glucagon (Glucagon Inj) 1 mg UNSCH PRN OTHER HYPOGLYCEMIA-SEE COMMENTS; Start 03/14/17 at 09:45; Stop 03/22/17 at 05:41; Status DC Acetaminophen 100 ml @ 400 mls/hr Q6H PRN IV temp >101 Last administered on 03/26/17at 16:13; Start 03/14/17 at 17:30; Stop 03/26/17 at 17:59; Status DC Bisacodyl (Dulcolax Supp) 10 mg ONCE ONCE RECTAL Last administered on 10:50; Start 03/15/17 at 09:00; Stop 03/15/17 at 09:01; Status DC Famotidine (Pepcid) 20 mg BID PO Last administered on 03/30/17at 09:03; Start at 09:00 Oxycodone HCl (Roxicodone) 5 mg Q6H PRN PO Pain > 5 Last administered on 10:12; Start 03/16/17 at 14:00; Stop 03/19/17 at 08:10; Status DC Pharmacy Profile Note 0 ml @ 0 mls/hr UNSCH OTHER ; Start 03/16/17 at 09:00; Stop 03/16/17 at 16:13; Status DC Vancomycin HCl 1000 mg/Sodium Chloride 250 ml @ 250 mls/hr Q12H IV Last administered on 03/16/17 10:34; Start 03/16/17 at 10:00; Stop 03/16/17 at 16 :13; Status DC Piperacillin Sod/ Tazobactam Sod 50 ml @ 100 mls/hr Q8H IV Last administered on 03/17/17 08:48; Start 03/16/17 at 09:00; Stop 03/17/17 at 14:19; Status DC Ceftriaxone Sodium 2000 mg/ Sodium Chloride 100 ml @ 200 mls/hr Q24H IV Last administered on 03/21/17 15:37; Start 03/17/17 at 15:00; Stop 03/21/17 at 16 :34; Status DC Insulin Detemir (Levemir Inj) 12 units Q12HR SQ Last administered on 20:57; Start 03/18/17 at 21:00; Stop 03/22/17 at 05:41; Status DC Insulin Aspart (NovoLOG SUPPLEMENTAL SCALE) 1 Q4HR SQ Last administered on 23:55; Start 03/18/17 at 16:00; Stop 03/22/17 at 05:41; Status DC Albuterol/ Ipratropium (Duoneb Neb) 1 ampule Q6HR NEB NEB Last administered on 03/21/17 19:59; Start 03/18/17 at 16:00; Stop 03/22/17 at 16:02; Status DC Albuterol Sulfate (Albuterol Neb) 2.5 mg Q2HR NEB PRN NEB dyspnea Last administered on 03/23/17 08:41; Start 03/18/17 at 14:30 Artificial Tears (Tears Naturale Opth Soln) 1 drop Q8HR EACH EYE Last administered on 03/30/17 13:02; Start 03/18/17 at 22:00 Oxycodone HCl (Roxicodone Intensol Liq) 5 mg Q4H NG Last administered on 06:01; Start 03/18/17 at 15:00; Stop 03/23/17 at 08:38; Status DC Water (Free Water) VOLUME: 100 ML Q8HR G-TUBE Last administered on 03/23/17 06:00; Start 03/18/17 at 22:00; Stop 03/23/17 at 12:49; Status DC Valproic Acid (Depakene Liq) 500 mg TID PO Last administered on 03/30/17 13:01 ; Start 03/19/17 at 13:00 Dexmedetomidine HCl 200 mcg/ Sodium Chloride 52 ml @ 3.47 mls/hr TITRATE PRN IV SEDATION Last administered on 03/21/17 20:56; Start 03/20/17 at 09:30; Stop 03/24/17 at 08:20; Status DC Lidocaine HCl (Xylocaine 1% Inj) 20 ml STK-MED ONCE .ROUTE ; Start 03/20/17 at 15:32; Stop 03/20/17 at 15:33; Status DC Furosemide (Lasix Inj) 40 mg ONCE ONCE IV PUSH Last administered on 08:00; Start 03/21/17 at 08:00; Stop 03/21/17 at 08:01; Status DC Metoprolol Tartrate (Lopressor Inj) 5 mg Q6H IV PUSH Last administered on 03/21 21:00; Start 03/21/17 at 09:00; Stop 03/22/17 at 09:30; Status DC Morphine Sulfate (Morphine Inj) 4 mg Q3H PRN IV PUSH breakthrough pain Last administered on 03/21/17 12:51; Start 03/21/17 at 10:00; Stop 03/23/17 at 11 :19; Status DC Haloperidol Lactate (Haldol Inj) 5 mg Q6H PRN IV agitation Last administered on 03/21/17 21:39; Start 03/21/17 at 10:00; Stop 1/1/18 at 08:20; Status DC Levofloxacin (Levaquin) 750 mg DAILY PO Last administered on 03/25/17at 08:37; Start 03/21/17 at 16:45; Stop 03/25/17 at 15:20; Status DC Midazolam HCl (Versed Inj) 5 mg STK-MED ONCE .ROUTE ; Start 03/21/17 at 22:45; Stop 03/21/17 at 22:46; Status DC Rocuronium [place] (Zemuron Inj) 50 mg ONCE ONCE IV Last administered on 03/21 22:48; Start 03/21/17 at 23:45; Stop 03/21/17 at 23:51; Status DC Midazolam HCl (Versed Inj) 2.5 mg ONCE ONCE IV Last administered on 22:48; Start 03/21/17 at 23:45; Stop 03/21/17 at 23:51; Status DC Propofol 100 ml @ 1.992 mls/ hr TITRATE PRN IV SEDATION Last administered on 03/23/17 07:47; Start 03/22/17 at 01:00; Stop 03/23/17 at 10:18; Status DC Fentanyl Citrate 250 ml @ 5 mls/hr TITRATE PRN IV Sedation Last administered on 03/26/17at 11:42; Start 03/22/17 at 01:00; Stop 03/26/17 at 16:36; Status DC Labetalol HCl 500 mg/Sodium Chloride 250 ml @ 60 mls/hr TITRATE PRN IV Blood pressure management Last administered on 03/22/17 02:20; Start 03/22/17 at 02 :00; Stop 03/23/17 at 11:19; Status DC Sodium Chloride 1,000 ml @ 999 mls/hr Q1H1M ONCE IV Last administered on 03/22 02:37; Start 03/22/17 at 02:00; Stop 03/22/17 at 03:00; Status DC Metoprolol Tartrate (Lopressor Inj) 5 mg ONCE ONCE IV PUSH Last administered on 03/22/17 02:37; Start 03/22/17 at 02:00; Stop 03/22/17 at 02:01; Status DC Nicardipine HCl 25 mg/Sodium Chloride 250 ml @ 50 mls/hr TITRATE PRN IV Blood Pressure Management; Start 03/22/17 at 03:00; Stop 03/23/17 at 11:19; Status DC Norepinephrine Bitartrate 250 ml @ As Directed STK-MED ONCE IV ; Start at 03:02; Stop 03/22/17 at 03:03; Status DC Vasopressin 40 units/Dextrose 100 ml @ 1.5 mls/hr Q24H IV ; Start 03/22/17 at 03:30; Stop 03/22/17 at 03:49; Status DC Norepinephrine Bitartrate 250 ml @ 7.5 mls/hr TITRATE PRN IV Blood pressure management Last administered on 03/22/17 03:00; Start 03/22/17 at 03:30; Stop 03/23/17 at 11:19; Status DC Terbutaline Sulfate (Brethine Inj) 1 mg UNSCH PRN SQ For Extravasation; Start 03/22/17 at 03:30 Phenylephrine HCl 80 mg/Dextrose 500 ml @ 15 mls/hr TITRATE PRN IV Blood pressure Management Last administered on 03/22/17 03:00; Start 03/22/17 at 03 :30; Stop 03/23/17 at 11:19; Status DC Terbutaline Sulfate (Brethine Inj) 1 mg UNSCH PRN SQ For Extravasation; Start 03/22/17 at 03:30; Stop 03/22/17 at 05:42; Status DC Sodium Bicarbonate (Sodium Bicarbonate 8.4% Inj) 50 meq ONCE ONCE IV PUSH Last administered on 03/22/17 05:39; Start 03/22/17 at 03:45; Stop 03/22/17 at 03:46; Status DC Phenylephrine HCl (Neosynephrine Inj) 10 mg STK-MED ONCE .ROUTE Last administered on 03/22/17 06:36; Start 03/22/17 at 03:34; Stop 03/22/17 at 03 :35; Status DC Vasopressin 40 units/Dextrose 100 ml @ 1.5 mls/hr Q24H IV ; Start 03/22/17 at 04:00; Stop 03/22/17 at 07:48; Status DC Sodium Chloride 1,000 ml @ 1,000 mls/hr Q1H IV Last administered on 06:35; Start 03/22/17 at 03:15; Stop 03/22/17 at 05:14; Status DC Epinephrine HCl 2 mg/Dextrose 250 ml @ 22.5 mls/hr TITRATE PRN IV Blood Pressure Management; Start 03/22/17 at 04:15; Stop 03/23/17 at 11:19; Status DC Insulin Human Regular 100 units/ Sodium Chloride 100 ml @ 1 mls/hr TITRATE PRN IV Blood Glucose Control Last administered on 03/25/17at 11:00; Start 03/22/17 at 05:45; Stop 03/25/17 at 16:01; Status DC Dextrose (D50w (Vial) Inj) 50 ml UNSCH PRN IV PUSH SEE LABEL COMMENTS; Start 03/22/17 at 05:45; Stop 03/25/17 at 16:01; Status DC Miscellaneous Information 1 ONCE ONCE OTHER ; Start 03/22/17 at 05:45; Stop 03/22/17 at 05:46; Status DC Morphine Sulfate (Morphine Inj) 4 mg NOW ONCE IV Last administered on 06:36; Start 03/22/17 at 06:30; Stop 03/22/17 at 06:31; Status DC Vasopressin 40 units/Dextrose 100 ml @ 1.5 mls/hr TITRATE PRN IV Blood Pressure Management Last administered on 03/22/17 08:35; Start 03/22/17 at 07 :45; Stop 03/25/17 at 09:42; Status DC Metoprolol Tartrate (Lopressor Inj) 5 mg Q6H PRN IV PUSH HTN; Start 03/22/17 at 15:00; Stop 03/23/17 at 11:19; Status DC Piperacillin Sod/ Tazobactam Sod 100 ml @ 200 mls/hr Q6H IV Last administered on 03/26/17at 08:26; Start 03/22/17 at 14:00; Stop 03/26/17 at 09:07; Status DC Linezolid 300 ml @ 300 mls/hr Q12H IV Last administered on 03/25/17at 03:15; Start 03/22/17 at 15:00; Stop 03/25/17 at 15:20; Status DC Epinephrine HCl (EPINEPHrine (1:10,000) INJ) 1 mg STK-MED ONCE IV ; Start 03/22 at 15:47; Stop 03/23/17 at 11:19; Status DC Sodium Bicarbonate (Sodium Bicarbonate 8.4% Inj) 50 meq STK-MED ONCE IV ; Start 03/22/17 at 15:47; Stop 03/22/17 at 15:48; Status DC Epinephrine HCl (EPINEPHrine (1:10,000) INJ) 1 mg STK-MED ONCE IV ; Start 03/22 at 15:48; Stop 03/23/17 at 11:19; Status DC Epinephrine HCl (EPINEPHrine (1:1000) INJ) 30 mg STK-MED ONCE IV ; Start at 15:48; Stop 03/23/17 at 11:19; Status DC Sodium Bicarbonate (Sodium Bicarbonate 8.4% Inj) 50 meq STK-MED ONCE IV ; Start 03/22/17 at 15:48; Stop 03/22/17 at 15:49; Status DC Epinephrine HCl (EPINEPHrine (1:10,000) INJ) 1 mg STK-MED ONCE IV ; Start 03/22 at 15:49; Stop 03/23/17 at 11:19; Status DC Methocarbamol (Robaxin) 500 mg Q8H PRN PO muscle spasm; Start 03/23/17 at 10: 00; Stop 03/23/17 at 11:19; Status DC Oxycodone HCl (Roxicodone Intensol Liq) 5 mg Q4H PRN NG pain >3 Last administered on 03/27/17at 01:40; Start 03/23/17 at 11:00; Stop 03/27/17 at 02:11 ; Status DC Lorazepam (Ativan Inj) 2 mg STK-MED ONCE .ROUTE Last administered on 10:34; Start 03/23/17 at 10:05; Stop 03/23/17 at 10:06; Status DC Metoprolol Tartrate (Lopressor Inj) 5 mg Q6HR IV PUSH Last administered on at 12:10; Start 03/23/17 at 12:00 Dextrose/Sodium Chloride 1,000 ml @ 60 mls/hr [id number] IV Last administered on 03/23/17 10:31; Start 03/23/17 at 11:00; Stop 03/23/17 at 12:49; Status DC Enoxaparin Sodium (Lovenox Inj) 40 mg DAILY SQ ; Start 03/24/17 at 09:00; Stop at 09:00; Status DC Propofol 100 ml @ 3.984 mls/ hr TITRATE PRN IV SEDATION Last administered on at 11:00; Start 03/23/17 at 10:30; Stop 03/26/17 at 16:36; Status DC Iohexol (Omnipaque 350 Inj) 85 ml STK-MED ONCE IVCONTRAST Last administered on 03/23/17t 11:55; Start 03/23/17 at 11:55; Stop 03/23/17 at 11:56; Status DC Water (Free Water) VOLUME OF WATER: ( 150 ) ML Q6HR G-TUBE Last administered on 03/25/17at 23:49; Start 03/23/17 at 18:00; Stop 03/26/17 at 09:18; Status DC Sodium Chloride 1,000 ml @ 60 mls/hr [id number] IV Last administered on 03/24/17at 05:40; Start 03/23/17 at 13:00; Stop 03/24/17 at 08:27; Status DC Heparin Sodium (Porcine) (Heparin Inj) 5,000 units NOW STAT IV PUSH Last administered on 03/23/17t 19:09; Start 03/23/17 at 17:47; Stop 03/23/17 at 18 :07; Status DC Heparin Sodium (Porcine) (Heparin Inj) 5,000 units UNSCH PRN IV PUSH APTT LESS THAN 25; Start 03/24/17 at 00:00; Stop 03/24/17 at 00:00; Status DC Heparin Sodium (Porcine) (Heparin Inj) 2,500 units UNSCH PRN IV PUSH APTT 25 TO 39; Start 03/24/17 at 00:00; Stop 03/24/17 at 00:00; Status DC Heparin Sodium/ Dextrose 250 ml @ 12 mls/hr TITRATE PRN IV Coagulation Management Last administered on 03/27/17at 01:42; Start 03/23/17 at 18:00; Stop 03/27/17 at 09:31; Status DC Heparin Sodium (Porcine) (Heparin Inj) 5,000 units UNSCH PRN IV PUSH APTT LESS THAN 25; Start 03/23/17 at 19:00; Stop 03/23/17 at 19:00; Status DC Heparin Sodium (Porcine) (Heparin Inj) 2,500 units UNSCH PRN IV PUSH APTT 25 TO 39 Last administered on 03/27/17at 03:49; Start 03/23/17 at 19:00; Stop at 09:31; Status DC Heparin Sodium (Porcine) (Heparin Inj) 5,000 units UNSCH PRN IV APTT LESS THAN 25; Start 03/23/17 at 19:00; Stop 03/27/17 at 09:31; Status DC Albuterol/ Ipratropium (Duoneb Neb) 1 ampule Q6HR NEB NEB Last administered on 03/27/17at 07:36; Start 03/24/17 at 10:00; Stop 03/27/17 at 11:39; Status DC Lactated Ringer's 1,000 ml @ 50 mls/hr Q20H IV Last administered on 03/25/17at 04:30; Start 03/24/17 at 08:30; Stop 03/25/17 at 09:42; Status DC Vecuronium [place] (Norcuron 10 Mg Inj) 10 mg UNIT CLERK IV PUSH Last administered on 03/26/17at 11:55; Start 03/26/17 at 09:30; Stop 03/26/17 at 15:00; Status DC Micafungin Sodium 100 mg/Sodium Chloride 100 ml @ 100 mls/hr Q24H IV Last administered on 03/25/17at 10:56; Start 03/25/17 at 10:00; Stop 03/25/17 at 15:20; Status DC Metronidazole 100 ml @ 100 mls/hr Q8H IV Last administered on 03/28/17at 17:32; Start 03/25/17 at 16:00; Stop 03/28/17 at 18:01; Status DC Vancomycin HCl (VANCOMYCIN for oral use only) 250 mg QID PO Last administered on 03/30/17at 13:02; Start 03/25/17 at 18:00 Dextrose (D50w (Vial) Inj) 50 ml UNSCH PRN IV PUSH HYPOGLYCEMIA-SEE COMMENTS; Start 03/25/17 at 16:00 Glucagon (Glucagon Inj) 1 mg UNSCH PRN OTHER HYPOGLYCEMIA-SEE COMMENTS; Start 03/25/17 at 16:00 Insulin Aspart (NovoLOG SUPPLEMENTAL SCALE) 1 Q4HR SQ Last administered on at 12:59; Start 03/25/17 at 16:00 Insulin Detemir (Levemir Inj) 15 units Q12HR SQ Last administered on 03/25/17at 20:20; Start 03/25/17 at 21:00; Stop 03/26/17 at 09:07; Status DC Magnesium Hydroxide (Milk Of Magnesia Liq) 30 ml BID PRN PO MILD CONSTIPATION; Start 03/25/17 at 18:45 Lactulose (Lactulose Liq) 30 ml DAILY PRN PO MODERATE CONSTIPATION; Start at 18:45 Insulin Detemir (Levemir Inj) 20 units Q12HR SQ Last administered on 03/26/17at 21:00; Start 03/26/17 at 21:00 Water (Free Water) 200 ml Q8HR G-TUBE Last administered on 03/30/17at 04:16; Start 03/26/17 at 14:00; Stop 03/30/17 at 12:39; Status DC Fentanyl Citrate (fentaNYL INJ) 25 mcg Q1H PRN IV PUSH PAIN SCALE 5 TO 10 Last administered on 03/27/17at 00:15; Start 03/26/17 at 16:45; Stop 03/27/17 at 02:11; Status DC Fluconazole/ Sodium Chloride 50 ml @ 50 mls/hr Q24H IV Last administered on 03/29at 17:35; Start 03/26/17 at 18:00 Fluconazole/ Sodium Chloride 50 ml @ 50 mls/hr ONCE ONCE IV Last administered on 03/26/17at 17:11; Start 03/26/17 at 17:00; Stop 03/26/17 at 17:59; Status DC Acetaminophen (Tylenol 650 Mg/ 20 ml Liq) 650 mg Q4H PRN PO PAIN 1-2 OR TEMP > 101 Last administered on 03/27/17at 05:22; Start 03/26/17 at 18:00 Propofol 100 ml @ 2.253 mls/ hr TITRATE PRN IV SEDATION; Start 03/27/17 at 02: 00; Stop 03/27/17 at 09:31; Status DC Fentanyl Citrate (fentaNYL INJ) 50 mcg Q1H PRN IV PUSH BREAKTHROUGH PAIN; Start 03/27/17 at 02:45; Stop 03/27/17 at 09:31; Status DC Fentanyl Citrate (fentaNYL INJ) 25 mcg ONCE ONCE IV PUSH Last administered on 03/27/17at 04:27; Start 03/27/17 at 02:15; Stop 03/27/17 at 02:16; Status DC Oxycodone HCl (Roxicodone Intensol Liq) 10 mg Q4H PRN PEG PAIN 3-10 Last administered on 03/27/17at 04:28; Start 03/27/17 at 02:15 Oxycodone HCl (Roxicodone Intensol Liq) 5 mg ONCE ONCE PO ; Start 03/27/17 at 02 :15; Stop 03/27/17 at 02:16; Status DC Quetiapine Fumarate (SEROquel) 25 mg Q8H PO ; Start 03/27/17 at 10:00; Stop at 11:39; Status DC Enoxaparin Sodium (Lovenox Inj) 80 mg Q12H SQ Last administered on 03/27/17at 11: 47; Start 03/27/17 at 10:30; Stop 03/27/17 at 11:59; Status DC Propofol 50 ml @ As Directed STK-MED ONCE .ROUTE Last administered on 03/27/17at 11:30; Start 03/27/17 at 11:24; Stop 03/27/17 at 11:25; Status DC Albuterol/ Ipratropium (Duoneb Neb) 1 ampule Q6HR NEB NEB Last administered on 03/30/17at 09:02; Start 03/27/17 at 16:00 Quetiapine Fumarate (SEROquel) 50 mg Q8H PO Last administered on 03/30/17at 09:04 ; Start 03/27/17 at 18:00 Clonidine (Catapres) 0.1 mg Q8HR PO Last administered on 03/28/17at 05:36; Start 03/27/17 at 14:00; Stop 03/28/17 at 14:56; Status DC Dexmedetomidine HCl 200 mcg/ Sodium Chloride 52 ml @ 3.93 mls/hr TITRATE PRN IV SEDATION; Start 03/27/17 at 13:00; Stop 03/27/17 at 14:44; Status DC Enoxaparin Sodium (Lovenox Inj) 70 mg Q12H SQ Last administered on 03/30/17at 11: 00; Start 03/27/17 at 22:30 Pharmacy Profile Note 0 ml @ 0 mls/hr UNSCH OTHER ; Start 03/27/17 at 12:15 Vancomycin HCl 1500 mg/Sodium Chloride 515 ml @ 250 mls/hr Q12H IV Last administered on 03/30/17at 13:02; Start 03/27/17 at 14:00 Miscellaneous Information SPECIFIC LAB TO BE DRAWN:VANCOMYCIN TROUGH DATE TO... ONCE ONCE .XX Last administered on 03/29/17at 01:45; Start 03/29/17 at 01:45; Stop 03/29/17 at 01:46; Status DC Rocuronium [place] (Zemuron Inj) 50 mg STK-MED ONCE .ROUTE ; Start 03/27/17 at 12 :58; Stop 03/27/17 at 12:59; Status DC Propofol 50 ml @ As Directed STK-MED ONCE .ROUTE ; Start 03/27/17 at 13:02; Stop 03/27/17 at 13:03; Status DC Rocuronium [place] (Zemuron Inj) 100 mg STK-MED ONCE IV PUSH ; Start 03/08/17 at 12:00; Stop 03/27/17 at 13:16; Status DC Phenylephrine HCl (Neosynephrine/ NS 1000 Mcg/10ml Syr) 1,000 mcg STK-MED ONCE IV ; Start 03/08/17 at 12:00; Stop 03/27/17 at 13:16; Status DC Phenylephrine HCl (Neosynephrine Inj) 10 mg STK-MED ONCE IV ; Start 03/08/17 at 12:00; Stop 03/27/17 at 13:16; Status DC Dexamethasone Sodium Phosphate (Decadron Inj) 8 mg STK-MED ONCE IV ; Start at 12:00; Stop 03/27/17 at 13:16; Status DC Cefazolin Sodium (Ancef Inj) 1,000 mg STK-MED ONCE IV ; Start 03/08/17 at 12:00 ; Stop 03/27/17 at 13:16; Status DC Sodium Chloride (Sodium Chloride 0.9% Inj) 20 ml STK-MED ONCE IV ; Start at 12:00; Stop 03/27/17 at 13:16; Status DC Fentanyl Citrate (fentaNYL INJ) 100 mcg STK-MED ONCE .ROUTE ; Start 03/27/17 at 13:20; Stop 03/27/17 at 13:21; Status DC Dexmedetomidine HCl 1000 mcg/ Sodium Chloride 250 ml @ 3.78 mls/hr TITRATE PRN IV SEDATION Last administered on 03/29/17at 20:35; Start 03/27/17 at 14:45 Furosemide (Lasix Inj) 20 mg BID@09,18 IV PUSH Last administered on 03/30/17at 09 :02; Start 03/27/17 at 18:00 Potassium Bicarb/ Potassium Chloride (K-Lyte Cl Eff) 25 meq DAILY PO Last administered on 03/30/17at 09:03; Start 03/27/17 at 15:00 Furosemide (Lasix Inj) 40 mg ONCE ONCE IV PUSH Last administered on 03/27/17at 17:50; Start 03/27/17 at 15:00; Stop 03/27/17 at 15:04; Status DC Propofol (Diprivan 200 Mg/20 ml Inj) 200 mg STK-MED ONCE IV ; Start 03/26/17 at 12:00; Stop 03/28/17 at 09:20; Status DC Succinylcholine Chloride (Quelicin Inj) 100 mg STK-MED ONCE IV PUSH ; Start 03/26 at 12:00; Stop 03/28/17 at 09:20; Status DC Sodium Chloride 250 ml @ 15 mls/hr ONCE ONCE IV ; Start 03/28/17 at 09:30; Stop 03/29/17 at 02:09; Status DC Clonidine (Catapres) 0.2 mg Q8HR PO Last administered on 03/30/17at 13:01; Start 03/28/17 at 22:00 Metoclopramide HCl (Reglan Inj) 5 mg Q8HR IV PUSH ; Start 03/28/17 at 15:15; Stop 03/28/17 at 17:20; Status DC Metoclopramide HCl (Reglan Inj) 5 mg Q8HR IV PUSH Last administered on at 13:01; Start 03/28/17 at 18:00 Metronidazole 100 ml @ 100 mls/hr Q8H IV Last administered on 03/30/17at 09:04; Start 03/29/17 at 10:00 Diatrizoate Meglum/ Diatrizoate Sod ( Gastroview Liq) 18 ml ONCE ONCE PO Last administered on 03/29/17at 10:20; Start 03/29/17 at 10:15; Stop 03/29/17 at 10: 16; Status DC Miscellaneous Information SPECIFIC LAB TO BE DRAWN:VANCOMYCIN TROUGH DATE TO... ONCE ONCE .XX ; Start 03/31/17 at 01:45; Stop 03/31/17 at 01:46 Water (Free Water) 300 ml Q6HR G-TUBE ; Start 03/30/17 at 18:00 (Tee Egan MD) Medical Decision Making MDM Remarks 21 y/o female 1.) Closed head injury (shear injury on MRI) 2.) Occipital condyle fractures 3.) Distal clivus skull fracture 4.) C1 fracture , nonoperative Pulmonary embolism (Marissa Stockton) MDM Remarks Last 48 hours Impressions Abdomen/Pelvis CT 03/29/17 0921 Signed Impressions: Service Date/Time: Wednesday, March 29, 2017 12:27 - CONCLUSION: 1. Bibasilar patchy opacities within the visualized lower lungs consistent with probable pneumonia. Clinical correlation recommended. 2. Small amount of ascites. 3. Anasarca. 4. Scattered tiny 2 mm calcified nonobstructing bilateral renal calculi. 5. No evidence of bowel obstruction. Forest Alexandre MD Chest X-Ray 03/29/17 0600 Signed Impressions: Service Date/Time: Wednesday, March 29, 2017 03:55 - CONCLUSION: No significant interval change. Persistent left lower lobe consolidation and small bilateral pleural effusions. Rudy Santizo MD Abdomen X-Ray 03/29/17 0600 Signed Impressions: Service Date/Time: Wednesday, March 29, 2017 03:59 - CONCLUSION: Distended air-filled colon unchanged. Rudy Santizo MD (Tee Egan MD) Plan Plan Remarks there is improvement in her neurological exam today, cont critical care mgt cont therapy and rehab efforts Caddo collar for C1 fracture (Marissa Stockton) Attending Statement Neuro. Continue neuro checks in a serial fashion. Continue non-operative treatment. I reviewed her MRI Continue [place] J collar for bracing of the cervical spine Pulmonary. Continue aggressive pulmonary toilette, nasotracheal suction, and breathing treatments with nebulizers. Lower extremity fractures. Defer to orthopedics Daily PT and OT Renal. Continue to monitor closely urine output, BUN and creatinine Endocrine. Continue to Monitor serial Acu checks and SSI as needed in detail ID continue to monitor for signs of infection Continue Protonix for stress ulcer prophylaxis Continue Ervin hose and SCD's for DVT prophylaxis The exam, history, and the medical decision-making described in the above note were completed with the assistance of the mid-level provider. I reviewed and agree with the findings presented. I attest that I had a [id number] encounter with the patient on the same day, and personally performed and documented my assessment and findings in the medical record. (Tee Egan MD) Marissa Stockton Mar 30, 2017 10:05 Tee Egan MD Mar 30, 2017 14:52
[2017-03-30] MEDS: ENOXAPARIN SODIUM 80 MG/0.8 ML SYRINGE SQ SCH ×2 (11:00→20:59)
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
[2017-03-30] MEDS: FLUCONAZOLE 100 MG PREMIX BAG 50 ML IV SCH (17:31)
[2017-03-30] MEDS: oxyCODONE HCL ORAL CONC 5 MG/0.25 ML SYRINGE PEG PRN (17:33)
[2017-03-30] MEDS ORDERED: ONDANSETRON HCL 4 MG/2 ML VIAL IV PUSH PRN (21:30)
[2017-03-31] VITALS (19 sets, daily range): BP systolic 129–162; BP diastolic 62–70; PULSE 69–77; RESP 16–30; TEMP 98.6–99.5; O2SAT 99–100
[2017-03-31] MEDS: INSULIN ASPART SUPPLEMENTAL SCALE SQ SCH ×6 (00:44→20:00)
[2017-03-31] MEDS: FREE WATER G-TUBE SCH ×5 (00:44→22:57)
[2017-03-31] MEDS: METOPROLOL TARTRATE 5 MG/5 ML VIAL IV PUSH SCH ×2 (00:44→06:08)
[2017-03-31] MEDS ORDERED: PHARMACY ORDERED LAB ONE (01:45)
[2017-03-31] MEDS: metroNIDAZOLE 500 MG INJ 100 ML IV SCH ×3 (02:23→17:45)
[2017-03-31] MEDS: QUEtiapine FUMARATE 25 MG TAB PO SCH ×3 (02:24→17:46)
[2017-03-31] MEDS: VANCOMYCIN INJ 1,500 MG in SODIUM CHLORID 0.9% 500 ML INJ 500 ML IV SCH (04:02)
[2017-03-31] MEDS: RESP: ALBUTEROL 2.5 MG/IPRATROPIUM 0.5 MG NEB (SCH) NEB ×4 (04:21→20:30)
[2017-03-31 05:12] LABS: AUTOMATED NEUTROPHIL # 7.5 TH/MM3 (1.8-7.7); BASOPHIL % 0.3 % (0.0-2.0); EOSINOPHIL # 0.3 TH/MM3 (0-0.4); EOSINOPHIL % 2.3 % (0.0-4.0); HEMATOCRIT 22.2 % (35.0-46.0); HEMOGLOBIN 7.2 GM/DL (11.6-15.3); LYMPH % 16.3 % (9.0-44.0); LYMPHOCYTE # 1.8 TH/MM3 (1.0-4.8); MEAN CELL VOLUME 84.2 FL (80.0-100.0); MEAN CORPUSCULAR HEMOGLOBIN 27.5 PG (27.0-34.0); MEAN CORPUSCULAR HGB CONC 32.7 % (32.0-36.0); MEAN PLATELET VOLUME 8.5 FL (7.0-11.0); MONOCYTE # 1.6 TH/MM3 (0-0.9); NEUT % 67.1 % (16.0-70.0); PLATELET COUNT 372 TH/MM3 (150-450); RED BLOOD COUNT 2.63 MIL/MM3 (4.00-5.30); WHITE BLOOD COUNT 11.2 TH/MM3 (4.0-11.0)
--- NOTE | 2017-03-31 05:22 | RADRPT ---
EXAM DATE/TIME: 03/31/2017 03:46 [facility] COMPARISON: ABDOMEN KUB ONLY, March 29, 2017, 3:59. INDICATIONS : Evaluate for Ileus MEDICAL HISTORY : Sickle Cell disease. Diabetes mellitus type I. SURGICAL HISTORY : None. ENCOUNTER: Subsequent ACUITY: 3 weeks PAIN SCORE: Non-responsive. LOCATION: Bilateral chest FINDINGS: Supine view of the abdomen was performed. The abdominal bowel gas pattern is normal. No abnormal ma sses, calcifications, or organomegaly is seen. The osseous structures are unremarkable. Gastrostomy tube is present CONCLUSION: 1. No evidence of obstruction. Decreasing colonic distention Vargas Kaur MD on March 31, 2017 at 5:20 Board Certified Radiologist. This report was verified electronically.
[2017-03-31 05:40] LABS: ALBUMIN 1.4 GM/DL (3.4-5.0); BICARBONATE 27.1 MEQ/L (21.0-32.0); CALCIUM 7.4 MG/DL (8.5-10.1); CREATININE 0.58 MG/DL (0.50-1.00); DIRECT BILIRUBIN ADULT 0.1 MG/DL (0.0-0.2); INDIRECT BILIRUBIN 0.2 MG/DL (0.0-0.8); MAGNESIUM 1.7 MG/DL (1.5-2.5); PHOSPHORUS 1.9 MG/DL (2.5-4.9); TOTAL BILIRUBIN ADULT 0.3 MG/DL (0.2-1.0)
[2017-03-31] MEDS: METOCLOPRAMIDE HCL 10 MG/2 ML VIAL IV PUSH SCH ×3 (06:08→20:19)
[2017-03-31] MEDS: cloNIDine HCL 0.2 MG TAB PO SCH ×3 (06:08→20:20)
[2017-03-31] MEDS: ARTIFICIAL TEARS OPTH SOLN 15 ML BTL EACH EYE SCH ×3 (06:09→20:20)
[2017-03-31 06:50] LABS: BANDS 3 % (0-6); CORRECTED NUCLEATED RBC 1 /100 WBC (0-0); LYMPHOCYTES 18 % (9-44); MONOCYTES 15 % (0-8); MYELOCYTES 1 % (0-0); NEUTROPHIL # MANUAL DIFF 7.3 TH/MM3 (1.8-7.7); NUCLEATED RED BLOOD CELL 1 (0-0); POLYS (SEG NEUTROPHILS) 61 % (16-70)
[2017-03-31] MEDS: CHLORHEXIDINE 0.12% (ORAL KIT) 15 ML CUP MT SCH ×2 (08:00→20:19)
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
[2017-03-31] MEDS: INSULIN DETEMIR 100 UNITS/ML VIAL SQ SCH ×2 (09:00→20:20)
[2017-03-31] MEDS: VALPROIC ACID SYRUP 250 MG/5 ML UDC PO SCH ×3 (09:15→17:46)
[2017-03-31] MEDS: FAMOTIDINE 20 MG TAB PO SCH ×2 (09:15→20:20)
[2017-03-31] MEDS: POTASSIUM CHLORIDE 25 MEQ EFFERVESCENT TAB PO SCH (09:15)
[2017-03-31] MEDS: FUROSEMIDE 20 MG/2 ML VIAL IV PUSH SCH (09:15)
[2017-03-31] MEDS: VANCOMYCIN 500 MG VIAL (FOR ORAL USE ONLY) PO SCH ×4 (09:15→20:19)
[2017-03-31] MEDS ORDERED: cloNIDine HCL 0.1 MG/24 HR PATCH T-DERMAL SCH (09:30)
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
[2017-03-31] MEDS: PROPRANOLOL HCL 10 MG TAB PO SCH ×3 (10:32→20:20)
[2017-03-31] MEDS: POTASSIUM CHLOR 40 MEQ PREMIX 100 ML IV PRN (10:32)
[2017-03-31] MEDS: ENOXAPARIN SODIUM 80 MG/0.8 ML SYRINGE SQ SCH ×2 (10:33→21:12)
[2017-03-31] MEDS: LACTATED RINGER'S 1000 ML INJ 1,000 ML IV SCH (11:00)
--- NOTE | 2017-03-31 12:14 | HHI.IDPN ---
Subjective Subjective Remarks fevers resolved essentially after placement of CT No acute finfings on CT abd /pel had 2 BMs in last 24 hrs Antibiotics vancomycin iv vanco po fluconazole Allergies: Coded Allergies: No Known Drug Allergies (Verified Allergy, Unknown, 01/06/17) Objective . Vital Signs Date Time Temp Pulse Resp B/P (MAP) Pulse Ox O2 Delivery O2 Flow Rate FiO2 03/31/17 11:25 100 35 03/31/17 08:23 35 03/31/17 08:23 100 35 03/31/17 08:00 50 03/31/17 08:00 99.3 77 23 162/70 (100) 100 03/31/17 08:00 77 03/31/17 06:00 72 03/31/17 04:21 100 40 03/31/17 04:00 74 03/31/17 04:00 50 03/31/17 04:00 99.5 74 16 138/63 (88) 100 03/31/17 02:00 71 03/31/17 00:44 100 40 03/31/17 00:00 99.5 74 16 145/64 (91) 100 03/31/17 00:00 74 03/31/17 00:00 50 03/30/17 22:00 80 03/30/17 21:33 100 40 03/30/17 20:00 70 03/30/17 20:00 99.1 70 16 142/66 (91) 100 03/30/17 20:00 50 03/30/17 19:15 40 03/30/17 18:00 83 03/30/17 16:06 100 40 03/30/17 16:00 99.0 78 26 155/70 (98) 100 03/30/17 16:00 79 03/30/17 16:00 50 03/30/17 14:00 84 03/30/17 13:01 100 40 . Laboratory Tests Test 03/30/17 06:00 03/31/17 04:45 White Blood Count 13.0 TH/MM3 11.2 TH/MM3 Red Blood Count 2.67 MIL/MM3 2.63 MIL/MM3 Hemoglobin 7.5 GM/DL 7.2 GM/DL Hematocrit 22.5 % 22.2 % Mean Corpuscular Volume 84.5 FL 84.2 FL Mean Corpuscular Hemoglobin 28.1 PG 27.5 PG Mean Corpuscular Hemoglobin Concent 33.3 % 32.7 % Red Cell Distribution Width 15.2 % 15.0 % Platelet Count 333 TH/MM3 372 TH/MM3 Mean Platelet Volume 8.8 FL 8.5 FL Neutrophils (%) (Auto) 69.6 % 67.1 % Lymphocytes (%) (Auto) 12.3 % 16.3 % Monocytes (%) (Auto) 15.7 % 14.0 % Eosinophils (%) (Auto) 1.9 % 2.3 % Basophils (%) (Auto) 0.5 % 0.3 % Neutrophils # (Auto) 9.1 TH/MM3 7.5 TH/MM3 Lymphocytes # (Auto) 1.6 TH/MM3 1.8 TH/MM3 Monocytes # (Auto) 2.0 TH/MM3 1.6 TH/MM3 Eosinophils # (Auto) 0.2 TH/MM3 0.3 TH/MM3 Basophils # (Auto) 0.1 TH/MM3 0.0 TH/MM3 CBC Comment AUTO DIFF AUTO DIFF Differential Total Cells Counted 100 100 Neutrophils % (Manual) 78 % 61 % Band Neutrophils % 6 % 3 % Lymphocytes % 3 % 18 % Monocytes % 8 % 15 % Neutrophils # (Manual) 11.6 TH/MM3 7.3 TH/MM3 Metamyelocytes 1 % Myelocytes 4 % 1 % Differential Comment FINAL DIFF MANUAL FINAL DIFF MANUAL Platelet Estimate NORMAL NORMAL Platelet Morphology Comment NORMAL NORMAL Red Cell Morphology Comment NORMAL Eosinophils % 2 % Nucleated Red Blood Cells 1 /100 WBC Laboratory Tests Test 03/30/17 06:00 03/31/17 04:45 Blood Urea Nitrogen 18 MG/DL 13 MG/DL Creatinine 0.56 MG/DL 0.58 MG/DL Random Glucose 217 MG/DL 122 MG/DL Total Protein 6.5 GM/DL 6.0 GM/DL Calcium Level 7.2 MG/DL 7.4 MG/DL Sodium Level 153 MEQ/L 152 MEQ/L Potassium Level 4.1 MEQ/L 3.4 MEQ/L Chloride Level 120 MEQ/L 118 MEQ/L Carbon Dioxide Level 25.6 MEQ/L 27.1 MEQ/L Anion Gap 7 MEQ/L 7 MEQ/L Estimat Glomerular Filtration Rate 165 ML/MIN 159 ML/MIN Protein Corrected Calcium 7.5 MG/DL 8.0 MG/DL Albumin 1.4 GM/DL Phosphorus Level 1.9 MG/DL Magnesium Level 1.7 MG/DL Alkaline Phosphatase 196 U/L Aspartate Amino Transf (AST/SGOT) 19 U/L Alanine Aminotransferase (ALT/SGPT) 29 U/L Total Bilirubin 0.3 MG/DL Direct Bilirubin 0.1 MG/DL Lactic Acid Level 1.1 mmol/L Indirect Bilirubin 0.2 MG/DL Amylase Level 16 U/L Lipase 56 U/L Imaging Last Impressions Abdomen X-Ray 03/31/17 06 Signed Impressions: Service Date/Time: Friday, March 31, 2017 03:46 - CONCLUSION: 1. No evidence of obstruction. Decreasing colonic distention Vargas Kaur MD Abdomen/Pelvis CT 03/29/[id number] Signed Impressions: Service Date/Time: Wednesday, March 29, 2017 12:27 - CONCLUSION: 1. Bibasilar patchy opacities within the visualized lower lungs consistent with probable pneumonia. Clinical correlation recommended. 2. Small amount of ascites. 3. Anasarca. 4. Scattered tiny 2 mm calcified nonobstructing bilateral renal calculi. 5. No evidence of bowel obstruction. Forest Alexandre MD Chest X-Ray 03/29/[id number] Signed Impressions: Service Date/Time: Wednesday, March 29, 2017 03:55 - CONCLUSION: No significant interval change. Persistent left lower lobe consolidation and small bilateral pleural effusions. Rudy Santizo MD Brain MRI 03/28/17 0000 Signed Impressions: Service Date/Time: Tuesday, March 28, 2017 12:01 - CONCLUSION: 1. Evolving shear injury in the white matter bilaterally, most notable in the right parietal region. Multifocal hemosiderin deposition is relatively stable and likely relates to prior microhemorrhage. Restricted diffusion foci are stable to decreased in size. No mass effect or shift. No hydrocephalus. Jamie Myrick MD Upper Extremity Ultrasound 03/27/17 0000 Signed Impressions: Service Date/Time: March 23:06 - CONCLUSION: 1. Nonocclusive thrombosis of the distal cephalic and basilic veins of the left upper arm. Brachial, maxillary, and subclavian veins are patent. IJ vein not visualized due to cervical collar in place. 2. Possible small nonocclusive thrombus of the radial vein in the forearm. Rudy Santizo MD Wrist X-Ray 03/26/17 0000 Signed Impressions: Service Date/Time: Sunday, March 26, 2017 08:38 - CONCLUSION: Anatomic alignment. 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 Ankle X-Ray 03/26/17 0000 Signed Impressions: Service Date/Time: Sunday, March 26, 2017 08:33 - CONCLUSION: Anatomic alignment.. 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 Gall Bladder Ultrasound 03/25/17 0000 Signed Impressions: Service Date/Time: Saturday, March 25, 2017 17:01 - CONCLUSION: Heterogeneous liver related to lacerations seen on the patient's prior CT examination. Manjula Talbert MD Head CT 03/23/17 1136 Signed Impressions: Service Date/Time: Thursday, March 23, 2017 11:38 - CONCLUSION: 1. No acute cardia point process. 2. Mild fluid in the sphenoid sinuses. Von Simmons MD CT Angiography 03/23/17 0000 Signed Impressions: Service Date/Time: Thursday, March 23, 2017 11:42 - CONCLUSION: 1. Extensive pulmonary emboli. 2. Bilateral areas of consolidation/atelectasis or infarction seen in the lower lobes. 3. Multiple rib fractures and a left manubrial sternal fracture. 4. Right chest tube without a pneumothorax seen. 5. The left ventricle appears thickened. Von Simmons MD Chest Tube Insertion 03/20/17 0000 Signed Impressions: Service Date/Time: February 16:00 - CONCLUSION: Uncomplicated chest tube placement as above. Guille Bowie MD Chest CT 03/14/17 0000 Signed Impressions: Service Date/Time: Tuesday, March 14, 2017 16:08 - CONCLUSION: Consolidative changes in both lung bases Small bilateral pleural effusions worse on the right than the left Right chest tube in the subcutaneous tissues. No pneumothorax. Multiple right rib fractures. 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 Cervical Spine MRI 03/09/17 0000 Signed Impressions: Service Date/Time: Friday, March 10, 2017 17:54 - CONCLUSION: 1. No signal abnormalities within the cervical cord. 2. No epidural impressions upon the cervical cord. William Wetzel MD Thoracic Spine CT 03/07/17 1708 Signed Impressions: Service Date/Time: Tuesday, March 07, 2017 17:18 - CONCLUSION: 1. Negative for acute traumatic injury within the thoracic spine. Jamie Myrick MD Pelvis X-Ray [id number] Signed Impressions: Service Date/Time: Tuesday, March 07, 2017 16:46 - CONCLUSION: Unremarkable Study. Ben Hamlin MD Maxillofacial CT [id number] Signed Impressions: Service Date/Time: Tuesday, March 07, 2017 17:09 - CONCLUSION: No acute bony fracture. Ben Hamlin MD Lumbar Spine CT [id number] Signed Impressions: Service Date/Time: Tuesday, March 07, 2017 17:18 - CONCLUSION: 1. Negative for acute traumatic injury in the lumbar spine. Jamie Myrick MD Cervical Spine CT [id number] Signed Impressions: Service Date/Time: Tuesday, March 07, 2017 17:09 - CONCLUSION: 1. There are fractures involving the base of the skull involving both occipital condyles. 2. There is a fracture involving the distal clivus which appears to be nondisplaced. 3. There is a fracture extending through the left lateral mass of C1 into the region of the left transverse process. However, the Vertebral foramina appears to be intact. 4. The rest of the cervical spine appears to be grossly intact. 1. Ben Hamlin MD Physical Exam CONSTITUTIONAL/GENERAL: This is an adequately nourished patient, agitated, intubated, on vent TUBES/LINES/DRAINS: SKIN: No jaundice, rashes, or lesions. Skin temperature appropriate. Not diaphoretic. CARDIOVASCULAR: Regular rate and rhythm without murmurs, gallops, or rubs. No JVD. Peripheral pulses symmetric. RESPIRATORY/CHEST: Symmetric, unlabored respirations. fairly clear to auscultation. Breath sounds equal bilaterally. L chest tube in place with serosang drainage GASTROINTESTINAL: Abdomen soft, non-tender, moderately distended. No hepato- splenomegaly, or palpable masses. No guarding. Bowel sounds present. GENITOURINARY: Without palpable bladder distension. Lr catheter in place with clear yellow urine MUSCULOSKELETAL: Extremities without clubbing, cyanosis, or edema. No joint tenderness or effusion noted. No calf tenderness. No mottling or clubbing. LYMPHATICS: No palpable cervical or supraclavicular adenopathy. NEUROLOGICAL: per nursing following commands with L hand Eyes opend, no tracking or eye contact for me PSYCHIATRIC: Unable to assess Assessment & Plan Remarks Sp multitrauma including chest contusions, PNA -clx negative sp CT placement - removed Leukocytosis - somewhat better C.diff + - on treatment - clinically ileus Funguria sp drainage of postraumatic hemorrhagic pleural effusion Persistent fever: resolcved after draining L pleural effusion - clx remains negative fu new blood clx dc IV vancomycin for now cont oral vancomycin for C.diff dc fluconazole Mary Hampton MD Mar 31, 2017 12:14
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
--- NOTE | 2017-03-31 13:34 | RADRPT ---
EXAM DATE/TIME: 03/31/2017 12:25 [facility] COMPARISON: CT ABDOMEN & PELVIS W/O CONTRAST, March 29, 2017, 12:27. CHEST SINGLE AP, March 29, 2017, 3:55. INDICATIONS : Follow up trauma, evaluate effusion MEDICAL HISTORY : Diabetes mellitus type I. Sickle Cell disease. SURGICAL HISTORY : tracheostomy ENCOUNTER: Subsequent ACUITY: 3 weeks PAIN SCORE: Non-responsive. LOCATION: Bilateral chest FINDINGS: Stable tracheostomy and right subclavian catheter. Stable left inferior chest tube in place. [place] tration of airspace disease in the left lower lung zone. Interval progression of airspace disease in the right lower lung zone. Cardiomediastinal contours are stable. Bilateral rib fractures are again n oted. CONCLUSION: 1. Stable tubes and lines, as above. 2. Interval progression of airspace consolidation in the right lower lung zone which may reflect wors ening atelectasis. Differential considerations include aspiration/pneumonia. 3. Stable left lower lung zone airspace disease. Venu Ferrari MD on March 31, 2017 at 13:28 Board Certified Radiologist. This report was verified electronically.
[2017-03-31] MEDS: IN SODIUM CHLORIDE 0.9% IV SCH ×2 (13:40→17:45)
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
[2017-03-31] MEDS: MAGNESIUM SULFATE 1 GM PREMIX 100 ML IV SCH ×2 (14:18→15:09)
[2017-03-31] MEDS: oxyCODONE HCL ORAL CONC 5 MG/0.25 ML SYRINGE PEG PRN ×2 (14:21→21:13)
[2017-03-31] MEDS ORDERED: POTASSIUM PHOSPHATE INJ 30 MMOL in SODIUM CHLOR 0.9% 250 ML INJ 250 ML IV ONE (15:00)
[2017-03-31] MEDS: DEXMEDETOMIDINE INJ 1,000 MCG in SODIUM CHLOR 0.9% 250 ML INJ 240 ML IV PRN (22:57)
[2017-04-01] VITALS (18 sets, daily range): BP systolic 140–173; BP diastolic 63–81; PULSE 66–86; RESP 16–30; TEMP 97.9–99.3; O2SAT 96–100
[2017-04-01] MEDS: IN SODIUM CHLORIDE 0.9% IV SCH ×5 (00:21→22:28)
[2017-04-01] MEDS: QUEtiapine FUMARATE 25 MG TAB PO SCH ×3 (00:21→20:07)
[2017-04-01] MEDS: metroNIDAZOLE 500 MG INJ 100 ML IV SCH ×3 (00:22→17:48)
[2017-04-01] MEDS ORDERED: LABETALOL HCL 100 MG/20 ML VIAL IV PUSH PRN (00:45)
[2017-04-01] MEDS: hydrALAZINE HCL 20 MG/ML VIAL IV PUSH PRN (00:51)
[2017-04-01] MEDS ORDERED: PHARMACY ORDERED LAB ONE (01:45)
[2017-04-01] MEDS: RESP: ALBUTEROL 2.5 MG/IPRATROPIUM 0.5 MG NEB (SCH) NEB ×4 (03:25→20:11)
--- NOTE | 2017-04-01 03:54 | RADRPT ---
EXAM DATE/TIME: 04/01/2017 02:59 [facility] COMPARISON: CHEST SINGLE AP, March 31, 2017, 12:25. INDICATIONS : Follow up trauma, evaluate effusion. MEDICAL HISTORY : Diabetes mellitus type I. Sickle Cell disease. SURGICAL HISTORY : Tracheostomy. ENCOUNTER: Subsequent ACUITY: 3 weeks PAIN SCORE: Non-responsive. LOCATION: Bilateral chest FINDINGS: The cardiac silhouette is normal in transverse diameter. A tracheostomy tube is in place in the midli ne. There is left lower lobe atelectasis versus pneumonia. A small left sided effusion is present. Mu ltiple right rib fractures are present with pleural thickening along the right lateral chest wall. CONCLUSION: 1. Left lower lobe atelectasis and left effusion. The findings are similar to the prior exam. 2. Decreasing right effusion Vargas Kaur MD on April 01, 2017 at 3:50 Board Certified Radiologist. This report was verified electronically.
[2017-04-01] MEDS: INSULIN ASPART SUPPLEMENTAL SCALE SQ SCH ×7 (04:00→23:04)
[2017-04-01] MEDS: ARTIFICIAL TEARS OPTH SOLN 15 ML BTL EACH EYE SCH ×3 (04:16→20:08)
[2017-04-01] MEDS: METOCLOPRAMIDE HCL 10 MG/2 ML VIAL IV PUSH SCH ×3 (04:17→20:07)
[2017-04-01] MEDS: cloNIDine HCL 0.2 MG TAB PO SCH ×3 (04:17→20:07)
[2017-04-01] MEDS: FREE WATER G-TUBE SCH ×4 (04:17→22:27)
[2017-04-01] MEDS: PROPRANOLOL HCL 10 MG TAB PO SCH ×3 (04:17→20:07)
[2017-04-01 06:04] LABS: AUTOMATED NEUTROPHIL # 9.2 TH/MM3 (1.8-7.7); BASOPHIL # 0.1 TH/MM3 (0-0.2); BASOPHIL % 0.6 % (0.0-2.0); EOSINOPHIL # 0.2 TH/MM3 (0-0.4); EOSINOPHIL % 1.4 % (0.0-4.0); HEMATOCRIT 22.7 % (35.0-46.0); HEMOGLOBIN 7.7 GM/DL (11.6-15.3); LYMPH % 16.6 % (9.0-44.0); LYMPHOCYTE # 2.2 TH/MM3 (1.0-4.8); MEAN CELL VOLUME 84.7 FL (80.0-100.0); MEAN CORPUSCULAR HEMOGLOBIN 28.6 PG (27.0-34.0); MEAN CORPUSCULAR HGB CONC 33.8 % (32.0-36.0); MEAN PLATELET VOLUME 8.6 FL (7.0-11.0); MONO % 11.7 % (0.0-8.0); MONOCYTE # 1.5 TH/MM3 (0-0.9); NEUT % 69.7 % (16.0-70.0); PLATELET COUNT 415 TH/MM3 (150-450); RED BLOOD COUNT 2.69 MIL/MM3 (4.00-5.30); RED CELL DISTRIBUTION WIDTH 15.2 % (11.6-17.2); WHITE BLOOD COUNT 13.2 TH/MM3 (4.0-11.0)
[2017-04-01 06:53] LABS: ALBUMIN 1.4 GM/DL (3.4-5.0); BICARBONATE 23.7 MEQ/L (21.0-32.0); CALCIUM 7.1 MG/DL (8.5-10.1); CALCIUM-PROTEIN CORRECTED 7.7 MG/DL (8.5-10.1); CREATININE 0.5 MG/DL (0.50-1.00); TOTAL BILIRUBIN ADULT 0.2 MG/DL (0.2-1.0); TOTAL PROTEIN 5.9 GM/DL (6.4-8.2)
[2017-04-01 07:26] LABS: BANDS 13 % (0-6); LYMPHOCYTES 15 % (9-44); MONOCYTES 5 % (0-8); MYELOCYTES 1 % (0-0); NEUTROPHIL # MANUAL DIFF 10.4 TH/MM3 (1.8-7.7); POLYS (SEG NEUTROPHILS) 65 % (16-70)
[2017-04-01 07:28] LABS: TOXIC VACUOLATION PRESENT (NONE SEEN)
[2017-04-01] MEDS: VANCOMYCIN 500 MG VIAL (FOR ORAL USE ONLY) PO SCH ×4 (08:04→20:07)
[2017-04-01] MEDS: FAMOTIDINE 20 MG TAB PO SCH ×2 (08:05→20:07)
[2017-04-01] MEDS: VALPROIC ACID SYRUP 250 MG/5 ML UDC PO SCH ×3 (08:05→17:48)
[2017-04-01] MEDS: CHLORHEXIDINE 0.12% (ORAL KIT) 15 ML CUP MT SCH ×2 (08:08→20:08)
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
[2017-04-01] MEDS: ENOXAPARIN SODIUM 80 MG/0.8 ML SYRINGE SQ SCH ×2 (10:30→21:37)
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
[2017-04-01] MEDS: LACTATED RINGER'S 1000 ML INJ 1,000 ML IV SCH (17:48)
[2017-04-01] MEDS: DOCUSATE SODIUM 100 MG/10 ML UDC PO SCH (20:07)
[2017-04-01] MEDS: INSULIN DETEMIR 100 UNITS/ML VIAL SQ SCH (20:08)
[2017-04-02] VITALS (21 sets, daily range): BP systolic 130–169; BP diastolic 63–88; PULSE 76–98; RESP 16–30; TEMP 97.9–100.2; O2SAT 98–100
[2017-04-02] MEDS: metroNIDAZOLE 500 MG INJ 100 ML IV SCH ×3 (00:57→17:22)
[2017-04-02] MEDS: LACTATED RINGER'S 1000 ML INJ 1,000 ML IV SCH ×2 (03:28→22:21)
[2017-04-02] MEDS: RESP: ALBUTEROL 2.5 MG/IPRATROPIUM 0.5 MG NEB (SCH) NEB ×4 (03:43→21:24)
[2017-04-02] MEDS: METOCLOPRAMIDE HCL 10 MG/2 ML VIAL IV PUSH SCH ×3 (04:28→20:37)
[2017-04-02] MEDS: FREE WATER G-TUBE SCH ×4 (04:29→22:21)
[2017-04-02] MEDS: oxyCODONE HCL ORAL CONC 5 MG/0.25 ML SYRINGE PEG PRN ×4 (04:29→20:36)
[2017-04-02] MEDS: IN SODIUM CHLORIDE 0.9% IV SCH ×4 (04:29→23:09)
[2017-04-02] MEDS: PROPRANOLOL HCL 10 MG TAB PO SCH ×3 (04:29→20:37)
[2017-04-02] MEDS: cloNIDine HCL 0.2 MG TAB PO SCH ×3 (04:29→20:38)
[2017-04-02] MEDS: ARTIFICIAL TEARS OPTH SOLN 15 ML BTL EACH EYE SCH ×3 (04:29→20:39)
[2017-04-02] MEDS: INSULIN ASPART SUPPLEMENTAL SCALE SQ SCH ×6 (04:30→23:09)
--- NOTE | 2017-04-02 05:57 | RADRPT ---
EXAM DATE/TIME: 04/02/2017 04:28 [facility] COMPARISON: CHEST SINGLE AP, April 01, 2017, 2:59. INDICATIONS : Shortness of breath. MEDICAL HISTORY : Diabetes mellitus type 1. Sickle Cell disease SURGICAL HISTORY : Tracheostomy ENCOUNTER: Subsequent ACUITY: 3 weeks PAIN SCORE: Non-responsive. LOCATION: Bilateral chest FINDINGS: There is bilateral lower lobe atelectasis versus pneumonia. Small bilateral pleural effusions are nita ntified. The findings have worsened when compared with the prior examination. Support lines and tubes are in satisfactory position. CONCLUSION: 1. Worsening bibasilar edema versus pneumonia and effusions Vargas Kaur MD on April 02, 2017 at 5:54 Board Certified Radiologist. This report was verified electronically.
[2017-04-02 06:01] LABS: AUTOMATED NEUTROPHIL # 9.5 TH/MM3 (1.8-7.7); BASOPHIL # 0.1 TH/MM3 (0-0.2); BASOPHIL % 0.5 % (0.0-2.0); EOSINOPHIL # 0.2 TH/MM3 (0-0.4); EOSINOPHIL % 1.2 % (0.0-4.0); HEMATOCRIT 21.2 % (35.0-46.0); HEMOGLOBIN 7.1 GM/DL (11.6-15.3); LYMPH % 14.3 % (9.0-44.0); LYMPHOCYTE # 1.8 TH/MM3 (1.0-4.8); MEAN CELL VOLUME 84.8 FL (80.0-100.0); MEAN CORPUSCULAR HEMOGLOBIN 28.3 PG (27.0-34.0); MEAN CORPUSCULAR HGB CONC 33.4 % (32.0-36.0); MEAN PLATELET VOLUME 7.8 FL (7.0-11.0); MONO % 9.6 % (0.0-8.0); MONOCYTE # 1.2 TH/MM3 (0-0.9); NEUT % 74.4 % (16.0-70.0); PLATELET COUNT 430 TH/MM3 (150-450); RED CELL DISTRIBUTION WIDTH 15.2 % (11.6-17.2); WHITE BLOOD COUNT 12.8 TH/MM3 (4.0-11.0)
[2017-04-02 06:34] LABS: ALBUMIN 1.4 GM/DL (3.4-5.0); BICARBONATE 24.2 MEQ/L (21.0-32.0); CALCIUM 7.1 MG/DL (8.5-10.1); CALCIUM-PROTEIN CORRECTED 7.8 MG/DL (8.5-10.1); CREATININE 0.54 MG/DL (0.50-1.00); TOTAL BILIRUBIN ADULT 0.2 MG/DL (0.2-1.0); TOTAL PROTEIN 5.8 GM/DL (6.4-8.2)
[2017-04-02 08:31] LABS: BANDS 17 % (0-6); CORRECTED NUCLEATED RBC 2 /100 WBC (0-0); LYMPHOCYTES 13 % (9-44); METAMYELOCYTES 1 % (0-1); MONOCYTES 10 % (0-8); NEUTROPHIL # MANUAL DIFF 9.9 TH/MM3 (1.8-7.7); NUCLEATED RED BLOOD CELL 2 (0-0); POLYS (SEG NEUTROPHILS) 59 % (16-70)
[2017-04-02] MEDS: DOCUSATE SODIUM 100 MG/10 ML UDC PO SCH ×2 (09:00→20:38)
[2017-04-02] MEDS: CHLORHEXIDINE 0.12% (ORAL KIT) 15 ML CUP MT SCH ×2 (09:33→20:38)
[2017-04-02] MEDS: VANCOMYCIN 500 MG VIAL (FOR ORAL USE ONLY) PO SCH ×4 (09:34→20:36)
[2017-04-02] MEDS: VALPROIC ACID SYRUP 250 MG/5 ML UDC PO SCH ×3 (09:34→17:23)
[2017-04-02] MEDS: FAMOTIDINE 20 MG TAB PO SCH ×2 (09:34→20:37)
[2017-04-02] MEDS: ENOXAPARIN SODIUM 80 MG/0.8 ML SYRINGE SQ SCH (09:34)
[2017-04-02] MEDS: QUEtiapine FUMARATE 25 MG TAB PO SCH ×3 (09:35→20:36)
[2017-04-02] MEDS: INSULIN DETEMIR 100 UNITS/ML VIAL SQ SCH ×2 (09:36→20:38)
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
[2017-04-03] VITALS (20 sets, daily range): BP systolic 114–177; BP diastolic 57–83; PULSE 78–110; RESP 16–20; TEMP 98–101.3; O2SAT 96–100
[2017-04-03] MEDS: metroNIDAZOLE 500 MG INJ 100 ML IV SCH ×3 (00:57→17:33)
[2017-04-03] MEDS: oxyCODONE HCL ORAL CONC 5 MG/0.25 ML SYRINGE PEG PRN ×3 (02:27→18:26)
[2017-04-03] MEDS: INSULIN ASPART SUPPLEMENTAL SCALE SQ SCH ×5 (04:00→20:00)
[2017-04-03] MEDS: RESP: ALBUTEROL 2.5 MG/IPRATROPIUM 0.5 MG NEB (SCH) NEB ×4 (04:00→21:02)
[2017-04-03] MEDS: IN SODIUM CHLORIDE 0.9% IV SCH (04:16)
[2017-04-03] MEDS: PROPRANOLOL HCL 10 MG TAB PO SCH ×3 (04:16→21:13)
[2017-04-03] MEDS: cloNIDine HCL 0.2 MG TAB PO SCH ×3 (04:17→22:00)
[2017-04-03] MEDS: METOCLOPRAMIDE HCL 10 MG/2 ML VIAL IV PUSH SCH (04:17)
[2017-04-03] MEDS: hydrALAZINE HCL 20 MG/ML VIAL IV PUSH PRN ×2 (04:17→23:23)
[2017-04-03] MEDS: ARTIFICIAL TEARS OPTH SOLN 15 ML BTL EACH EYE SCH ×3 (04:17→22:00)
[2017-04-03] MEDS: FREE WATER G-TUBE SCH ×3 (04:18→18:26)
--- NOTE | 2017-04-03 04:18 | RADRPT ---
EXAM DATE/TIME: 04/03/2017 03:54 [facility] COMPARISON: CHEST SINGLE AP, April 02, 2017, 4:28. INDICATIONS : Shortness of breath MEDICAL HISTORY : Diabetes mellitus type 1. Sickle Cell disease SURGICAL HISTORY : Tracheostomy ENCOUNTER: Subsequent ACUITY: 3 weeks PAIN SCORE: Non-responsive. LOCATION: Bilateral chest FINDINGS: The cardiac silhouette is normal in transverse diameter. A tracheostomy tube is in place in the midli ne. Moderate size bilateral pleural effusions are identified. There is subsegmental atelectasis in t he both bases. CONCLUSION: 1. Subsegmental atelectasis both bases. Bilateral effusions There has been no significant change when compared to the prior exam. Vargas Kaur MD on April 03, 2017 at 4:16 Board Certified Radiologist. This report was verified electronically.
[2017-04-03 06:48] LABS: AUTOMATED NEUTROPHIL # 9.1 TH/MM3 (1.8-7.7); BASOPHIL % 0.2 % (0.0-2.0); EOSINOPHIL # 0.2 TH/MM3 (0-0.4); EOSINOPHIL % 1.6 % (0.0-4.0); HEMATOCRIT 21.8 % (35.0-46.0); HEMOGLOBIN 7.3 GM/DL (11.6-15.3); LYMPH % 16.5 % (9.0-44.0); LYMPHOCYTE # 2.2 TH/MM3 (1.0-4.8); MEAN CELL VOLUME 84.8 FL (80.0-100.0); MEAN CORPUSCULAR HEMOGLOBIN 28.6 PG (27.0-34.0); MEAN CORPUSCULAR HGB CONC 33.7 % (32.0-36.0); MEAN PLATELET VOLUME 8.3 FL (7.0-11.0); MONO % 13.4 % (0.0-8.0); MONOCYTE # 1.8 TH/MM3 (0-0.9); NEUT % 68.3 % (16.0-70.0); PLATELET COUNT 510 TH/MM3 (150-450); RED BLOOD COUNT 2.57 MIL/MM3 (4.00-5.30); RED CELL DISTRIBUTION WIDTH 15.4 % (11.6-17.2); WHITE BLOOD COUNT 13.4 TH/MM3 (4.0-11.0)
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
[2017-04-03 07:09] LABS: ALBUMIN 1.3 GM/DL (3.4-5.0); BICARBONATE 25.2 MEQ/L (21.0-32.0); CALCIUM 7.2 MG/DL (8.5-10.1); CALCIUM-PROTEIN CORRECTED 7.9 MG/DL (8.5-10.1); CREATININE 0.44 MG/DL (0.50-1.00); TOTAL BILIRUBIN ADULT 0.2 MG/DL (0.2-1.0); TOTAL PROTEIN 5.8 GM/DL (6.4-8.2)
[2017-04-03] MEDS ORDERED: POTASSIUM CHLORIDE 20 MEQ PWD PACKET PO ONE (08:00)
[2017-04-03] MEDS ORDERED: LORazepam 2 MG/ML VIAL IV PUSH ONE (08:00)
[2017-04-03] MEDS: QUEtiapine FUMARATE 25 MG TAB PO SCH ×3 (08:05→21:14)
[2017-04-03] MEDS: INSULIN DETEMIR 100 UNITS/ML VIAL SQ SCH ×2 (08:26→21:00)
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
[2017-04-03] MEDS: FAMOTIDINE 20 MG TAB PO SCH ×2 (08:33→21:13)
[2017-04-03] MEDS: VALPROIC ACID SYRUP 250 MG/5 ML UDC PO SCH ×3 (08:33→17:33)
[2017-04-03] MEDS: DOCUSATE SODIUM 100 MG/10 ML UDC PO SCH ×2 (08:33→21:13)
[2017-04-03] MEDS: VANCOMYCIN 500 MG VIAL (FOR ORAL USE ONLY) PO SCH ×4 (08:33→21:13)
[2017-04-03] MEDS: CHLORHEXIDINE 0.12% (ORAL KIT) 15 ML CUP MT SCH ×2 (08:34→20:00)
[2017-04-03] MEDS ORDERED: CALCIUM GLUCONATE INJ 1 GM in SODIUM CHLORIDE 0.9% INJ 100 ML IV ONE (09:00)
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
[2017-04-03] MEDS: HALOPERIDOL LACTATE 5 MG/ML AMP IV PUSH PRN (11:51)
[2017-04-03] MEDS ORDERED: MIDAZOLAM HCL 2 MG/2 ML VIAL ONE (16:00)
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
--- NOTE | 2017-04-03 17:51 | RADRPT ---
EXAM DATE/TIME: 04/03/2017 16:07 [facility] COMPARISON: CT THORAX W/O CONTRAST, March 14, 2017, 16:08. INDICATIONS : Right lung fluid RADIATION DOSE: 22.88 CTDIvol (mGy) MEDICAL HISTORY : None SURGICAL HISTORY : None. ENCOUNTER: Initial ACUITY: 1 day PAIN SCALE: Non-responsive LOCATION: chest TECHNIQUE: Volumetric scanning of the chest was performed. Using automated exposure control and adjustment of t he mA and/or kV according to patient size, radiation dose was kept as low as reasonably achievable to obtain optimal diagnostic quality images. DICOM format image data is available electronically for r eview and comparison. Follow-up recommendations for detected pulmonary nodules are based at a minimum on nodule size and pa tient risk factors according to Fleischner Society Guidelines. FINDINGS: LUNGS: There are small bilateral pleural fluid collections. Chest tube is seen on the left. Scattered bibasi lar parenchymal densities and other densities throughout the chest. Tracheostomy tube seen. MEDIASTINUM: The heart and great vessels demonstrate no acute abnormality. There is no mediastinal or hilar lymph adenopathy. AXILLAE: Within normal limits. No lymphadenopathy. MUSCULOSKELETAL: Bilateral rib fractures. MISCELLANEOUS: The visualized upper abdominal organs demonstrate no acute abnormality. CONCLUSION: 1. Inadequate fluid in the right chest for placement of a chest tube. 2. Left-sided chest tube. 3. Small bilateral pleural fluid collections. 4. Bilateral scattered parenchymal densities greater in the lower lobes. Rodolfo Granda MD on April 03, 2017 at 17:46 Board Certified Radiologist. This report was verified electronically.
[2017-04-03] MEDS: LACTATED RINGER'S 1000 ML INJ 1,000 ML IV SCH (19:00)
--- NOTE | 2017-04-03 19:06 | HHI.IDPN ---
Subjective Subjective Remarks fevers up to 101.3 noted Intermittent bouts of diarrhea attempted R sided thoracocentheisis w/o fluid Antibiotics vancomycin iv vanco po fluconazole Allergies: Coded Allergies: No Known Drug Allergies (Verified Allergy, Unknown, 01/06/17) Objective . Vital Signs Date Time Temp Pulse Resp B/P (MAP) Pulse Ox O2 Delivery O2 Flow Rate FiO2 04/03/17 18:25 96 21 04/03/17 18:00 100.0 84 20 153/70 (97) 100 04/03/17 18:00 86 04/03/17 16:00 97 04/03/17 16:00 35 04/03/17 14:59 100 40 04/03/17 14:00 85 04/03/17 12:00 110 04/03/17 12:00 100.8 102 18 148/64 (92) 100 04/03/17 12:00 35 04/03/17 11:00 100 45 04/03/17 10:04 40 04/03/17 10:03 99 40 04/03/17 10:00 104 04/03/17 08:00 35 04/03/17 08:00 107 04/03/17 08:00 101.3 106 17 146/67 (93) 100 04/03/17 07:57 100 50 04/03/17 06:00 96 04/03/17 05:10 100 Ventilator 04/03/17 05:02 99 35 04/03/17 04:00 35 04/03/17 04:00 99.1 96 20 177/83 (114) 100 04/03/17 04:00 96 04/03/17 02:00 88 04/03/17 00:00 35 04/03/17 00:00 98.1 78 16 114/57 (76) 100 04/03/17 00:00 78 04/02/17 23:54 100 35 04/02/17 22:00 98 04/02/17 21:27 100 Ventilator 04/02/17 20:15 100 Ventilator 04/02/17 20:15 35 04/02/17 20:10 100 35 04/02/17 20:00 98.6 98 30 169/77 (107) 100 04/02/17 20:00 35 04/02/17 20:00 98 04/03/17 04/03/17 04/04/17 15:00 23:00 07:00 Intake Total 200 ml 1000 ml Output Total 1700 ml Balance 200 ml -700 ml Intake Oral 0 ml IV Total 200 ml 700 ml Tube Feeding 0 ml Other 300 ml Output Urine Total 1700 ml # Bowel Movements 0 . Laboratory Tests Test 04/02/17 05:50 04/03/17 06:10 White Blood Count 12.8 TH/MM3 13.4 TH/MM3 Red Blood Count 2.50 MIL/MM3 2.57 MIL/MM3 Hemoglobin 7.1 GM/DL 7.3 GM/DL Hematocrit 21.2 % 21.8 % Mean Corpuscular Volume 84.8 FL 84.8 FL Mean Corpuscular Hemoglobin 28.3 PG 28.6 PG Mean Corpuscular Hemoglobin Concent 33.4 % 33.7 % Red Cell Distribution Width 15.2 % 15.4 % Platelet Count 430 TH/MM3 510 TH/MM3 Mean Platelet Volume 7.8 FL 8.3 FL Neutrophils (%) (Auto) 74.4 % 68.3 % Lymphocytes (%) (Auto) 14.3 % 16.5 % Monocytes (%) (Auto) 9.6 % 13.4 % Eosinophils (%) (Auto) 1.2 % 1.6 % Basophils (%) (Auto) 0.5 % 0.2 % Neutrophils # (Auto) 9.5 TH/MM3 9.1 TH/MM3 Lymphocytes # (Auto) 1.8 TH/MM3 2.2 TH/MM3 Monocytes # (Auto) 1.2 TH/MM3 1.8 TH/MM3 Eosinophils # (Auto) 0.2 TH/MM3 0.2 TH/MM3 Basophils # (Auto) 0.1 TH/MM3 0.0 TH/MM3 CBC Comment AUTO DIFF DIFF FINAL Differential Total Cells Counted 100 Neutrophils % (Manual) 59 % Band Neutrophils % 17 % Lymphocytes % 13 % Monocytes % 10 % Neutrophils # (Manual) 9.9 TH/MM3 Metamyelocytes 1 % Nucleated Red Blood Cells 2 /100 WBC Differential Comment FINAL DIFF MANUAL Platelet Estimate NORMAL Platelet Morphology Comment NORMAL Laboratory Tests Test 04/02/17 05:50 04/03/17 06:10 Blood Urea Nitrogen 10 MG/DL 5 MG/DL Creatinine 0.54 MG/DL 0.44 MG/DL Random Glucose 171 MG/DL 126 MG/DL Total Protein 5.8 GM/DL 5.8 GM/DL Albumin 1.4 GM/DL 1.3 GM/DL Calcium Level 7.1 MG/DL 7.2 MG/DL Alkaline Phosphatase 194 U/L 185 U/L Aspartate Amino Transf (AST/SGOT) 22 U/L 22 U/L Alanine Aminotransferase (ALT/SGPT) 22 U/L 20 U/L Total Bilirubin 0.2 MG/DL 0.2 MG/DL Sodium Level 148 MEQ/L 147 MEQ/L Potassium Level 3.9 MEQ/L 3.8 MEQ/L Chloride Level 116 MEQ/L 115 MEQ/L Carbon Dioxide Level 24.2 MEQ/L 25.2 MEQ/L Anion Gap 8 MEQ/L 7 MEQ/L Estimat Glomerular Filtration Rate 172 ML/MIN 218 ML/MIN Protein Corrected Calcium 7.8 MG/DL 7.9 MG/DL Imaging Last Impressions Chest X-Ray 04/03/17 0600 Signed Impressions: Service Date/Time: March 03:54 - CONCLUSION: 1. Subsegmental atelectasis both bases. Bilateral effusions There has been no significant change when compared to the prior exam. Vargas Kaur MD Chest CT 04/03/17 0000 Signed Impressions: Service Date/Time: March 16:07 - CONCLUSION: 1. Inadequate fluid in the right chest for placement of a chest tube. 2. Left- sided chest tube. 3. Small bilateral pleural fluid collections. 4. Bilateral scattered parenchymal densities greater in the lower lobes. Rodolfo Granda MD Abdomen X-Ray 03/31/17 06 Signed Impressions: Service Date/Time: Friday, March 31, 2017 03:46 - CONCLUSION: 1. No evidence of obstruction. Decreasing colonic distention Vargas Kaur MD Abdomen/Pelvis CT 03/29/17 0921 Signed Impressions: Service Date/Time: Wednesday, March 29, 2017 12:27 - CONCLUSION: 1. Bibasilar patchy opacities within the visualized lower lungs consistent with probable pneumonia. Clinical correlation recommended. 2. Small amount of ascites. 3. Anasarca. 4. Scattered tiny 2 mm calcified nonobstructing bilateral renal calculi. 5. No evidence of bowel obstruction. Forest Alexandre MD Brain MRI 03/28/17 0000 Signed Impressions: Service Date/Time: Tuesday, March 28, 2017 12:01 - CONCLUSION: 1. Evolving shear injury in the white matter bilaterally, most notable in the right parietal region. Multifocal hemosiderin deposition is relatively stable and likely relates to prior microhemorrhage. Restricted diffusion foci are stable to decreased in size. No mass effect or shift. No hydrocephalus. Jamie Myrick MD Upper Extremity Ultrasound 03/27/17 0000 Signed Impressions: Service Date/Time: March 23:06 - CONCLUSION: 1. Nonocclusive thrombosis of the distal cephalic and basilic veins of the left upper arm. Brachial, maxillary, and subclavian veins are patent. IJ vein not visualized due to cervical collar in place. 2. Possible small nonocclusive thrombus of the radial vein in the forearm. Rudy Santizo MD Wrist X-Ray 03/26/17 0000 Signed Impressions: Service Date/Time: Sunday, March 26, 2017 08:38 - CONCLUSION: Anatomic alignment. 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 Ankle X-Ray 03/26/17 0000 Signed Impressions: Service Date/Time: Sunday, March 26, 2017 08:33 - CONCLUSION: Anatomic alignment.. 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 Gall Bladder Ultrasound 03/25/17 0000 Signed Impressions: Service Date/Time: Saturday, March 25, 2017 17:01 - CONCLUSION: Heterogeneous liver related to lacerations seen on the patient's prior CT examination. Manjula Talbert MD Head CT 03/23/17 1136 Signed Impressions: Service Date/Time: Thursday, March 23, 2017 11:38 - CONCLUSION: 1. No acute cardia point process. 2. Mild fluid in the sphenoid sinuses. Von Simmons MD CT Angiography 03/23/17 0000 Signed Impressions: Service Date/Time: Thursday, March 23, 2017 11:42 - CONCLUSION: 1. Extensive pulmonary emboli. 2. Bilateral areas of consolidation/atelectasis or infarction seen in the lower lobes. 3. Multiple rib fractures and a left manubrial sternal fracture. 4. Right chest tube without a pneumothorax seen. 5. The left ventricle appears thickened. Von Simmons MD Chest Tube Insertion 03/20/17 0000 Signed Impressions: Service Date/Time: February 16:00 - CONCLUSION: Uncomplicated chest tube placement as above. Guille Bowie MD Cervical Spine MRI 03/09/17 0000 Signed Impressions: Service Date/Time: Friday, March 10, 2017 17:54 - CONCLUSION: 1. No signal abnormalities within the cervical cord. 2. No epidural impressions upon the cervical cord. William Wetzel MD Thoracic Spine CT [id number] Signed Impressions: Service Date/Time: Tuesday, March 07, 2017 17:18 - CONCLUSION: 1. Negative for acute traumatic injury within the thoracic spine. Jamie Myrick MD Pelvis X-Ray [id number] Signed Impressions: Service Date/Time: Tuesday, March 07, 2017 16:46 - CONCLUSION: Unremarkable Study. Ben Hamlin MD Maxillofacial CT [id number] Signed Impressions: Service Date/Time: Tuesday, March 07, 2017 17:09 - CONCLUSION: No acute bony fracture. Ben Hamlin MD Lumbar Spine CT [id number] Signed Impressions: Service Date/Time: Tuesday, March 07, 2017 17:18 - CONCLUSION: 1. Negative for acute traumatic injury in the lumbar spine. Jamie Myrick MD Cervical Spine CT [id number] Signed Impressions: Service Date/Time: Tuesday, March 07, 2017 17:09 - CONCLUSION: 1. There are fractures involving the base of the skull involving both occipital condyles. 2. There is a fracture involving the distal clivus which appears to be nondisplaced. 3. There is a fracture extending through the left lateral mass of C1 into the region of the left transverse process. However, the Vertebral foramina appears to be intact. 4. The rest of the cervical spine appears to be grossly intact. 1. Ben Hamlin MD Physical Exam CONSTITUTIONAL/GENERAL: This is an adequately nourished patient, agitated, intubated, on vent TUBES/LINES/DRAINS: SKIN: No jaundice, rashes, or lesions. Skin temperature appropriate. Not diaphoretic. CARDIOVASCULAR: Regular rate and rhythm without murmurs, gallops, or rubs. No JVD. Peripheral pulses symmetric. RESPIRATORY/CHEST: Symmetric, unlabored respirations. fairly clear to auscultation. Breath sounds equal bilaterally. L chest tube in place with serosang drainage GASTROINTESTINAL: Abdomen soft, non-tender, moderately distended. No hepato- splenomegaly, or palpable masses. No guarding. Bowel sounds present. GENITOURINARY: Without palpable bladder distension. Lr catheter in place with clear yellow urine MUSCULOSKELETAL: Extremities without clubbing, cyanosis, or edema. No joint tenderness or effusion noted. No calf tenderness. No mottling or clubbing. LYMPHATICS: No palpable cervical or supraclavicular adenopathy. NEUROLOGICAL: per nursing following commands with L hand Eyes closed, unresponsive 2/2 procedural sedation, per RN earlier followed with BLE and LUE PSYCHIATRIC: Unable to assess Assessment & Plan Remarks Sp multitrauma including chest contusions, PNA -clx negative sp CT placement - removed Leukocytosis - somewhat better C.diff + - on treatment - clinically ileus Funguria sp drainage of postraumatic hemorrhagic pleural effusion Recurrent fever: pleural effusions too small for cath placement - clx negative fu new blood clx rechk UA, C+S rechk stool for C.diff cont oral vancomycin for C.diff dw Mary Esposito MD Apr 03, 2017 19:06
[2017-04-03] MEDS: ENOXAPARIN SODIUM 80 MG/0.8 ML SYRINGE SQ SCH (22:16)
[2017-04-04] VITALS (18 sets, daily range): BP systolic 119–154; BP diastolic 53–83; PULSE 75–115; RESP 16–36; TEMP 98.2–99.7; O2SAT 98–100
[2017-04-04] MEDS: HALOPERIDOL LACTATE 5 MG/ML AMP IV PUSH PRN ×2 (00:52→08:51)
[2017-04-04] MEDS: metroNIDAZOLE 500 MG INJ 100 ML IV SCH ×3 (02:26→17:31)
[2017-04-04] MEDS: RESP: ALBUTEROL 2.5 MG/IPRATROPIUM 0.5 MG NEB (SCH) NEB ×4 (03:12→20:02)
[2017-04-04] MEDS: INSULIN ASPART SUPPLEMENTAL SCALE SQ SCH ×6 (04:00→19:59)
[2017-04-04 05:00] LABS: AUTOMATED NEUTROPHIL # 9.3 TH/MM3 (1.8-7.7); BASOPHIL % 0.2 % (0.0-2.0); EOSINOPHIL # 0.1 TH/MM3 (0-0.4); HEMATOCRIT 22.1 % (35.0-46.0); HEMOGLOBIN 7.3 GM/DL (11.6-15.3); LYMPH % 12.3 % (9.0-44.0); LYMPHOCYTE # 1.6 TH/MM3 (1.0-4.8); MEAN CELL VOLUME 84.5 FL (80.0-100.0); MEAN CORPUSCULAR HEMOGLOBIN 27.9 PG (27.0-34.0); MEAN PLATELET VOLUME 7.8 FL (7.0-11.0); MONO % 14.2 % (0.0-8.0); MONOCYTE # 1.8 TH/MM3 (0-0.9); NEUT % 72.3 % (16.0-70.0); PLATELET COUNT 526 TH/MM3 (150-450); RED BLOOD COUNT 2.61 MIL/MM3 (4.00-5.30); RED CELL DISTRIBUTION WIDTH 15.7 % (11.6-17.2); WHITE BLOOD COUNT 12.8 TH/MM3 (4.0-11.0)
--- NOTE | 2017-04-04 05:17 | RADRPT ---
EXAM DATE/TIME: 04/04/2017 03:55 [facility] COMPARISON: CT THORAX W/O CONTRAST, April 03, 2017, 16:07. CHEST SINGLE AP, April 03, 2017, 3:54. INDICATIONS : Pleural effusion. MEDICAL HISTORY : Diabetes mellitus type 1. Sickle Cell disease SURGICAL HISTORY : Tracheostomy ENCOUNTER: Subsequent ACUITY: 3 weeks PAIN SCORE: Non-responsive. LOCATION: Bilateral chest FINDINGS: There continue to be bilateral pleural effusions without significant change compared to the prior exa m. There are infiltrates in both lung bases. There has been no change with the multiple right sided f ractured ribs. There is a tracheostomy tube in place. There is a right-sided central line in place. T here is no pneumothorax. Compared to the prior exam there's been no significant changes. CONCLUSION: No significant interval change compared to the prior chest x-ray. Ben Hamlin MD on April 04, 2017 at 5:13 Board Certified Radiologist. This report was verified electronically.
[2017-04-04 05:27] LABS: BICARBONATE 25.1 MEQ/L (21.0-32.0); CALCIUM 7.3 MG/DL (8.5-10.1); CREATININE 0.57 MG/DL (0.50-1.00); MAGNESIUM 1.6 MG/DL (1.5-2.5); PHOSPHORUS 2.3 MG/DL (2.5-4.9)
[2017-04-04 05:59] LABS: CALCIUM-PROTEIN CORRECTED 7.7 MG/DL (8.5-10.1); TOTAL PROTEIN 6.3 GM/DL (6.4-8.2)
[2017-04-04] MEDS: ARTIFICIAL TEARS OPTH SOLN 15 ML BTL EACH EYE SCH ×3 (06:00→21:41)
[2017-04-04] MEDS: PROPRANOLOL HCL 10 MG TAB PO SCH ×3 (06:00→21:40)
[2017-04-04] MEDS: FREE WATER G-TUBE SCH ×4 (06:00→17:32)
[2017-04-04] MEDS: cloNIDine HCL 0.2 MG TAB PO SCH ×3 (06:00→21:40)
[2017-04-04] MEDS: CHLORHEXIDINE 0.12% (ORAL KIT) 15 ML CUP MT SCH ×2 (08:00→20:00)
[2017-04-04] MEDS ORDERED: CALCIUM GLUCONATE INJ 1 GM in SODIUM CHLORIDE 0.9% INJ 100 ML IV ONE (08:15)
[2017-04-04] MEDS ORDERED: POTASSIUM PHOSPHATE INJ 30 MMOL in SODIUM CHLOR 0.9% 250 ML INJ 250 ML IV ONE (08:15)
[2017-04-04] MEDS: INSULIN DETEMIR 100 UNITS/ML VIAL SQ SCH ×2 (08:29→21:00)
[2017-04-04] MEDS: VANCOMYCIN 500 MG VIAL (FOR ORAL USE ONLY) PO SCH ×4 (08:29→21:41)
[2017-04-04] MEDS: FAMOTIDINE 20 MG TAB PO SCH ×2 (08:29→21:40)
[2017-04-04] MEDS: DOCUSATE SODIUM 100 MG/10 ML UDC PO SCH ×2 (08:29→21:40)
[2017-04-04] MEDS: VALPROIC ACID SYRUP 250 MG/5 ML UDC PO SCH ×3 (08:29→17:32)
[2017-04-04] MEDS: QUEtiapine FUMARATE 25 MG TAB PO SCH ×3 (08:30→21:41)
[2017-04-04] MEDS: MAGNESIUM SULFATE 1 GM PREMIX 100 ML IV SCH ×2 (08:31→10:53)
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
[2017-04-04] MEDS: oxyCODONE HCL ORAL CONC 5 MG/0.25 ML SYRINGE PEG PRN ×3 (08:52→19:59)
[2017-04-04] MEDS: ENOXAPARIN SODIUM 80 MG/0.8 ML SYRINGE SQ SCH ×2 (09:45→21:41)
[2017-04-04] MEDS ORDERED: ALTEPLASE RECOMBINANT 2 MG VIAL INTRACATH ONE (10:30)
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
--- NOTE | 2017-04-04 12:21 | RADRPT ---
EXAM DATE/TIME: 04/04/2017 11:46 [facility] COMPARISON: CHEST SINGLE AP, April 04, 2017, 3:55. INDICATIONS : PICC Line placement confirmation. PICC Line was pulled. MEDICAL HISTORY : Diabetes mellitus type 1. Sickle Cell disease SURGICAL HISTORY : Tracheostomy ENCOUNTER: Subsequent ACUITY: 1 day PAIN SCORE: Non-responsive. LOCATION: Bilateral chest FINDINGS: There is a right-sided PICC line with the tip in the superior vena cava. Basal airspace disease and b ilateral effusions remain similar to earlier exam. Multiple right-sided rib fractures. Small caliber left chest tube. Tracheostomy present. CONCLUSION: 1. Right PICC line in superior vena cava. Left chest tube without pneumothorax. Relatively stable bas al airspace disease and bilateral effusions since earlier exam. Jamie Myrick MD on April 04, 2017 at 12:18 Board Certified Radiologist. This report was verified electronically.
[2017-04-04] MEDS ORDERED: SODIUM CHLORIDE 0.9% FLUSH 10 ML FLUSH IV FLUSH PRN (14:15)
[2017-04-04] MEDS: LACTATED RINGER'S 1000 ML INJ 1,000 ML IV SCH (15:00)
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
[2017-04-04 22:16] LABS: PHOSPHORUS 2.7 MG/DL (2.5-4.9)
[2017-04-05] VITALS (19 sets, daily range): BP systolic 126–186; BP diastolic 60–81; PULSE 74–110; RESP 16–27; TEMP 98.2–99.7; O2SAT 98–100
[2017-04-05] MEDS: metroNIDAZOLE 500 MG INJ 100 ML IV SCH ×3 (02:35→17:25)
[2017-04-05] MEDS: INSULIN ASPART SUPPLEMENTAL SCALE SQ SCH ×6 (04:00→19:55)
[2017-04-05] MEDS: RESP: ALBUTEROL 2.5 MG/IPRATROPIUM 0.5 MG NEB (SCH) NEB ×4 (04:20→20:18)
[2017-04-05] MEDS: oxyCODONE HCL ORAL CONC 5 MG/0.25 ML SYRINGE PEG PRN ×3 (05:56→17:27)
[2017-04-05] MEDS: PROPRANOLOL HCL 10 MG TAB PO SCH ×3 (05:57→21:32)
[2017-04-05] MEDS: cloNIDine HCL 0.2 MG TAB PO SCH ×3 (05:57→21:32)
[2017-04-05] MEDS: ARTIFICIAL TEARS OPTH SOLN 15 ML BTL EACH EYE SCH ×3 (06:00→21:33)
[2017-04-05] MEDS: FREE WATER G-TUBE SCH ×4 (06:00→17:25)
[2017-04-05] MEDS: CHLORHEXIDINE 0.12% (ORAL KIT) 15 ML CUP MT SCH ×2 (08:00→19:50)
[2017-04-05] MEDS: DOCUSATE SODIUM 100 MG/10 ML UDC PO SCH ×2 (08:03→21:32)
[2017-04-05] MEDS: VANCOMYCIN 500 MG VIAL (FOR ORAL USE ONLY) PO SCH ×4 (08:03→21:32)
[2017-04-05] MEDS: FAMOTIDINE 20 MG TAB PO SCH ×2 (08:03→21:32)
[2017-04-05] MEDS: VALPROIC ACID SYRUP 250 MG/5 ML UDC PO SCH ×3 (08:03→17:25)
[2017-04-05] MEDS: SODIUM CHLORIDE 0.9% FLUSH 10 ML FLUSH IV FLUSH SCH (08:04)
[2017-04-05] MEDS: hydrALAZINE HCL 20 MG/ML VIAL IV PUSH PRN (08:32)
[2017-04-05] MEDS: QUEtiapine FUMARATE 25 MG TAB PO SCH ×3 (08:33→21:32)
[2017-04-05] MEDS: INSULIN DETEMIR 100 UNITS/ML VIAL SQ SCH ×2 (08:33→21:00)
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
[2017-04-05] MEDS: ENOXAPARIN SODIUM 80 MG/0.8 ML SYRINGE SQ SCH ×2 (11:42→21:31)
[2017-04-05] MEDS: LACTATED RINGER'S 1000 ML INJ 1,000 ML IV SCH (11:42)
[2017-04-05] MEDS: HALOPERIDOL LACTATE 5 MG/ML AMP IV PUSH PRN (11:50)
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
[2017-04-06] VITALS (19 sets, daily range): BP systolic 150–187; BP diastolic 60–84; PULSE 79–107; RESP 16–30; TEMP 97–99.4; O2SAT 100
[2017-04-06] MEDS: metroNIDAZOLE 500 MG INJ 100 ML IV SCH ×3 (02:09→17:04)
[2017-04-06] MEDS: RESP: ALBUTEROL 2.5 MG/IPRATROPIUM 0.5 MG NEB (SCH) NEB ×4 (03:30→20:47)
[2017-04-06] MEDS: INSULIN ASPART SUPPLEMENTAL SCALE SQ SCH ×6 (04:00→20:38)
[2017-04-06 05:00] LABS: AUTOMATED NEUTROPHIL # 6.3 TH/MM3 (1.8-7.7); BASOPHIL % 0.3 % (0.0-2.0); EOSINOPHIL # 0.1 TH/MM3 (0-0.4); EOSINOPHIL % 0.9 % (0.0-4.0); LYMPH % 18.8 % (9.0-44.0); LYMPHOCYTE # 1.8 TH/MM3 (1.0-4.8); MEAN CORPUSCULAR HEMOGLOBIN 29.4 PG (27.0-34.0); MEAN CORPUSCULAR HGB CONC 34.6 % (32.0-36.0); MEAN PLATELET VOLUME 8.5 FL (7.0-11.0); MONOCYTE # 1.6 TH/MM3 (0-0.9); PLATELET COUNT 554 TH/MM3 (150-450); RED BLOOD COUNT 2.38 MIL/MM3 (4.00-5.30); RED CELL DISTRIBUTION WIDTH 15.8 % (11.6-17.2); WHITE BLOOD COUNT 9.8 TH/MM3 (4.0-11.0)
[2017-04-06 05:10] LABS: HEMATOCRIT 20.2 % (35.0-46.0)
[2017-04-06 05:11] LABS: BICARBONATE 26.3 MEQ/L (21.0-32.0); CALCIUM 7.4 MG/DL (8.5-10.1); CREATININE 0.53 MG/DL (0.50-1.00)
[2017-04-06] MEDS: PROPRANOLOL HCL 10 MG TAB PO SCH ×3 (05:39→20:57)
[2017-04-06] MEDS: ARTIFICIAL TEARS OPTH SOLN 15 ML BTL EACH EYE SCH ×3 (05:39→20:39)
[2017-04-06] MEDS: FREE WATER G-TUBE SCH ×5 (05:39→22:13)
[2017-04-06] MEDS: cloNIDine HCL 0.2 MG TAB PO SCH ×3 (05:39→20:57)
[2017-04-06 05:41] LABS: CALCIUM-PROTEIN CORRECTED 7.7 MG/DL (8.5-10.1); TOTAL PROTEIN 6.5 GM/DL (6.4-8.2)
[2017-04-06] MEDS: HALOPERIDOL LACTATE 5 MG/ML AMP IV PUSH PRN ×2 (06:01→20:57)
[2017-04-06] MEDS: CHLORHEXIDINE 0.12% (ORAL KIT) 15 ML CUP MT SCH ×2 (08:00→20:38)
[2017-04-06] MEDS: FAMOTIDINE 20 MG TAB PO SCH ×2 (08:11→20:38)
[2017-04-06] MEDS: VANCOMYCIN 500 MG VIAL (FOR ORAL USE ONLY) PO SCH ×4 (08:11→20:38)
[2017-04-06] MEDS: DOCUSATE SODIUM 100 MG/10 ML UDC PO SCH ×2 (08:11→19:34)
[2017-04-06] MEDS: VALPROIC ACID SYRUP 250 MG/5 ML UDC PO SCH ×3 (08:11→17:04)
[2017-04-06] MEDS: INSULIN DETEMIR 100 UNITS/ML VIAL SQ SCH ×2 (08:11→20:38)
[2017-04-06] MEDS: QUEtiapine FUMARATE 25 MG TAB PO SCH ×3 (08:18→20:38)
[2017-04-06] MEDS: SODIUM CHLORIDE 0.9% FLUSH 10 ML FLUSH IV FLUSH SCH (08:19)
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
[2017-04-06] MEDS: ENOXAPARIN SODIUM 80 MG/0.8 ML SYRINGE SQ SCH ×2 (10:22→22:12)
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
[2017-04-06] MEDS: LISINOPRIL 20 MG TAB PO SCH (17:04)
[2017-04-06] MEDS: oxyCODONE HCL ORAL CONC 5 MG/0.25 ML SYRINGE PEG PRN (20:39)
[2017-04-06] MEDS: hydrALAZINE HCL 20 MG/ML VIAL IV PUSH PRN (20:40)
[2017-04-07] VITALS (16 sets, daily range): BP systolic 111–182; BP diastolic 59–94; PULSE 80–102; RESP 16–27; TEMP 99–99.7; O2SAT 100
[2017-04-07] MEDS: metroNIDAZOLE 500 MG INJ 100 ML IV SCH ×3 (00:56→18:00)
[2017-04-07] MEDS: INSULIN ASPART SUPPLEMENTAL SCALE SQ SCH ×5 (01:08→20:18)
[2017-04-07] MEDS: RESP: ALBUTEROL 2.5 MG/IPRATROPIUM 0.5 MG NEB (SCH) NEB ×4 (03:11→20:04)
[2017-04-07] MEDS: ARTIFICIAL TEARS OPTH SOLN 15 ML BTL EACH EYE SCH ×3 (04:13→22:20)
[2017-04-07] MEDS: FREE WATER G-TUBE SCH ×3 (04:13→18:00)
[2017-04-07 04:20] LABS: HEMATOCRIT 21.8 % (35.0-46.0); HEMOGLOBIN 7.3 GM/DL (11.6-15.3); MEAN CELL VOLUME 85.5 FL (80.0-100.0); MEAN CORPUSCULAR HEMOGLOBIN 28.8 PG (27.0-34.0); MEAN CORPUSCULAR HGB CONC 33.6 % (32.0-36.0); MEAN PLATELET VOLUME 8.3 FL (7.0-11.0); PLATELET COUNT 608 TH/MM3 (150-450); RED BLOOD COUNT 2.54 MIL/MM3 (4.00-5.30); RED CELL DISTRIBUTION WIDTH 16.3 % (11.6-17.2); WHITE BLOOD COUNT 10.7 TH/MM3 (4.0-11.0)
--- NOTE | 2017-04-07 04:28 | RADRPT ---
EXAM DATE/TIME: 04/07/2017 03:45 [facility] COMPARISON: CHEST SINGLE AP, April 04, 2017, 11:46. INDICATIONS : Short of breath. MEDICAL HISTORY : Diabetes mellitus type 1. Sickle Cell disease SURGICAL HISTORY : Trachestomy. ENCOUNTER: Subsequent ACUITY: 1 week PAIN SCORE: 0/10 LOCATION: Bilateral chest FINDINGS: There is a tracheostomy tube in place. There is a PICC line in place from the right arm. The heart si ze is normal. There are bilateral pleural effusions. There is hazy density seen at the bases bilatera lly. There are multiple lower right rib fractures. The previously seen left chest tube has been remov ed. CONCLUSION: 1. Bilateral pleural effusions. 2. Right rib fractures 3. Bibasilar consolidation or atelectasis. Von Simmons MD on April 07, 2017 at 4:23 Board Certified Radiologist. This report was verified electronically.
[2017-04-07] MEDS: oxyCODONE HCL ORAL CONC 5 MG/0.25 ML SYRINGE PEG PRN ×2 (05:06→18:47)
[2017-04-07] MEDS: PROPRANOLOL HCL 10 MG TAB PO SCH ×3 (05:06→22:20)
[2017-04-07] MEDS: cloNIDine HCL 0.2 MG TAB PO SCH ×3 (05:06→22:20)
[2017-04-07] MEDS: hydrALAZINE HCL 20 MG/ML VIAL IV PUSH PRN (06:15)
[2017-04-07] MEDS: QUEtiapine FUMARATE 25 MG TAB PO SCH ×3 (07:59→20:25)
[2017-04-07] MEDS: CHLORHEXIDINE 0.12% (ORAL KIT) 15 ML CUP MT SCH ×2 (07:59→20:26)
[2017-04-07] MEDS: DOCUSATE SODIUM 100 MG/10 ML UDC PO SCH ×2 (08:00→20:18)
[2017-04-07] MEDS: SODIUM CHLORIDE 0.9% FLUSH 10 ML FLUSH IV FLUSH SCH (08:00)
[2017-04-07] MEDS: FAMOTIDINE 20 MG TAB PO SCH ×2 (08:00→20:18)
[2017-04-07] MEDS: VALPROIC ACID SYRUP 250 MG/5 ML UDC PO SCH ×4 (08:00→20:25)
[2017-04-07] MEDS: INSULIN DETEMIR 100 UNITS/ML VIAL SQ SCH ×2 (08:01→20:26)
[2017-04-07] MEDS: VANCOMYCIN 500 MG VIAL (FOR ORAL USE ONLY) PO SCH ×4 (08:01→20:26)
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
[2017-04-07] MEDS: LISINOPRIL 20 MG TAB PO SCH (08:05)
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
[2017-04-07] MEDS: ENOXAPARIN SODIUM 80 MG/0.8 ML SYRINGE SQ SCH ×2 (10:23→22:20)
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
[2017-04-08] VITALS (15 sets, daily range): BP systolic 129–181; BP diastolic 60–90; PULSE 74–99; RESP 16–33; TEMP 97.7–98.8; O2SAT 100
[2017-04-08] MEDS: FREE WATER G-TUBE SCH ×4 (00:37→17:39)
[2017-04-08] MEDS: INSULIN ASPART SUPPLEMENTAL SCALE SQ SCH ×6 (00:38→20:00)
[2017-04-08] MEDS: oxyCODONE HCL ORAL CONC 5 MG/0.25 ML SYRINGE PEG PRN ×4 (00:42→23:13)
[2017-04-08] MEDS: RESP: ALBUTEROL 2.5 MG/IPRATROPIUM 0.5 MG NEB (SCH) NEB ×5 (03:55→20:05)
[2017-04-08] MEDS: hydrALAZINE HCL 20 MG/ML VIAL IV PUSH PRN (04:16)
[2017-04-08] MEDS: cloNIDine HCL 0.2 MG TAB PO SCH ×3 (06:44→22:18)
[2017-04-08] MEDS: PROPRANOLOL HCL 10 MG TAB PO SCH ×3 (06:44→22:18)
[2017-04-08] MEDS: ARTIFICIAL TEARS OPTH SOLN 15 ML BTL EACH EYE SCH ×3 (06:44→22:19)
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
[2017-04-08] MEDS: CHLORHEXIDINE 0.12% (ORAL KIT) 15 ML CUP MT SCH ×2 (08:46→22:19)
[2017-04-08] MEDS: LISINOPRIL 20 MG TAB PO SCH (08:46)
[2017-04-08] MEDS: QUEtiapine FUMARATE 25 MG TAB PO SCH ×3 (08:46→22:18)
[2017-04-08] MEDS: FAMOTIDINE 20 MG TAB PO SCH ×2 (08:46→22:18)
[2017-04-08] MEDS: DOCUSATE SODIUM 100 MG/10 ML UDC PO SCH ×2 (08:47→21:00)
[2017-04-08] MEDS: VALPROIC ACID SYRUP 250 MG/5 ML UDC PO SCH ×4 (08:47→22:17)
[2017-04-08] MEDS: INSULIN DETEMIR 100 UNITS/ML VIAL SQ SCH ×2 (08:47→22:19)
[2017-04-08] MEDS: ENOXAPARIN SODIUM 80 MG/0.8 ML SYRINGE SQ SCH ×2 (08:47→22:18)
[2017-04-08] MEDS: VANCOMYCIN 500 MG VIAL (FOR ORAL USE ONLY) PO SCH ×4 (08:47→22:15)
[2017-04-08] MEDS: SODIUM CHLORIDE 0.9% FLUSH 10 ML FLUSH IV FLUSH SCH (08:47)
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
[2017-04-08] MEDS ORDERED: MAGN30S PO (09:27)
[2017-04-08] MEDS ORDERED: DOCU100S PO (09:27)
[2017-04-08] MEDS ORDERED: INSULIN DETEMIR 100 UNITS/ML VIAL SQ SCH (09:30)
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
[2017-04-08] MEDS: HALOPERIDOL LACTATE 5 MG/ML AMP IV PUSH PRN (19:12)
[2017-04-09] VITALS (16 sets, daily range): BP systolic 141–165; BP diastolic 63–93; PULSE 74–94; RESP 16–32; TEMP 98.2–99; O2SAT 100
[2017-04-09] MEDS: RESP: ALBUTEROL 2.5 MG/IPRATROPIUM 0.5 MG NEB (SCH) NEB ×4 (03:23→21:13)
[2017-04-09] MEDS: INSULIN ASPART SUPPLEMENTAL SCALE SQ SCH ×6 (04:00→19:41)
[2017-04-09] MEDS: PROPRANOLOL HCL 10 MG TAB PO SCH ×3 (05:34→22:04)
[2017-04-09] MEDS: cloNIDine HCL 0.2 MG TAB PO SCH ×3 (05:34→22:04)
[2017-04-09] MEDS: FREE WATER G-TUBE SCH ×4 (05:35→16:36)
[2017-04-09] MEDS: ARTIFICIAL TEARS OPTH SOLN 15 ML BTL EACH EYE SCH ×3 (05:35→22:00)
--- NOTE | 2017-04-09 06:43 | RADRPT ---
EXAM DATE/TIME: 04/09/2017 05:12 [facility] COMPARISON: CHEST SINGLE AP, April 07, 2017, 3:45. INDICATIONS : Shortness of breath. MEDICAL HISTORY : Diabetes mellitus type I. Sickle Cell disease. SURGICAL HISTORY : None. ENCOUNTER: Subsequent ACUITY: 1 week PAIN SCORE: Non-responsive. LOCATION: Bilateral chest FINDINGS: The tracheostomy tube is in good position. There is a PICC line in place from the right arm with the tip overlying the SVC. The heart size is normal. There are bilateral pleural effusions being greater on the right. There is hazy density identified in the bases being worse on the left. CONCLUSION: 1. Bilateral pleural effusions being greater on the right. 2. Findings areas of consolidation or atelectasis being worse on the left. Von Simmons MD on April 09, 2017 at 6:39 Board Certified Radiologist. This report was verified electronically.
[2017-04-09 06:47] LABS: BICARBONATE 24.3 MEQ/L (21.0-32.0); CALCIUM 7.9 MG/DL (8.5-10.1); CREATININE 0.63 MG/DL (0.50-1.00)
[2017-04-09 07:00] LABS: AUTOMATED NEUTROPHIL # 4.6 TH/MM3 (1.8-7.7); BASOPHIL % 0.6 % (0.0-2.0); EOSINOPHIL # 0.1 TH/MM3 (0-0.4); EOSINOPHIL % 1.2 % (0.0-4.0); HEMATOCRIT 22.3 % (35.0-46.0); HEMOGLOBIN 7.6 GM/DL (11.6-15.3); LYMPHOCYTE # 2.1 TH/MM3 (1.0-4.8); MEAN CELL VOLUME 86.5 FL (80.0-100.0); MEAN CORPUSCULAR HEMOGLOBIN 29.2 PG (27.0-34.0); MEAN CORPUSCULAR HGB CONC 33.8 % (32.0-36.0); MONO % 18.9 % (0.0-8.0); MONOCYTE # 1.6 TH/MM3 (0-0.9); NEUT % 54.3 % (16.0-70.0); PLATELET COUNT 535 TH/MM3 (150-450); RED BLOOD COUNT 2.58 MIL/MM3 (4.00-5.30); RED CELL DISTRIBUTION WIDTH 17.5 % (11.6-17.2); WHITE BLOOD COUNT 8.5 TH/MM3 (4.0-11.0)
--- NOTE | 2017-04-09 07:11 | PD.ORT.PN ---
Subjective Subjective Remarks trached Objective Vitals Vital Signs Date Time Temp Pulse Resp B/P (MAP) Pulse Ox O2 Delivery O2 Flow Rate FiO2 04/09/17 06:00 94 04/09/17 04:04 100 40 04/09/17 04:00 98.4 82 16 147/82 (103) 100 04/09/17 04:00 40 04/09/17 04:00 82 04/09/17 02:00 82 04/09/17 00:00 98.6 79 16 148/70 (96) 100 04/09/17 00:00 40 04/09/17 00:00 79 04/08/17 23:33 100 40 04/08/17 22:00 88 04/08/17 20:00 89 04/08/17 20:00 40 04/08/17 20:00 98.7 89 16 162/90 (114) 100 04/08/17 19:56 100 40 04/08/17 16:00 98.8 95 28 151/70 (97) 100 04/08/17 12:00 98.2 99 28 163/83 (109) 100 04/08/17 12:00 40 04/08/17 11:35 100 T-piece 28 04/08/17 08:00 98.2 96 33 129/60 (83) 100 04/08/17 08:00 40 04/08/17 07:35 100 40 04/08/17 07:35 40 I/O 04/08/17 04/08/17 04/08/17 04/09/17 04/09/17 04/09/17 07:00 15:00 23:00 07:00 15:00 23:00 Intake Total 1110 ml 1257 ml 1184 ml Output Total 900 ml 1250 ml 1400 ml Balance 210 ml 7 ml -216 ml Tube Feeding 510 ml 657 ml 584 ml Other 600 ml 600 ml 600 ml Output Urine Total 800 ml 1250 ml 1400 ml Stool Total 100 ml 0 ml 0 ml # Bowel Movements 1 Result Diagram: 04/09/17 0639 04/09/17 0605 Imaging Last 24 hours Impressions Thoracic Spine CT 03/07/17 1708 Signed Impressions: Service Date/Time: Tuesday, March 07, 2017 17:18 - CONCLUSION: 1. Negative for acute traumatic injury within the thoracic spine. Jamie Myrick MD Pelvis X-Ray 03/07/171707 Signed Impressions: Service Date/Time: Tuesday, March 07, 2017 16:46 - CONCLUSION: Unremarkable Study. Ben Hamlin MD Maxillofacial CT 03/07/171707 Signed Impressions: Service Date/Time: Tuesday, March 07, 2017 17:09 - CONCLUSION: No acute bony fracture. Ben Hamlin MD Lumbar Spine CT 03/07/171707 Signed Impressions: Service Date/Time: Tuesday, March 07, 2017 17:18 - CONCLUSION: 1. Negative for acute traumatic injury in the lumbar spine. Jamie Myrick MD Head CT 03/07/171707 Signed Impressions: Service Date/Time: Tuesday, March 07, 2017 17:09 - CONCLUSION: 1. No acute intracranial hemorrhage within the brain. 2. Possible cerebral edema with effacement of the sulci bilaterally. 3. Fractures involving the occipital condyles and left lateral mass of C1.. Ben Hamlin MD Chest X-Ray 03/07/171707 Signed Impressions: Service Date/Time: Tuesday, March 07, 2017 16:46 - CONCLUSION: 1. Multiple right lateral rib fractures. 2. Motion artifact versus early atelectasis above the right hemidiaphragm. No obvious pneumothorax on this supine image. Efra Urias MD Chest CT 03/07/171707 Signed Impressions: Service Date/Time: Tuesday, March 07, 2017 17:18 - CONCLUSION: 1. There are infiltrates in the posterior lower lungs bilaterally. 2. No evidence of pneumothorax. 3. Multiple bilateral rib fractures. Ben Hamlin MD Cervical Spine CT 03/07/171707 Signed Impressions: Service Date/Time: Tuesday, March 07, 2017 17:09 - CONCLUSION: 1. There are fractures involving the base of the skull involving both occipital condyles. 2. There is a fracture involving the distal clivus which appears to be nondisplaced. 3. There is a fracture extending through the left lateral mass of C1 into the region of the left transverse process. However, the Vertebral foramina appears to be intact. 4. The rest of the cervical spine appears to be grossly intact. 1. Ben Hamlin MD Abdomen/Pelvis CT 12/15/17 1708 Signed Impressions: Service Date/Time: Tuesday, March 07, 2017 17:18 - CONCLUSION: 1. Low density lesions in liver suggestive of liver lacerations involving the left and right lobes of the liver. 2. Small amount of free fluid in the pelvis. 3. Multiple bilateral rib fractures. Ben Hamlin MD Objective Remarks Right upper extremity Dressing removed. Incision healing well. Good cap refills and distal pulses Right lower extremity Bandages over knee. No laxity or crepitus through range of motion of hip knee or ankle. Intact distal pulses Left lower extremity Dressing/splint in place, Mild swelling toes, Good capillary refill great toes. splint intact no drainage or breakdown at this point. Assessment & Plan Assessment and Plan Open left distal tibia and fibula fracture and closed right radial and ulnar shaft fractures. ORIF (03/08/2017) DC splint and dressings to right forearm Maintain splint left lower extremity NWB RUE and LLE OT for ROM of right UE Madhav Ding Jr. Apr 09, 2017 07:11
[2017-04-09] MEDS: CHLORHEXIDINE 0.12% (ORAL KIT) 15 ML CUP MT SCH ×2 (08:00→19:41)
[2017-04-09 08:07] LABS: BANDS 6 % (0-6); LYMPHOCYTES 21 % (9-44); MONOCYTES 14 % (0-8); MYELOCYTES 1 % (0-0); NEUTROPHIL # MANUAL DIFF 5.5 TH/MM3 (1.8-7.7); POLYCHROMASIA 3.4 % (0.0-1.9); POLYS (SEG NEUTROPHILS) 58 % (16-70)
[2017-04-09 08:08] LABS: OVALOCYTES 1+ (NORMAL)
[2017-04-09] MEDS: SODIUM CHLORIDE 0.9% FLUSH 10 ML FLUSH IV FLUSH SCH (09:00)
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
[2017-04-09] MEDS: FAMOTIDINE 20 MG TAB PO SCH ×2 (10:26→20:27)
[2017-04-09] MEDS: LISINOPRIL 20 MG TAB PO SCH (10:26)
[2017-04-09] MEDS: QUEtiapine FUMARATE 25 MG TAB PO SCH ×3 (10:26→20:27)
[2017-04-09] MEDS: VALPROIC ACID SYRUP 250 MG/5 ML UDC PO SCH ×4 (10:27→20:27)
[2017-04-09] MEDS: ENOXAPARIN SODIUM 80 MG/0.8 ML SYRINGE SQ SCH ×2 (10:27→22:05)
[2017-04-09] MEDS: DOCUSATE SODIUM 100 MG/10 ML UDC PO SCH ×2 (10:27→20:26)
[2017-04-09] MEDS: VANCOMYCIN 500 MG VIAL (FOR ORAL USE ONLY) PO SCH ×4 (10:30→20:26)
[2017-04-09] MEDS: INSULIN DETEMIR 100 UNITS/ML VIAL SQ SCH ×2 (10:30→20:27)
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
[2017-04-09] MEDS: oxyCODONE HCL ORAL CONC 5 MG/0.25 ML SYRINGE PEG PRN (11:03)
[2017-04-10] VITALS (18 sets, daily range): BP systolic 136–151; BP diastolic 62–76; PULSE 80–98; RESP 16–44; TEMP 98.2–99; O2SAT 94–100
[2017-04-10] MEDS: INSULIN ASPART SUPPLEMENTAL SCALE SQ SCH ×6 (00:17→20:47)
[2017-04-10] MEDS: oxyCODONE HCL ORAL CONC 5 MG/0.25 ML SYRINGE PEG PRN ×2 (03:37→22:33)
[2017-04-10] MEDS: HALOPERIDOL LACTATE 5 MG/ML AMP IV PUSH PRN (03:56)
[2017-04-10] MEDS: RESP: ALBUTEROL 2.5 MG/IPRATROPIUM 0.5 MG NEB (SCH) NEB ×4 (04:44→20:44)
[2017-04-10 05:19] LABS: AUTOMATED NEUTROPHIL # 4.4 TH/MM3 (1.8-7.7); BASOPHIL % 0.5 % (0.0-2.0); EOSINOPHIL # 0.1 TH/MM3 (0-0.4); EOSINOPHIL % 1.3 % (0.0-4.0); HEMATOCRIT 22.4 % (35.0-46.0); HEMOGLOBIN 7.6 GM/DL (11.6-15.3); LYMPH % 21.2 % (9.0-44.0); LYMPHOCYTE # 1.6 TH/MM3 (1.0-4.8); MEAN CELL VOLUME 86.7 FL (80.0-100.0); MEAN CORPUSCULAR HEMOGLOBIN 29.5 PG (27.0-34.0); MEAN PLATELET VOLUME 7.6 FL (7.0-11.0); MONO % 18.3 % (0.0-8.0); MONOCYTE # 1.4 TH/MM3 (0-0.9); NEUT % 58.7 % (16.0-70.0); PLATELET COUNT 467 TH/MM3 (150-450); RED BLOOD COUNT 2.58 MIL/MM3 (4.00-5.30); RED CELL DISTRIBUTION WIDTH 17.4 % (11.6-17.2); WHITE BLOOD COUNT 7.5 TH/MM3 (4.0-11.0)
[2017-04-10] MEDS: ARTIFICIAL TEARS OPTH SOLN 15 ML BTL EACH EYE SCH ×3 (05:19→21:37)
[2017-04-10] MEDS: FREE WATER G-TUBE SCH ×4 (05:20→17:28)
[2017-04-10] MEDS: cloNIDine HCL 0.2 MG TAB PO SCH ×3 (05:25→21:37)
[2017-04-10] MEDS: PROPRANOLOL HCL 10 MG TAB PO SCH ×3 (05:25→21:37)
[2017-04-10 05:43] LABS: ALBUMIN 1.7 GM/DL (3.4-5.0); ALT (GPT) 14 U/L (10-53); AST (GOT) 14 U/L (15-37); BICARBONATE 31.4 MEQ/L (21.0-32.0); BLOOD UREA NITROGEN 5 MG/DL (7-18); CALCIUM 7.8 MG/DL (8.5-10.1); CHLORIDE 108 MEQ/L (98-107); GLOMERULAR FILTRATION RATE 188 ML/MIN (>89); GLUCOSE,RANDOM 149 MG/DL (74-106); SODIUM (NA) 143 MEQ/L (136-145)
[2017-04-10 05:46] LABS: ALKALINE PHOSPHATASE 227 U/L (45-117); TOTAL BILIRUBIN ADULT 0.1 MG/DL (0.2-1.0); TOTAL PROTEIN 6.8 GM/DL (6.4-8.2)
--- NOTE | 2017-04-10 05:53 | RADRPT ---
EXAM DATE/TIME: 04/10/2017 05:23 [facility] COMPARISON: CHEST SINGLE AP, April 09, 2017, 5:12. INDICATIONS : Shortness of breath. MEDICAL HISTORY : Diabetes mellitus type I. Sickle Cell disease SURGICAL HISTORY : None. ENCOUNTER: Subsequent ACUITY: 1 month PAIN SCORE: Non-responsive. LOCATION: Bilateral chest FINDINGS: There is tracheostomy tube placed. There is a PICC line placed from the right arm. The heart size is normal. There bilateral mild to moderate pleural effusions. There is diffuse increased interstitial m arkings present. Multiple right-sided rib fractures are seen. CONCLUSION: Diffuse increase interstitial markings likely related to edema. There are bilateral pleural effusions being greater on the right. Von Simmons MD on April 10, 2017 at 5:50 Board Certified Radiologist. This report was verified electronically.
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
[2017-04-10] MEDS: CHLORHEXIDINE 0.12% (ORAL KIT) 15 ML CUP MT SCH ×2 (08:33→20:00)
[2017-04-10] MEDS: LISINOPRIL 20 MG TAB PO SCH (08:34)
[2017-04-10] MEDS: VANCOMYCIN 500 MG VIAL (FOR ORAL USE ONLY) PO SCH ×2 (08:34→12:36)
[2017-04-10] MEDS: FAMOTIDINE 20 MG TAB PO SCH ×2 (08:34→20:46)
[2017-04-10] MEDS: DOCUSATE SODIUM 100 MG/10 ML UDC PO SCH ×2 (08:34→20:46)
[2017-04-10] MEDS: VALPROIC ACID SYRUP 250 MG/5 ML UDC PO SCH ×2 (08:34→12:36)
[2017-04-10] MEDS: INSULIN DETEMIR 100 UNITS/ML VIAL SQ SCH ×2 (08:35→20:48)
[2017-04-10] MEDS: SODIUM CHLORIDE 0.9% FLUSH 10 ML FLUSH IV FLUSH SCH (08:35)
[2017-04-10] MEDS: QUEtiapine FUMARATE 25 MG TAB PO SCH ×3 (08:50→20:46)
[2017-04-10] MEDS: ENOXAPARIN SODIUM 80 MG/0.8 ML SYRINGE SQ SCH ×2 (10:26→21:37)
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
[2017-04-10] MEDS: MORPHINE SULFATE 2 MG/ML INJ IV PUSH PRN (13:38)
--- NOTE | 2017-04-10 13:55 | PD.RAD ---
Post CT Procedure Prog Note Pre Procedure Diagnosis: (1) Hemothorax, right Post Procedure Diagnosis: (1) Hemothorax, right Procedure Date: Apr 10, 2017 Supervising Radiologist: Von Hampton Estimated blood loss: none Anesthesia: Local Plan of Activity Patient to Unit: ROPU Patient Condition: Good See PACS Report for procedural detail/treatment Drainage Procedure Procedure 1 Imaging Guidance: CT Side: Right Procedure Type: Thoracentesis Fluid Removal (CCs): 250 Fluid Description: Clear, Yellow Plan return to unit. Von Hampton MD Apr 10, 2017 13:55
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
--- NOTE | 2017-04-10 14:44 | RADRPT ---
EXAM DATE/TIME: 04/10/2017 13:14 INDICATIONS : Right pleural fluid DEVICE(S): 1.) 6 Fr [id number] FLUID: Total volume of 250 cc of pink fluid was removed. Fluid was discarded. MEDICAL HISTORY : Diabetes mellitus type 1. SURGICAL HISTORY : None. ENCOUNTER: Initial ACUITY: 1 day PAIN SCORE: Non-responsive LOCATION: Right chest PROCEDURE: 1. CT guided right thoracentesis. The site was prepped in sterile fashion. Full sterile technique was used, including cap, mask, steri le gloves and gown and a large sterile sheet. Hand hygiene and 2% chlorhexidine and/or betadine/alco hol prep was utilized per protocol for cutaneous antisepsis. The skin and subcutaneous tissues were infiltrated with local anesthetic solution. Using automated exposure control and adjustment of the mA and/or kV according to patient size, radiation dose was kept as low as reasonably achievable to obta in optimal diagnostic quality images. DICOM format image data is available electronically for review and comparison. With the patient supine on the CT table, supervisor chemical images were obtained through the chest demonstrating t he small right pleural effusion. Dermatotomy was made and the prescribed catheter was advanced into the pleural fluid. The pleural fluid as above was removed from the hemithorax. Post procedural scan demonstrates complete evacuation of the pleural fluid with no pneumothorax. The patient tolerated the procedure well and there were no complications. EKG and oximetry remained s table throughout the procedure. The patient was sent to recovery in stable condition. CONCLUSION: Uncomplicated CT-guided right thoracentesis. Von Hampton MD on April 10, 2017 at 14:41 Board Certified Radiologist. This report was verified electronically.
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
[2017-04-11] VITALS (18 sets, daily range): BP systolic 108–197; BP diastolic 72–96; PULSE 77–114; RESP 16–24; TEMP 98.2–99.3; O2SAT 100
[2017-04-11] MEDS: FREE WATER G-TUBE SCH ×4 (00:22→18:00)
[2017-04-11 03:47] LABS: AUTOMATED NEUTROPHIL # 5.2 TH/MM3 (1.8-7.7); BASOPHIL # 0.1 TH/MM3 (0-0.2); BASOPHIL % 0.6 % (0.0-2.0); EOSINOPHIL # 0.1 TH/MM3 (0-0.4); EOSINOPHIL % 1.1 % (0.0-4.0); HEMATOCRIT 25.3 % (35.0-46.0); HEMOGLOBIN 8.2 GM/DL (11.6-15.3); LYMPHOCYTE # 2.6 TH/MM3 (1.0-4.8); MEAN CELL VOLUME 87.5 FL (80.0-100.0); MEAN CORPUSCULAR HEMOGLOBIN 28.3 PG (27.0-34.0); MEAN CORPUSCULAR HGB CONC 32.4 % (32.0-36.0); MEAN PLATELET VOLUME 7.9 FL (7.0-11.0); MONO % 17.9 % (0.0-8.0); MONOCYTE # 1.8 TH/MM3 (0-0.9); NEUT % 53.4 % (16.0-70.0); PLATELET COUNT 450 TH/MM3 (150-450); RED BLOOD COUNT 2.89 MIL/MM3 (4.00-5.30); RED CELL DISTRIBUTION WIDTH 18.9 % (11.6-17.2); WHITE BLOOD COUNT 9.8 TH/MM3 (4.0-11.0)
[2017-04-11 04:14] LABS: ALBUMIN 1.9 GM/DL (3.4-5.0); ALT (GPT) 13 U/L (10-53); AST (GOT) 14 U/L (15-37); BICARBONATE 26.8 MEQ/L (21.0-32.0); BLOOD UREA NITROGEN 7 MG/DL (7-18); CALCIUM 7.9 MG/DL (8.5-10.1); CHLORIDE 106 MEQ/L (98-107); CREATININE 0.54 MG/DL (0.50-1.00); GLOMERULAR FILTRATION RATE 172 ML/MIN (>89); GLUCOSE,RANDOM 149 MG/DL (74-106); SODIUM (NA) 140 MEQ/L (136-145)
[2017-04-11 04:16] LABS: ALKALINE PHOSPHATASE 245 U/L (45-117); TOTAL BILIRUBIN ADULT 0.2 MG/DL (0.2-1.0); TOTAL PROTEIN 7.4 GM/DL (6.4-8.2)
[2017-04-11] MEDS: INSULIN ASPART SUPPLEMENTAL SCALE SQ SCH ×6 (04:50→20:00)
[2017-04-11] MEDS: oxyCODONE HCL ORAL CONC 5 MG/0.25 ML SYRINGE PEG PRN ×2 (04:51→19:46)
[2017-04-11] MEDS: RESP: ALBUTEROL 2.5 MG/IPRATROPIUM 0.5 MG NEB (SCH) NEB ×4 (05:00→20:08)
[2017-04-11] MEDS: cloNIDine HCL 0.2 MG TAB PO SCH ×3 (05:48→21:33)
[2017-04-11] MEDS: PROPRANOLOL HCL 10 MG TAB PO SCH ×3 (05:48→21:33)
[2017-04-11] MEDS: ARTIFICIAL TEARS OPTH SOLN 15 ML BTL EACH EYE SCH ×3 (05:49→21:33)
[2017-04-11] MEDS: CHLORHEXIDINE 0.12% (ORAL KIT) 15 ML CUP MT SCH ×2 (08:13→19:57)
[2017-04-11] MEDS: QUEtiapine FUMARATE 25 MG TAB PO SCH ×3 (08:14→21:32)
[2017-04-11] MEDS: FAMOTIDINE 20 MG TAB PO SCH ×2 (08:14→21:32)
[2017-04-11] MEDS: INSULIN DETEMIR 100 UNITS/ML VIAL SQ SCH ×2 (08:14→21:00)
[2017-04-11] MEDS: DOCUSATE SODIUM 100 MG/10 ML UDC PO SCH ×2 (08:14→21:31)
[2017-04-11] MEDS: LISINOPRIL 20 MG TAB PO SCH (08:14)
[2017-04-11] MEDS: SODIUM CHLORIDE 0.9% FLUSH 10 ML FLUSH IV FLUSH SCH (08:15)
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
[2017-04-11] MEDS: ENOXAPARIN SODIUM 80 MG/0.8 ML SYRINGE SQ SCH ×2 (11:26→21:32)
[2017-04-11] MEDS: MORPHINE SULFATE 2 MG/ML INJ IV PUSH PRN ×2 (12:04→17:14)
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
[2017-04-11] MEDS: HALOPERIDOL LACTATE 5 MG/ML AMP IV PUSH PRN (18:04)
--- NOTE | 2017-04-11 22:29 | RADRPT ---
EXAM DATE/TIME: 04/11/2017 22:10 [facility] COMPARISON: CT CERVICAL SPINE W/O CONTRAST, March 07, 2017, 17:09. INDICATIONS : Trauma, follow up C1 fracture. RADIATION DOSE: 42.99 CTDIvol (mGy) MEDICAL HISTORY : Non-responsive. SURGICAL HISTORY : Non-responsive. ENCOUNTER: Initial ACUITY: 1 day PAIN SCALE: Non-responsive LOCATION: neck TECHNIQUE: Volumetric scanning of the cervical spine was performed. Multiplanar reconstructions in the sagittal, coronal and oblique axial planes were performed. Using automated exposure control and adjustment o f the mA and/or kV according to patient size, radiation dose was kept as low as reasonably achievable to obtain optimal diagnostic quality images. DICOM format image data is available electronically f or review and comparison. FINDINGS: The appearance of the cervical spine is stable from the prior examination. Again seen is a basilar sk ull fracture that extends through the clivus as well as both occipital condyles. Minimal callus forma tion is seen at the clival component. There is a fracture through the lateral mass on the left of C1. This does not extend through the foramen transversarium. There is mild blurring of the lines of the fracture consistent with some component of healing. No significant diastases of the fracture fragment s observed. The C1 ring remains intact. The remaining cervical spine is unremarkable. No other fractu res observed. Central canal remains patent as do the neural foramina. Tracheostomy tube noted. CONCLUSION: 1. Stable exam with a basilar skull fracture and C1 fracture with subtle signs of some healing. No ne w fracture is appreciated. William Nicholson Jr., MD on April 11, 2017 at 22:22 Board Certified Radiologist. This report was verified electronically.
[2017-04-12] VITALS (18 sets, daily range): BP systolic 108–125; BP diastolic 59–90; PULSE 79–97; RESP 16–28; TEMP 97.5–98.9; O2SAT 100
[2017-04-12] MEDS: INSULIN ASPART SUPPLEMENTAL SCALE SQ SCH ×6 (04:00→20:00)
[2017-04-12] MEDS: RESP: ALBUTEROL 2.5 MG/IPRATROPIUM 0.5 MG NEB (SCH) NEB ×2 (04:07→09:28)
[2017-04-12 04:48] LABS: AUTOMATED NEUTROPHIL # 5.6 TH/MM3 (1.8-7.7); BASOPHIL % 0.5 % (0.0-2.0); EOSINOPHIL # 0.2 TH/MM3 (0-0.4); EOSINOPHIL % 1.8 % (0.0-4.0); HEMATOCRIT 24.5 % (35.0-46.0); HEMOGLOBIN 8.1 GM/DL (11.6-15.3); LYMPH % 20.6 % (9.0-44.0); MEAN CELL VOLUME 86.9 FL (80.0-100.0); MEAN CORPUSCULAR HEMOGLOBIN 28.8 PG (27.0-34.0); MEAN CORPUSCULAR HGB CONC 33.1 % (32.0-36.0); MEAN PLATELET VOLUME 7.8 FL (7.0-11.0); MONO % 18.8 % (0.0-8.0); MONOCYTE # 1.8 TH/MM3 (0-0.9); NEUT % 58.3 % (16.0-70.0); PLATELET COUNT 393 TH/MM3 (150-450); RED BLOOD COUNT 2.82 MIL/MM3 (4.00-5.30); RED CELL DISTRIBUTION WIDTH 18.9 % (11.6-17.2); WHITE BLOOD COUNT 9.6 TH/MM3 (4.0-11.0)
[2017-04-12 05:08] LABS: ALBUMIN 1.9 GM/DL (3.4-5.0); ALT (GPT) 11 U/L (10-53); AST (GOT) 13 U/L (15-37); BICARBONATE 24.5 MEQ/L (21.0-32.0); BLOOD UREA NITROGEN 7 MG/DL (7-18); CALCIUM 7.9 MG/DL (8.5-10.1); CHLORIDE 106 MEQ/L (98-107); CREATININE 0.51 MG/DL (0.50-1.00); GLOMERULAR FILTRATION RATE 184 ML/MIN (>89); GLUCOSE,RANDOM 198 MG/DL (74-106); SODIUM (NA) 139 MEQ/L (136-145)
[2017-04-12 05:10] LABS: ALKALINE PHOSPHATASE 245 U/L (45-117); TOTAL BILIRUBIN ADULT 0.2 MG/DL (0.2-1.0); TOTAL PROTEIN 7.3 GM/DL (6.4-8.2)
[2017-04-12] MEDS: ARTIFICIAL TEARS OPTH SOLN 15 ML BTL EACH EYE SCH ×3 (05:30→22:00)
[2017-04-12] MEDS: PROPRANOLOL HCL 10 MG TAB PO SCH ×3 (05:30→22:05)
[2017-04-12] MEDS: FREE WATER G-TUBE SCH ×4 (05:30→17:33)
[2017-04-12] MEDS: cloNIDine HCL 0.2 MG TAB PO SCH ×3 (06:00→22:00)
[2017-04-12] MEDS: oxyCODONE HCL ORAL CONC 5 MG/0.25 ML SYRINGE PEG PRN ×3 (06:14→20:36)
[2017-04-12] MEDS: QUEtiapine FUMARATE 25 MG TAB PO SCH ×3 (08:00→20:35)
[2017-04-12] MEDS: CHLORHEXIDINE 0.12% (ORAL KIT) 15 ML CUP MT SCH ×2 (08:00→20:00)
[2017-04-12] MEDS: LISINOPRIL 20 MG TAB PO SCH (08:21)
[2017-04-12] MEDS: FAMOTIDINE 20 MG TAB PO SCH ×2 (08:21→20:36)
[2017-04-12] MEDS: INSULIN DETEMIR 100 UNITS/ML VIAL SQ SCH ×2 (08:22→21:00)
[2017-04-12] MEDS: DOCUSATE SODIUM 100 MG/10 ML UDC PO SCH ×2 (09:00→20:35)
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
[2017-04-12] MEDS: ENOXAPARIN SODIUM 80 MG/0.8 ML SYRINGE SQ SCH ×2 (11:10→22:05)
[2017-04-12] MEDS: SODIUM CHLORIDE 0.9% FLUSH 10 ML FLUSH IV FLUSH SCH (11:15)
[2017-04-12] MEDS: LORazepam 0.5 MG TAB PO PRN (13:30)
[2017-04-12] MEDS: RESP: ALBUTEROL 2.5 MG/3 ML NEB (PRN) NEB (16:43)
[2017-04-13] VITALS (18 sets, daily range): BP systolic 114–128; BP diastolic 61–87; PULSE 76–102; RESP 16–26; TEMP 97.5–99.1; O2SAT 100
[2017-04-13] MEDS: INSULIN ASPART SUPPLEMENTAL SCALE SQ SCH ×6 (04:00→20:00)
[2017-04-13 04:18] LABS: AUTOMATED NEUTROPHIL # 6.2 TH/MM3 (1.8-7.7); BASOPHIL # 0.1 TH/MM3 (0-0.2); BASOPHIL % 0.9 % (0.0-2.0); EOSINOPHIL # 0.2 TH/MM3 (0-0.4); EOSINOPHIL % 2.1 % (0.0-4.0); HEMATOCRIT 25.8 % (35.0-46.0); HEMOGLOBIN 8.5 GM/DL (11.6-15.3); LYMPH % 23.3 % (9.0-44.0); LYMPHOCYTE # 2.4 TH/MM3 (1.0-4.8); MEAN CELL VOLUME 86.8 FL (80.0-100.0); MEAN CORPUSCULAR HEMOGLOBIN 28.6 PG (27.0-34.0); MEAN CORPUSCULAR HGB CONC 32.9 % (32.0-36.0); MEAN PLATELET VOLUME 7.7 FL (7.0-11.0); MONO % 14.2 % (0.0-8.0); MONOCYTE # 1.5 TH/MM3 (0-0.9); NEUT % 59.5 % (16.0-70.0); PLATELET COUNT 408 TH/MM3 (150-450); RED BLOOD COUNT 2.97 MIL/MM3 (4.00-5.30); WHITE BLOOD COUNT 10.4 TH/MM3 (4.0-11.0)
[2017-04-13 04:42] LABS: AST (GOT) 18 U/L (15-37); BICARBONATE 25.8 MEQ/L (21.0-32.0); BLOOD UREA NITROGEN 7 MG/DL (7-18); CHLORIDE 106 MEQ/L (98-107); CREATININE 0.55 MG/DL (0.50-1.00); GLOMERULAR FILTRATION RATE 169 ML/MIN (>89); GLUCOSE,RANDOM 262 MG/DL (74-106); SODIUM (NA) 138 MEQ/L (136-145)
[2017-04-13] MEDS: LORazepam 0.5 MG TAB PO PRN ×2 (04:44→20:06)
[2017-04-13 04:45] LABS: ALKALINE PHOSPHATASE 241 U/L (45-117); ALT (GPT) 16 U/L (10-53); TOTAL BILIRUBIN ADULT 0.2 MG/DL (0.2-1.0); TOTAL PROTEIN 7.6 GM/DL (6.4-8.2)
[2017-04-13] MEDS: oxyCODONE HCL ORAL CONC 5 MG/0.25 ML SYRINGE PEG PRN ×2 (05:35→08:28)
--- NOTE | 2017-04-13 05:52 | RADRPT ---
EXAM DATE/TIME: 04/13/2017 04:49 [facility] COMPARISON: CHEST SINGLE AP, April 11, 2017, 10:03. INDICATIONS : Evaluate for pneumonia- Respiratory failure MEDICAL HISTORY : Diabetes mellitus type I. Sickle cell SURGICAL HISTORY : None. ENCOUNTER: Subsequent ACUITY: 1 month PAIN SCORE: Non-responsive. LOCATION: Bilateral chest FINDINGS: Stable tracheostomy and right PICC line. Persistent left lower lobe airspace disease and trace associ ated pleural effusion. Stable mild right lung base airspace disease. Cardiomediastinal contours are w ithin normal limits. Remainder of the exam is unchanged. CONCLUSION: 1. Stable left lower lobe airspace disease and associated small left pleural effusion. 2. Stable minimal right lung base airspace disease. 3. No significant interval change. Venu Ferrari MD on April 13, 2017 at 5:49 Board Certified Radiologist. This report was verified electronically.
[2017-04-13] MEDS: FREE WATER G-TUBE SCH ×4 (06:00→18:00)
[2017-04-13] MEDS: ARTIFICIAL TEARS OPTH SOLN 15 ML BTL EACH EYE SCH ×3 (06:00→22:00)
[2017-04-13] MEDS: PROPRANOLOL HCL 10 MG TAB PO SCH ×3 (06:38→22:05)
[2017-04-13] MEDS: cloNIDine HCL 0.2 MG TAB PO SCH ×3 (06:38→22:05)
[2017-04-13] MEDS: LISINOPRIL 20 MG TAB PO SCH (08:18)
[2017-04-13] MEDS: DOCUSATE SODIUM 100 MG/10 ML UDC PO SCH ×2 (08:19→21:00)
[2017-04-13] MEDS: FAMOTIDINE 20 MG TAB PO SCH ×2 (08:19→22:05)
[2017-04-13] MEDS: INSULIN DETEMIR 100 UNITS/ML VIAL SQ SCH ×2 (08:21→21:00)
[2017-04-13] MEDS: SODIUM CHLORIDE 0.9% FLUSH 10 ML FLUSH IV FLUSH SCH (08:22)
[2017-04-13] MEDS: QUEtiapine FUMARATE 25 MG TAB PO SCH ×3 (08:28→22:05)
[2017-04-13] MEDS: ENOXAPARIN SODIUM 80 MG/0.8 ML SYRINGE SQ SCH ×2 (08:29→22:06)
[2017-04-13] MEDS: CHLORHEXIDINE 0.12% (ORAL KIT) 15 ML CUP MT SCH ×2 (08:29→20:00)
[2017-04-13] MEDS ORDERED: oxyCODONE HCL ORAL CONC 5 MG/0.25 ML SYRINGE PEG PRN (10:15)
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
[2017-04-13] MEDS: RESP: ALBUTEROL 2.5 MG/3 ML NEB (PRN) NEB (17:31)
[2017-04-13] MEDS ORDERED: PILL SPLITTER OTHER PRN (18:45)
[2017-04-13] MEDS ORDERED: SIMETHICONE SUSP DROPS 40 MG/0.6 ML 30 ML BTL PEG SCH (21:00)
[2017-04-13] MEDS: SIMETHICONE 80 MG CHEWABLE TAB PEG SCH (22:05)
[2017-04-14] VITALS (18 sets, daily range): BP systolic 103–126; BP diastolic 59–93; PULSE 74–98; RESP 16–35; TEMP 96.8–99; O2SAT 100
[2017-04-14] MEDS: oxyCODONE HCL ORAL CONC 5 MG/0.25 ML SYRINGE PO PRN ×2 (03:13→09:23)
[2017-04-14] MEDS: INSULIN ASPART SUPPLEMENTAL SCALE SQ SCH ×6 (04:00→21:54)
[2017-04-14 04:40] LABS: AUTOMATED NEUTROPHIL # 5.1 TH/MM3 (1.8-7.7); BASOPHIL # 0.1 TH/MM3 (0-0.2); EOSINOPHIL # 0.2 TH/MM3 (0-0.4); EOSINOPHIL % 2.3 % (0.0-4.0); HEMATOCRIT 26.2 % (35.0-46.0); HEMOGLOBIN 8.6 GM/DL (11.6-15.3); LYMPH % 23.3 % (9.0-44.0); MEAN CELL VOLUME 86.5 FL (80.0-100.0); MEAN CORPUSCULAR HEMOGLOBIN 28.4 PG (27.0-34.0); MEAN CORPUSCULAR HGB CONC 32.8 % (32.0-36.0); MEAN PLATELET VOLUME 7.8 FL (7.0-11.0); MONOCYTE # 1.2 TH/MM3 (0-0.9); NEUT % 59.4 % (16.0-70.0); PLATELET COUNT 419 TH/MM3 (150-450); RED BLOOD COUNT 3.03 MIL/MM3 (4.00-5.30); RED CELL DISTRIBUTION WIDTH 19.7 % (11.6-17.2); WHITE BLOOD COUNT 8.7 TH/MM3 (4.0-11.0)
[2017-04-14 05:01] LABS: ALBUMIN 2.1 GM/DL (3.4-5.0); AST (GOT) 17 U/L (15-37); BICARBONATE 21.8 MEQ/L (21.0-32.0); BLOOD UREA NITROGEN 7 MG/DL (7-18); CALCIUM 8.6 MG/DL (8.5-10.1); CHLORIDE 103 MEQ/L (98-107); CREATININE 0.57 MG/DL (0.50-1.00); GLOMERULAR FILTRATION RATE 162 ML/MIN (>89); GLUCOSE,RANDOM 297 MG/DL (74-106); SODIUM (NA) 136 MEQ/L (136-145)
[2017-04-14 05:03] LABS: ALT (GPT) 13 U/L (10-53)
[2017-04-14 05:06] LABS: ALKALINE PHOSPHATASE 249 U/L (45-117); TOTAL BILIRUBIN ADULT 0.2 MG/DL (0.2-1.0)
[2017-04-14] MEDS: cloNIDine HCL 0.2 MG TAB PO SCH ×3 (05:19→22:01)
[2017-04-14] MEDS: PROPRANOLOL HCL 10 MG TAB PO SCH ×3 (05:19→22:02)
[2017-04-14] MEDS: FREE WATER G-TUBE SCH ×4 (05:19→18:00)
[2017-04-14] MEDS: ARTIFICIAL TEARS OPTH SOLN 15 ML BTL EACH EYE SCH ×3 (05:19→22:02)
[2017-04-14] MEDS: CHLORHEXIDINE 0.12% (ORAL KIT) 15 ML CUP MT SCH ×2 (08:00→20:50)
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
[2017-04-14] MEDS: DOCUSATE SODIUM 100 MG/10 ML UDC PO SCH ×2 (09:00→20:51)
[2017-04-14] MEDS: ENOXAPARIN SODIUM 80 MG/0.8 ML SYRINGE SQ SCH ×2 (09:23→22:02)
[2017-04-14] MEDS: FAMOTIDINE 20 MG TAB PO SCH ×2 (09:23→20:52)
[2017-04-14] MEDS: SIMETHICONE 80 MG CHEWABLE TAB PEG SCH ×4 (09:24→20:51)
[2017-04-14] MEDS: INSULIN DETEMIR 100 UNITS/ML VIAL SQ SCH ×2 (09:24→20:52)
[2017-04-14] MEDS: LISINOPRIL 20 MG TAB PO SCH (09:24)
[2017-04-14] MEDS: SODIUM CHLORIDE 0.9% FLUSH 10 ML FLUSH IV FLUSH SCH (09:25)
[2017-04-14] MEDS: QUEtiapine FUMARATE 25 MG TAB PO SCH ×2 (09:30→17:01)
[2017-04-14] MEDS: LORazepam 0.5 MG TAB PO PRN (10:46)
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
[2017-04-14] MEDS: ALPRAZolam 0.25 MG TAB PO PRN (16:34)
[2017-04-14] MEDS: VALPROIC ACID SYRUP 250 MG/5 ML UDC PO SCH (18:49)
[2017-04-14] MEDS: QUEtiapine FUMARATE 100 MG TAB PO SCH (20:52)
[2017-04-15] VITALS (17 sets, daily range): BP systolic 105–125; BP diastolic 56–67; PULSE 96–117; RESP 20–33; TEMP 97.8–100; O2SAT 100
[2017-04-15] MEDS: FREE WATER G-TUBE SCH ×4 (00:37→17:42)
[2017-04-15 02:56] LABS: AUTOMATED NEUTROPHIL # 5.5 TH/MM3 (1.8-7.7); BASOPHIL # 0.1 TH/MM3 (0-0.2); BASOPHIL % 1.2 % (0.0-2.0); EOSINOPHIL # 0.5 TH/MM3 (0-0.4); EOSINOPHIL % 4.4 % (0.0-4.0); HEMATOCRIT 29.9 % (35.0-46.0); HEMOGLOBIN 10.1 GM/DL (11.6-15.3); LYMPH % 28.3 % (9.0-44.0); LYMPHOCYTE # 2.9 TH/MM3 (1.0-4.8); MEAN CELL VOLUME 86.5 FL (80.0-100.0); MEAN CORPUSCULAR HEMOGLOBIN 29.2 PG (27.0-34.0); MEAN CORPUSCULAR HGB CONC 33.7 % (32.0-36.0); MEAN PLATELET VOLUME 7.9 FL (7.0-11.0); MONO % 13.2 % (0.0-8.0); MONOCYTE # 1.4 TH/MM3 (0-0.9); NEUT % 52.9 % (16.0-70.0); PLATELET COUNT 453 TH/MM3 (150-450); RED BLOOD COUNT 3.46 MIL/MM3 (4.00-5.30); RED CELL DISTRIBUTION WIDTH 19.6 % (11.6-17.2); WHITE BLOOD COUNT 10.4 TH/MM3 (4.0-11.0)
[2017-04-15 03:15] LABS: ALBUMIN 2.3 GM/DL (3.4-5.0); ALKALINE PHOSPHATASE 265 U/L (45-117); ALT (GPT) 16 U/L (10-53); AST (GOT) 20 U/L (15-37); BICARBONATE 26.5 MEQ/L (21.0-32.0); BLOOD UREA NITROGEN 8 MG/DL (7-18); CALCIUM 8.6 MG/DL (8.5-10.1); CHLORIDE 107 MEQ/L (98-107); CREATININE 0.46 MG/DL (0.50-1.00); GLOMERULAR FILTRATION RATE 207 ML/MIN (>89); GLUCOSE,RANDOM 162 MG/DL (74-106); SODIUM (NA) 140 MEQ/L (136-145); TOTAL BILIRUBIN ADULT 0.2 MG/DL (0.2-1.0); TOTAL PROTEIN 8.6 GM/DL (6.4-8.2)
[2017-04-15] MEDS: cloNIDine HCL 0.2 MG TAB PO SCH ×3 (05:05→21:59)
[2017-04-15] MEDS: HALOPERIDOL LACTATE 5 MG/ML AMP IV PUSH PRN (05:05)
[2017-04-15] MEDS: PROPRANOLOL HCL 10 MG TAB PO SCH ×3 (05:05→22:04)
[2017-04-15] MEDS: INSULIN ASPART SUPPLEMENTAL SCALE SQ SCH ×6 (05:28→22:05)
[2017-04-15] MEDS: ARTIFICIAL TEARS OPTH SOLN 15 ML BTL EACH EYE SCH ×3 (06:40→22:06)
[2017-04-15] MEDS: CHLORHEXIDINE 0.12% (ORAL KIT) 15 ML CUP MT SCH ×2 (08:00→20:00)
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
[2017-04-15] MEDS: SODIUM CHLORIDE 0.9% FLUSH 10 ML FLUSH IV FLUSH SCH (09:00)
[2017-04-15] MEDS: DOCUSATE SODIUM 100 MG/10 ML UDC PO SCH ×2 (09:00→21:00)
[2017-04-15] MEDS: SIMETHICONE 80 MG CHEWABLE TAB PEG SCH ×4 (09:07→21:59)
[2017-04-15] MEDS: FAMOTIDINE 20 MG TAB PO SCH ×2 (09:08→21:59)
[2017-04-15] MEDS: VALPROIC ACID SYRUP 250 MG/5 ML UDC PO SCH ×3 (09:08→17:42)
[2017-04-15] MEDS: LISINOPRIL 20 MG TAB PO SCH (09:08)
[2017-04-15] MEDS: INSULIN DETEMIR 100 UNITS/ML VIAL SQ SCH ×2 (09:09→22:00)
[2017-04-15] MEDS: ALPRAZolam 0.25 MG TAB PO PRN (09:10)
[2017-04-15] MEDS: ENOXAPARIN SODIUM 80 MG/0.8 ML SYRINGE SQ SCH ×2 (09:11→21:59)
[2017-04-15] MEDS: QUEtiapine FUMARATE 25 MG TAB PO SCH ×2 (10:15→14:51)
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
[2017-04-15] MEDS: traMADol HCL 50 MG TAB PO PRN (14:50)
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
[2017-04-15] MEDS: QUEtiapine FUMARATE 100 MG TAB PO SCH (22:04)
[2017-04-16] VITALS (14 sets, daily range): BP systolic 97–118; BP diastolic 52–74; PULSE 93–113; RESP 16–30; TEMP 98.7–99.5; O2SAT 100
[2017-04-16] MEDS: FREE WATER G-TUBE SCH ×4 (00:41→17:36)
[2017-04-16] MEDS: INSULIN ASPART SUPPLEMENTAL SCALE SQ SCH ×6 (00:42→20:10)
[2017-04-16] MEDS: PROPRANOLOL HCL 10 MG TAB PO SCH ×3 (05:36→23:31)
[2017-04-16] MEDS: cloNIDine HCL 0.2 MG TAB PO SCH ×3 (05:36→22:00)
[2017-04-16] MEDS: ARTIFICIAL TEARS OPTH SOLN 15 ML BTL EACH EYE SCH ×3 (05:37→23:31)
[2017-04-16] MEDS: ALPRAZolam 0.25 MG TAB PO PRN ×2 (05:53→20:42)
[2017-04-16 06:12] LABS: HEMATOCRIT 30.5 % (35.0-46.0); HEMOGLOBIN 10.2 GM/DL (11.6-15.3); MEAN CELL VOLUME 86.9 FL (80.0-100.0); MEAN CORPUSCULAR HEMOGLOBIN 29.1 PG (27.0-34.0); MEAN CORPUSCULAR HGB CONC 33.5 % (32.0-36.0); MEAN PLATELET VOLUME 7.3 FL (7.0-11.0); PLATELET COUNT 454 TH/MM3 (150-450); RED BLOOD COUNT 3.51 MIL/MM3 (4.00-5.30); WHITE BLOOD COUNT 8.8 TH/MM3 (4.0-11.0)
[2017-04-16] MEDS: CHLORHEXIDINE 0.12% (ORAL KIT) 15 ML CUP MT SCH ×2 (08:00→20:09)
[2017-04-16] MEDS: QUEtiapine FUMARATE 25 MG TAB PO SCH ×2 (08:00→14:02)
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
[2017-04-16] MEDS: SIMETHICONE 80 MG CHEWABLE TAB PEG SCH ×4 (08:13→20:10)
[2017-04-16] MEDS: LISINOPRIL 20 MG TAB PO SCH (08:13)
[2017-04-16] MEDS: DOCUSATE SODIUM 100 MG/10 ML UDC PO SCH ×2 (08:13→20:15)
[2017-04-16] MEDS: FAMOTIDINE 20 MG TAB PO SCH ×2 (08:13→20:11)
[2017-04-16] MEDS: INSULIN DETEMIR 100 UNITS/ML VIAL SQ SCH ×2 (09:00→20:13)
[2017-04-16] MEDS: ENOXAPARIN SODIUM 80 MG/0.8 ML SYRINGE SQ SCH ×2 (10:09→23:31)
[2017-04-16] MEDS: VALPROIC ACID SYRUP 250 MG/5 ML UDC PO SCH ×3 (10:09→17:36)
[2017-04-16] MEDS: SODIUM CHLORIDE 0.9% FLUSH 10 ML FLUSH IV FLUSH SCH (11:29)
[2017-04-16] MEDS: QUEtiapine FUMARATE 100 MG TAB PO SCH (20:15)
[2017-04-17] VITALS (14 sets, daily range): BP systolic 117–133; BP diastolic 66–77; PULSE 100–122; RESP 20–29; TEMP 98.6–99.8; O2SAT 99–100
[2017-04-17] MEDS: INSULIN ASPART SUPPLEMENTAL SCALE SQ SCH ×7 (01:55→23:57)
[2017-04-17] MEDS: cloNIDine HCL 0.2 MG TAB PO SCH ×3 (05:39→21:11)
[2017-04-17] MEDS: PROPRANOLOL HCL 10 MG TAB PO SCH ×3 (05:46→21:12)
[2017-04-17] MEDS: FREE WATER G-TUBE SCH ×5 (05:47→23:57)
[2017-04-17] MEDS: ARTIFICIAL TEARS OPTH SOLN 15 ML BTL EACH EYE SCH ×3 (05:47→21:42)
[2017-04-17] MEDS: ALPRAZolam 0.25 MG TAB PO PRN ×2 (06:25→13:50)
[2017-04-17] MEDS: SIMETHICONE 80 MG CHEWABLE TAB PEG SCH ×4 (07:48→21:12)
[2017-04-17] MEDS: ACETAMINOPHEN 650 MG/20.3 ML UDC PO PRN (07:49)
[2017-04-17] MEDS: FAMOTIDINE 20 MG TAB PO SCH ×2 (07:50→21:12)
[2017-04-17] MEDS: LISINOPRIL 20 MG TAB PO SCH (07:50)
[2017-04-17] MEDS: VALPROIC ACID SYRUP 250 MG/5 ML UDC PO SCH ×3 (07:50→17:52)
[2017-04-17] MEDS: QUEtiapine FUMARATE 25 MG TAB PO SCH ×2 (07:50→12:00)
[2017-04-17] MEDS: INSULIN DETEMIR 100 UNITS/ML VIAL SQ SCH ×2 (07:51→21:42)
[2017-04-17] MEDS: SODIUM CHLORIDE 0.9% FLUSH 10 ML FLUSH IV FLUSH SCH (07:51)
[2017-04-17] MEDS: CHLORHEXIDINE 0.12% (ORAL KIT) 15 ML CUP MT SCH ×2 (08:00→20:00)
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
--- NOTE | 2017-04-17 10:06 | RADRPT ---
EXAM DATE/TIME: 04/17/2017 09:27 [facility] COMPARISON: WRIST RIGHT LIMITED(AP & LAT), March 26, 2017, 8:38. INDICATIONS : Evaluate right wrist fracture. MEDICAL HISTORY : None. SURGICAL HISTORY : ORIF right wrist. ORIF left ankle. ENCOUNTER: Subsequent ACUITY: 1 month PAIN SCORE: Non-responsive. LOCATION: Left ankle. FINDINGS: 2 views of the right wrist show orthopedic plates with multiple anchoring screws involving the distal radial and ulnar metadiaphyses. Both traverse comminuted fractures with good alignment noted. Some b lurring of the fracture margins. No callus formation. CONCLUSION: Orthopedic hardware in good position with some signs of healing. William Nicholson Jr., MD on April 17, 2017 at 10:02 Board Certified Radiologist. This report was verified electronically.
--- NOTE | 2017-04-17 10:09 | RADRPT ---
EXAM DATE/TIME: 04/17/2017 09:33 [facility] COMPARISON: ANKLE LEFT COMPLETE ([id number]), March 26, 2017, 8:33. INDICATIONS : Evaluate left ankle fracture. MEDICAL HISTORY : None. SURGICAL HISTORY : ORIF right wrist. ORIF left ankle. ENCOUNTER: Subsequent ACUITY: 1 month PAIN SCORE: Non-responsive. LOCATION: Left ankle. FINDINGS: 3 views of the left ankle reveal an orthopedic plate with multiple anchoring screws involving the lat eral margin of the distal fibular metadiaphysis. 2 anchoring screws in the distal tibial metaphysis. 2 screws are seen traversing the medial malleolus of the distal tibia. Good alignment seen at both fr acture sites. There is blurring of the fracture lines. Mild callus formation observed. No angulation or distraction. Fracture lines are still present. CONCLUSION: Orthopedic hardware with some signs of healing. Details given above. William Nicholson Jr., MD on April 17, 2017 at 10:04 Board Certified Radiologist. This report was verified electronically.
[2017-04-17] MEDS: ENOXAPARIN SODIUM 80 MG/0.8 ML SYRINGE SQ SCH ×2 (12:00→21:11)
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
--- NOTE | 2017-04-17 18:27 | HHI.CCPN ---
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 Zelaya MD Apr 17, 2017 18:27
[2017-04-17] MEDS: DOCUSATE SODIUM 100 MG/10 ML UDC PO SCH (21:00)
[2017-04-17] MEDS: QUEtiapine FUMARATE 100 MG TAB PO SCH (21:11)
[2017-04-18] VITALS (13 sets, daily range): BP systolic 103–127; BP diastolic 55–82; PULSE 95–125; RESP 20–27; TEMP 97–99.3; O2SAT 98–100
[2017-04-18] MEDS: cloNIDine HCL 0.2 MG TAB PO SCH ×3 (05:20→22:04)
[2017-04-18] MEDS: FREE WATER G-TUBE SCH ×3 (05:21→17:21)
[2017-04-18] MEDS: ARTIFICIAL TEARS OPTH SOLN 15 ML BTL EACH EYE SCH (05:21)
[2017-04-18] MEDS: INSULIN ASPART SUPPLEMENTAL SCALE SQ SCH ×5 (05:21→20:39)
[2017-04-18] MEDS: PROPRANOLOL HCL 10 MG TAB PO SCH (05:40)
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
[2017-04-18] MEDS: CHLORHEXIDINE 0.12% (ORAL KIT) 15 ML CUP MT SCH ×2 (08:40→19:57)
[2017-04-18] MEDS: QUEtiapine FUMARATE 25 MG TAB PO SCH ×2 (08:41→14:24)
[2017-04-18] MEDS: SIMETHICONE 80 MG CHEWABLE TAB PEG SCH ×4 (08:41→21:31)
[2017-04-18] MEDS: FAMOTIDINE 20 MG TAB PO SCH ×2 (08:41→19:45)
[2017-04-18] MEDS: LISINOPRIL 20 MG TAB PO SCH (08:41)
[2017-04-18] MEDS: VALPROIC ACID SYRUP 250 MG/5 ML UDC PO SCH ×3 (08:41→17:21)
[2017-04-18] MEDS: INSULIN DETEMIR 100 UNITS/ML VIAL SQ SCH ×2 (08:42→21:31)
[2017-04-18] MEDS: ENOXAPARIN SODIUM 80 MG/0.8 ML SYRINGE SQ SCH ×2 (08:42→22:04)
[2017-04-18] MEDS: DOCUSATE SODIUM 100 MG/10 ML UDC PO SCH (08:42)
[2017-04-18] MEDS: SODIUM CHLORIDE 0.9% FLUSH 10 ML FLUSH IV FLUSH SCH (08:43)
[2017-04-18] MEDS ORDERED: ARTIFICIAL TEARS OPTH SOLN 15 ML BTL EACH EYE PRN (15:00)
[2017-04-18] MEDS: traMADol HCL 50 MG TAB PO PRN ×2 (18:33→19:33)
[2017-04-18] MEDS: ALPRAZolam 0.25 MG TAB PO PRN (19:44)
[2017-04-18] MEDS: ACETAMINOPHEN 650 MG/20.3 ML UDC PO PRN (19:44)
[2017-04-18] MEDS: QUEtiapine FUMARATE 100 MG TAB PO SCH (21:30)
[2017-04-18] MEDS ORDERED: oxyCODONE/ACETAMINOPHEN 5 MG/325 MG TAB PO PRN (21:30)
[2017-04-19] VITALS (8 sets, daily range): BP systolic 101–129; BP diastolic 58–77; PULSE 76–124; RESP 15–23; TEMP 97.8–99.3; O2SAT 94–100
[2017-04-19 04:32] LABS: AUTOMATED NEUTROPHIL # 4.3 TH/MM3 (1.8-7.7); BASOPHIL % 0.6 % (0.0-2.0); EOSINOPHIL # 0.4 TH/MM3 (0-0.4); HEMATOCRIT 30.7 % (35.0-46.0); HEMOGLOBIN 10.4 GM/DL (11.6-15.3); LYMPH % 24.9 % (9.0-44.0); LYMPHOCYTE # 1.8 TH/MM3 (1.0-4.8); MEAN CELL VOLUME 84.5 FL (80.0-100.0); MEAN CORPUSCULAR HEMOGLOBIN 28.6 PG (27.0-34.0); MEAN CORPUSCULAR HGB CONC 33.8 % (32.0-36.0); MEAN PLATELET VOLUME 7.4 FL (7.0-11.0); MONO % 12.1 % (0.0-8.0); MONOCYTE # 0.9 TH/MM3 (0-0.9); NEUT % 57.4 % (16.0-70.0); PLATELET COUNT 389 TH/MM3 (150-450); RED BLOOD COUNT 3.64 MIL/MM3 (4.00-5.30); RED CELL DISTRIBUTION WIDTH 18.4 % (11.6-17.2); WHITE BLOOD COUNT 7.4 TH/MM3 (4.0-11.0)
[2017-04-19] MEDS: INSULIN ASPART SUPPLEMENTAL SCALE SQ SCH ×6 (04:32→20:00)
[2017-04-19 04:56] LABS: ALBUMIN 2.5 GM/DL (3.4-5.0); ALT (GPT) 14 U/L (10-53); AST (GOT) 17 U/L (15-37); BICARBONATE 27.8 MEQ/L (21.0-32.0); BLOOD UREA NITROGEN 9 MG/DL (7-18); CALCIUM 8.8 MG/DL (8.5-10.1); CHLORIDE 97 MEQ/L (98-107); CREATININE 0.59 MG/DL (0.50-1.00); GLOMERULAR FILTRATION RATE 156 ML/MIN (>89); GLUCOSE,RANDOM 260 MG/DL (74-106); SODIUM (NA) 133 MEQ/L (136-145)
[2017-04-19 04:59] LABS: ALKALINE PHOSPHATASE 241 U/L (45-117); TOTAL BILIRUBIN ADULT 0.2 MG/DL (0.2-1.0); TOTAL PROTEIN 8.4 GM/DL (6.4-8.2)
[2017-04-19] MEDS: FREE WATER G-TUBE SCH ×3 (06:00→12:00)
[2017-04-19] MEDS: cloNIDine HCL 0.2 MG TAB PO SCH ×3 (06:11→21:24)
[2017-04-19] MEDS: QUEtiapine FUMARATE 25 MG TAB PO SCH ×2 (08:12→14:00)
[2017-04-19] MEDS: SIMETHICONE 80 MG CHEWABLE TAB PEG SCH ×4 (08:13→21:00)
[2017-04-19] MEDS: VALPROIC ACID SYRUP 250 MG/5 ML UDC PO SCH ×2 (08:13→13:00)
[2017-04-19] MEDS: FAMOTIDINE 20 MG TAB PO SCH ×2 (08:13→21:23)
[2017-04-19] MEDS: LISINOPRIL 20 MG TAB PO SCH (08:13)
[2017-04-19] MEDS: INSULIN DETEMIR 100 UNITS/ML VIAL SQ SCH ×2 (08:14→21:00)
[2017-04-19] MEDS: SODIUM CHLORIDE 0.9% FLUSH 10 ML FLUSH IV FLUSH SCH (08:15)
[2017-04-19] MEDS: CHLORHEXIDINE 0.12% (ORAL KIT) 15 ML CUP MT SCH (08:15)
[2017-04-19] MEDS: ENOXAPARIN SODIUM 80 MG/0.8 ML SYRINGE SQ SCH ×2 (08:16→21:25)
[2017-04-19] MEDS: METHOCARBAMOL 500 MG TAB PO SCH ×2 (14:00→21:24)
[2017-04-19] MEDS ORDERED: LEVEMIR SQ (15:56)
[2017-04-19] MEDS ORDERED: NOVOLOGSS SQ (15:56)
[2017-04-19] MEDS ORDERED: Simethicone Chew PEG (15:56)
[2017-04-19] MEDS ORDERED: ENOX80P SQ (15:56)
[2017-04-19] MEDS ORDERED: ALPR.25 PO (15:56)
[2017-04-19] MEDS ORDERED: LISI-515 PO (15:56)
[2017-04-19] MEDS ORDERED: QUET1TAB8 PO (15:56)
[2017-04-19] MEDS ORDERED: TRAM50 PO (15:56)
[2017-04-19] MEDS ORDERED: METH500T3 PO (15:56)
--- NOTE | 2017-04-19 16:36 | HHI.CCPN ---
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 bed with Escal[place]-J collar in place. SKIN: Warm and dry. HEAD: Normocephalic. EYES: Pupils equal and round. No scleral icterus. No injection or drainage. ENT: No nasal bleeding or discharge. Mucous membranes pink and moist. NECK: Trachea midline. No JVD. GREEN CHAINER with [place] valve in place. CARDIOVASCULAR: Regular rate and rhythm. RESPIRATORY: No accessory muscle use. Clear to auscultation. Breath sounds equal bilaterally. GASTROINTESTINAL: Abdomen soft, non-tender, nondistended. + BS. PEG in LUQ- clamped. MUSCULOSKELETAL: Extremities without clubbing, cyanosis, or edema. MAEW. LLE soft splint in place. + perfused. RUE PICC line in place dressing C/D/I. NEUROLOGICAL: Awake and alert. Normal speech. Vascular Central Line Catheter Vascular Central Line Catheter: Yes Assessment to: Continue Date of Insertion: Apr 04, 2017 Line: PICC Side: Right Assessment and Plan Plan Skull fx involving bilateral condyles, Clivus fx, Concussion, Cerebral edema, C1 fx extending to the left transverse process Neurosurgery consulted Non-operative management Maintain [place] J collar 03/28: MRI Brain - Evolving ZENIA bilaterally Improving neurologically- A&O x3 Agitated behavior scale Neuropsychology consulted Agitation/anxiety medication: Valproic acid, Seroquel, Xanax BILATERAL rib fxs, Aspiration, BILATERAL pulmonary contusions, Respiratory failure, BILATERAL pleural effusions Supportive care 03/12: RIGHT CT inserted 03/14: RIGHT CT dislodged 03/20: CT guided RIGHT CT insertion (effusion) 03/21: Extubated, reintubated 03/26/17: GREEN CHAINER placement 03/27: RIGHT CT removed 03/27: LEFT CT placed (effusion) 04/06: LEFT CT removed 04/10: RIGHT thoracentesis (-250 ml) 04/16/17: Downsized GREEN CHAINER to #6 Shiley Pass[place] trials On RA PRN Duonebs Pain control OOB-PT and OT 04/13: CXR- stable Grade II liver lac Supportive care Hgb stable LFTS WNL RIGHT radius/ulna fx, OPEN LEFT tib/fib fx Orthopedics consulted 03/08: ORIF RIGHT radius and ulna, LEFT ankle I&D, ORIF trimalleolar fracture, ORIF LEFT ankle syndesmosis, closure of 6 cm laceration Pain control OOB- PT & OT NWB RUE, NWB LLE Cardiac arrest, Pulmonary embolism Cardiology consulted- signed off 03/22: Echo- RV strain and PA HTN 03/23: CTA - Extensive pulmonary emboli bilaterally Therapeutic Lovenox Neurology consulted- signed off C-diff Infectious dx consulted- signed off PO Vanco complete Type I DM ADA diet during the day- Pureed with honey thick Glucerna 1.5 @ 60mL/H from 10p-5a Levemir 10 units BID Accu-checks AC, HS- Medium SSI HTN Lisinopril 20mg QD Catapres 0.2mg PO q8h PRN Hydralazine Monitor BPs Plan of care d/w patient and RN at bedside. Owen following for possible fransisco bed as patient progresses. CM consulted to assist with DC planning. Patient is self-pay and patient's parents live out of state in [place]. Patient's mother would like her to come to [place] at discharge to stay with her. Zahra Ignacio Apr 19, 2017 16:36
[2017-04-19] MEDS: VALPROIC ACID 250 MG CAP PO SCH (18:00)
[2017-04-19] MEDS: CHLORHEXIDINE GLUCONATE 0.12% 15 ML CUP SWISH-SPIT SCH (21:23)
[2017-04-19] MEDS: QUEtiapine FUMARATE 100 MG TAB PO SCH (21:23)
[2017-04-20] VITALS (8 sets, daily range): BP systolic 92–120; BP diastolic 50–79; PULSE 108–134; RESP 18–26; TEMP 97.7–99.4; O2SAT 96–100
[2017-04-20] MEDS: cloNIDine HCL 0.2 MG TAB PO SCH ×3 (03:55→20:17)
[2017-04-20] MEDS: METHOCARBAMOL 500 MG TAB PO SCH ×3 (03:55→20:17)
[2017-04-20] MEDS: INSULIN ASPART SUPPLEMENTAL SCALE SQ SCH ×7 (04:57→23:37)
[2017-04-20] MEDS: traMADol HCL 50 MG TAB PO PRN ×3 (06:27→20:17)
[2017-04-20] MEDS: QUEtiapine FUMARATE 25 MG TAB PO SCH ×2 (08:00→14:00)
[2017-04-20] MEDS: CHLORHEXIDINE GLUCONATE 0.12% 15 ML CUP SWISH-SPIT SCH ×2 (08:48→20:17)
[2017-04-20] MEDS: LISINOPRIL 20 MG TAB PO SCH (08:49)
[2017-04-20] MEDS: FAMOTIDINE 20 MG TAB PO SCH ×2 (08:49→20:17)
[2017-04-20] MEDS: SIMETHICONE 80 MG CHEWABLE TAB PEG SCH ×4 (08:49→20:17)
[2017-04-20] MEDS: SODIUM CHLORIDE 0.9% FLUSH 10 ML FLUSH IV FLUSH SCH (09:00)
[2017-04-20] MEDS: VALPROIC ACID 250 MG CAP PO SCH ×3 (09:00→17:54)
[2017-04-20] MEDS: INSULIN DETEMIR 100 UNITS/ML VIAL SQ SCH ×2 (09:00→21:00)
[2017-04-20] MEDS: ENOXAPARIN SODIUM 80 MG/0.8 ML SYRINGE SQ SCH ×2 (10:56→20:16)
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
[2017-04-20] MEDS ORDERED: HALOPERIDOL LACTATE 5 MG/ML AMP IM ONE (18:45)
[2017-04-20] MEDS: QUEtiapine FUMARATE 100 MG TAB PO SCH (20:17)
[2017-04-20] MEDS: ALPRAZolam 0.25 MG TAB PO PRN (23:08)
[2017-04-21] VITALS (9 sets, daily range): BP systolic 107–137; BP diastolic 56–83; PULSE 112–131; RESP 18–22; TEMP 96–99; O2SAT 97–100
[2017-04-21 02:17] LABS: AUTOMATED NEUTROPHIL # 2.6 TH/MM3 (1.8-7.7); BASOPHIL % 0.7 % (0.0-2.0); EOSINOPHIL # 0.8 TH/MM3 (0-0.4); EOSINOPHIL % 11.6 % (0.0-4.0); HEMATOCRIT 31.6 % (35.0-46.0); HEMOGLOBIN 10.7 GM/DL (11.6-15.3); LYMPH % 35.1 % (9.0-44.0); LYMPHOCYTE # 2.4 TH/MM3 (1.0-4.8); MEAN CELL VOLUME 84.6 FL (80.0-100.0); MEAN CORPUSCULAR HEMOGLOBIN 28.7 PG (27.0-34.0); MEAN CORPUSCULAR HGB CONC 33.9 % (32.0-36.0); MEAN PLATELET VOLUME 7.6 FL (7.0-11.0); MONO % 14.5 % (0.0-8.0); NEUT % 38.1 % (16.0-70.0); PLATELET COUNT 376 TH/MM3 (150-450); RED BLOOD COUNT 3.73 MIL/MM3 (4.00-5.30); WHITE BLOOD COUNT 6.7 TH/MM3 (4.0-11.0)
[2017-04-21 02:24] LABS: ALBUMIN 2.5 GM/DL (3.4-5.0); ALKALINE PHOSPHATASE 244 U/L (45-117); ALT (GPT) 15 U/L (10-53); AST (GOT) 21 U/L (15-37); BICARBONATE 31.5 MEQ/L (21.0-32.0); BLOOD UREA NITROGEN 6 MG/DL (7-18); CALCIUM 8.7 MG/DL (8.5-10.1); CHLORIDE 102 MEQ/L (98-107); CREATININE 0.51 MG/DL (0.50-1.00); GLOMERULAR FILTRATION RATE 184 ML/MIN (>89); GLUCOSE,RANDOM 129 MG/DL (74-106); MAGNESIUM 1.8 MG/DL (1.5-2.5); SODIUM (NA) 137 MEQ/L (136-145); TOTAL BILIRUBIN ADULT 0.2 MG/DL (0.2-1.0); TOTAL PROTEIN 8.4 GM/DL (6.4-8.2)
[2017-04-21] MEDS: traMADol HCL 50 MG TAB PO PRN ×2 (04:57→18:11)
[2017-04-21] MEDS: METHOCARBAMOL 500 MG TAB PO SCH ×3 (04:57→22:00)
[2017-04-21] MEDS: INSULIN ASPART SUPPLEMENTAL SCALE SQ SCH ×5 (05:12→22:30)
[2017-04-21] MEDS: ALPRAZolam 0.25 MG TAB PO PRN (05:56)
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
[2017-04-21] MEDS: SIMETHICONE 80 MG CHEWABLE TAB PEG SCH ×4 (08:30→22:00)
[2017-04-21] MEDS: CHLORHEXIDINE GLUCONATE 0.12% 15 ML CUP SWISH-SPIT SCH ×2 (08:30→22:00)
[2017-04-21] MEDS: FAMOTIDINE 20 MG TAB PO SCH ×2 (08:31→22:00)
[2017-04-21] MEDS: LISINOPRIL 20 MG TAB PO SCH (08:31)
[2017-04-21] MEDS: VALPROIC ACID 250 MG CAP PO SCH ×3 (08:31→16:19)
[2017-04-21] MEDS: SODIUM CHLORIDE 0.9% FLUSH 10 ML FLUSH IV FLUSH SCH (08:33)
[2017-04-21] MEDS: INSULIN DETEMIR 100 UNITS/ML VIAL SQ SCH ×2 (08:33→22:00)
[2017-04-21] MEDS: QUEtiapine FUMARATE 25 MG TAB PO SCH ×2 (08:49→13:09)
[2017-04-21] MEDS: ENOXAPARIN SODIUM 80 MG/0.8 ML SYRINGE SQ SCH ×2 (08:51→22:30)
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
[2017-04-21] MEDS: cloNIDine HCL 0.2 MG TAB PO SCH ×2 (13:03→22:00)
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
[2017-04-21] MEDS: QUEtiapine FUMARATE 100 MG TAB PO SCH (22:00)
[2017-04-22] VITALS (7 sets, daily range): BP systolic 100–110; BP diastolic 56–69; PULSE 79–119; RESP 16–20; TEMP 96.3–98.5; O2SAT 94–98
[2017-04-22] MEDS: INSULIN ASPART SUPPLEMENTAL SCALE SQ SCH ×6 (01:12→19:46)
[2017-04-22] MEDS: traMADol HCL 50 MG TAB PO PRN ×2 (01:28→19:53)
[2017-04-22] MEDS: cloNIDine HCL 0.2 MG TAB PO SCH ×5 (06:00→19:55)
[2017-04-22] MEDS: METHOCARBAMOL 500 MG TAB PO SCH ×3 (06:09→22:00)
[2017-04-22 06:27] LABS: HEMATOCRIT 30.7 % (35.0-46.0); HEMOGLOBIN 10.4 GM/DL (11.6-15.3); MEAN CORPUSCULAR HEMOGLOBIN 28.4 PG (27.0-34.0); MEAN CORPUSCULAR HGB CONC 33.8 % (32.0-36.0); MEAN PLATELET VOLUME 7.5 FL (7.0-11.0); PLATELET COUNT 357 TH/MM3 (150-450); RED BLOOD COUNT 3.65 MIL/MM3 (4.00-5.30); RED CELL DISTRIBUTION WIDTH 17.8 % (11.6-17.2); WHITE BLOOD COUNT 7.4 TH/MM3 (4.0-11.0)
[2017-04-22] MEDS ORDERED: WALKER WHEELS/F1 MIS (06:48)
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
[2017-04-22] MEDS: CHLORHEXIDINE GLUCONATE 0.12% 15 ML CUP SWISH-SPIT SCH ×2 (08:34→19:55)
[2017-04-22] MEDS: LISINOPRIL 20 MG TAB PO SCH (08:34)
[2017-04-22] MEDS: SIMETHICONE 80 MG CHEWABLE TAB PEG SCH ×4 (08:34→19:55)
[2017-04-22] MEDS: INSULIN DETEMIR 100 UNITS/ML VIAL SQ SCH ×2 (08:35→19:45)
[2017-04-22] MEDS: FAMOTIDINE 20 MG TAB PO SCH ×2 (08:35→19:55)
[2017-04-22] MEDS: VALPROIC ACID 250 MG CAP PO SCH ×3 (08:35→17:31)
[2017-04-22] MEDS: SODIUM CHLORIDE 0.9% FLUSH 10 ML FLUSH IV FLUSH SCH (08:36)
[2017-04-22] MEDS: QUEtiapine FUMARATE 25 MG TAB PO SCH ×2 (08:38→15:02)
[2017-04-22] MEDS: ENOXAPARIN SODIUM 80 MG/0.8 ML SYRINGE SQ SCH ×2 (10:51→22:00)
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
[2017-04-22] MEDS: QUEtiapine FUMARATE 100 MG TAB PO SCH (19:54)
[2017-04-23 00:04] VITALS: BP 103/60; PULSE 116; RESP 18; TEMP 99.1; O2SAT 96
[2017-04-23] MEDS: INSULIN ASPART SUPPLEMENTAL SCALE SQ SCH ×6 (01:26→20:00)
[2017-04-23 04:00] VITALS: BP 125/87; PULSE 114; RESP 18; TEMP 97.2; O2SAT 96
[2017-04-23] MEDS: traMADol HCL 50 MG TAB PO PRN (04:01)
[2017-04-23] MEDS: METHOCARBAMOL 500 MG TAB PO SCH ×3 (04:01→21:08)
[2017-04-23] MEDS: cloNIDine HCL 0.2 MG TAB PO SCH ×3 (04:01→21:07)
[2017-04-23 08:00] VITALS: BP 100/57; PULSE 93; RESP 17; TEMP 97.1; O2SAT 97
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
[2017-04-23] MEDS: SODIUM CHLORIDE 0.9% FLUSH 10 ML FLUSH IV FLUSH SCH (09:00)
[2017-04-23] MEDS: INSULIN DETEMIR 100 UNITS/ML VIAL SQ SCH (09:00)
[2017-04-23] MEDS: VALPROIC ACID 250 MG CAP PO SCH ×3 (09:31→18:13)
[2017-04-23] MEDS: CHLORHEXIDINE GLUCONATE 0.12% 15 ML CUP SWISH-SPIT SCH ×2 (09:31→21:13)
[2017-04-23] MEDS: LISINOPRIL 20 MG TAB PO SCH (09:32)
[2017-04-23] MEDS: SIMETHICONE 80 MG CHEWABLE TAB PEG SCH ×4 (09:32→21:07)
[2017-04-23] MEDS: FAMOTIDINE 20 MG TAB PO SCH ×2 (09:32→21:07)
[2017-04-23] MEDS: ENOXAPARIN SODIUM 80 MG/0.8 ML SYRINGE SQ SCH ×2 (09:33→21:08)
[2017-04-23 12:00] VITALS: BP 96/51; PULSE 108; RESP 17; TEMP 96.5; O2SAT 96
[2017-04-23] MEDS ORDERED: WHEEMIS3 (12:13)
[2017-04-23 16:00] VITALS: BP 114/59; PULSE 136; RESP 17; TEMP 95.6; O2SAT 98
[2017-04-23 20:00] VITALS: BP 112/64; PULSE 118; RESP 18; TEMP 96.6; O2SAT 97
[2017-04-23] MEDS: QUEtiapine FUMARATE 100 MG TAB PO SCH (21:08)
[2017-04-24] VITALS: BP 85/41; PULSE 109; PULSE 113; RESP 17; TEMP 97.7; O2SAT 96
[2017-04-24] MEDS: INSULIN DETEMIR 100 UNITS/ML VIAL SQ SCH ×3 (01:49→21:18)
[2017-04-24] MEDS ORDERED: SODIUM CHLOR 0.9% 1000 ML INJ 1,000 ML IV ONE (02:00)
[2017-04-24] MEDS: traMADol HCL 50 MG TAB PO PRN ×3 (03:17→16:53)
[2017-04-24] MEDS: METHOCARBAMOL 500 MG TAB PO SCH ×2 (04:24→12:04)
[2017-04-24] MEDS: INSULIN ASPART SUPPLEMENTAL SCALE SQ SCH ×6 (04:31→20:00)
[2017-04-24 05:15] VITALS: BP 111/55; PULSE 92; RESP 18; TEMP 97.9; O2SAT 98
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
[2017-04-24] MEDS: VALPROIC ACID 250 MG CAP PO SCH ×3 (08:46→21:13)
[2017-04-24] MEDS: LISINOPRIL 20 MG TAB PO SCH (08:46)
[2017-04-24] MEDS: FAMOTIDINE 20 MG TAB PO SCH ×2 (08:47→21:14)
[2017-04-24] MEDS: ENOXAPARIN SODIUM 80 MG/0.8 ML SYRINGE SQ SCH ×2 (08:47→21:17)
[2017-04-24] MEDS: QUEtiapine FUMARATE 25 MG TAB PO SCH (08:47)
[2017-04-24] MEDS: SIMETHICONE 80 MG CHEWABLE TAB PEG SCH ×4 (08:48→21:16)
[2017-04-24 08:59] VITALS: BP 122/56; PULSE 113; RESP 16; TEMP 96.8; O2SAT 100
[2017-04-24] MEDS: SODIUM CHLORIDE 0.9% FLUSH 10 ML FLUSH IV FLUSH SCH (09:00)
[2017-04-24] MEDS: CHLORHEXIDINE GLUCONATE 0.12% 15 ML CUP SWISH-SPIT SCH (09:00)
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
[2017-04-24 12:55] VITALS: BP 92/53; PULSE 107; RESP 15; TEMP 98.1; O2SAT 100
[2017-04-24] MEDS ORDERED: METH500T3 PO (13:19)
[2017-04-24 18:46] VITALS: BP 121/59; PULSE 113; RESP 18; TEMP 98.1; O2SAT 99
[2017-04-24 20:00] VITALS: BP 116/66; PULSE 112; RESP 18; TEMP 98.3; O2SAT 99
[2017-04-24] MEDS: QUEtiapine FUMARATE 100 MG TAB PO SCH (21:15)
[2017-04-25] VITALS (9 sets, daily range): BP systolic 110–135; BP diastolic 61–81; PULSE 106–135; RESP 18–20; TEMP 97.9–98.7; O2SAT 96–99
[2017-04-25] MEDS: INSULIN ASPART SUPPLEMENTAL SCALE SQ SCH ×6 (04:00→22:36)
[2017-04-25 06:40] LABS: HEMATOCRIT 29.6 % (35.0-46.0); HEMOGLOBIN 9.9 GM/DL (11.6-15.3); MEAN CELL VOLUME 84.6 FL (80.0-100.0); MEAN CORPUSCULAR HEMOGLOBIN 28.4 PG (27.0-34.0); MEAN CORPUSCULAR HGB CONC 33.6 % (32.0-36.0); MEAN PLATELET VOLUME 7.7 FL (7.0-11.0); PLATELET COUNT 385 TH/MM3 (150-450); RED CELL DISTRIBUTION WIDTH 17.3 % (11.6-17.2); WHITE BLOOD COUNT 5.5 TH/MM3 (4.0-11.0)
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
[2017-04-25] MEDS: SODIUM CHLORIDE 0.9% FLUSH 10 ML FLUSH IV FLUSH SCH (09:00)
[2017-04-25] MEDS: SIMETHICONE 80 MG CHEWABLE TAB PEG SCH ×4 (09:07→21:00)
[2017-04-25] MEDS: FAMOTIDINE 20 MG TAB PO SCH ×2 (09:07→22:37)
[2017-04-25] MEDS: VALPROIC ACID 250 MG CAP PO SCH ×2 (09:07→22:36)
[2017-04-25] MEDS: QUEtiapine FUMARATE 25 MG TAB PO SCH ×2 (09:07→22:37)
[2017-04-25] MEDS: INSULIN DETEMIR 100 UNITS/ML VIAL SQ SCH ×2 (09:08→22:36)
[2017-04-25] MEDS: ENOXAPARIN SODIUM 80 MG/0.8 ML SYRINGE SQ SCH ×2 (09:08→22:37)
[2017-04-25] MEDS: LISINOPRIL 20 MG TAB PO SCH (09:08)
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
[2017-04-25] MEDS: traMADol HCL 50 MG TAB PO PRN (12:36)
[2017-04-25] MEDS ORDERED: SERO25TA PO (12:50)
[2017-04-25] MEDS ORDERED: QUET1TAB8 PO (12:50)
[2017-04-26] VITALS: BP 132/82; PULSE 118; RESP 18; TEMP 98.8; O2SAT 97
[2017-04-26] MEDS: INSULIN ASPART SUPPLEMENTAL SCALE SQ SCH ×6 (03:36→21:39)
[2017-04-26 03:59] VITALS: BP 125/74; PULSE 124; RESP 16; TEMP 98.4; O2SAT 99
[2017-04-26 08:00] VITALS: BP 127/74; PULSE 115; RESP 16; TEMP 98.6; O2SAT 100
[2017-04-26] MEDS: SODIUM CHLORIDE 0.9% FLUSH 10 ML FLUSH IV FLUSH SCH (08:00)
[2017-04-26] MEDS: SIMETHICONE 80 MG CHEWABLE TAB PEG SCH ×4 (08:01→21:40)
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
[2017-04-26] MEDS: VALPROIC ACID 250 MG CAP PO SCH ×2 (08:02→21:40)
[2017-04-26] MEDS: FAMOTIDINE 20 MG TAB PO SCH ×2 (08:02→21:40)
[2017-04-26] MEDS: traMADol HCL 50 MG TAB PO PRN ×2 (08:02→21:38)
[2017-04-26] MEDS: QUEtiapine FUMARATE 25 MG TAB PO SCH ×2 (08:03→21:40)
[2017-04-26] MEDS: LISINOPRIL 20 MG TAB PO SCH (08:04)
[2017-04-26] MEDS: ENOXAPARIN SODIUM 80 MG/0.8 ML SYRINGE SQ SCH ×2 (09:35→21:40)
[2017-04-26] MEDS: INSULIN DETEMIR 100 UNITS/ML VIAL SQ SCH ×2 (09:36→21:39)
[2017-04-26 12:00] VITALS: BP 125/70; PULSE 123; RESP 17; TEMP 97.5; O2SAT 100
[2017-04-26] MEDS: ALPRAZolam 0.25 MG TAB PO PRN (12:03)
[2017-04-26 16:00] VITALS: BP 128/76; PULSE 108; RESP 17; TEMP 96.8; O2SAT 99
[2017-04-26 20:00] VITALS: BP 122/73; PULSE 131; PULSE 133; RESP 18; TEMP 98.9; O2SAT 96
[2017-04-27 00:22] VITALS: BP 118/64; PULSE 128; RESP 18; TEMP 98.7; O2SAT 96
[2017-04-27 04:07] VITALS: BP 113/66; PULSE 124; RESP 16; TEMP 97.7; O2SAT 98
[2017-04-27] MEDS: INSULIN ASPART SUPPLEMENTAL SCALE SQ SCH ×6 (05:25→21:58)
[2017-04-27 08:00] VITALS: BP 120/75; PULSE 127; RESP 15; TEMP 97.9; O2SAT 97
[2017-04-27] MEDS: SODIUM CHLORIDE 0.9% FLUSH 10 ML FLUSH IV FLUSH SCH (08:56)
[2017-04-27] MEDS: SIMETHICONE 80 MG CHEWABLE TAB PEG SCH ×4 (08:57→21:00)
[2017-04-27] MEDS: LISINOPRIL 20 MG TAB PO SCH (08:58)
[2017-04-27] MEDS: QUEtiapine FUMARATE 25 MG TAB PO SCH ×2 (08:58→21:59)
[2017-04-27] MEDS: VALPROIC ACID 250 MG CAP PO SCH ×2 (08:59→21:59)
[2017-04-27] MEDS: FAMOTIDINE 20 MG TAB PO SCH ×2 (08:59→21:59)
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
[2017-04-27] MEDS: INSULIN DETEMIR 100 UNITS/ML VIAL SQ SCH ×2 (09:00→21:59)
[2017-04-27] MEDS: ENOXAPARIN SODIUM 80 MG/0.8 ML SYRINGE SQ SCH ×2 (09:01→22:00)
[2017-04-27] MEDS: traMADol HCL 50 MG TAB PO PRN (11:41)
[2017-04-27 12:00] VITALS: BP 119/76; PULSE 121; RESP 16; TEMP 97.8; O2SAT 98
[2017-04-27 16:00] VITALS: BP 118/78; PULSE 128; RESP 17; TEMP 97.7; O2SAT 98
[2017-04-27 20:00] VITALS: BP 130/78; PULSE 125; PULSE 132; RESP 18; TEMP 98.2; O2SAT 97
[2017-04-28] VITALS (8 sets, daily range): BP systolic 125–134; BP diastolic 75–85; PULSE 121–156; RESP 18–20; TEMP 96.3–98.6; O2SAT 97–99
[2017-04-28] MEDS: INSULIN ASPART SUPPLEMENTAL SCALE SQ SCH ×6 (00:49→23:02)
[2017-04-28 06:06] LABS: HEMATOCRIT 32.2 % (35.0-46.0); HEMOGLOBIN 10.8 GM/DL (11.6-15.3); MEAN CELL VOLUME 83.7 FL (80.0-100.0); MEAN CORPUSCULAR HEMOGLOBIN 28.1 PG (27.0-34.0); MEAN CORPUSCULAR HGB CONC 33.6 % (32.0-36.0); MEAN PLATELET VOLUME 7.6 FL (7.0-11.0); PLATELET COUNT 576 TH/MM3 (150-450); RED BLOOD COUNT 3.85 MIL/MM3 (4.00-5.30); RED CELL DISTRIBUTION WIDTH 17.1 % (11.6-17.2); WHITE BLOOD COUNT 5.4 TH/MM3 (4.0-11.0)
--- NOTE | 2017-04-28 06:50 | PD.ORT.PN ---
Subjective Subjective Remarks Stable with no new changes Objective Vitals Vital Signs Date Time Temp Pulse Resp B/P (MAP) Pulse Ox O2 Delivery O2 Flow Rate FiO2 04/28/17 04:04 98.1 126 18 134/79 (97) 99 04/28/17 00:00 98.4 130 18 133/85 (101) 98 04/27/17 20:00 125 04/27/17 20:00 98.2 132 18 130/78 (95) 97 04/27/17 16:00 97.7 128 17 118/78 (91) 98 04/27/17 12:00 97.8 121 16 119/76 (90) 98 04/27/17 08:00 97.9 127 15 120/75 (90) 97 I/O 04/27/17 04/27/17 04/27/17 04/28/17 04/28/17 04/28/17 07:00 15:00 23:00 07:00 15:00 23:00 Intake Total 760 ml 840 ml 580 ml Balance 760 ml 840 ml 580 ml Intake Oral 760 ml 360 ml 580 ml Tube Feeding 480 ml # Voids 2 4 2 # Bowel Movements 2 Result Diagram: 04/28/17 0530 Imaging Last 24 hours Impressions Thoracic Spine CT 03/07/171707 Signed Impressions: Service Date/Time: Tuesday, March 07, 2017 17:18 - CONCLUSION: 1. Negative for acute traumatic injury within the thoracic spine. Jamie Myrick MD Pelvis X-Ray 03/07/171707 Signed Impressions: Service Date/Time: Tuesday, March 07, 2017 16:46 - CONCLUSION: Unremarkable Study. Ben Hamlin MD Maxillofacial CT 03/07/171707 Signed Impressions: Service Date/Time: Tuesday, March 07, 2017 17:09 - CONCLUSION: No acute bony fracture. Ben Hamlin MD Lumbar Spine CT 03/07/171707 Signed Impressions: Service Date/Time: Tuesday, March 07, 2017 17:18 - CONCLUSION: 1. Negative for acute traumatic injury in the lumbar spine. Jamie Myrick MD Head CT 03/07/171707 Signed Impressions: Service Date/Time: Tuesday, March 07, 2017 17:09 - CONCLUSION: 1. No acute intracranial hemorrhage within the brain. 2. Possible cerebral edema with effacement of the sulci bilaterally. 3. Fractures involving the occipital condyles and left lateral mass of C1.. Ben Hamlin MD Chest X-Ray 03/07/171707 Signed Impressions: Service Date/Time: Tuesday, March 07, 2017 16:46 - CONCLUSION: 1. Multiple right lateral rib fractures. 2. Motion artifact versus early atelectasis above the right hemidiaphragm. No obvious pneumothorax on this supine image. Efra Urias MD Chest CT 03/07/171707 Signed Impressions: Service Date/Time: Tuesday, March 07, 2017 17:18 - CONCLUSION: 1. There are infiltrates in the posterior lower lungs bilaterally. 2. No evidence of pneumothorax. 3. Multiple bilateral rib fractures. Ben Hamlin MD Cervical Spine CT 03/07/171707 Signed Impressions: Service Date/Time: Tuesday, March 07, 2017 17:09 - CONCLUSION: 1. There are fractures involving the base of the skull involving both occipital condyles. 2. There is a fracture involving the distal clivus which appears to be nondisplaced. 3. There is a fracture extending through the left lateral mass of C1 into the region of the left transverse process. However, the Vertebral foramina appears to be intact. 4. The rest of the cervical spine appears to be grossly intact. 1. Ben Hamlin MD Abdomen/Pelvis CT 03/07/171707 Signed Impressions: Service Date/Time: Tuesday, March 07, 2017 17:18 - CONCLUSION: 1. Low density lesions in liver suggestive of liver lacerations involving the left and right lobes of the liver. 2. Small amount of free fluid in the pelvis. 3. Multiple bilateral rib fractures. Ben Hamlin MD Objective Remarks Right upper extremity Dressing removed. Incision healing well. Good cap refills and distal pulses Right lower extremity Bandages over knee. No laxity or crepitus through range of motion of hip knee or ankle. Intact distal pulses Left lower extremity Dressing/splint in place, Mild swelling toes, Good capillary refill great toes. splint intact no drainage or breakdown at this point. Assessment & Plan Assessment and Plan Open left distal tibia and fibula fracture and closed right radial and ulnar shaft fractures. ORIF (03/08/2017) X-rays today for both right forearm and left ankle today Maintain splint left lower extremity NWB RUE and LLE OT for ROM of right UE PT may begin using platform walker Madhav Ding Jr. Apr 28, 2017 06:50
[2017-04-28] MEDS: traMADol HCL 50 MG TAB PO PRN (07:55)
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
[2017-04-28] MEDS: SIMETHICONE 80 MG CHEWABLE TAB PEG SCH ×4 (09:00→22:46)
[2017-04-28] MEDS: SODIUM CHLORIDE 0.9% FLUSH 10 ML FLUSH IV FLUSH SCH (09:00)
[2017-04-28] MEDS: INSULIN DETEMIR 100 UNITS/ML VIAL SQ SCH ×2 (09:00→22:50)
[2017-04-28] MEDS: VALPROIC ACID 250 MG CAP PO SCH (09:00)
--- NOTE | 2017-04-28 09:12 | RADRPT ---
EXAM DATE/TIME: 04/28/2017 07:57 [facility] COMPARISON: ANKLE LEFT COMPLETE ([id number]), April 17, 2017, 9:33. INDICATIONS : Follow-up left ankle fracture. MEDICAL HISTORY : Diabetes mellitus type 1. Sickle Cell disease. SURGICAL HISTORY : ORIF left ankle. ORIF right forearm. ENCOUNTER: Subsequent ACUITY: 2 months PAIN SCORE: 5/10 LOCATION: Left ankle. FINDINGS: Plate is bridging fibular fracture. Cortical lag screw medial malleolus. Anatomic alignment in fibe rglass. CONCLUSION: Anatomic alignment. 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 on April 28, 2017 at 9:09 Board Certified Radiologist. This report was verified electronically.
--- NOTE | 2017-04-28 09:12 | RADRPT ---
EXAM DATE/TIME: 04/28/2017 08:05 [facility] COMPARISON: No previous studies available for comparison. INDICATIONS : Follow-up right forearm fracture. MEDICAL HISTORY : Diabetes mellitus type I. Sickle Cell disease. SURGICAL HISTORY : ORIF left ankle. ORIF right forearm. ENCOUNTER: Subsequent ACUITY: 2 months PAIN SCORE: 0/10 LOCATION: Right forearm. FINDINGS: Plate with screws is seen bridging the fracture of the distal radius and ulna in anatomic alignment. CONCLUSION: Anatomic alignment. 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 on April 28, 2017 at 9:10 Board Certified Radiologist. This report was verified electronically.
[2017-04-28] MEDS: FAMOTIDINE 20 MG TAB PO SCH ×2 (09:19→22:45)
[2017-04-28] MEDS: LISINOPRIL 20 MG TAB PO SCH (09:19)
[2017-04-28] MEDS: METHOCARBAMOL 500 MG TAB PO PRN ×2 (09:19→22:46)
[2017-04-28] MEDS: ENOXAPARIN SODIUM 80 MG/0.8 ML SYRINGE SQ SCH ×2 (09:20→22:47)
[2017-04-28] MEDS: QUEtiapine FUMARATE 25 MG TAB PO SCH ×2 (09:20→22:46)
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
[2017-04-29] VITALS (7 sets, daily range): BP systolic 121–134; BP diastolic 73–83; PULSE 122–158; RESP 20; TEMP 97.2–98.5; O2SAT 95–99
[2017-04-29] MEDS: INSULIN ASPART SUPPLEMENTAL SCALE SQ SCH ×6 (02:21→21:13)
[2017-04-29] MEDS: METHOCARBAMOL 500 MG TAB PO PRN ×2 (07:06→20:06)
[2017-04-29] MEDS: INSULIN DETEMIR 100 UNITS/ML VIAL SQ SCH ×2 (08:50→20:10)
[2017-04-29] MEDS: QUEtiapine FUMARATE 25 MG TAB PO SCH ×2 (08:51→20:06)
[2017-04-29] MEDS: FAMOTIDINE 20 MG TAB PO SCH ×2 (08:51→20:06)
[2017-04-29] MEDS: LISINOPRIL 20 MG TAB PO SCH (08:51)
[2017-04-29] MEDS: SIMETHICONE 80 MG CHEWABLE TAB PEG SCH ×4 (09:00→20:06)
[2017-04-29] MEDS: ENOXAPARIN SODIUM 80 MG/0.8 ML SYRINGE SQ SCH ×2 (10:05→20:06)
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
[2017-04-30] VITALS: PULSE 127
[2017-04-30 00:53] VITALS: BP 124/75; PULSE 132; RESP 20; TEMP 97.7; O2SAT 96
[2017-04-30 04:00] VITALS: BP 130/92; PULSE 122; RESP 20; TEMP 97.7; O2SAT 97
[2017-04-30] MEDS: INSULIN ASPART SUPPLEMENTAL SCALE SQ SCH ×3 (05:03→08:00)
[2017-04-30 08:00] VITALS: BP 111/74; PULSE 132; RESP 18; TEMP 96.8; O2SAT 98
[2017-04-30] MEDS: FAMOTIDINE 20 MG TAB PO SCH (08:52)
[2017-04-30] MEDS: LISINOPRIL 20 MG TAB PO SCH (08:52)
[2017-04-30] MEDS: QUEtiapine FUMARATE 25 MG TAB PO SCH (08:52)
[2017-04-30] MEDS: INSULIN DETEMIR 100 UNITS/ML VIAL SQ SCH (08:54)
[2017-04-30] MEDS: SODIUM CHLORIDE 0.9% FLUSH 10 ML FLUSH IV FLUSH SCH (09:00)
[2017-04-30] MEDS: ALPRAZolam 0.25 MG TAB PO PRN (09:17)
[2017-04-30] MEDS: METHOCARBAMOL 500 MG TAB PO PRN (09:17)
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
== END 2017-04-30 09:27 | DRG 3 ==
LOC: NEPI 16:45 → MERGE 17:23 → EDBD 17:23 → NEDA 17:23 → N03A 17:48 → N07A 04-19 11:33
PROVIDERS: ADMIT Surgery; ATTEND Surgery
PROC: 06HM33Z Insertion of Infusion Device into Right Femoral Vein, Percutaneous Approach (ICD-10-PCS; 2017-03-07)
PROC: 0BH17EZ Insertion of Endotracheal Airway into Trachea, Via Natural or Artificial Opening (ICD-10-PCS; 2017-03-07)
PROC: 5A1945Z Respiratory Ventilation, 24-96 Consecutive Hours (ICD-10-PCS; 2017-03-07)
PROC: 0QHH04Z Insertion of Internal Fixation Device into Left Tibia, Open Approach (ICD-10-PCS; 2017-03-08)
PROC: 0PSH04Z Reposition Right Radius with Internal Fixation Device, Open Approach (ICD-10-PCS; 2017-03-08)
PROC: 0PSK04Z Reposition Right Ulna with Internal Fixation Device, Open Approach (ICD-10-PCS; 2017-03-08)
PROC: 0SSG04Z Reposition Left Ankle Joint with Internal Fixation Device, Open Approach (ICD-10-PCS; 2017-03-08)
PROC: 0QHK04Z Insertion of Internal Fixation Device into Left Fibula, Open Approach (ICD-10-PCS; principal; 2017-03-08 12:59)
PROC: 0BH18EZ Insertion of Endotracheal Airway into Trachea, Via Natural or Artificial Opening Endoscopic (ICD-10-PCS; 2017-03-09)
PROC: 5A1955Z Respiratory Ventilation, Greater than 96 Consecutive Hours (ICD-10-PCS; 2017-03-09)
PROC: 0W9930Z Drainage of Right Pleural Cavity with Drainage Device, Percutaneous Approach (ICD-10-PCS; 2017-03-20)
PROC: 5A1955Z Respiratory Ventilation, Greater than 96 Consecutive Hours (ICD-10-PCS; 2017-03-26)
PROC: 0BJ08ZZ Inspection of Tracheobronchial Tree, Via Natural or Artificial Opening Endoscopic (ICD-10-PCS; 2017-03-26)
PROC: 0DH63UZ Insertion of Feeding Device into Stomach, Percutaneous Approach (ICD-10-PCS; 2017-03-26)
PROC: 0B113F4 Bypass Trachea to Cutaneous with Tracheostomy Device, Percutaneous Approach (ICD-10-PCS; 2017-03-26 13:50)
PROC: 02HV33Z Insertion of Infusion Device into Superior Vena Cava, Percutaneous Approach (ICD-10-PCS; 2017-04-04)
PROC: 0W993ZZ Drainage of Right Pleural Cavity, Percutaneous Approach (ICD-10-PCS; 2017-04-10)
DX: S06.2X9A Diffuse traumatic brain injury with loss of consciousness of unspecified duration, initial encounter (principal); I26.99 Other pulmonary embolism without acute cor pulmonale; A41.9 Sepsis, unspecified organism; J90 Pleural effusion, not elsewhere classified; S36.114A Minor laceration of liver, initial encounter; J94.2 Hemothorax; S12.040A Displaced lateral mass fracture of first cervical vertebra, initial encounter for closed fracture; J18.9 Pneumonia, unspecified organism; I46.9 Cardiac arrest, cause unspecified; J96.01 Acute respiratory failure with hypoxia; E87.0 Hyperosmolality and hypernatremia; S27.322A Contusion of lung, bilateral, initial encounter; S22.43XA Multiple fractures of ribs, bilateral, initial encounter for closed fracture; A04.72 Enterocolitis due to Clostridium difficile, not specified as recurrent; S82.852B Displaced trimalleolar fracture of left lower leg, initial encounter for open fracture type I or II; S52.301A Unspecified fracture of shaft of right radius, initial encounter for closed fracture; S52.201A Unspecified fracture of shaft of right ulna, initial encounter for closed fracture; K56.7 Ileus, unspecified; I82.612 Acute embolism and thrombosis of superficial veins of left upper extremity; I82.622 Acute embolism and thrombosis of deep veins of left upper extremity; R56.9 Unspecified convulsions; S02.113A Unspecified occipital condyle fracture, initial encounter for closed fracture; S06.1X9A Traumatic cerebral edema with loss of consciousness of unspecified duration, initial encounter; D57.3 Sickle-cell trait; E10.649 Type 1 diabetes mellitus with hypoglycemia without coma; S93.432A Sprain of tibiofibular ligament of left ankle, initial encounter; I10 Essential (primary) hypertension; E83.39 Other disorders of phosphorus metabolism; E83.42 Hypomagnesemia; E86.0 Dehydration; I27.20 Pulmonary hypertension, unspecified; E87.70 Fluid overload, unspecified; E87.5 Hyperkalemia; E87.6 Hypokalemia; F02.80 Dementia in other diseases classified elsewhere, unspecified severity, without behavioral disturbance, psychotic disturbance, mood disturbance, and anxiety; V47.6XXA Car passenger injured in collision with fixed or stationary object in traffic accident, initial encounter; Y92.410 Unspecified street and highway as the place of occurrence of the external cause
CPT/HCPCS: 31500; 31600; 31624; 32555; 32557; 36430; 36556; 36569; 36600; 70450; 70486; 70551; 71010; 71045; 71250; 71260; 71275; 72125; 72129; 72132; 72141; 72170; 73090; 73100; 73600; 73610; 74018; 74176; 74177; 76000; 76705; 76937; 80048; 80053; 80076; 80164; 80202; 80307; 81001; 82140; 82150; 82272; 82435; 82565; 82805; 82945; 82947; 82948; 83036; 83605; 83615; 83690; 83735; 83986; 84100; 84132; 84155; 84157; 84295; 84443; 84484; 84520; 84702; 85007; 85014; 85018; 85025; 85027; 85610; 85730; 86403; 86850; 86900; 86901; 86920; 87015; 87040; 87070; 87086; 87102; 87116; 87186; 87205; 87206; 87493; 87640; 87641; 89051; 90471; 92950; 93005; 93306; 93971; 94002; 94003; 94640; 94664; 95819; 96374; 96375; 99291; A7520; A7521; C1713; C1729; C1769; G0390; J0131; J0171; J0330; J0360; J0461; J0610; J0690; J0696; J1100; J1170; J1450; J1580; J1630; J1642; J1644; J1650; J1815; J1817; J1940; J1953; J2020; J2060; J2248; J2250; J2270; J2370; J2405; J2543; J2765; J3010; J3370; J3475; J3480; J7030; J7040; J7042; J7050; J7060; J7120; J7613; L0150; L0172; L2114; P9016; Q9963; Q9967